=== PATIENT | female | born 1940 | race Caucasian/White ===

== ENCOUNTER 2017-11-21 10:43 | Inpatient (IN) ==
[2017-11-21 11:28] LABS: INR 1.2; Prothrombin Time 13.2 Seconds (9.4-12.1)
[2017-11-21 11:31] LABS: Activated Partial Thrombo Time 34.2 Seconds (26.0-36.0)
--- NOTE | 2017-11-21 11:38 | Emergency Department Note ---
Disposition Clinical Impression: Dyspnea Qualifiers: Dyspnea type: unspecified Qualified Code(s): R06.00 - Dyspnea, unspecified Disposition: Admitted As Inpatient Condition: Fair Referrals: Bronson Harris DO [Primary Care Provider] - Forms: ED Satisfaction Letter Time of Disposition: 15:31 SOB HPI - General Chief Complaint: ED Shortness of Breath/Dyspnea Stated Complaint: came from IR d/t SOB/ANGIE-possible need for IVF Time Seen by Provider: 11/21/17 11:35 Source: patient, family, other Mode of arrival: wheelchair Limitations: no limitations Nursing Notes Reviewed: Yes Vital Signs Reviewed: Yes - History of Present Illness 77-year-old who was recently diagnosed with what the family states is a possibility of 2 primary cancers 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 She was IR getting a port placed for a biopsy tomorrow of the kidney lesion. Patient has increasing shortness of breath that she has had for over a month. Progressively worse. Pt Subjective Complaint: shortness of breath, cough Onset (ago): week(s) (4) Context: recent illness Severity: moderate Consistency/Duration: intermittent Improves with: nothing Worsens with: exertion Known history of: other (Only diagnosed lesion on the liver and kidney) Associated symptoms: Reports: cough Treatment prior to arrival: none Cough Description: Involuntary Cough Frequency: Intermittent - Related Data Home Medications Medication Instructions Recorded Confirmed Aspirin [Lo-Dose Aspirin EC] 81 mg PO DAILY 09/23/17 10/21/17 Atenolol/Chlorthalidone [Tenoretic 1 each PO DAILY 09/23/17 10/21/17 50 Tablet] Calcium Carbonate [Calcium] 600 mg PO DAILY 09/23/17 10/21/17 Cholecalciferol (D-3) [Vitamin D] 1,000 unit PO DAILY 09/23/17 10/21/17 Multivitamin [Multivitamins] 1 each PO DAILY 09/23/17 10/21/17 Furosemide [Lasix] 20 mg PO 11/15/17 Oxycodone HCl [Oxycontin] 10 mg PO 11/15/17 Pantoprazole Sodium [Protonix] 40 mg PO 11/15/17 Previous Rx's Medication Instructions Recorded Clopidogrel [Plavix] 75 mg PO DAILY #30 tablet 09/24/17 Lidocaine/Prilocaine [Emla] 1 appl TP DAILY #30 gm 11/15/17 Promethazine [Phenergan] 25 mg PO Q6HR PRN #30 tablet 11/15/17 Allergies Allergy/AdvReac Type Severity Reaction Status Date / Time shellfish derived AdvReac Swelling Verified 11/21/17 10:46 of the Eye All systems ED: reviewed and negative except as stated. Constitutional: Denies: fever, chills, weakness, weight change Eyes: Denies: eye pain, eye discharge, vision change ENT ED: Denies: ear pain, throat pain, dental pain, hearing loss, epistaxis, congestion, dysphagia Cardiovascular: Denies: chest pain, palpitations, dyspnea on exertion, edema, syncope Respiratory: Reports: cough, dyspnea. Denies: wheezes, hemoptysis, stridor Gastrointestinal: Denies: abdominal pain, nausea, vomiting, diarrhea, constipation, hematemesis, melena, hematochezia Genitourinary: Denies: dysuria, frequency, hematuria, discharge Musculoskeletal: Denies: back pain, neck pain, arthralgia, myalgia Integumentary: Denies: rash, abrasion, lesions Neurological: Denies: headache, weakness, numbness, paresthesias, confusion, abnormal gait, vertigo Psychiatric: Denies: anxiety, depression, suicidal thoughts, homicidal thoughts , auditory hallucinations, visual hallucinations Endocrine: Denies: fatigue Hematological/Lymphatic: Denies: easy bleeding, easy bruising Allergic/Immunologic: Denies: facial swelling, urticaria Past Medical History - Past Medical History Medical history: Reports: cancer, diabetes, hyperlipidemia, hypertension, myocardial infarction Surgical history: Reports: cataract Psychiatric history: Reports: no psych history - Social History Smoking Status: Former smoker Smokeless Tobacco Status: No Alcohol use: Reports: none Drug use: Reports: none Physical Exam - General Limitations: no limitations General appearance: alert - Head Head exam: atraumatic, normocephalic, normal inspection - Eye Eye exam: Present: normal appearance, PERRL, EOMI - ENT ENT exam: normal exam, normal oropharynx, mucous membranes moist - Neck Neck exam: Present: normal inspection, full ROM, trachea midline - Chest Chest inspection: Present: normal inspection, symmetric chest wall rise - Respiratory Respiratory exam: Present: normal lung sounds bilaterally - Cardiovascular Cardiovascular exam: Present: regular rate, normal rhythm, normal heart sounds - Abdominal Exam Abdominal exam: Present: soft, Non-Tender. Absent: tenderness, distention, guarding, rebound, rigidity - Extremities Exam Extremities exam: Present: normal inspection, full ROM. Absent: tenderness, pedal edema - Expanded Lower Extremity Exam Neurovascular/Tendon exam: Absent: motor deficit, sensory deficit, tendon deficit Gait: observed and normal - Back Exam Back exam: Present: normal inspection, full ROM. Absent: tenderness - Neurological Exam Neurological exam: Present: alert, oriented X3 - Psychiatric Psychiatric exam: Present: normal affect, normal mood - Skin Skin exam: Present: warm, dry, intact, normal color Course - Reevaluation(s) Reevaluation #1: 77-year-old female whose been having increasing shortness of breath. Her troponin came back elevated at 0.30 she does have some mild renal insufficiency with a GFR 45. In light of her risk factors certainly a PE with strain is possible subarachnoid go ahead and do a CTA of her chest we did discuss that her creatinine is elevated and this contrast can cause damage to the kidneys but the benefits outweigh the risk. Time: 12:52 - Consultations Consultation #1: Discussed with , admit. Time: 15:30 Vital Signs O2 Sat by Pulse Oximetry 97 11/21/17 10:47 Temperature 98.1 F 11/21/17 10:48 Pulse Rate 77 11/21/17 14:34 Respiratory Rate 20 11/21/17 14:34 Blood Pressure 130/73 11/21/17 14:34 O2 Sat by Pulse Oximetry 94 11/21/17 14:34 Oxygen Delivery Oxygen Delivery Room Air Shortness of Breath/Dyspnea - Lab Data Lab results reviewed: Yes I reviewed the patient's lab results. Result diagrams: 11/21/17 11:46 11/21/17 11:07 Lab Results 11/21/17 11/21/17 11/21/17 Range/Units 11:07 11:07 11:07 WBC (4.3-11.1) K/mcL RBC (3.82-4.97) M/mcL Hgb (11.5-15.4) g/dL Hct (35.3-44.9) % MCV (83.0-100.0) fL MCH (28.0-33.3) pg MCHC (31.6-35.5) g/dL RDW (11.5-14.5) % Plt Count (140-400) K/mcL MPV (9.4-12.4) fL Immature Gran % (0-4) % Seg Neutrophils % % Lymphocytes % % Monocytes % % Eosinophils % % Basophils % % Neutrophils # (1.6-8.9) K/mcL Lymphocytes # (0.6-4.6) K/mcL Monocytes # (0.0-1.3) K/mcL Eosinophils # (0.0-0.6) K/mcL Basophils # (0.0-0.2) K/mcL PT 13.2 H (9.4-12.1) Seconds INR 1.2 APTT 34.2 (26.0-36.0) Seconds Sodium 143 (136-145) mEq/L Potassium 3.0 L (3.5-5.1) mEq/L Chloride 101 (98-107) mEq/L Carbon Dioxide 33 H (23-29) mEq/L BUN 20 (8-23) mg/dL Creatinine 1.18 (0.60-1.20) mg/dL Est GFR ( Amer) 54 L (> 60) Est GFR (Non-Af Amer) 45 L (> 60) BUN/Creatinine Ratio 17 (6-26) Glucose 121 H (70-105) mg/dL Calculated Osmolality 300 (280-300) Lactic Acid (0.5-2.2) mmol/L Calcium 9.4 (8.6-10.3) mg/dL Total Bilirubin 1.6 H (0.3-1.0) mg/dL AST 47 H (13-39) Units/L ALT 22 (7-52) Units/L Alkaline Phosphatase 65 (34-104) Units/L Troponin I 0.30 H* (< 0.04) ng/mL B-Natriuretic Peptide (Less than 100) pg/mL Serum Total Protein 6.4 (6.4-8.9) g/dL Albumin 3.3 L (3.5-5.7) g/dL Globulin 3.1 (2.4-3.5) g/dL Albumin/Globulin Ratio 1.1 (1.1-2.2) Specimen Rejected 11/21/17 11/21/17 11/21/17 Range/Units 11:07 11:27 11:29 WBC (4.3-11.1) K/mcL RBC (3.82-4.97) M/mcL Hgb (11.5-15.4) g/dL Hct (35.3-44.9) % MCV (83.0-100.0) fL MCH (28.0-33.3) pg MCHC (31.6-35.5) g/dL RDW (11.5-14.5) % Plt Count (140-400) K/mcL MPV (9.4-12.4) fL Immature Gran % (0-4) % Seg Neutrophils % % Lymphocytes % % Monocytes % % Eosinophils % % Basophils % % Neutrophils # (1.6-8.9) K/mcL Lymphocytes # (0.6-4.6) K/mcL Monocytes # (0.0-1.3) K/mcL Eosinophils # (0.0-0.6) K/mcL Basophils # (0.0-0.2) K/mcL PT (9.4-12.1) Seconds INR APTT (26.0-36.0) Seconds Sodium (136-145) mEq/L Potassium (3.5-5.1) mEq/L Chloride (98-107) mEq/L Carbon Dioxide (23-29) mEq/L BUN (8-23) mg/dL Creatinine (0.60-1.20) mg/dL Est GFR ( Amer) (> 60) Est GFR (Non-Af Amer) (> 60) BUN/Creatinine Ratio (6-26) Glucose (70-105) mg/dL Calculated Osmolality (280-300) Lactic Acid (0.5-2.2) mmol/L Calcium (8.6-10.3) mg/dL Total Bilirubin (0.3-1.0) mg/dL AST (13-39) Units/L ALT (7-52) Units/L Alkaline Phosphatase (34-104) Units/L Troponin I (< 0.04) ng/mL B-Natriuretic Peptide 429 H (Less than 100) pg/mL Serum Total Protein (6.4-8.9) g/dL Albumin (3.5-5.7) g/dL Globulin (2.4-3.5) g/dL Albumin/Globulin Ratio (1.1-2.2) Specimen Rejected Hemolyzed MCV Delta 11/21/17 11/21/17 Range/Units 11:46 12:03 WBC 6.2 (4.3-11.1) K/mcL RBC 3.73 L (3.82-4.97) M/mcL Hgb 11.6 (11.5-15.4) g/dL Hct 35.1 L (35.3-44.9) % MCV 94.1 D (83.0-100.0) fL MCH 31.1 (28.0-33.3) pg MCHC 33.0 (31.6-35.5) g/dL RDW 18.6 H (11.5-14.5) % Plt Count 161 (140-400) K/mcL MPV 11.9 (9.4-12.4) fL Immature Gran % 1.0 (0-4) % Seg Neutrophils % 66.0 % Lymphocytes % 15.7 % Monocytes % 16.8 % Eosinophils % 0.2 % Basophils % 0.3 % Neutrophils # 4.1 (1.6-8.9) K/mcL Lymphocytes # 1.0 (0.6-4.6) K/mcL Monocytes # 1.1 (0.0-1.3) K/mcL Eosinophils # 0.0 (0.0-0.6) K/mcL Basophils # 0.0 (0.0-0.2) K/mcL PT (9.4-12.1) Seconds INR APTT (26.0-36.0) Seconds Sodium (136-145) mEq/L Potassium (3.5-5.1) mEq/L Chloride (98-107) mEq/L Carbon Dioxide (23-29) mEq/L BUN (8-23) mg/dL Creatinine (0.60-1.20) mg/dL Est GFR ( Amer) (> 60) Est GFR (Non-Af Amer) (> 60) BUN/Creatinine Ratio (6-26) Glucose (70-105) mg/dL Calculated Osmolality (280-300) Lactic Acid 2.2 (0.5-2.2) mmol/L Calcium (8.6-10.3) mg/dL Total Bilirubin (0.3-1.0) mg/dL AST (13-39) Units/L ALT (7-52) Units/L Alkaline Phosphatase (34-104) Units/L Troponin I (< 0.04) ng/mL B-Natriuretic Peptide (Less than 100) pg/mL Serum Total Protein (6.4-8.9) g/dL Albumin (3.5-5.7) g/dL Globulin (2.4-3.5) g/dL Albumin/Globulin Ratio (1.1-2.2) Specimen Rejected - EKG Data EKG attestation: Yes I reviewed and interpreted this EKG. EKG shows normal: Reports: sinus rhythm Rate: Reports: normal Rhythm: Reports: NSR Interpretation: Reports: no acute changes
[2017-11-21 11:39] LABS: Albumin 3.3 g/dL (3.5-5.7); Albumin/Globulin Ratio 1.1 (1.1-2.2); Bilirubin,Total 1.6 mg/dL (0.3-1.0); Calcium 9.4 mg/dL (8.6-10.3); Globulin 3.1 g/dL (2.4-3.5); Total Protein 6.4 g/dL (6.4-8.9)
[2017-11-21 12:02] LABS: Basophils % 0.3 %; Eosinophils % 0.2 %; Hematocrit 35.1 % (35.3-44.9); Hemoglobin 11.6 g/dL (11.5-15.4); Lymphocytes % 15.7 %; Mean Corpuscular Hemoglobin 31.1 pg (28.0-33.3); Mean Corpuscular Volume 94.1 fL (83.0-100.0); Mean Platelet Volume 11.9 fL (9.4-12.4); Monocytes # 1.1 K/mcL (0.0-1.3); Monocytes % 16.8 %; Neutrophils # 4.1 K/mcL (1.6-8.9); Platelet Count 161 K/mcL (140-400); Red Blood Count 3.73 M/mcL (3.82-4.97); Red Cell Distribution Width 18.6 % (11.5-14.5)
[2017-11-21] MEDS ORDERED: 0.9 % Sodium Chloride 500 ML IVC ONE (13:39)
[2017-11-21] MEDS ORDERED: Furosemide 40 MG/4 ML VIAL IVP ONE (15:59)
[2017-11-21] MEDS ORDERED: Naloxone 0.4 MG/ML INJ IVP PRN (17:22)
[2017-11-21] MEDS ORDERED: Acetaminophen 325 MG TABLET PO PRN (17:22)
[2017-11-21] MEDS ORDERED: Potassium Chloride Elixir 20 MEQ/15 ML UDC PO ONE (17:25)
[2017-11-21] MEDS ORDERED: Nitroglycerin 0.4 MG TAB.SUBL SL PRN (17:25)
[2017-11-21] MEDS ORDERED: Dextrose Gel 15 GM/37.5 ML TUBE PO PRN ×2 (17:31)
[2017-11-21] MEDS ORDERED: *HR* Dextrose 50 % in Water (Syg) 50 ML SYRINGE IVP PRN (17:31)
[2017-11-21] MEDS ORDERED: D5% in Water 1,000 ML IVC PRN (17:31)
--- NOTE | 2017-11-21 17:36 | Internal Med History&Physical ---
Date of Encounter: 11/21/17 Time of Encounter: 17:33 Assessment and Plan (1) Elevated troponin Current visit: Yes Status: Acute Patient presents with worsening exertional dyspnea, pedal edema, generalized weakness, nausea and vomiting. Initial troponin noted to be 0.3. Previous troponin last month noted to be normal. EKG shows no acute ischemic changes. Aspirin and Plavix have been on hold for the last week for chemotherapy port placement and renal biopsy. Case discussed with cardiology - recommend to continue telemetry and trend troponins for now. Restart aspirin, hold off on anticoagulation. Received a dose of IV Lasix in the emergency room. We will continue oral Lasix at this time. CT angiogram of chest shows no evidence of acute infiltrates or pulmonary embolism. Echocardiogram from August 2017 shows preserved ejection fraction, moderate concentric LVH, mild left ventricular diastolic dysfunction. Plan of care explained to patient and her daughter at bedside. (2) Renal cell cancer Current visit: Yes Status: Suspected CT abdomen/pelvis from 11/01/2017 shows suspicious solid mass within the left kidney, would be primary renal cell cancer versus metastatic disease. Patient follows with oncology as outpatient, need to exclude metastatic disease from cholangiocarcinoma for appropriate treatment planning. Tentative plan for renal biopsy tomorrow if patient is clinically stable with negative troponins. Qualifiers: Laterality: left Qualified Code(s): C64.2 - Malignant neoplasm of left kidney, except renal pelvis (3) Essential hypertension Current visit: Yes Status: Chronic Blood pressure acceptable. Not noted to be on antihypertensives at home. Continue to monitor closely. (4) Diabetes mellitus Current visit: Yes Status: Chronic Not on medications at home. Continue Accu-Chek blood glucose monitoring with sliding scale insulin if needed. Diabetic diet. Qualifiers: Diabetes mellitus type: type 2 Diabetes mellitus complication status: with unspecified complications Diabetes mellitus senior living insulin use: without senior living use Qualified Code(s): E11.8 - Type 2 diabetes mellitus with unspecified complications (5) Coronary artery disease Current visit: Yes Status: Chronic Continue aspirin, hold Plavix for possible renal biopsy and chemotherapy port placement. Not noted to be on statin or beta reese at home. Follow-up cardiology consult. Qualifiers: Coronary Disease-Associated Artery/Lesion type: [place] artery [place] vs. transplanted heart: [place] heart Associated angina: without angina Qualified Code(s): I25.10 - Atherosclerotic heart disease of [place] coronary artery without angina pectoris (6) Chronic kidney disease Current visit: Yes Status: Suspected GFR is noted to be elevated since end of August, unclear if this is chronic kidney disease related to recent cardiac catheter and multiple CT scans. Continue to monitor serum creatinine, and avoid nephrotoxic agents. Qualifiers: Chronic kidney disease stage: stage 3 (moderate) Qualified Code(s): N18.3 - Chronic kidney disease, stage 3 (moderate) (7) Cholangiocarcinoma Current visit: Yes Status: Acute Follows with oncology as outpatient. Plan for renal biopsy to exclude metastatic cholangiocarcinoma, plan to start chemotherapy with gemcitabine and oxaliplatin from 11/28/2017. will consult inpatient oncology as needed. (8) Nausea and vomiting Current visit: Yes Status: Acute Unclear etiology. Could be related to underlying cancer versus coronary event. Continue supportive care with when necessary antiemetics and monitor clinically. Qualifiers: Vomiting type: bilious vomiting Qualified Code(s): R11.14 - Bilious vomiting (9) Hypokalemia Current visit: Yes Status: Acute due to diuretic-use, GI losses; replace with oral KCL, continue to monitor, check Mg; Internal Medicine - H&P: HPI Chief complaint: Shortness of breath Admitted From: Emergency Dept Plans for Post Hospital Care: Home History of present illness: Ms. Singletary is a 77 year old female with history of recently diagnosed cholangiocarcinoma and possible renal cell cancer, presents with complaints of shortness of breath. Patient presented to interventional radiology this morning to have chemotherapy port placed and also to have a kidney biopsy tomorrow. However, patient has been having persistent nausea, bilious nonbloody vomiting since yesterday associated with generalized weakness. She was too weak to walk in the radiology suite and she also became significantly short of breath and in respiratory distress. Patient is hard of hearing, history is also obtained from her daughter at bedside. Patient has been having 2-3 week history of exertional dyspnea and ankle and leg swelling and has been started on oral Lasix 2 weeks ago by her PCP. She also received coronary stent in August 2017 and has been placed on aspirin and Plavix since then, which were held since last week for kidney biopsy and port placement. She had recent hospitalization at [place] for acute anemia, underwent EGD and colonoscopy with no evidence of bleed. Past Med Surg Social Fam HX - Past Medical History Medical history: cancer, coronary artery disease, diabetes, hyperlipidemia, hypertension, myocardial infarction Psychiatric history: no psych history - Past Surgical History Surgical History: cataract, knee replacement (B/L TKR) - Social History Smoking Status: Former smoker Smokeless Tobacco Status: No Alcohol use: none Drug use: none Occupational status: retired Current living situation: Home, With Family Activity Level: Uses cane/walker Recent Out of Country Travel Within the Last 8 Weeks: No Exposure or Possible Exposure to Illness During Travel: No - Family History Brother Hx Family Endocrine Disorder: Yes (DM) Internal Medicine - H&P: Meds Aspirin [Lo-Dose Aspirin EC] 81 mg PO DAILY 09/23/17 [History] Cholecalciferol (D-3) [Vitamin D] 1,000 unit PO QPM 09/23/17 [History] Multivitamin [Multivitamins] 1 each PO QPM 09/23/17 [History] Clopidogrel [Plavix] 75 mg PO DAILY #30 tablet 09/24/17 [Rx] Furosemide [Lasix] 20 mg PO DAILY 11/15/17 [History] Pantoprazole Sodium [Protonix] 40 mg PO DAILY 11/15/17 [History] Promethazine [Phenergan] 25 mg PO Q6HR PRN #30 tablet 11/15/17 [Rx] Cyanocobalamin (Vitamin B-12) [Vitamin B-12] 100 mcg PO QPM 11/21/17 [History] Lidocaine/Prilocaine [Emla] 1 appl TP AD 11/21/17 [History] Nitroglycerin [Nitrostat] 0.4 mg SL Q5M PRN 11/21/17 [History] OxyCODONE Immed Rel [Roxicodone 10 MG] 10 mg PO TID PRN 11/21/17 [History] glipiZIDE [Glucotrol] 5 mg PO 0800 11/21/17 [History] 3 Allergy/AdvReac Type Severity Reaction Status Date / Time shellfish derived AdvReac Swelling Verified 11/21/17 10:46 of the Eye All Systems PM: A 10-system review of systems was performed and is negative for pertinent findings except as documented above in the HPI. - Constitutional Constitutional: malaise, weakness, no chills, no fever(s), no night sweats - EENT Eyes: no change in vision, no discharge, no pain, no photophobia Ears: no ear discharge, no ear pain, no tinnitus Nose, mouth and throat: no dysphagia, no nasal discharge, no neck pain, no sore throat - Cardiovascular Cardiovascular ROS IM: dyspnea, dyspnea on exertion, edema - Respiratory Respiratory: cough, dyspnea on exertion - Gastrointestinal Gastrointestinal: abdominal pain, nausea, vomiting - Genitourinary Genitourinary: no change in urinary stream, no dysuria, no flank pain, no hematuria - Musculoskeletal Musculoskeletal ROS IM: no numbness, no tingling - Integumentary Integumentary IM: no rash, no unusual bruising - Neurological Neurological ROS: no confusion, no convulsions, no focal weakness, no numbness, no tingling, no tremor(s) - Hematologic/Lymphatic Hematologic/Lymphatic: no easy bruising - Constitutional Vitals: Temp Pulse Resp BP Pulse Ox 98.1 F 75 24 107/86 96 11/21/17 10:48 11/21/17 16:30 11/21/17 17:25 11/21/17 17:25 11/21/17 16:30 General appearance: Present: A&O X 3 (hard of hearing), obese, answers questions appropriately - Respiratory Respiratory exam: Present: CTAB. Absent: accessory muscle use, rales, rhonchi, wheezes - Cardiovascular Cardiovascular exam: Present: RRR, +S1, +S2. Absent: diastolic murmur, gallop, rubs, systolic murmur - GI/Abdominal GI/Abdominal exam: Present: normal bowel sounds, soft (obese), no peritoneal signs. Absent: distended, tenderness - Extremities Exam Extremities exam: Present: full ROM, pedal edema (B/L 1+ ankle and lower leg edema), warm, radial pulses palpable and symmetrical. Absent: calf tenderness, cyanotic - Neurological Exam Neurological exam: Present: CN II-XII intact, oriented X3, no focal deficits. Absent: pronater drift, facial droop, speech deficit - Skin Skin exam: Present: dry, intact Internal Med - H&P Results - Labs CBC & Chem 7: 11/21/17 11:46 11/21/17 11:07 - EKG Data -: EKG Interpreted by Myself EKG shows normal: sinus rhythm Rate: normal
[2017-11-21] MEDS: Aspirin Enteric Coated 81 MG Tablet PO SCH (17:57)
[2017-11-21] MEDS ORDERED: VITAMIN B12 100 MCG PO SCH (18:00)
[2017-11-21] MEDS: Cholecalciferol (D-3) 1,000 UNIT TABLET PO SCH (18:07)
[2017-11-21] MEDS: Multivit/Ca/Min/Fe/FA 1 TAB TABLET PO SCH (18:08)
[2017-11-21] MEDS: Insulin LISPRO 300 UNITS/3 ML VIAL SQ SCH (22:47)
[2017-11-21] MEDS: *HR* Heparin 5,000 UNIT/ML VIAL SQ SCH (23:19)
[2017-11-22] MEDS: *HR* OxyCODONE Immed Rel 5 MG TABLET PO PRN ×2 (00:11→16:25)
[2017-11-22 07:26] LABS: Basophils % 0.6 %; Eosinophils % 0.6 %; Hematocrit 37.1 % (35.3-44.9); Hemoglobin 11.8 g/dL (11.5-15.4); Immature Granulocytes % 0.2 % (0-4); Lymphocytes # 1.4 K/mcL (0.6-4.6); Lymphocytes % 26.8 %; Mean Corpuscular HGB Conc 31.8 g/dL (31.6-35.5); Mean Corpuscular Volume 97.4 fL (83.0-100.0); Mean Platelet Volume 11.4 fL (9.4-12.4); Monocytes # 0.7 K/mcL (0.0-1.3); Monocytes % 14.7 %; Neutrophils # 2.9 K/mcL (1.6-8.9); Platelet Count 160 K/mcL (140-400); Red Blood Count 3.81 M/mcL (3.82-4.97); Red Cell Distribution Width 18.6 % (11.5-14.5); Segmented Neutrophils % 57.1 %
[2017-11-22 07:29] LABS: Magnesium 1.6 mg/dL (1.6-2.6); Potassium 3.3 mEq/L (3.5-5.1)
[2017-11-22] MEDS: Insulin LISPRO 300 UNITS/3 ML VIAL SQ SCH ×4 (07:40→22:11)
[2017-11-22] MEDS: Aspirin Enteric Coated 81 MG Tablet PO SCH (07:41)
[2017-11-22] MEDS: *HR* HYDROcodone/Acet 5/325 mg TABLET PO PRN ×2 (07:55→20:03)
[2017-11-22] MEDS: *HR* Heparin 5,000 UNIT/ML VIAL SQ SCH ×2 (07:55→16:26)
[2017-11-22] MEDS: Furosemide 20 MG TABLET PO SCH ×2 (07:55→16:25)
--- NOTE | 2017-11-22 08:10 | Cardiology Consult Note ---
Date of Encounter: 11/22/17 Time of Encounter: 08:06 Assessment and Plan (1) Elevated troponin Current Visit: Yes Status: Acute Likely atypical chest pain almost non cardiac worse with coughing. Euvolemic on exam yet SOB also likely non cardiac. Will obtain limited echo for EF to r/o RWMA. Unlikley to be stent thrombosis with non specific ekg, atypical chest pain and dontrending trops. ASA 81 mg daily if not contraindicated Plavix 75 mg daily when safe (hx of GI Bleed) Limited ECHO fo EF Discussion w patient/family: The assessment and plan as outlined above was discussed with the patient and/or family members who expressed understanding and agreement. All questions were answered. Thank you for involving us in the care of your patient. Please call with any questions. History of Present Illness Consult date: 11/22/17 Consult reason: Elevated troponins Chief complaint: Chest pain History of present illness: Ms. Singletary is a 77 year old female with hx of CAD (s/p Synergy stent in the proximal LAD), DM, HTN, RCC, Cholangiocarcinoma presents with weakness, nausea and chest pain. Her CP is atypical, worse with coughing and slightly positional. EKG is unremarkable as was CTA for PE or infiltrates. Currently she is still complaining of SOB, weakness laying flat in bed. No signs of hypervolemia on exam. Last EF 55% preserved on ECHO with moderate concentric hypertrophy. Initial trop .24 now at .20 indicating likely demand ischemia not stent thrombosis. Past Med Surg Social Fam HX - Past Medical History Medical history: cancer, coronary artery disease, diabetes, hyperlipidemia, hypertension, myocardial infarction Psychiatric history: no psych history - Past Surgical History Surgical History: cataract, knee replacement (B/L TKR) - Social History Smoking Status: Former smoker Smokeless Tobacco Status: No Alcohol use: none Drug use: none - Family History Mother Cause of : diptheria Father Hx Family Cancer: Yes (bone cancer) Brother Hx Family Endocrine Disorder: Yes (DM) Medications and Allergies Aspirin [Lo-Dose Aspirin EC] 81 mg PO DAILY 09/23/17 [History] Cholecalciferol (D-3) [Vitamin D] 1,000 unit PO QPM 09/23/17 [History] Multivitamin [Multivitamins] 1 each PO QPM 09/23/17 [History] Clopidogrel [Plavix] 75 mg PO DAILY #30 tablet 09/24/17 [Rx] Furosemide [Lasix] 20 mg PO DAILY 11/15/17 [History] Pantoprazole Sodium [Protonix] 40 mg PO DAILY 11/15/17 [History] Promethazine [Phenergan] 25 mg PO Q6HR PRN #30 tablet 11/15/17 [Rx] Cyanocobalamin (Vitamin B-12) [Vitamin B-12] 100 mcg PO QPM 11/21/17 [History] Lidocaine/Prilocaine [Emla] 1 appl TP AD 11/21/17 [History] Nitroglycerin [Nitrostat] 0.4 mg SL Q5M PRN 11/21/17 [History] OxyCODONE Immed Rel [Roxicodone 10 MG] 10 mg PO TID PRN 11/21/17 [History] glipiZIDE [Glucotrol] 5 mg PO 0800 11/21/17 [History] 3 Allergy/AdvReac Type Severity Reaction Status Date / Time shellfish derived AdvReac Swelling Verified 11/21/17 10:46 of the Eye All Systems Review: The remainder of the systems were reviewed and are negative Physical Examination Vital Signs, Last 4 Hours Temp Pulse Resp BP Pulse Ox 11/22/17 05:53 98.5 F 72 16 131/56 96 General: Conversant, No Apparent Distress HEENT: Atraumatic, Normocephaly, Mucus Membranes Moist Neck: No JVD, Normal carotid pulses Cardiac: Reg Rate and Rhythm, Normal S1 and S2, No Murmur Lungs: Normal Breath Sounds, No Wheeze, Rales, Rhonchi Neuro: Alert and responsive, No focal deficits noted Abdomen: Soft, Non-Tender Skin: No rashes noted on visualized skin Musculoskeletal: No Chest Wall Tenderness Extremities: No Clubbing, No Cyanosis, No Edema, Normal Pulses Results 11/22/17 06:45 11/22/17 06:45 Lab Results 11/22/17 11/22/17 11/22/17 06:45 06:45 06:45 WBC 5.0 Hgb 11.8 Hct 37.1 Plt Count 160 Sodium 140 Potassium 3.3 L Chloride 99 Carbon Dioxide 32 H BUN 19 Creatinine 1.15 Glucose 99 Calcium 9.0 Magnesium 1.6 Troponin I 0.20 H* Consult Discharge Plan - Plan Referrals: Bronson Harris, [Primary Care Provider] -
[2017-11-22] MEDS: Ipratropium/Albuterol Neb 3 ML IH SCH ×3 (09:50→22:19)
[2017-11-22] MEDS ORDERED: Heparin 1,000 UNITS/500 mL 500 ML ONE (10:27)
--- NOTE | 2017-11-22 11:45 | Event Note ---
Date of Encounter: 11/22/17 Time of Encounter: 11:45 - Cardiology Event Note Per discussion with Dr. Cantu, limited echo ordered.
[2017-11-22] MEDS: Benzonatate 100 MG CAPSULE PO PRN ×2 (12:00→17:34)
[2017-11-22] MEDS ORDERED: Potassium Chloride Elixir 20 MEQ/15 ML UDC PO ONE (13:45)
[2017-11-22] MEDS: Cholecalciferol (D-3) 1,000 UNIT TABLET PO SCH (16:25)
[2017-11-22] MEDS: Multivit/Ca/Min/Fe/FA 1 TAB TABLET PO SCH (16:25)
[2017-11-22] MEDS ORDERED: Ondansetron 4 MG/2 ML VIAL IVP PRN (17:04)
--- NOTE | 2017-11-22 17:07 | Internal Med Progress Note ---
Date of Encounter: 11/22/17 Time of Encounter: 11:00 - Assessment and plan (1) Elevated troponin Current Visit: Yes Status: Acute Assessment and plan: -Patient with elevated cardiac biomarkers -Radiology consult for ACS rule out and appreciate recommendations (2) Hypokalemia Current Visit: Yes Status: Acute Assessment and plan: -Potassium 3.3 today and was 3.0yesterday -Replacements order; we will continue to monitor (3) Nausea and vomiting Current Visit: Yes Status: Acute Assessment and plan: -Patient with history of nausea and vomiting -Will treat with IV Zofran as needed -Suspect secondary to newly diagnosed cholangiocarcinoma Qualifiers: Vomiting type: unspecified Vomiting Intractability: unspecified Qualified Code(s): R11.2 - Nausea with vomiting, unspecified (4) Cholangiocarcinoma Current Visit: Yes Status: Acute Assessment and plan: -Patient newly diagnosed several weeks ago at [facility] -Patient followed by Dr. Stevens as an outpatient and will be consulted (5) Renal cell cancer Current Visit: Yes Status: Suspected Assessment and plan: -Patient also was suspected renal cell carcinoma but workup in progress -Hematology oncology consulted as above Qualifiers: Laterality: left Qualified Code(s): C64.2 - Malignant neoplasm of left kidney, except renal pelvis (6) Coronary artery disease Current Visit: Yes Status: Chronic Assessment and plan: -Patient with history of CAD (s/p Synergy stent in the proximal LAD) -Elevated cardiac biomarkers as above; cardiology following Qualifiers: Coronary Disease-Associated Artery/Lesion type: [place] artery [place] vs. 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 insulin use: without senior care use Qualified Code(s): E11.8 - Type 2 diabetes mellitus with unspecified complications (8) DVT prophylaxis Current Visit: Yes Status: Acute Assessment and plan: heparin subcutaneous - Subjective Interval history: Patient with elevated cardiac biomarkers here for ACS rule out Patient also with history of recently diagnosed cholangiocarcinoma with possible renal cell carcinoma; hematology oncology following and consulted - Constitutional Vitals: Temp Pulse Resp BP Pulse Ox 100.4 F H 88 17 115/64 95 11/22/17 15:43 11/22/17 15:43 11/22/17 15:43 11/22/17 15:43 11/22/17 15:43 General appearance: Present: A&O X 3 (hard of hearing), no acute distress, obese , answers questions appropriately - Respiratory Respiratory exam: Present: CTAB. Absent: accessory muscle use, rales, rhonchi, wheezes - Cardiovascular Cardiovascular exam: Present: RRR, +S1, +S2. Absent: diastolic murmur, gallop, rubs, systolic murmur - Skin Skin exam: Present: pallor Internal Medicine: Result - Labs CBC & Chem 7: 11/22/17 06:45 11/22/17 06:45 Labs: Short CBC 11/22/17 Range/Units 06:45 WBC 5.0 (4.3-11.1) K/mcL Hgb 11.8 (11.5-15.4) g/dL Hct 37.1 (35.3-44.9) % Plt Count 160 (140-400) K/mcL Neutrophils # 2.9 (1.6-8.9) K/mcL BMP 11/22/17 06:45 Sodium 140 Potassium 3.3 L Chloride 99 Carbon Dioxide 32 H BUN 19 Creatinine 1.15 Glucose 99 Calcium 9.0 Cardiac Enzymes 11/22/17 11/22/17 Range/Units 06:45 13:08 Troponin I 0.20 H* 0.15 H* (< 0.04) ng/mL - ABG Interpretation ABG results: PT/INR, D-dimer PT 13.2 Seconds (9.4-12.1) H 11/21/17 11:07 Consult Discharge Plan - Plan Referrals: Bronson Harris DO [Primary Care Provider] -
[2017-11-22] MEDS ORDERED: Ondansetron 4 MG/2 ML VIAL ONE (17:08)
[2017-11-22 17:57] LABS: ABG Base Excess 6 mEq/L (-2 to 3); ABG HCO3 30 mEq/L (21-27); ABG Oxygen Saturation 95 % (95-98); ABG PCO2 40 mmHg (35-45); ABG PH 7.48 pH Units (7.32-7.45); ABG PO2 70 mmHg (85-104); ABG TCO2 31 mEq/L (20-26)
[2017-11-22] MEDS: Piperacillin/Tazobactam 3.375 GM in 0.9 % Sodium Chloride Mini Bag 100 ML IVPB SCH (18:33)
[2017-11-22 18:47] LABS: Adenovirus Not Detected (Not Detect); Coronavirus 229E Not Detected (Not Detect); Coronavirus HKU1 Not Detected (Not Detect); Coronavirus NL63 Not Detected (Not Detect); Coronavirus OC43 Not Detected (Not Detect); Human Metapneumovirus Not Detected (Not Detect)
[2017-11-22 18:48] LABS: Bordetella Pertussis Not Detected (Not Detect); Chlamydophila pneumoniae Not Detected (Not Detect); Human Rhinovirus/Enterovirus Not Detected (Not Detect); Influenza A Subtype 2009 H1 Not Detected (Not Detect); Influenza A Untypeable Not Detected (Not Detect); Influenza B Not Detected (Not Detect); Mycoplasma pneumoniae Not Detected (Not Detect); Parainfluenza Virus 1 Not Detected (Not Detect); Parainfluenza Virus 2 Not Detected (Not Detect); Parainfluenza Virus 3 Not Detected (Not Detect); Parainfluenza Virus 4 Not Detected (Not Detect); Respiratory Syncytial Virus Not Detected (Not Detect)
[2017-11-23] MEDS: *HR* Heparin 5,000 UNIT/ML VIAL SQ SCH ×4 (00:32→23:25)
[2017-11-23] MEDS: Piperacillin/Tazobactam 3.375 GM in 0.9 % Sodium Chloride Mini Bag 100 ML IVPB SCH (02:12)
[2017-11-23] MEDS: *HR* HYDROcodone/Acet 5/325 mg TABLET PO PRN ×2 (02:12→23:24)
[2017-11-23] MEDS: Ipratropium/Albuterol Neb 3 ML IH SCH ×4 (04:47→21:57)
[2017-11-23] MEDS: *HR* OxyCODONE Immed Rel 5 MG TABLET PO PRN ×2 (05:13→10:43)
[2017-11-23] MEDS: Aspirin Enteric Coated 81 MG Tablet PO SCH (07:13)
[2017-11-23] MEDS: Insulin LISPRO 300 UNITS/3 ML VIAL SQ SCH ×4 (07:23→20:33)
[2017-11-23] MEDS: Furosemide 20 MG TABLET PO SCH ×2 (07:24→16:30)
[2017-11-23] MEDS: Benzonatate 100 MG CAPSULE PO PRN ×2 (07:32→23:25)
[2017-11-23 08:35] LABS: Basophils % 0.2 %; Eosinophils % 0.2 %; Hematocrit 34.7 % (35.3-44.9); Hemoglobin 10.9 g/dL (11.5-15.4); Immature Granulocytes % 0.5 % (0-4); Lymphocytes # 1.4 K/mcL (0.6-4.6); Lymphocytes % 32.6 %; Mean Corpuscular HGB Conc 31.4 g/dL (31.6-35.5); Mean Corpuscular Hemoglobin 31.1 pg (28.0-33.3); Mean Corpuscular Volume 99.1 fL (83.0-100.0); Mean Platelet Volume 11.5 fL (9.4-12.4); Monocytes # 0.6 K/mcL (0.0-1.3); Monocytes % 14.4 %; Neutrophils # 2.2 K/mcL (1.6-8.9); Platelet Count 127 K/mcL (140-400); Red Cell Distribution Width 18.5 % (11.5-14.5); Segmented Neutrophils % 52.1 %
[2017-11-23 08:57] LABS: Calcium 8.5 mg/dL (8.6-10.3); Potassium 3.4 mEq/L (3.5-5.1)
--- NOTE | 2017-11-23 10:46 | Oncology Inp Consult Note ---
<Rena Angulo L - Last Filed: 11/24/17 08:49> Date of Encounter: 11/23/17 Time of Encounter: 10:46 Assessment and Plan (1) Cholangiocarcinoma Status: Acute Assessment and plan: History details as discussed in HPI. Planned to begin initial therapy soon with Dr. Stevens, however, this will need to be slightly delayed with recent diagnosis of influenza A. Patient is experiencing marked SOB necessitating oxygen therapy at times. Her symptoms leading to her presentation are now explained by her diagnosis of influenza. Will hold on IR mediport placement/kidney biopsy at this time but will reassess patient tomorrow with the hope that she is feeling well enough to potentially undergo mediport placement on Tuesday. Reviewed cardiology consult notes, signed off as chest pain unrelated to ACS. Understand need to start Plavix therapy due to recent PTCI, will determine concrete plan tomorrow pending patients symptomatic improvement. If she is unable to undergo mediport placement/biopsy during hospitalization this week, we will plan to restart her plavix. - Data of Consult Patient: known to practice within the last 3 years Consult date: 11/23/17 Requesting Physician: Tavares Thurman Primary Care Provider: Bronson Harris DO - Consult Narrative Reason for consult: cholangiocarcinoma, suspected renal cell carcinoma r/o metastatic process History of present illness: Ms. 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 At this time surgical intervention is not being pursued. She also has a left medial upper pole kidney lesion that is radiographically consistent with primary renal cell carcinoma, however metastatic process cannot fully be excluded at this time. She had a recent consultation with Dr. Stevens, treating oncologist, where treatment options were discussed. At this visit she was recommended to have PET /CT imaging along with recommendation for CT-guided biopsy of the kidney mass to exclude a metastatic process and Mediport placement to begin treatment. The idea of utilizing gemcitabine and oxaliplatin as initial treatment strategies were introduced by Dr. Stevens. She was planned for close follow-up to review pathology, further radiographic findings and to begin therapy on November 28. Patient presented to IR for mediport placement on 11/21/2017 and subsequently sent to ER without performing procedure due to patients presentation with SOB, weakness and Chest pain. CTA negative for PE. She was found to have an elevated troponin and admitted with cardiology consult to rule out ACS. Following her admission she tested positive for influenza A. Past Med Surg Social Fam HX - Past Medical History Medical history: cancer, coronary artery disease, diabetes, hyperlipidemia, hypertension, myocardial infarction Psychiatric history: no psych history - Past Surgical History Surgical History: cataract, knee replacement (B/L TKR) - Social History Smoking Status: Former smoker Smokeless Tobacco Status: No Alcohol use: none Drug use: none - Family History Mother Cause of : diptheria Father Hx Family Cancer: Yes (bone cancer) Brother Hx Family Endocrine Disorder: Yes (DM) Medications and Allergies Aspirin [Lo-Dose Aspirin EC] 81 mg PO DAILY 09/23/17 [History] Cholecalciferol (D-3) [Vitamin D] 1,000 unit PO QPM 09/23/17 [History] Multivitamin [Multivitamins] 1 each PO QPM 09/23/17 [History] Clopidogrel [Plavix] 75 mg PO DAILY #30 tablet 09/24/17 [Rx] Furosemide [Lasix] 20 mg PO DAILY 11/15/17 [History] Pantoprazole Sodium [Protonix] 40 mg PO DAILY 11/15/17 [History] Promethazine [Phenergan] 25 mg PO Q6HR PRN #30 tablet 11/15/17 [Rx] Cyanocobalamin (Vitamin B-12) [Vitamin B-12] 100 mcg PO QPM 11/21/17 [History] Lidocaine/Prilocaine [Emla] 1 appl TP AD 11/21/17 [History] Nitroglycerin [Nitrostat] 0.4 mg SL Q5M PRN 11/21/17 [History] OxyCODONE Immed Rel [Roxicodone 10 MG] 10 mg PO TID PRN 11/21/17 [History] glipiZIDE [Glucotrol] 5 mg PO 0800 11/21/17 [History] 3 Allergy/AdvReac Type Severity Reaction Status Date / Time shellfish derived AdvReac Swelling Verified 11/21/17 10:46 of the Eye Constitutional: Present: chills, fatigue, fever(s), weakness Eyes: Absent: change in vision Nose, mouth and throat: Absent: mouth lesions Cardiovascular: Present: chest pain. Absent: irregular heart rhythm, palpitations Respiratory: Present: cough, dyspnea, pain with cough Gastrointestinal: Absent: abdominal pain, diarrhea, nausea, vomiting Genitourinary: Absent: dysuria Musculoskeletal: Present: muscle weakness, myalgias Integumentary: Absent: wounds Neurological: Absent: focal weakness Hematologic/Lymphatic: Present: as per HPI Oncology - Exam - Constitutional Vitals: Temp Pulse Resp BP Pulse Ox 98.3 F 73 13 113/65 97 11/23/17 06:59 11/23/17 06:59 11/23/17 06:59 11/23/17 06:59 11/23/17 07:34 General appearance: cooperative, no acute distress, no febrile Exam: chronically ill appearing - Head Head exam: Present: atraumatic - ENT ENT exam: Present: mucous membranes moist - Respiratory Respiratory exam: Present: decreased breath sounds, CTAB Additional comments: no acute respiratory distress but patients appears to be SOB at rest - Cardiovascular Cardiovascular exam: Present: RRR, +S1, +S2 - GI/Abdominal GI/Abdominal exam: Present: normal bowel sounds, soft. Absent: tenderness - Extremities Exam Extremities exam: Present: pedal edema. Absent: calf tenderness - Neurological Exam Neurological exam: Present: alert, oriented X3, no focal deficits, strengths equal and symetr throughout - Psychiatric Psychiatric exam: Present: anxious - Skin Skin exam: Present: pallor, warm Oncology - Results Labs: Short CBC 11/23/17 Range/Units 08:04 WBC 4.2 L (4.3-11.1) K/mcL Hgb 10.9 L (11.5-15.4) g/dL Hct 34.7 L (35.3-44.9) % Plt Count 127 L (140-400) K/mcL Neutrophils # 2.2 (1.6-8.9) K/mcL BMP 11/23/17 08:04 Sodium 140 Potassium 3.4 L Chloride 98 Carbon Dioxide 33 H BUN 22 Creatinine 1.53 H Glucose 113 H Calcium 8.5 L Cardiac Enzymes 11/22/17 Range/Units 13:08 Troponin I 0.15 H* (< 0.04) ng/mL Consult Discharge Plan - Plan Referrals: Bronson Harris, DO [Primary Care Provider] - (Please call your PCP once you have been discharge and make a hospital follow up for 7-10 days. Thank you!) <Marck Stevens - Last Filed: 11/24/17 19:27> Date of Encounter: 11/24/17 - Data of Consult Requesting Physician: Tavares Thurman Primary Care Provider: Bronson Harris DO - Consult Narrative History of present illness: Ms. Singletary is a 77 year old female Oncology - Exam - Constitutional Vitals: Temp Pulse Resp BP Pulse Ox 99.4 F 89 16 113/68 93 11/23/17 20:05 11/23/17 20:05 11/23/17 20:05 11/23/17 20:05 11/23/17 20:05 Oncology - Results Labs: Short CBC 11/23/17 Range/Units 08:04 WBC 4.2 L (4.3-11.1) K/mcL Hgb 10.9 L (11.5-15.4) g/dL Hct 34.7 L (35.3-44.9) % Plt Count 127 L (140-400) K/mcL Neutrophils # 2.2 (1.6-8.9) K/mcL BMP 11/23/17 08:04 Sodium 140 Potassium 3.4 L Chloride 98 Carbon Dioxide 33 H BUN 22 Creatinine 1.53 H Glucose 113 H Calcium 8.5 L - Attending Attestation I have seen and examined this patient and agree with Ms. Angulo's assessment. Ms. Singletary is a very pleasant 77-year-old woman who recently established care with me. She has an unresectable cholangiocarcinoma with associated portal vein involvement. She appears of a secondary malignancy in her kidney. Originally attempted to arrange for her to undergo Mediport placement and simultaneous biopsy of her kidney. During this procedure, she was acutely short of breath and sent to the emergency department by interventional radiology. She has been subsequently diagnosed with influenza A and is very short of breath and on supplemental oxygen. As such, I recommended continued treatment with Tamiflu or influenza A. We will hold Mediport placement and kidney biopsy for the time being. It would be ideal to hold her Plavix so we can proceed with biopsy once she is stable. However, I do understand the need to restart this medication secondary to recent PTCI. We will deliberate this tomorrow. If we decide not to pursue intervention during his hospital stay, I will restart her Plavix.
[2017-11-23] MEDS: Oseltamivir Phosphate 30 MG CAPSULE PO SCH ×2 (10:54→20:36)
[2017-11-23] MEDS ORDERED: Aminoglycoside Consult 1 EACH MC ONE (11:55)
[2017-11-23] MEDS ORDERED: 0.9 % Sodium Chloride 1,000 ML IVC SCH (13:45)
--- NOTE | 2017-11-23 14:12 | Cardiology Progress Note ---
Date of Encounter: 11/23/17 Time of Encounter: 08:30 Assessment and Plan (1) Influenza A Current Visit: Yes Status: Acute Per cardiology: -Admitted with cough and shortness of breath. -INfluenza A positive. -Management per primary service. (2) Elevated troponin Current Visit: Yes Status: Acute Per cardiology: -Had chest pain while coughing, no exertional chest pain. -Troponins 0.24, 0.3, 0.27, 0.2, 0.15. Troponins flat and adynamic in the setting of influenza A. -TTE with LVEF 70%, mild concentric LVH. -Recent SUKHDEV 08/2017. -ON asa, statin. Was on beta reese in outpatient setting. -Not on plavix due to need for biopsy for possible mets cancer and history of GI bleed. -Recommend resuming plavix when able. Patient is at risk for stent thrombosis without dual antiplatelet therapy. -Cardiology will sign off and will follow in outpatient setting. Follow up set. Discussion w patient/family: The assessment and plan as outlined above was discussed with the patient and/or family members who expressed understanding and agreement. All questions were answered. Thank you for involving us in the care of your patient. Please call with any questions. Subjective Principal diagnosis: influenza A, elevated troponin Interval history: Patient reports chest pain with coughing. Reports shortness of breath. Denies exertional chest pain. Objective Vital Signs, Last 4 Hours Temp Pulse Resp BP Pulse Ox 11/23/17 11:57 99.2 F 77 18 131/66 97 11/23/17 11:22 22 95 General: Conversant, No Apparent Distress HEENT: Atraumatic, Normocephaly, Mucus Membranes Moist Neck: No JVD, Normal carotid pulses Cardiac: Reg Rate and Rhythm, Normal S1 and S2, No Murmur Lungs: Normal Breath Sounds, No Wheeze, Rales, Rhonchi Neuro: Alert and responsive, No focal deficits noted Abdomen: Soft, Non-Tender Skin: No rashes noted on visualized skin Musculoskeletal: No Chest Wall Tenderness Extremities: No Clubbing, No Cyanosis, No Edema, Normal Pulses Results 11/23/17 08:04 11/23/17 08:04 Lab Results Impressions Echocardiogram Limited Views 11/22/17 11:44 Impressions: LVEF 70%. Normal LV chamber size and function. Mild concentric left ventricular hypertrophy. Findings: Study Quality * Technically adequate exam. ECG Findings * Normal sinus rhythm. Left Ventricle * LVEF 70%. * Normal LV chamber size and function. * Mild concentric left ventricular hypertrophy. Right Ventricle * Normal right ventricular structure and function. Left Atrium * Moderately dilated left atrium. Right Atrium * Normal right atrial size. Pericardium * The pericardium appears normal. IVC * Normal IVC dimensions and inspiratory collapse. Active Medications Acetaminophen (Tylenol) 650 mg PO Q6HR PRN PRN Reason: Mild Pain/Fever Stop: 05/23/18 17:23 Last Admin: 11/22/17 17:34 Dose: 650 mg Hydrocodone Bitart/Acetaminophen (Ubly 5-325 Mg) 1 tab PO Q6H PRN PRN Reason: Moderate Pain Stop: 05/23/18 17:23 Last Admin: 11/23/17 02:12 Dose: 1 tab Albuterol/Ipratropium (Duoneb) 3 ml IH [id number] JOSHUA Stop: 05/24/18 10:01 Last Admin: 11/23/17 11:22 Dose: 3 ml Aspirin (Aspirin Ec) 81 mg PO DAILY JOSHUA Stop: 05/23/18 17:31 Last Admin: 11/23/17 07:13 Dose: Not Given Benzonatate (Tessalon) 100 mg PO TID PRN PRN Reason: Cough Stop: 05/24/18 11:46 Last Admin: 11/23/17 07:32 Dose: 100 mg Dextrose/Water (Dextrose 50% (Syg)) 25 ml IVP AD PRN PRN Reason: Hypoglycemia Stop: 05/23/18 17:32 Furosemide (Lasix) 20 mg PO BIDDIURETIC JOSHUA Stop: 05/24/18 08:01 Last Admin: 11/23/17 07:24 Dose: 20 mg Glucagon (Glucagen) 1 mg IM ONCE PRN PRN Reason: Hypoglycemia Stop: 05/23/18 17:32 Glucose (Gluctose) 15 gm PO ONCE PRN PRN Reason: Hypoglycemia Stop: 05/23/18 17:32 Glucose (Gluctose) 30 gm PO ONCE PRN PRN Reason: Hypoglycemia Stop: 05/23/18 17:32 Heparin Sodium (Porcine) (Heparin) 5,000 unit SQ Q8HR JOSHUA Stop: 05/24/18 00:01 Last Admin: 11/23/17 07:24 Dose: 5,000 unit Dextrose (Dextrose 5%) 1,000 mls @ 100 mls/hr IVC .Q10H PRN PRN Reason: HYPOGLYCEMIA Stop: 05/23/18 17:32 Sodium Chloride (0.9 % Sodium Chloride) 1,000 mls @ 50 mls/hr IVC .Q20H [facility] Stop: 11/24/17 09:44 Insulin Human Lispro (Humalog) 0 units SQ TIDAC JOSHUA PRN Reason: Protocol Stop: 05/24/18 07:31 Last Admin: 11/23/17 13:09 Dose: Not Given Insulin Human Lispro (Humalog) 0 units SQ HS [facility] PRN Reason: Protocol Stop: 05/23/18 21:01 Last Admin: 11/22/17 22:11 Dose: Not Given Multivitamins/Calcium (Thera M Plus) 1 tab PO QPM [facility] Stop: 05/23/18 18:01 Last Admin: 11/22/17 16:25 Dose: 1 tab Naloxone HCl (Narcan) 0.4 mg IVP Q2MIN PRN PRN Reason: SEE COMMENTS Stop: 05/23/18 17:23 Nitroglycerin (Nitroglycerin) 0.4 mg SL Q5M PRN PRN Reason: Chest Pain Stop: 05/23/18 17:26 Omeprazole (Prilosec) 40 mg PO DAILY [facility] PRN Reason: Protocol Stop: 05/24/18 09:01 Last Admin: 11/23/17 07:24 Dose: 40 mg Ondansetron HCl (Zofran) 4 mg IVP Q4HR PRN; Protocol PRN Reason: Nausea Stop: 05/24/18 20:01 Oseltamivir Phosphate (Tamiflu) 30 mg PO BID [facility] Stop: 11/27/17 21:01 Last Admin: 11/23/17 10:54 Dose: 30 mg Oxycodone HCl (Roxicodone) 10 mg PO Q6H PRN PRN Reason: Severe Pain Stop: 05/23/18 17:23 Last Admin: 11/23/17 10:43 Dose: 10 mg Promethazine HCl (Phenergan) 25 mg PO Q6H PRN PRN Reason: Nausea And Vomiting Stop: 05/23/18 17:56 Last Admin: 11/21/17 18:08 Dose: 25 mg Vitamin D (Vitamin D) 1,000 unit PO QPM [facility] Stop: 05/23/18 18:01 Last Admin: 11/22/17 16:25 Dose: 1,000 unit Laboratory Tests 11/21/17 11/21/17 11/21/17 00:00 11:07 17:58 Hgb Plt Count Creatinine Troponin I 0.24 H* 0.30 H* 0.27 H* Influenza A (H3) PCR 11/22/17 11/22/17 11/22/17 06:45 06:45 13:08 Hgb Plt Count Creatinine 1.15 Troponin I 0.20 H* 0.15 H* Influenza A (H3) PCR 11/22/17 11/23/17 11/23/17 17:35 08:04 08:04 Hgb 10.9 L Plt Count 127 L Creatinine 1.53 H Troponin I Influenza A (H3) PCR DETECTED A - Imaging and Cardiology Chest Xray: report reviewed Echo: report reviewed Cardiac cath: report reviewed - EKG Interpretation EKG results cardiology: other (Telemetry reviewed with average HR previous 12 hours noted to be 75, SR. PVCS and PACs noted and 5 beats atrial tachycardia noted.) Consult Discharge Plan - Plan Referrals: Bronson Harris DO [Primary Care Provider] -
[2017-11-23] MEDS: Cholecalciferol (D-3) 1,000 UNIT TABLET PO SCH (16:30)
[2017-11-23] MEDS: Multivit/Ca/Min/Fe/FA 1 TAB TABLET PO SCH (16:30)
--- NOTE | 2017-11-23 17:46 | Internal Med Progress Note ---
Date of Encounter: 11/23/17 Time of Encounter: 11:00 - Assessment and plan (1) Influenza A Current Visit: Yes Status: Acute Assessment and plan: -Patient still with some difficulty breathing secondary to influenza -Will continue Tamiflu and supplemental oxygen as needed (2) Elevated troponin Current Visit: Yes Status: Acute Assessment and plan: -Patient with elevated cardiac biomarkers suspect secondary to influenza above -Cardiology consult with with recommendations to continue aspirin and statin and to resume Plavix when able; currently not on Plavix due to biopsy for possible metastases cancer for history of GI bleed -She will be restarted as soon as possible on Plavix due to risk for stent thrombosis will follow-up dual antiplatelet therapy. (3) Hypokalemia Current Visit: Yes Status: Acute Assessment and plan: -Potassium 3.34 today and was 3.3 yesterday -Replacements order; we will continue to monitor (4) Nausea and vomiting Current Visit: Yes Status: Acute Assessment and plan: -Patient with history of nausea and vomiting -Will treat with IV Zofran as needed -Suspect secondary to newly diagnosed cholangiocarcinoma Qualifiers: Vomiting type: unspecified Vomiting Intractability: unspecified Qualified Code(s): R11.2 - Nausea with vomiting, unspecified (5) Cholangiocarcinoma Current Visit: Yes Status: Acute Assessment and plan: -Patient newly diagnosed several weeks ago at [facility] -Patient followed by Dr. Stevens as an outpatient and will be consulted (6) Renal cell cancer Current Visit: Yes Status: Suspected Assessment and plan: -Patient also was suspected renal cell carcinoma but workup in progress -Hematology oncology consulted as above Qualifiers: Laterality: left Qualified Code(s): C64.2 - Malignant neoplasm of left kidney, except renal pelvis (7) Coronary artery disease Current Visit: Yes Status: Chronic Assessment and plan: -Patient with history of CAD (s/p Synergy stent in the proximal LAD) -Elevated cardiac biomarkers as above; cardiology recommendations as above Qualifiers: Coronary Disease-Associated Artery/Lesion type: [place] artery [place] vs. 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 Qualified Code(s): E11.8 - Type 2 diabetes mellitus with unspecified complications (9) DVT prophylaxis Current Visit: Yes Status: Acute - Subjective Interval history: Patient with elevated cardiac biomarkers suspect secondary to demand ischemia due to influenza A Patient also with acute renal failure Patient also with history of recently diagnosed cholangiocarcinoma with possible renal cell carcinoma; hematology oncology following and consulted - Constitutional Vitals: Temp Pulse Resp BP Pulse Ox 98.5 F 83 18 102/51 98 11/23/17 14:57 11/23/17 14:57 11/23/17 16:18 11/23/17 14:57 11/23/17 16:18 General appearance: Present: A&O X 3 (hard of hearing), no acute distress, obese , answers questions appropriately - Respiratory Respiratory exam: Present: CTAB. Absent: accessory muscle use, rales, rhonchi, wheezes - Cardiovascular Cardiovascular exam: Present: RRR, +S1, +S2. Absent: diastolic murmur, gallop, rubs, systolic murmur Internal Medicine: Result - Labs CBC & Chem 7: 11/23/17 08:04 11/23/17 08:04 Labs: Short CBC 11/23/17 Range/Units 08:04 WBC 4.2 L (4.3-11.1) K/mcL Hgb 10.9 L (11.5-15.4) g/dL Hct 34.7 L (35.3-44.9) % Plt Count 127 L (140-400) K/mcL Neutrophils # 2.2 (1.6-8.9) K/mcL BMP 11/23/17 08:04 Sodium 140 Potassium 3.4 L Chloride 98 Carbon Dioxide 33 H BUN 22 Creatinine 1.53 H Glucose 113 H Calcium 8.5 L - ABG Interpretation ABG results: ABG ABG pH 7.48 pH Units (7.32-7.45) H 11/22/17 17:54 ABG pCO2 40 mmHg (35-45) 11/22/17 17:54 ABG pO2 70 mmHg (85-104) L 11/22/17 17:54 ABG O2 Saturation 95 % (95-98) 11/22/17 17:54 PT/INR, D-dimer PT 13.2 Seconds (9.4-12.1) H 11/21/17 11:07 - Impressions Impressions Echocardiogram Limited Views 11/22/17 11:44 Impressions: LVEF 70%. Normal LV chamber size and function. Mild concentric left ventricular hypertrophy. Findings: Study Quality * Technically adequate exam. ECG Findings * Normal sinus rhythm. Left Ventricle * LVEF 70%. * Normal LV chamber size and function. * Mild concentric left ventricular hypertrophy. Right Ventricle * Normal right ventricular structure and function. Left Atrium * Moderately dilated left atrium. Right Atrium * Normal right atrial size. Pericardium * The pericardium appears normal. IVC * Normal IVC dimensions and inspiratory collapse. Consult Discharge Plan - Plan Referrals: Bronson Harris DO [Primary Care Provider] -
[2017-11-24] MEDS: Ipratropium/Albuterol Neb 3 ML IH SCH ×4 (03:24→22:52)
[2017-11-24] MEDS: Insulin LISPRO 300 UNITS/3 ML VIAL SQ SCH ×4 (08:09→20:26)
[2017-11-24] MEDS: Aspirin Enteric Coated 81 MG Tablet PO SCH (08:58)
[2017-11-24] MEDS: Furosemide 20 MG TABLET PO SCH ×2 (08:58→16:33)
[2017-11-24] MEDS: Oseltamivir Phosphate 30 MG CAPSULE PO SCH ×2 (08:58→20:29)
[2017-11-24] MEDS: *HR* Heparin 5,000 UNIT/ML VIAL SQ SCH ×3 (08:58→23:34)
[2017-11-24 11:11] LABS: Calcium 8.3 mg/dL (8.6-10.3); Potassium 3.3 mEq/L (3.5-5.1)
[2017-11-24 11:48] LABS: Eosinophils % 0.6 %; Hematocrit 36.3 % (35.3-44.9); Hemoglobin 11.5 g/dL (11.5-15.4); Immature Granulocytes % 0.3 % (0-4); Lymphocytes # 1.3 K/mcL (0.6-4.6); Lymphocytes % 37.1 %; Mean Corpuscular HGB Conc 31.7 g/dL (31.6-35.5); Mean Corpuscular Hemoglobin 31.3 pg (28.0-33.3); Mean Corpuscular Volume 98.9 fL (83.0-100.0); Mean Platelet Volume 12.6 fL (9.4-12.4); Monocytes # 0.4 K/mcL (0.0-1.3); Monocytes % 10.4 %; Neutrophils # 1.8 K/mcL (1.6-8.9); Nucleated Red Blood Cells 0.9 /100 WBC (0); Platelet Count 140 K/mcL (140-400); Red Blood Count 3.67 M/mcL (3.82-4.97); Red Cell Distribution Width 18.3 % (11.5-14.5); Segmented Neutrophils % 51.6 %
--- NOTE | 2017-11-24 14:29 | Oncology Inp Progress Note ---
<Marck Stevens S - Last Filed: 11/24/17 19:41> Date of Encounter: 11/24/17 - Constitutional Vitals: Vital Signs Temp Pulse Resp BP Pulse Ox 11/24/17 19:27 97.7 F 76 17 114/67 98 11/24/17 16:09 98.2 F 74 16 104/64 97 11/24/17 11:06 97.2 F L 77 17 111/63 96 11/24/17 10:28 16 99 11/24/17 07:14 98.4 F 66 17 98/46 97 11/24/17 04:18 98.2 F 80 16 97/52 98 11/24/17 03:25 18 97 11/24/17 00:09 99.2 F 84 17 96/59 93 11/23/17 21:57 16 94 11/23/17 20:05 99.4 F 89 16 113/68 93 Intake and Output 11/24/17 11/24/17 11/25/17 08:59 16:59 00:59 Intake Total 240 / 240 120 / 120 Balance 240 / 240 120 / 120 Intake: Oral 240 / 240 120 / 120 Other: Meal Breakfast Dinner Percent of Meal Consumed 70% Weight 96.7 kg Blood Glucose* 118 199 Patient Weight 11/25/17 00:59 Weight 96.7 kg Oncology: Obj Data - Labs CBC & Chem 7: 11/24/17 10:29 11/24/17 10:29 Labs: Laboratory Results - last 24 hr 11/22/17 11/23/17 11/23/17 22:10 07:03 11:52 WBC RBC Hgb Hct MCV MCH MCHC RDW Plt Count MPV Immature Gran % Seg Neutrophils % Lymphocytes % Monocytes % Eosinophils % Basophils % Neutrophils # Lymphocytes # Monocytes # Eosinophils # Basophils # Nucleated RBCs/100 WBC Sodium Potassium Chloride Carbon Dioxide BUN Creatinine Est GFR ( Amer) Est GFR (Non-Af Amer) BUN/Creatinine Ratio Glucose POC Glucose 158 H 112 H 121 H Calculated Osmolality Calcium 11/23/17 11/23/17 11/24/17 16:25 20:03 10:29 WBC 3.5 L RBC 3.67 L Hgb 11.5 Hct 36.3 MCV 98.9 MCH 31.3 MCHC 31.7 RDW 18.3 H Plt Count 140 MPV 12.6 H Immature Gran % 0.3 Seg Neutrophils % 51.6 Lymphocytes % 37.1 Monocytes % 10.4 Eosinophils % 0.6 Basophils % 0.0 Neutrophils # 1.8 Lymphocytes # 1.3 Monocytes # 0.4 Eosinophils # 0.0 Basophils # 0.0 Nucleated RBCs/100 WBC 0.9 H Sodium Potassium Chloride Carbon Dioxide BUN Creatinine Est GFR ( Amer) Est GFR (Non-Af Amer) BUN/Creatinine Ratio Glucose POC Glucose 160 H 134 H Calculated Osmolality Calcium 11/24/17 10:29 WBC RBC Hgb Hct MCV MCH MCHC RDW Plt Count MPV Immature Gran % Seg Neutrophils % Lymphocytes % Monocytes % Eosinophils % Basophils % Neutrophils # Lymphocytes # Monocytes # Eosinophils # Basophils # Nucleated RBCs/100 WBC Sodium 135 L Potassium 3.3 L Chloride 97 L Carbon Dioxide 27 BUN 21 Creatinine 1.28 H Est GFR ( Amer) 49 L Est GFR (Non-Af Amer) 41 L BUN/Creatinine Ratio 16 Glucose 195 H POC Glucose Calculated Osmolality 288 Calcium 8.3 L - ABG Interpretation ABG results: ABG ABG pH 7.48 pH Units (7.32-7.45) H 11/22/17 17:54 ABG pCO2 40 mmHg (35-45) 11/22/17 17:54 ABG pO2 70 mmHg (85-104) L 11/22/17 17:54 ABG O2 Saturation 95 % (95-98) 11/22/17 17:54 PT/INR, D-dimer PT 13.2 Seconds (9.4-12.1) H 11/21/17 11:07 Consult Discharge Plan - Plan Referrals: Bronson Harris, [Primary Care Provider] - (Please call your PCP once you have been discharge and make a hospital follow up for 7-10 days. Thank you!) - Attending Attestation I examined this patient and my medical decision-making was reviewed with the Advanced Practice Nurse. I agree with the documented findings, disposition and treatment plan as described except to the extent set forth below. She is feeling much better today and is breathing comfortably. She is on 2 L of oxygen. As she is doing better, I have recommended we proceed with Mediport placement and possible kidney biopsy tomorrow. The daughter thinks this is reasonable as well. I have provided prescriptions to the daughter and son for prophylaxis of influenza with Tamiflu 75 mg 10 days. 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 Planned to begin initial therapy soon with Dr. Stevens, however, this will need to be slightly delayed with recent diagnosis of influenza A. Her symptoms leading to her presentation are now explained by her diagnosis of influenza. She is feeling much better today and breathing more comfortably. Pain currently controlled. Utilizing O2 therapy mainly for comfort, her saturations are adequate on room air. She is agreeable to port placement with also the potential of renal biopsy if she is tolerating procedure well. IR notified, order has previously been placed. She was ordered to be NPO after midnight. Oncology: Subj Interval history: Ms. Singletary appears more comfortable than the previous day. SOB has improved, afebrile, denies N/V/D. Daughter at bedside. Discussed potential for mediport placement/biopsy tomorrow, patient is feeling well enough to now undergo procedure. - Constitutional Vitals: Vital Signs Temp Pulse Resp BP Pulse Ox 11/24/17 11:06 97.2 F L 77 17 111/63 96 11/24/17 10:28 16 99 11/24/17 07:14 98.4 F 66 17 98/46 97 11/24/17 04:18 98.2 F 80 16 97/52 98 11/24/17 03:25 18 97 11/24/17 00:09 99.2 F 84 17 96/59 93 11/23/17 21:57 16 94 11/23/17 20:05 99.4 F 89 16 113/68 93 11/23/17 16:18 18 98 11/23/17 14:57 98.5 F 83 21 102/51 98 Intake and Output 11/23/17 11/24/17 11/24/17 23:59 07:59 15:59 Intake Total 480 / 480 240 / 240 Balance 480 / 480 240 / 240 Intake: Oral 480 / 480 240 / 240 Other: Meal Dinner Breakfast Percent of Meal Consumed 90% Weight 96.7 kg Blood Glucose* 134 118 205 Patient Weight 11/24/17 23:59 Weight 96.7 kg General appearance: cooperative, no acute distress, no febrile - Head Head exam: Present: atraumatic - Respiratory Respiratory exam: Present: CTAB, respiratory distress - Cardiovascular Cardiovascular exam: Present: RRR, +S1, +S2 - GI/Abdominal GI/Abdominal exam: Present: normal bowel sounds, soft. Absent: tenderness - Extremities Exam Extremities exam: Present: normal inspection. Absent: calf tenderness - Neurological Exam Neurological exam: Present: alert, oriented X3, no focal deficits, strengths equal and symetr throughout - Psychiatric Psychiatric exam: Present: normal affect, normal mood - Skin Skin exam: Present: normal color, warm Oncology: Obj Data - Labs CBC & Chem 7: 11/24/17 10:29 11/24/17 10:29 Labs: Laboratory Results - last 24 hr 11/22/17 11/23/17 11/23/17 22:10 07:03 11:52 WBC RBC Hgb Hct MCV MCH MCHC RDW Plt Count MPV Immature Gran % Seg Neutrophils % Lymphocytes % Monocytes % Eosinophils % Basophils % Neutrophils # Lymphocytes # Monocytes # Eosinophils # Basophils # Nucleated RBCs/100 WBC Sodium Potassium Chloride Carbon Dioxide BUN Creatinine Est GFR ( Amer) Est GFR (Non-Af Amer) BUN/Creatinine Ratio Glucose POC Glucose 158 H 112 H 121 H Calculated Osmolality Calcium 11/23/17 11/23/17 11/24/17 16:25 20:03 10:29 WBC 3.5 L RBC 3.67 L Hgb 11.5 Hct 36.3 MCV 98.9 MCH 31.3 MCHC 31.7 RDW 18.3 H Plt Count 140 MPV 12.6 H Immature Gran % 0.3 Seg Neutrophils % 51.6 Lymphocytes % 37.1 Monocytes % 10.4 Eosinophils % 0.6 Basophils % 0.0 Neutrophils # 1.8 Lymphocytes # 1.3 Monocytes # 0.4 Eosinophils # 0.0 Basophils # 0.0 Nucleated RBCs/100 WBC 0.9 H Sodium Potassium Chloride Carbon Dioxide BUN Creatinine Est GFR ( Amer) Est GFR (Non-Af Amer) BUN/Creatinine Ratio Glucose POC Glucose 160 H 134 H Calculated Osmolality Calcium 11/24/17 10:29 WBC RBC Hgb Hct MCV MCH MCHC RDW Plt Count MPV Immature Gran % Seg Neutrophils % Lymphocytes % Monocytes % Eosinophils % Basophils % Neutrophils # Lymphocytes # Monocytes # Eosinophils # Basophils # Nucleated RBCs/100 WBC Sodium 135 L Potassium 3.3 L Chloride 97 L Carbon Dioxide 27 BUN 21 Creatinine 1.28 H Est GFR ( Amer) 49 L Est GFR (Non-Af Amer) 41 L BUN/Creatinine Ratio 16 Glucose 195 H POC Glucose Calculated Osmolality 288 Calcium 8.3 L - ABG Interpretation ABG results: ABG ABG pH 7.48 pH Units (7.32-7.45) H 11/22/17 17:54 ABG pCO2 40 mmHg (35-45) 11/22/17 17:54 ABG pO2 70 mmHg (85-104) L 11/22/17 17:54 ABG O2 Saturation 95 % (95-98) 11/22/17 17:54 PT/INR, D-dimer PT 13.2 Seconds (9.4-12.1) H 11/21/17 11:07
[2017-11-24] MEDS: Benzonatate 100 MG CAPSULE PO PRN (14:45)
[2017-11-24] MEDS: Multivit/Ca/Min/Fe/FA 1 TAB TABLET PO SCH (16:33)
[2017-11-24] MEDS: Cholecalciferol (D-3) 1,000 UNIT TABLET PO SCH (16:33)
--- NOTE | 2017-11-24 18:30 | Internal Med Progress Note ---
Date of Encounter: 11/25/17 Time of Encounter: 11:00 - Assessment and plan (1) Influenza A Current Visit: Yes Status: Acute Assessment and plan: -Patient still with some difficulty breathing secondary to influenza and as a result requiring supplemental oxygenation -Will continue Tamiflu and supplemental oxygen as needed (2) Elevated troponin Current Visit: Yes Status: Acute Assessment and plan: -Patient with elevated cardiac biomarkers suspect secondary to influenza above -Cardiology consult with with recommendations to continue aspirin and statin and to resume Plavix when able; currently not on Plavix due to biopsy for possible metastases cancer for history of GI bleed -She will be restarted as soon as possible on Plavix due to risk for stent thrombosis will follow-up dual antiplatelet therapy. (3) Hypokalemia Current Visit: Yes Status: Acute Assessment and plan: -Will continue replacements as needed (4) Nausea and vomiting Current Visit: Yes Status: Acute Assessment and plan: -Patient with history of nausea and vomiting -Will treat with IV Zofran as needed -Suspect secondary to newly diagnosed cholangiocarcinoma Qualifiers: Vomiting type: unspecified Vomiting Intractability: unspecified Qualified Code(s): R11.2 - Nausea with vomiting, unspecified (5) Cholangiocarcinoma Current Visit: Yes Status: Acute Assessment and plan: -Patient newly diagnosed several weeks ago at [facility] -Patient followed by Dr. Stevens as an outpatient and will be consulted (6) Renal cell cancer Current Visit: Yes Status: Suspected Assessment and plan: -Patient also was suspected renal cell carcinoma but workup in progress -Hematology oncology consulted as above Qualifiers: Laterality: left Qualified Code(s): C64.2 - Malignant neoplasm of left kidney, except renal pelvis (7) Coronary artery disease Current Visit: Yes Status: Chronic Assessment and plan: -Patient with history of CAD (s/p Synergy stent in the proximal LAD) -Elevated cardiac biomarkers as above; cardiology recommendations as above Qualifiers: Coronary Disease-Associated Artery/Lesion type: [place] artery [place] vs. transplanted heart: [place] heart Associated angina: without angina Qualified Code(s): I25.10 - Atherosclerotic heart disease of [place] coronary artery without angina pectoris (8) Diabetes mellitus Current Visit: Yes Status: Chronic Assessment and plan: -Controlled; continue sliding scale insulin Qualifiers: Diabetes mellitus type: type 2 Diabetes mellitus complication status: with unspecified complications Diabetes mellitus termite control servicer insulin use: without group home use Qualified Code(s): E11.8 - Type 2 diabetes mellitus with unspecified complications (9) DVT prophylaxis Current Visit: Yes Status: Acute Assessment and plan: heparin subcutaneous - Subjective Interval history: Patient improving clinically with treatment of influenza A with Tamiflu; she is still requiring supplemental oxygenation for acute hypoxic respiratory failure however Patient also with history of recently diagnosed cholangiocarcinoma with possible renal cell carcinoma; hematology oncology following and consulted for placement of port and potential renal biopsy - Constitutional Vitals: Temp Pulse Resp BP Pulse Ox 98.2 F 74 16 104/64 97 11/24/17 16:09 11/24/17 16:09 11/24/17 16:09 11/24/17 16:09 11/24/17 16:09 General appearance: Present: A&O X 3 (hard of hearing), no acute distress, obese , answers questions appropriately - Respiratory Respiratory exam: Present: CTAB. Absent: accessory muscle use, rales, rhonchi, wheezes - Cardiovascular Cardiovascular exam: Present: RRR, +S1, +S2. Absent: diastolic murmur, gallop, rubs, systolic murmur - Skin Skin exam: Present: normal color Internal Medicine: Result - Labs CBC & Chem 7: 11/24/17 10:29 11/24/17 10:29 Labs: Short CBC 11/24/17 Range/Units 10:29 WBC 3.5 L (4.3-11.1) K/mcL Hgb 11.5 (11.5-15.4) g/dL Hct 36.3 (35.3-44.9) % Plt Count 140 (140-400) K/mcL Neutrophils # 1.8 (1.6-8.9) K/mcL BMP 11/24/17 10:29 Sodium 135 L Potassium 3.3 L Chloride 97 L Carbon Dioxide 27 BUN 21 Creatinine 1.28 H Glucose 195 H Calcium 8.3 L - ABG Interpretation ABG results: ABG ABG pH 7.48 pH Units (7.32-7.45) H 11/22/17 17:54 ABG pCO2 40 mmHg (35-45) 11/22/17 17:54 ABG pO2 70 mmHg (85-104) L 11/22/17 17:54 ABG O2 Saturation 95 % (95-98) 11/22/17 17:54 PT/INR, D-dimer PT 13.2 Seconds (9.4-12.1) H 11/21/17 11:07 Consult Discharge Plan - Plan Referrals: Bronson Harris, DO [Primary Care Provider] - (Please call your PCP once you have been discharge and make a hospital follow up for 7-10 days. Thank you!)
[2017-11-25] MEDS: Ipratropium/Albuterol Neb 3 ML IH SCH ×4 (04:00→21:21)
--- NOTE | 2017-11-25 07:31 | Electrocardiograph Report ---
[place] [address] Test Date: 2017-11-21 Pat Name: Rosanna Singletary Department: 103 Room: 2A13 Gender: F Pattern Stamper: DANIEL : 1940 Requested By: John Tomas Order Number: [id number] Reading MD: Joe Coon DO Measurements Intervals [place] Rate: 75 P: [place]: 0 QRS: -22 QRSD: 160 T: -5 QT: 435 QTc: 465 Interpretive Statements SINUS RHYTHM BORDERLINE LEFT AXIS DEVIATION INTRAVENTRICULAR CONDUCTION DELAY Electronically Signed On 11-25-2017 7:30:19 EST by Joe Coon DO
[2017-11-25] MEDS: Insulin LISPRO 300 UNITS/3 ML VIAL SQ SCH ×4 (08:20→21:01)
[2017-11-25] MEDS: Oseltamivir Phosphate 30 MG CAPSULE PO SCH ×2 (08:35→21:00)
[2017-11-25] MEDS: Furosemide 20 MG TABLET PO SCH ×2 (08:35→18:01)
[2017-11-25] MEDS: Aspirin Enteric Coated 81 MG Tablet PO SCH (08:35)
[2017-11-25] MEDS: *HR* Heparin 5,000 UNIT/ML VIAL SQ SCH ×3 (08:38→23:49)
[2017-11-25 09:24] LABS: Hematocrit 32.8 % (35.3-44.9); Mean Corpuscular Volume 96.2 fL (83.0-100.0); Red Blood Count 3.41 M/mcL (3.82-4.97); Red Cell Distribution Width 17.9 % (11.5-14.5)
[2017-11-25 09:26] LABS: Basophils % 0.2 %; Eosinophils # 0.1 K/mcL (0.0-0.6); Eosinophils % 2.2 %; Hemoglobin 10.6 g/dL (11.5-15.4); Immature Granulocytes % 0.2 % (0-4); Immature Platelets 6.9 % (1.1-6.1); Lymphocytes # 1.6 K/mcL (0.6-4.6); Lymphocytes % 38.9 %; Mean Corpuscular HGB Conc 32.3 g/dL (31.6-35.5); Mean Corpuscular Hemoglobin 31.1 pg (28.0-33.3); Mean Platelet Volume 11.8 fL (9.4-12.4); Monocytes # 0.3 K/mcL (0.0-1.3); Monocytes % 7.9 %; Neutrophils # 2.1 K/mcL (1.6-8.9); Platelet Count 92 K/mcL (140-400); Segmented Neutrophils % 50.6 %
[2017-11-25 09:41] LABS: BUN/Creatinine Ratio 15 (6-26); Blood Urea Nitrogen 16 mg/dL (8-23); Calcium 8.2 mg/dL (8.6-10.3); Carbon Dioxide 32 mEq/L (23-29); Chloride 100 mEq/L (98-107); Glucose 123 mg/dL (70-105); Osmolality,Calculated 291 (280-300); Sodium 139 mEq/L (136-145); eGFR For African Americans > 60 (> 60); eGFR For Non-African Americans 51 (> 60)
[2017-11-25] MEDS: Benzonatate 100 MG CAPSULE PO PRN ×2 (09:56→18:35)
[2017-11-25] MEDS ORDERED: Heparin 1,000 UNITS/500 mL 500 ML ONE (10:59)
[2017-11-25 11:01] LABS: Platelet Estimate Decreased (Normal)
[2017-11-25] MEDS ORDERED: CeFAZolin Premix DUPLEX 2,000 MG/50 ML BAG IVPB ONE (11:02)
[2017-11-25] MEDS ORDERED: *HR* Midazolam HCl 2 MG/2 ML VIAL IVP ONE ×2 (11:02→15:49)
[2017-11-25] MEDS ORDERED: *HR* FentaNYL (PF) 100 MCG/2 ML VIAL IVP ONE ×2 (11:02→15:49)
[2017-11-25] MEDS ORDERED: 0.9 % Sodium Chloride 500 ML ONE ×2 (11:04→15:50)
[2017-11-25] MEDS ORDERED: *HR* Midazolam HCl 2 MG/2 ML VIAL ONE (11:07)
[2017-11-25] MEDS ORDERED: *HR* FentaNYL (PF) 100 MCG/2 ML VIAL ONE (11:07)
--- NOTE | 2017-11-25 11:26 | IR Procedure Note ---
Date of procedure: 11/25/17 Consent Obtained: Verbal consent, Written consent Timeout: Correct patient and procedure verified, Correct site verified, Time out performed, Skin prep completed Local anesthetic: Lidocaine 1% Indications: Liver cancer Procedure Performed: Port placement Was there an inventory assistant present: No Site/Technique: Right IJ port placement Results/Findings: Right IJ port placed in VIR Estimated blood loss (cc): 4 Complications: None; Tolerated procedure well Post Procedure Treatment Plan: May use port now Specimen: None
--- NOTE | 2017-11-25 16:16 | IR Procedure Note ---
Date of procedure: 11/25/17 Consent Obtained: Verbal consent, Written consent Timeout: Correct patient and procedure verified, Correct site verified, Time out performed, Skin prep completed Local anesthetic: Lidocaine 1% Indications: Renal mass Procedure Performed: CT guided renal mass biopsy Was there an assistant store manager present: No Site/Technique: CT guided left renal mass biopsy Results/Findings: Percutaneous needle biopsy performed Estimated blood loss (cc): 5 Complications: None; Tolerated procedure well Post Procedure Treatment Plan: Continue inpatient care Specimen: 5 18 gauge biopies
--- NOTE | 2017-11-25 17:00 | Internal Med Progress Note ---
Date of Encounter: 11/25/17 Time of Encounter: 16:00 - Assessment and plan (1) Influenza A Current Visit: Yes Status: Acute Assessment and plan: -Patient no longer with shortness of breath but still requiring supplemental oxygenation -We will wean supplemental oxygen as tolerated -Will continue day 3 of 5 of Tamiflu (2) Elevated troponin Current Visit: Yes Status: Acute Assessment and plan: -Patient with elevated cardiac biomarkers suspect secondary to influenza above -Cardiology consult with with recommendations to continue aspirin and statin and to resume Plavix when able; currently not on Plavix due to biopsy for possible metastases cancer for history of GI bleed -She will be restarted as soon as possible on Plavix due to risk for stent thrombosis will follow-up dual antiplatelet therapy. (3) Hypokalemia Current Visit: Yes Status: Acute Assessment and plan: -Potassium 3.0 today -Will continue replacements as needed (4) Nausea and vomiting Current Visit: Yes Status: Acute Assessment and plan: -Resolved; IV Zofran as needed Qualifiers: Vomiting type: unspecified Vomiting Intractability: unspecified Qualified Code(s): R11.2 - Nausea with vomiting, unspecified (5) Cholangiocarcinoma Current Visit: Yes Status: Acute Assessment and plan: -Patient newly diagnosed several weeks ago at [facility] -Patient followed by Dr. Stevens as an outpatient and consulted -Port Placement today (6) Renal cell cancer Current Visit: Yes Status: Suspected Assessment and plan: -Patient also was suspected renal cell carcinoma but workup in progress -Hematology oncology consulted with recommendations for renal biopsy which was done today Qualifiers: Laterality: left Qualified Code(s): C64.2 - Malignant neoplasm of left kidney, except renal pelvis (7) Coronary artery disease Current Visit: Yes Status: Chronic Assessment and plan: -Patient with history of CAD (s/p Synergy stent in the proximal LAD) -Elevated cardiac biomarkers as above; cardiology recommendations as above Qualifiers: Coronary Disease-Associated Artery/Lesion type: [place] artery [place] vs. transplanted heart: [place] heart Associated angina: without angina Qualified Code(s): I25.10 - Atherosclerotic heart disease of [place] coronary artery without angina pectoris (8) Diabetes mellitus Current Visit: Yes Status: Chronic Assessment and plan: -Controlled; continue sliding scale insulin Qualifiers: Diabetes mellitus type: type 2 Diabetes mellitus complication status: with unspecified complications Diabetes mellitus terminologist insulin use: without nursing home use Qualified Code(s): E11.8 - Type 2 diabetes mellitus with unspecified complications (9) Malnutrition of moderate degree Current Visit: Yes Status: Acute (10) DVT prophylaxis Current Visit: Yes Status: Acute Assessment and plan: heparin subcutaneous - Subjective Interval history: Patient improving clinically with treatment of influenza A with Tamiflu; she is still requiring supplemental oxygenation for acute hypoxic respiratory failure however Patient also with history of recently diagnosed cholangiocarcinoma with possible renal cell carcinoma; hematology oncology following and consulted for placement of port and potential renal biopsy on 11/25/17 - Constitutional Vitals: Temp Pulse Resp BP Pulse Ox 97.8 F 63 20 132/68 99 11/25/17 12:02 11/25/17 16:08 11/25/17 16:08 11/25/17 16:08 11/25/17 16:08 General appearance: Present: no acute distress, obese, answers questions appropriately - Respiratory Respiratory exam: Present: CTAB. Absent: accessory muscle use, rales, rhonchi, wheezes - Cardiovascular Cardiovascular exam: Present: RRR, +S1, +S2. Absent: diastolic murmur, gallop, rubs, systolic murmur - Skin Skin exam: Present: pallor Internal Medicine: Result - Labs CBC & Chem 7: 11/25/17 09:02 11/25/17 09:02 Labs: Short CBC 11/25/17 Range/Units 09:02 WBC 4.1 L (4.3-11.1) K/mcL Hgb 10.6 L (11.5-15.4) g/dL Hct 32.8 L (35.3-44.9) % Plt Count 92 L (140-400) K/mcL Neutrophils # 2.1 (1.6-8.9) K/mcL BMP 11/25/17 09:02 Sodium 139 Potassium 3.0 L Chloride 100 Carbon Dioxide 32 H BUN 16 Creatinine 1.05 Glucose 123 H Calcium 8.2 L - ABG Interpretation ABG results: ABG ABG pH 7.48 pH Units (7.32-7.45) H 11/22/17 17:54 ABG pCO2 40 mmHg (35-45) 11/22/17 17:54 ABG pO2 70 mmHg (85-104) L 11/22/17 17:54 ABG O2 Saturation 95 % (95-98) 11/22/17 17:54 PT/INR, D-dimer PT 13.2 Seconds (9.4-12.1) H 11/21/17 11:07 - Impressions Impressions Guidance Needle Placement Ultrasound 11/25/17 00:00 IMPRESSION: Ultrasound and fluoroscopic guided port placement as above. No immediate complications. The port is ready for immediate use. D/ / 11/25/2017 13:40:48 Jonny Chew MD / [email or web address] Interpreting Provider: Jonny Chew MD Insertion Tunneled Catheter 11/25/17 00:00 IMPRESSION: Ultrasound and fluoroscopic guided port placement as above. No immediate complications. The port is ready for immediate use. D/ /25/2017 13:40:48 Jonny Chew MD / [email or web address] Interpreting Provider: Jonny Chew MD Renal Biopsy CT 11/25/17 00:00 IMPRESSION: CT-guided left renal mass core needle biopsy. No immediate complications. Pathology is pending. D/ / Jonny Chew MD / Jonny Chew MD Interpreting Provider: Jonny Chew MD Consult Discharge Plan - Plan Referrals: Bronson Harris, DO [Primary Care Provider] - (Please call your PCP once you have been discharge and make a hospital follow up for 7-10 days. Thank you!)
[2017-11-25] MEDS: Cholecalciferol (D-3) 1,000 UNIT TABLET PO SCH (18:00)
[2017-11-25] MEDS: Multivit/Ca/Min/Fe/FA 1 TAB TABLET PO SCH (18:01)
--- NOTE | 2017-11-25 19:20 | Oncology Inp Progress Note ---
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 Planned to begin initial therapy soon with Dr. Stevens, however, this will need to be slightly delayed with recent diagnosis of influenza A. Ms. Singletary underwent mediport placement and CT guided core needle biopsy of left renal mass today. She is feeling much better and hoping to be discharged soon. Once she is able to have adequate oral intake, ambulate and determine need for home O2, she is planned to discharge home which will likely be soon. Hospitalist team discussing plan to restart plavix w/ IR/Cardio. Will arrange for close follow up with Dr. Stevens next week. Oncology: Subj Interval history: Ms. Singletary is sitting up in her chair and eating dinner. Family at bedside. Pain under well control. Influenza symptoms continue to improve. - Constitutional Vitals: Vital Signs Temp Pulse Resp BP Pulse Ox 11/25/17 17:55 97.6 F 58 16 130/66 94 11/25/17 17:40 97.7 F 60 18 134/70 94 11/25/17 17:25 97.9 F 57 17 125/62 93 11/25/17 17:10 98.0 F 57 16 121/52 93 11/25/17 16:55 97.7 F 58 17 123/70 94 11/25/17 16:40 97.5 F L 59 16 130/56 94 11/25/17 16:25 97.7 F 62 17 135/63 95 11/25/17 16:08 63 20 132/68 99 11/25/17 16:01 65 18 99 11/25/17 12:02 97.8 F 66 16 130/70 98 11/25/17 11:18 65 16 135/60 95 11/25/17 11:14 63 16 134/65 97 11/25/17 07:09 98.0 F 69 16 121/65 98 11/25/17 04:00 16 98 11/25/17 03:54 97.9 F 59 18 117/54 97 11/24/17 23:49 97.9 F 74 18 96/47 93 11/24/17 22:52 16 97 11/24/17 19:27 97.7 F 76 17 114/67 98 Intake and Output 11/25/17 11/25/17 11/25/17 07:59 15:59 23:59 Intake Total 0 / 0 480 / 480 Output Total 400 / 400 Balance -400 / -400 480 / 480 Intake: Oral 0 / 0 480 / 480 Output: Urine 400 / 400 Other: Meal npo Dinner Percent of Meal Consumed 0% 100% # Voids 1 Weight 97.125 kg Blood Glucose* 108 152 113 Patient Weight 11/25/17 23:59 Weight 97.125 kg General appearance: cooperative, no acute distress, no febrile - Head Head exam: Present: atraumatic - Respiratory Respiratory exam: Present: CTAB - Cardiovascular Cardiovascular exam: Present: RRR, +S1, +S2 - GI/Abdominal GI/Abdominal exam: Present: normal bowel sounds, soft. Absent: tenderness - Extremities Exam Extremities exam: Present: pedal edema. Absent: calf tenderness - Neurological Exam Neurological exam: Present: alert, oriented X3, no focal deficits, strengths equal and symetr throughout - Psychiatric Psychiatric exam: Present: normal affect, normal mood - Skin Skin exam: Present: normal color, warm Oncology: Obj Data - Labs CBC & Chem 7: 11/26/17 09:30 11/26/17 09:30 - Impressions Impressions Guidance Needle Placement Ultrasound 11/25/17 00:00 IMPRESSION: Ultrasound and fluoroscopic guided port placement as above. No immediate complications. The port is ready for immediate use. D/ / 11/25/2017 13:40:48 Jonny Chew MD / [email or web address] Interpreting Provider: Jonny Chew MD Insertion Tunneled Catheter 11/25/17 00:00 IMPRESSION: Ultrasound and fluoroscopic guided port placement as above. No immediate complications. The port is ready for immediate use. D/ : / 11/25/2017 13:40:48 Jonny Chew MD / [email or web address] Interpreting Provider: Jonny Chew MD Renal Biopsy CT 11/25/17 00:00 IMPRESSION: CT-guided left renal mass core needle biopsy. No immediate complications. Pathology is pending. D/ / Jonny Chew MD / Jonny Chew MD Interpreting Provider: Jonny Chew MD - ABG Interpretation ABG results: ABG ABG pH 7.48 pH Units (7.32-7.45) H 11/22/17 17:54 ABG pCO2 40 mmHg (35-45) 11/22/17 17:54 ABG pO2 70 mmHg (85-104) L 11/22/17 17:54 ABG O2 Saturation 95 % (95-98) 11/22/17 17:54 PT/INR, D-dimer PT 13.2 Seconds (9.4-12.1) H 11/21/17 11:07 Consult Discharge Plan - Plan Referrals: Bronson Harris, DO [Primary Care Provider] - (Please call your PCP once you have been discharge and make a hospital follow up for 7-10 days. Thank you!)
[2017-11-25] MEDS: *HR* HYDROcodone/Acet 5/325 mg TABLET PO PRN (21:00)
[2017-11-25] MEDS: *HR* OxyCODONE Immed Rel 5 MG TABLET PO PRN (22:49)
[2017-11-25] MEDS: Piperacillin/Tazobactam 3.375 GM in 0.9 % Sodium Chloride Mini Bag 100 ML IVPB SCH (22:59)
[2017-11-26] MEDS: Ipratropium/Albuterol Neb 3 ML IH SCH ×3 (03:55→15:07)
[2017-11-26] MEDS: *HR* HYDROcodone/Acet 5/325 mg TABLET PO PRN ×3 (04:00→18:10)
[2017-11-26] MEDS: Insulin LISPRO 300 UNITS/3 ML VIAL SQ SCH ×3 (08:07→18:11)
[2017-11-26] MEDS: Furosemide 20 MG TABLET PO SCH ×2 (08:08→18:10)
[2017-11-26] MEDS: Aspirin Enteric Coated 81 MG Tablet PO SCH (08:08)
[2017-11-26] MEDS: Oseltamivir Phosphate 30 MG CAPSULE PO SCH ×2 (08:09→18:12)
[2017-11-26] MEDS: *HR* Heparin 5,000 UNIT/ML VIAL SQ SCH ×2 (08:10→18:10)
[2017-11-26] MEDS: *HR* OxyCODONE Immed Rel 5 MG TABLET PO PRN ×2 (08:17→14:20)
[2017-11-26 10:16] LABS: Calcium 8.6 mg/dL (8.6-10.3); Potassium 3.1 mEq/L (3.5-5.1)
[2017-11-26 10:48] LABS: Basophils % 0.2 %; Eosinophils # 0.2 K/mcL (0.0-0.6); Eosinophils % 3.4 %; Hematocrit 35.9 % (35.3-44.9); Hemoglobin 11.6 g/dL (11.5-15.4); Immature Granulocytes % 0.2 % (0-4); Lymphocytes # 1.7 K/mcL (0.6-4.6); Lymphocytes % 31.5 %; Mean Corpuscular HGB Conc 32.3 g/dL (31.6-35.5); Mean Corpuscular Hemoglobin 31.2 pg (28.0-33.3); Mean Corpuscular Volume 96.5 fL (83.0-100.0); Mean Platelet Volume 12.4 fL (9.4-12.4); Monocytes # 0.4 K/mcL (0.0-1.3); Monocytes % 6.6 %; Neutrophils # 3.1 K/mcL (1.6-8.9); Platelet Count 110 K/mcL (140-400); Red Blood Count 3.72 M/mcL (3.82-4.97); Red Cell Distribution Width 18.3 % (11.5-14.5); Segmented Neutrophils % 58.1 %
--- NOTE | 2017-11-26 14:38 | Discharge Summary ---
- NOTES TO OUTPATIENT PROVIDER Notes to Outpatient Provider: Patient to follow-up with [facility] machine operator oncologist for treatment of cholangiocarcinoma Orders not resulted at time of discharge: Pending orders 11/22/17 11:45 Sputum Culture [Culture,Sputum with Gram Stain] [RM] Stat 11/22/17 17:42 Culture,Blood [BC] Stat Culture,Blood,Additional [BC] Stat Date of Encounter: 11/26/17 Time of Encounter: 11:00 - Discharge Diagnosis (1) Influenza A Priority: Primary Status: Acute (2) Elevated troponin Priority: Secondary Status: Acute (3) Hypokalemia Priority: Secondary Status: Acute (4) Nausea and vomiting Priority: Secondary Status: Acute Qualifiers: Vomiting type: unspecified Vomiting Intractability: unspecified Qualified Code(s): R11.2 - Nausea with vomiting, unspecified (5) Cholangiocarcinoma Priority: Primary Status: Acute (6) Renal cell cancer Priority: Primary Status: Suspected Qualifiers: Laterality: left Qualified Code(s): C64.2 - Malignant neoplasm of left kidney, except renal pelvis (7) Coronary artery disease Priority: Secondary Status: Chronic Qualifiers: Coronary Disease-Associated Artery/Lesion type: [place] artery [place] vs. transplanted heart: [place] heart Associated angina: without angina Qualified Code(s): I25.10 - Atherosclerotic heart disease of [place] coronary artery without angina pectoris (8) Diabetes mellitus Priority: Secondary Status: Chronic Qualifiers: Diabetes mellitus type: type 2 Diabetes mellitus complication status: with unspecified complications Diabetes mellitus senior living insulin use: without senior living use Qualified Code(s): E11.8 - Type 2 diabetes mellitus with unspecified complications (9) Malnutrition of moderate degree Priority: Secondary Status: Acute Hospital course: Patient is a 77-year-old female with past medical history significant for cholangiocarcinoma and possible renal cell cancer, who presented to the ER on with shortness of breath. Patient was at interventional radiology the morning of admission to have chemotherapy port placed and also to have a kidney biopsy. However, patient had persistent nausea, bilious nonbloody vomiting associated with generalized weakness. She was too weak to walk in the radiology suite and she also became significantly short of breath and in respiratory distress so was sent to the ER for evaluation. In the ER, patient was found to have acute hypoxic respiratory failure requiring supplemental oxygenation and positive for influenza A. She was admitted to medical surgical floor for further management. During patients hospital stay she was weaned off 2 L of nasal cannula oxygenation after treatment with Tamiflu for influenza. Hematology oncology was also consulted and patient underwent MediPort placement in addition to CT-guided core needle biopsy of left renal mass. Patient will be discharged to complete a 1 day course of Tamiflu for influenza and to follow- up with hematology oncology for management of cholangiocarcinoma. - Time Spent with Patient Total time spent providing and/or coordinating discharge services: Less than 30 minutes - Discharge Medications Prescriptions: Oseltamivir Phosphate [Tamiflu] 30 mg PO BID 1 Days #2 capsule Home Medications: Aspirin [Lo-Dose Aspirin EC] 81 mg PO DAILY 09/23/17 [History] Cholecalciferol (D-3) [Vitamin D] 1,000 unit PO QPM 09/23/17 [History] Multivitamin [Multivitamins] 1 each PO QPM 09/23/17 [History] Clopidogrel [Plavix] 75 mg PO DAILY #30 tablet 09/24/17 [Rx] Furosemide [Lasix] 20 mg PO DAILY 11/15/17 [History] Pantoprazole Sodium [Protonix] 40 mg PO DAILY 11/15/17 [History] Promethazine [Phenergan] 25 mg PO Q6HR PRN #30 tablet 11/15/17 [Rx] Cyanocobalamin (Vitamin B-12) [Vitamin B-12] 100 mcg PO QPM 11/21/17 [History] Lidocaine/Prilocaine [Emla] 1 appl TP AD 11/21/17 [History] Nitroglycerin [Nitrostat] 0.4 mg SL Q5M PRN 11/21/17 [History] OxyCODONE Immed Rel [Roxicodone 10 MG] 10 mg PO TID PRN 11/21/17 [History] glipiZIDE [Glucotrol] 5 mg PO 0800 11/21/17 [History] Oseltamivir Phosphate [Tamiflu] 30 mg PO BID 1 Days #2 capsule 11/26/17 [Rx] Allergies/Adverse Reactions: 3 Allergy/AdvReac Type Severity Reaction Status Date / Time shellfish derived AdvReac Swelling Verified 11/21/17 10:46 of the Eye Date of admission: 11/21/17 23:01 Primary care physician: Bronson Harris DO Consults: 11/22/17 17:13 Consult to Oncology Hematology [CONS] Routine Consulting Provider: Marck Stevens Reason for Consult: Cholangiocarcinoma with possible renal cell carcinoma Call Completed: No 11/23/17 10:45 Consult to Interventional Radiology [CONS] Routine Consulting Provider: Radiology Interventional Cols Reason for Consult: Renal biopsy and port placement Time Notified: 10:45 Call Completed: Yes 11/25/17 16:37 PT [Consult to Physical Therapy] [CONS] Routine Comment: Evaluate, develop and implement POC Reason for Consult: post op eval - Constitutional Vitals: Temp Pulse Resp BP Pulse Ox 97.5 F L 82 18 118/73 94 11/26/17 12:01 11/26/17 12:01 11/26/17 12:01 11/26/17 12:01 11/26/17 12:01 General appearance: Present: no acute distress, obese, answers questions appropriately - Respiratory Respiratory exam: Present: CTAB. Absent: accessory muscle use, rales, rhonchi, wheezes - Cardiovascular Cardiovascular exam: Present: RRR, +S1, +S2. Absent: diastolic murmur, gallop, rubs, systolic murmur - Patient Status Disposition: Home, Self-Care Condition: Fair - Discharge Instructions Follow Up With: Bronson Harris DO [Primary Care Provider] - (Please call your PCP once you have been discharge and make a hospital follow up for 7-10 days. Thank you!)
[2017-11-26 16:03] VITALS: BP 131/75
[2017-11-26] MEDS: Cholecalciferol (D-3) 1,000 UNIT TABLET PO SCH (18:10)
[2017-11-26] MEDS: Multivit/Ca/Min/Fe/FA 1 TAB TABLET PO SCH (18:10)
[2017-11-26] MEDS: Benzonatate 100 MG CAPSULE PO PRN (18:10)
== END 2017-11-26 18:42 | disposition home or self-care (01) | DRG 686 ==
LOC: 2ANU 10:43 → EMEROO 10:43 → 2ANU 17:27 → SUATTDRO 23:01
PROVIDERS: ADMIT Internal Medicine; ATTEND Hospitalist

== ENCOUNTER 2018-03-06 07:04 | Inpatient (IN) ==
[2018-03-06] MEDS ORDERED: 0.9 % Sodium Chloride 1,000 ML IVC ONE (07:19)
[2018-03-06] MEDS ORDERED: Isovue-370 500 ML INFUS..BTL IV ONE (07:25)
--- NOTE | 2018-03-06 07:25 | Emergency Department Note ---
Disposition Clinical Impression: Right arm weakness Abdominal pain Qualifiers: Abdominal location: generalized Qualified Code(s): R10.84 - Generalized abdominal pain Disposition: Still a Patient Forms: ED Satisfaction Letter General Adult HPI - General Chief complaint: ED Neuro Symptoms/Deficit Time Seen by Provider: 03/06/18 07:19 Source: patient, EMS - History of Present Illness Pain Scale: 0 - Related Data Home Medications Medication Instructions Recorded Confirmed Aspirin [Lo-Dose Aspirin EC] 81 mg PO DAILY 09/23/17 02/21/18 Cholecalciferol (D-3) [Vitamin D] 1,000 unit PO QPM 09/23/17 02/21/18 Multivitamin [Multivitamins] 1 each PO QPM 09/23/17 02/21/18 Furosemide [Lasix] 20 mg PO DAILY 11/15/17 02/21/18 Pantoprazole Sodium [Protonix] 40 mg PO DAILY 11/15/17 02/21/18 Cyanocobalamin (Vitamin B-12) 100 mcg PO QPM 11/21/17 02/21/18 [Vitamin B-12] Lidocaine/Prilocaine [Emla] 1 appl TP AD 11/21/17 02/21/18 Nitroglycerin [Nitrostat] 0.4 mg SL Q5M PRN 11/21/17 02/21/18 glipiZIDE [Glucotrol] 5 mg PO 0800 11/21/17 02/21/18 Metoprolol [Lopressor] 12.5 mg PO BID 12/12/17 02/21/18 Potassium Chloride [Klor-Con 10] 10 meq PO DAILY 12/12/17 02/21/18 Acetaminophen [Tylenol] 1,000 mg PO Q6HR PRN 01/09/18 02/21/18 Guaifenesin [Mucinex] 600 mg PO Q12HR PRN 02/06/18 02/21/18 Previous Rx's Medication Instructions Recorded Clopidogrel [Plavix] 75 mg PO DAILY #30 tablet 09/24/17 Benzonatate [Tessalon] 200 mg PO BID PRN #30 capsule 11/30/17 Magic Mouthwash [Magic Mouthwash 10 ml PO QID PRN #240 ml 12/29/17 BLM] Promethazine [Phenergan] 25 mg PO Q6HR PRN #30 tablet 01/25/18 OxyCODONE Immed Rel [Roxicodone 10 10 mg PO BID PRN 30 Days #60 tablet 02/21/18 MG] levoFLOXacin [Levaquin] 500 mg PO DAILY 7 Days #7 tablet 02/23/18 Allergies Allergy/AdvReac Type Severity Reaction Status Date / Time shellfish derived AdvReac Swelling Verified 02/06/18 10:25 of the Eye Past Medical History - Past Medical History Medical history: Reports: cancer, coronary artery disease, diabetes, hyperlipidemia, hypertension, myocardial infarction Surgical history: Reports: cataract, knee replacement (B/L TKR) Psychiatric history: Reports: no psych history - Social History Smoking Status: Former smoker Smokeless Tobacco Status: No Alcohol use: Reports: none Drug use: Reports: none Physical Exam - General General appearance: alert, in no apparent distress Course Vital Signs Temperature 98.1 F 03/06/18 07:06 Pulse Rate 80 03/06/18 07:06 Respiratory Rate 30 03/06/18 07:06 Blood Pressure 140/118 03/06/18 07:06 O2 Sat by Pulse Oximetry 96 03/06/18 07:06 Temperature 98.1 F 03/06/18 07:06 Pulse Rate 80 03/06/18 07:06 Respiratory Rate 30 03/06/18 07:06 Blood Pressure 140/118 03/06/18 07:06 O2 Sat by Pulse Oximetry 96 03/06/18 07:06 Oxygen Delivery Oxygen Delivery Room Air Medical Decision Making - Lab Data Lab Results 03/06/18 Range/Units 07:08 POC Glucose 114 H (70-99) mg/dL Attestation Statement - Attestation Attestation: I examined this patient and my medical decision-making was reviewed with the Resident Physician. I agree with the documented findings, disposition and treatment plan as described except to the extent set forth below. 77 year old female presents to the ED with coplants of weakness in the right upper extremity. She states that she is unsure of what time she went to bed but she woke up at 0433, according to her daughter, and appeared warm but did not have any neuro defecits at that time, then she went back to sleep. Daughter states that at 0530 she wokeup to go to the bathroom because she has had diarrhea and noticed at that time she has had right arm weakness worse than the left. She is currently on plavix for cardiac stents. DAughter states that previously in the last week or so she has been feeling abdomnial discomfort and diarrhea. WE have called stroke alert due to the neuro defecits and willl consult with [facility] neurology and do a sepsis wokrup for infectious diarrhea with CT abp
[2018-03-06 07:31] LABS: Basophils % 0.1 %; Eosinophils # 0.1 K/mcL (0.0-0.6); Eosinophils % 0.5 %; Hematocrit 24.5 % (35.3-44.9); Hemoglobin 7.9 g/dL (11.5-15.4); Immature Granulocytes % 0.4 % (0-4); Lymphocytes # 1.1 K/mcL (0.6-4.6); Lymphocytes % 11.5 %; Mean Corpuscular HGB Conc 32.2 g/dL (31.6-35.5); Mean Corpuscular Hemoglobin 35.7 pg (28.0-33.3); Mean Corpuscular Volume 110.9 fL (83.0-100.0); Monocytes # 1.1 K/mcL (0.0-1.3); Monocytes % 11.4 %; Neutrophils # 7.3 K/mcL (1.6-8.9); Platelet Count 115 K/mcL (140-400); Red Blood Count 2.21 M/mcL (3.82-4.97); Red Cell Distribution Width 20.1 % (11.5-14.5); Segmented Neutrophils % 76.1 %
--- NOTE | 2018-03-06 07:38 | Emergency Department Note ---
Disposition Clinical Impression: Right arm weakness Abdominal pain Qualifiers: Abdominal location: generalized Qualified Code(s): R10.84 - Generalized abdominal pain GI bleed Qualifiers: GI bleed type/associated pathology: unspecified gastrointestinal hemorrhage type Qualified Code(s): K92.2 - Gastrointestinal hemorrhage, unspecified Anemia Qualifiers: Anemia type: unspecified type Qualified Code(s): D64.9 - Anemia, unspecified Disposition: Still a Patient Neuro HPI - General Chief Complaint: ED Neuro Symptoms/Deficit Time Seen by Provider: 03/06/18 07:19 Source: patient, EMS Nursing Notes Reviewed: Yes Vital Signs Reviewed: Yes - History of Present Illness HPI Narrative: 77-year-old female presents emergency department with concern for right arm weakness. Last known well was at 4:33 AM. Patient states that she has never felt this way before. Patient is on Plavix for stents. Has history of cancer. Patient also complaining about abdominal pain and diarrhea. - Related Data Home Medications: Home Medications Medication Instructions Recorded Confirmed Aspirin [Lo-Dose Aspirin EC] 81 mg PO DAILY 09/23/17 03/06/18 Cholecalciferol (D-3) [Vitamin D] 1,000 unit PO QPM 09/23/17 03/06/18 Multivitamin [Multivitamins] 1 each PO QPM 09/23/17 03/06/18 Furosemide [Lasix] 20 mg PO DAILY 11/15/17 03/06/18 Pantoprazole Sodium [Protonix] 40 mg PO DAILY 11/15/17 03/06/18 Cyanocobalamin (Vitamin B-12) 100 mcg PO QPM 11/21/17 03/06/18 [Vitamin B-12] Lidocaine/Prilocaine [Emla] 1 appl TP AD 11/21/17 03/06/18 Nitroglycerin [Nitrostat] 0.4 mg SL Q5M PRN 11/21/17 03/06/18 glipiZIDE [Glucotrol] 5 mg PO 0800 11/21/17 03/06/18 Metoprolol [Lopressor] 12.5 mg PO BID 12/12/17 03/06/18 Potassium Chloride [Klor-Con 10] 10 meq PO DAILY 12/12/17 03/06/18 Acetaminophen [Tylenol] 1,000 mg PO Q6HR PRN 01/09/18 03/06/18 Guaifenesin [Mucinex] 600 mg PO Q12HR PRN 02/06/18 03/06/18 Dicyclomine [Bentyl] 20 mg PO QID 03/06/18 03/06/18 Previous Rx's Medication Instructions Recorded Clopidogrel [Plavix] 75 mg PO DAILY #30 tablet 09/24/17 Magic Mouthwash [Magic Mouthwash 10 ml PO QID PRN #240 ml 12/29/17 BLM] Promethazine [Phenergan] 25 mg PO Q6HR PRN #30 tablet 01/25/18 OxyCODONE Immed Rel [Roxicodone 10 10 mg PO BID PRN 30 Days #60 tablet 02/21/18 MG] Allergies/Adverse Reactions: Allergies Allergy/AdvReac Type Severity Reaction Status Date / Time shellfish derived AdvReac Swelling Verified 02/06/18 10:25 of the Eye All systems ED: reviewed and negative except as stated. Review of Systems: As Per HPI Constitutional: Reports: fever (Subjective) Cardiovascular: Denies: chest pain Respiratory: Reports: dyspnea Gastrointestinal: Reports: abdominal pain, diarrhea. Denies: nausea, vomiting Genitourinary: Denies: urgency, dysuria, frequency Musculoskeletal: Denies: back pain Integumentary: Denies: rash Neurological: Reports: weakness (Right upper extremity). Denies: numbness, paresthesias Endocrine: Denies: fatigue Past Medical History - Past Medical History Medical history: Reports: cancer, coronary artery disease, diabetes, hyperlipidemia, hypertension, myocardial infarction Surgical history: Reports: cataract, knee replacement (B/L TKR) Psychiatric history: Reports: no psych history - Social History Smoking Status: Former smoker Smokeless Tobacco Status: No Alcohol use: Reports: none Drug use: Reports: none Physical Exam - General General appearance: alert, in no apparent distress - Head Head exam: atraumatic, normocephalic - Eye Eye exam: Present: EOMI. Absent: scleral icterus, conjunctival injection - ENT ENT exam: normal exam, normal oropharynx - Neck Neck exam: Present: trachea midline. Absent: tenderness, meningismus - Chest Chest inspection: Present: normal inspection, symmetric chest wall rise - Respiratory Respiratory exam: Present: normal lung sounds bilaterally. Absent: respiratory distress - Cardiovascular Cardiovascular exam: Present: regular rate, normal rhythm, normal heart sounds - Abdominal Exam Abdominal exam: Present: soft, tenderness. Absent: distention, guarding, rebound, rigidity Abdominal tenderness: Present: suprapubic, mild - Extremities Exam Extremities exam: Present: normal capillary refill. Absent: tenderness - Back Exam Back exam: Present: full ROM. Absent: CVA tenderness (R), CVA tenderness (L) - Neurological Exam Neurological exam: Present: alert, oriented X3, CN II-XII intact, other (GCS 15 , right upper extremity weakness 3 out of 5) - Psychiatric Psychiatric exam: Present: normal affect, normal mood - Skin Skin exam: Present: warm, dry, intact, normal color. Absent: rash Course Vital Signs Temperature 98.1 F 03/06/18 07:06 Pulse Rate 80 03/06/18 07:06 Respiratory Rate 30 03/06/18 07:06 Blood Pressure 140/118 03/06/18 07:06 O2 Sat by Pulse Oximetry 96 03/06/18 07:06 Temperature 97.8 F 03/06/18 10:45 Pulse Rate 85 03/06/18 10:33 Respiratory Rate 18 03/06/18 10:45 Blood Pressure 128/60 03/06/18 10:45 O2 Sat by Pulse Oximetry 94 03/06/18 10:45 Oxygen Delivery Oxygen Delivery Room Air Neuro Symptoms/Deficit - MDM Narrative Medical decision making narrative: 77-year-old female presents to the emergency department with last known well around 4:33 AM. Patient has an NIH of 2. Patient only has pronator drift of the right arm with effort against gravity, but right arm his the bed. Patient has no reported stroke before. Currently on Plavix. Does report history of cancer. Patient had CT of head obtained at 719. Radiology called back with results at 8 :27 AM. Patient's right arm weakness improved some, but not completely. Due to her improvement of symptoms, with high risk of bleeding, it was decided by family and team to not administer TPA. Patient has hemoglobin of 7.9. Previous is 8.2. We obtained fecal Hemoccult and this was positive. We will order one unit of blood at this time. CT scan of the abdomen and pelvis was obtained and revealed increasing ascites. Was also nonocclusive portal vein thrombosis seen as well. Bilateral pleural effusions. Patient was given 40 mg of Lasix here in the emergency department. Troponin was 0.04. However, there was no ischemic ST changes on electrocardiogram, patient is not reporting chest pain, and this was lower than previous troponins. A recent echocardiogram performed in October reveals left ventricular ejection fraction of 70%. I spoke with the nurse practitionerRena November with hematology and oncology. She agreed to follow patient on the floor. I spoke with Dr. Bonilla, the neurologist here at [facility]. Recommended to continue aspirin and Plavix at this time and he will also follow patient on the floor. Spoke to family regarding results of all the testing. They agree for admission here at [facility]. Patient hemodynamically stable not in acute distress at time of admission. Vital Signs Temperature 98.1 F 03/06/18 07:06 Pulse Rate 80 03/06/18 07:06 Respiratory Rate 30 03/06/18 07:06 Blood Pressure 140/118 03/06/18 07:06 O2 Sat by Pulse Oximetry 96 03/06/18 07:06 Temperature 99 F 03/06/18 08:34 Pulse Rate 80 03/06/18 08:57 Respiratory Rate 18 03/06/18 08:57 Blood Pressure 125/68 03/06/18 08:57 O2 Sat by Pulse Oximetry 93 03/06/18 08:57 Oxygen Delivery Oxygen Delivery Room Air Chest X-Ray 03/06/18 07:19 IMPRESSION: Low lung volumes with a right basilar opacity, which could represent atelectasis or pneumonia. D/ / Michael Raymundo MD / Michael Raymundo MD Interpreting Provider: Michael Raymundo MD Head CT 03/06/18 07:19 IMPRESSION: 1. No acute intracranial abnormality. These findings were discussed with Cruz De León at 820 7 a.m. 03/06/2018. D/ / Joel Buenrostro MD / Joel Buenrostro MD Interpreting Provider: Joel Buenrostro MD - Lab Data Result diagrams: 03/06/18 07:18 03/06/18 07:18 Lab Results 03/06/18 03/06/18 03/06/18 Range/Units 07:08 07:18 07:18 WBC 9.6 (4.3-11.1) K/mcL RBC 2.21 L (3.82-4.97) M/mcL Hgb 7.9 L (11.5-15.4) g/dL Hct 24.5 L (35.3-44.9) % MCV 110.9 H (83.0-100.0) fL MCH 35.7 H (28.0-33.3) pg MCHC 32.2 (31.6-35.5) g/dL RDW 20.1 H (11.5-14.5) % Plt Count 115 L (140-400) K/mcL MPV 12.0 (9.4-12.4) fL Immature Gran % 0.4 (0-4) % Seg Neutrophils % 76.1 % Lymphocytes % 11.5 % Monocytes % 11.4 % Eosinophils % 0.5 % Basophils % 0.1 % Neutrophils # 7.3 (1.6-8.9) K/mcL Lymphocytes # 1.1 (0.6-4.6) K/mcL Monocytes # 1.1 (0.0-1.3) K/mcL Eosinophils # 0.1 (0.0-0.6) K/mcL Basophils # 0.0 (0.0-0.2) K/mcL Platelet Estimate Slight Decrease L (Normal) Polychromasia 1+ A (Not Present) Anisocytosis 2+ A (Not Present) PT 12.4 H (9.4-12.1) Seconds INR 1.1 APTT 34.6 (26.0-36.0) Seconds Sodium (136-145) mEq/L Potassium (3.5-5.1) mEq/L Chloride (98-107) mEq/L Carbon Dioxide (23-29) mEq/L BUN (8-23) mg/dL Creatinine (0.60-1.20) mg/dL Est GFR ( Amer) (> 60) Est GFR (Non-Af Amer) (> 60) BUN/Creatinine Ratio (6-26) Glucose (70-105) mg/dL POC Glucose 114 H (70-99) mg/dL Calculated Osmolality (280-300) Lactic Acid (0.5-2.2) mmol/L Calcium (8.6-10.3) mg/dL Troponin I (< 0.04) ng/mL Urine Color (Yellow) Urine Clarity (Clear) Urine pH (5.0-8.0) pH Units Ur Specific Garrett (1.010-1.025) Urine Protein (Neg-Trace) mg/dL Urine Glucose (UA) (Normal) mg/dL Urine Ketones (Negative) mg/dL Urine Blood (Negative) Urine Nitrite (Negative) Urine Bilirubin (Negative) Urine Urobilinogen (Normal) mg/dL Ur Leukocyte Esterase (Negative) Ur Culture Indicated? (NO) Stool Occult Bld Scrn (Negative) Urine Opiates Screen (Ufiiox=952) ng/mL Ur Barbiturates Screen (Hbeudi=348) ng/mL Ur Phencyclidine Scrn (Cutoff=25) ng/mL Ur Amphetamines Screen (Qkouoo=3264) ng/mL U Benzodiazepines Scrn (Mqmaog=348) ng/mL Urine Cocaine Screen (Cutoff= 300) ng/mL U Marijuana (THC) Screen (Cutoff = 50) ng/mL Blood Type Antibody Screen Crossmatch 03/06/18 03/06/18 03/06/18 Range/Units 07:18 07:18 07:18 WBC (4.3-11.1) K/mcL RBC (3.82-4.97) M/mcL Hgb (11.5-15.4) g/dL Hct (35.3-44.9) % MCV (83.0-100.0) fL MCH (28.0-33.3) pg MCHC (31.6-35.5) g/dL RDW (11.5-14.5) % Plt Count (140-400) K/mcL MPV (9.4-12.4) fL Immature Gran % (0-4) % Seg Neutrophils % % Lymphocytes % % Monocytes % % Eosinophils % % Basophils % % Neutrophils # (1.6-8.9) K/mcL Lymphocytes # (0.6-4.6) K/mcL Monocytes # (0.0-1.3) K/mcL Eosinophils # (0.0-0.6) K/mcL Basophils # (0.0-0.2) K/mcL Platelet Estimate (Normal) Polychromasia (Not Present) Anisocytosis (Not Present) PT (9.4-12.1) Seconds INR APTT (26.0-36.0) Seconds Sodium 138 (136-145) mEq/L Potassium 3.6 (3.5-5.1) mEq/L Chloride 103 (98-107) mEq/L Carbon Dioxide 25 (23-29) mEq/L BUN 17 (8-23) mg/dL Creatinine 1.11 (0.60-1.20) mg/dL Est GFR ( Amer) 58 L (> 60) Est GFR (Non-Af Amer) 48 L (> 60) BUN/Creatinine Ratio 15 (6-26) Glucose 106 H (70-105) mg/dL POC Glucose (70-99) mg/dL Calculated Osmolality 288 (280-300) Lactic Acid 1.7 (0.5-2.2) mmol/L Calcium 8.4 L (8.6-10.3) mg/dL Troponin I 0.04 H* (< 0.04) ng/mL Urine Color (Yellow) Urine Clarity (Clear) Urine pH (5.0-8.0) pH Units Ur Specific Garrett (1.010-1.025) Urine Protein (Neg-Trace) mg/dL Urine Glucose (UA) (Normal) mg/dL Urine Ketones (Negative) mg/dL Urine Blood (Negative) Urine Nitrite (Negative) Urine Bilirubin (Negative) Urine Urobilinogen (Normal) mg/dL Ur Leukocyte Esterase (Negative) Ur Culture Indicated? (NO) Stool Occult Bld Scrn (Negative) Urine Opiates Screen (Soqdnp=187) ng/mL Ur Barbiturates Screen (Thkmqx=200) ng/mL Ur Phencyclidine Scrn (Cutoff=25) ng/mL Ur Amphetamines Screen (Swklhp=6989) ng/mL U Benzodiazepines Scrn (Fcfzdq=170) ng/mL Urine Cocaine Screen (Cutoff= 300) ng/mL U Marijuana (THC) Screen (Cutoff = 50) ng/mL Blood Type O POSITIVE Antibody Screen NEGATIVE Crossmatch See Detail 03/06/18 03/06/18 03/06/18 Range/Units 08:10 08:10 09:33 WBC (4.3-11.1) K/mcL RBC (3.82-4.97) M/mcL Hgb (11.5-15.4) g/dL Hct (35.3-44.9) % MCV (83.0-100.0) fL MCH (28.0-33.3) pg MCHC (31.6-35.5) g/dL RDW (11.5-14.5) % Plt Count (140-400) K/mcL MPV (9.4-12.4) fL Immature Gran % (0-4) % Seg Neutrophils % % Lymphocytes % % Monocytes % % Eosinophils % % Basophils % % Neutrophils # (1.6-8.9) K/mcL Lymphocytes # (0.6-4.6) K/mcL Monocytes # (0.0-1.3) K/mcL Eosinophils # (0.0-0.6) K/mcL Basophils # (0.0-0.2) K/mcL Platelet Estimate (Normal) Polychromasia (Not Present) Anisocytosis (Not Present) PT (9.4-12.1) Seconds INR APTT (26.0-36.0) Seconds Sodium (136-145) mEq/L Potassium (3.5-5.1) mEq/L Chloride (98-107) mEq/L Carbon Dioxide (23-29) mEq/L BUN (8-23) mg/dL Creatinine (0.60-1.20) mg/dL Est GFR ( Amer) (> 60) Est GFR (Non-Af Amer) (> 60) BUN/Creatinine Ratio (6-26) Glucose (70-105) mg/dL POC Glucose (70-99) mg/dL Calculated Osmolality (280-300) Lactic Acid (0.5-2.2) mmol/L Calcium (8.6-10.3) mg/dL Troponin I (< 0.04) ng/mL Urine Color Yellow (Yellow) Urine Clarity Clear (Clear) Urine pH 5.0 (5.0-8.0) pH Units Ur Specific Garrett 1.015 (1.010-1.025) Urine Protein Trace (Neg-Trace) mg/dL Urine Glucose (UA) Normal (Normal) mg/dL Urine Ketones 15 H (Negative) mg/dL Urine Blood Negative (Negative) Urine Nitrite Negative (Negative) Urine Bilirubin Small H (Negative) Urine Urobilinogen Normal (Normal) mg/dL Ur Leukocyte Esterase Negative (Negative) Ur Culture Indicated? NO (NO) Stool Occult Bld Scrn Positive A (Negative) Urine Opiates Screen Positive H (Xqfzil=648) ng/mL Ur Barbiturates Screen Negative (Vbgglp=181) ng/mL Ur Phencyclidine Scrn Negative (Cutoff=25) ng/mL Ur Amphetamines Screen Negative (Eqofck=3684) ng/mL U Benzodiazepines Scrn Negative (Xhqpkc=655) ng/mL Urine Cocaine Screen Negative (Cutoff= 300) ng/mL U Marijuana (THC) Screen Negative (Cutoff = 50) ng/mL Blood Type Antibody Screen Crossmatch - EKG Data EKG attestation: Yes I reviewed and interpreted this EKG. EKG results narrative: 7:21 Ventricular rate 87 bpm, MD interval 166 ms, QRS duration 92 ms, QT 404 ms, QTC 448 ms. Sinus rhythm with a ventricular rate of 87 bpm. There is no evidence of any ischemic ST changes on this electrocardiogram. This study was compared to one performed on 11/21/2017. NIH Stroke Scale - Level of Consciousness LOC: Alert - LOC Questions LOC Questions: Answers both correctly - LOC Commands LOC Commands: Performs both correctly - Best Gaze Best Gaze: Normal - Visual Visual: No visual loss - Facial Palsy Facial Palsy: Normal - Motor Arms Motor Arm-Left: No drift for 10 seconds Motor Arm-Right: Some effort against gravity, limb drifts to bed - Motor Legs Motor Leg-Left: No drift for 5 seconds Motor Leg-Right: No drift for 5 seconds - Limb Ataxia Limb Ataxia: Normal, No Ataxia - Sensory Sensory: Normal - Best Language Best Language: No aphasia - Dysarthria Dysarthria: Normal - Extinction and Inattention Extinction and Inattention: Normal - NIHSS Total Score NIHSS Total Score: 2 TPA Checklist - LKW: 3-4.5 hrs Add. Warnings/Precautions Patient/family understanding: The patient/family members have been counseled and understood the risk, benefit , and alternatives of treatment.
[2018-03-06 07:41] LABS: INR 1.1; Prothrombin Time 12.4 Seconds (9.4-12.1)
[2018-03-06 07:44] LABS: Activated Partial Thrombo Time 34.6 Seconds (26.0-36.0)
[2018-03-06 07:50] LABS: Platelet Estimate Slight Decrease (Normal)
[2018-03-06 07:51] LABS: Anisocytosis 2+ (Not Present)
[2018-03-06] MEDS ORDERED: Ondansetron 4 MG/2 ML VIAL IVP ONE (07:52)
[2018-03-06 07:54] LABS: Polychromasia 1+ (Not Present)
[2018-03-06 08:04] LABS: Troponin I 0.04 ng/mL (< 0.04)
[2018-03-06 08:14] LABS: Calcium 8.4 mg/dL (8.6-10.3); Potassium 3.6 mEq/L (3.5-5.1)
[2018-03-06 08:22] LABS: Bilirubin,Urine Small (Negative); Blood,Urine Negative (Negative); Clarity,Urine Clear (Clear); Color,Urine Yellow (Yellow); Glucose,Urine (UA) Normal (Normal); Ketones,Urine 15 mg/dL (Negative); Leukocyte Esterase,Urine Negative (Negative); Nitrite,Urine Negative (Negative); Protein,Urine Trace mg/dL (Neg-Trace); Specific Gravity,Urine 1.015 (1.010-1.025); Urobilinogen,Urine Normal (Normal)
[2018-03-06 08:31] LABS: Amphetamine Screen,Urine Negative ng/mL (Cutoff=1000); Barbiturate Screen,Urine Negative ng/mL (Cutoff=200); Benzodiazepines Screen,Urine Negative ng/mL (Cutoff=200); Cannabinoid Screen,Urine Negative ng/mL (Cutoff = 50); Cocaine Screen,Urine Negative ng/mL (Cutoff= 300); Opiate Screen,Urine Positive ng/mL (Cutoff=300); Phencyclidine Screen,Urine Negative ng/mL (Cutoff=25)
[2018-03-06] MEDS ORDERED: Furosemide 40 MG/4 ML VIAL IVP ONE (09:58)
[2018-03-06] MEDS ORDERED: *HR* OxyCODONE/APAP 5/325 TABLET PO ONE (10:17)
--- NOTE | 2018-03-06 13:17 | Internal Med History&Physical ---
Date of Encounter: 03/06/18 Time of Encounter: 12:15 Internal Medicine - H&P: HPI Admitted From: Emergency Dept Plans for Post Hospital Care: Home History of present illness: Ms. Singletary is a 77 year old female renal cancer, cholangiocarcinoma, CAD, DM-II, HTN, Hx of GI bleed, and CKD. Daughter and 2 sons at bedside. Pt states when she woke up this morning she noticed she had RUE weakness. She states she had to use her left hand to lift her R arm. Daughter states pt later informed her that her RLE was also weak and she could barely lift it. Pt states symptoms have completely resolved now. Denies trouble speaking, swallowing, or any visual changes. Denies productive cough, WBC 9.6, and afebrile. Denies any urinary symptoms such as burning, frequency or urgency. CODE STATUS: FULL. Non-contrast CTH IMPRESSION: 1. No acute intracranial abnormality. These findings were discussed with Cruz De León at 820 7 a.m. 03/06/2018. Chest x ray IMPRESSION: Low lung volumes with a right basilar opacity, which could represent atelectasis or pneumonia. CT abdomen and pelvis with contrast IMPRESSION: 1. Suspected non-occlusive portal vein thrombosis. 2. Moderate amount of ascites, increased from prior exam. 3. Grossly stable size of an infiltrative hepatic mass, consistent with history of cholangiocarcinoma. Associated mild intrahepatic biliary dilation predominantly in the left hepatic lobe also appears stable. 4. Trace bilateral pleural effusions. 5. Gallstones. 6. Stable left renal mass, which measures 3.5 x 3.3 cm. Past Med Surg Social Fam HX - Past Medical History Medical history: cancer, coronary artery disease, diabetes, hyperlipidemia, hypertension, myocardial infarction Additional medical history: renal and liver cancer Psychiatric history: no psych history - Past Surgical History Surgical History: cataract, knee replacement (B/L TKR) Additional surgical history: CARPEL TUNNEL TRIGGER FINGER RELEASE. 1 cardiac stent. bilateral knees. biopsy of kidneys, liver, lymph nodes - Social History Smoking Status: Former smoker Smokeless Tobacco Status: No Alcohol use: none Drug use: none - Family History Father Hx Family Cancer: Yes (bone cancer) Brother Hx Family Endocrine Disorder: Yes (DM) Internal Medicine - H&P: Meds Aspirin [Lo-Dose Aspirin EC] 81 mg PO DAILY 09/23/17 [History] Cholecalciferol (D-3) [Vitamin D] 1,000 unit PO QPM 09/23/17 [History] Multivitamin [Multivitamins] 1 each PO QPM 09/23/17 [History] Clopidogrel [Plavix] 75 mg PO DAILY #30 tablet 09/24/17 [Rx] Furosemide [Lasix] 20 mg PO DAILY 11/15/17 [History] Pantoprazole Sodium [Protonix] 40 mg PO DAILY 11/15/17 [History] Cyanocobalamin (Vitamin B-12) [Vitamin B-12] 100 mcg PO QPM 11/21/17 [History] Lidocaine/Prilocaine [Emla] 1 appl TP AD 11/21/17 [History] Nitroglycerin [Nitrostat] 0.4 mg SL Q5M PRN 11/21/17 [History] glipiZIDE [Glucotrol] 5 mg PO 0800 11/21/17 [History] Metoprolol [Lopressor] 12.5 mg PO BID 12/12/17 [History] Potassium Chloride [Klor-Con 10] 10 meq PO DAILY 12/12/17 [History] Magic Mouthwash [Magic Mouthwash BLM] 10 ml PO QID PRN #240 ml 12/29/17 [Rx] Acetaminophen [Tylenol] 1,000 mg PO Q6HR PRN 01/09/18 [History] Promethazine [Phenergan] 25 mg PO Q6HR PRN #30 tablet 01/25/18 [Rx] Guaifenesin [Mucinex] 600 mg PO Q12HR PRN 02/06/18 [History] OxyCODONE Immed Rel [Roxicodone 10 MG] 10 mg PO BID PRN 30 Days #60 tablet 02/21 [Rx] Dicyclomine [Bentyl] 20 mg PO QID 03/06/18 [History] 3 Allergy/AdvReac Type Severity Reaction Status Date / Time shellfish derived AdvReac Swelling Verified 02/06/18 10:25 of the Eye All Systems PM: A 10-system review of systems was performed and is negative for pertinent findings except as documented above in the HPI. - Constitutional Vitals: Temp Pulse Resp BP Pulse Ox 97.4 F L 86 18 124/66 99 03/06/18 11:40 03/06/18 11:40 03/06/18 11:40 03/06/18 11:40 03/06/18 11:35 General appearance: Present: A&O X 3, morbidly obese, no acute distress - Head Head exam: Present: atraumatic, normocephalic - Eye Eye exam: Present: PERRL, conjuntiva pink, sclera anicteric Pupils: Present: PERRL - Neck Neck exam general surgery: Present: supple, trachea midline. Absent: lymphadenopathy - Respiratory Respiratory exam: Absent: accessory muscle use, CTAB, rales, rhonchi, wheezes Additional comments: crackles B/L bases R > L. - Cardiovascular Cardiovascular exam: Present: RRR, +S1, +S2. Absent: diastolic murmur, gallop, rubs, systolic murmur - GI/Abdominal GI/Abdominal exam: Present: normal bowel sounds, soft, no peritoneal signs. Absent: distended, tenderness Additional comments: Abdomen mildly distended, no pain with palpation - Extremities Exam Extremities exam: Present: warm, radial pulses palpable and symmetrical. Absent : calf tenderness, cyanotic, pedal edema - Neurological Exam Neurological exam: Present: CN II-XII intact, oriented X3, no focal deficits. Absent: pronater drift, facial droop, speech deficit - Skin Skin exam: Present: dry, intact Internal Med - H&P Results - Labs CBC & Chem 7: 03/06/18 07:18 03/06/18 07:18 - Assessment and plan (1) Right arm weakness Current Visit: Yes Status: Acute Assessment and plan: ? TIA. Pt's states symptoms resolved. Will check CVA work up. MRI/MRA/carotid doppler/ehco. Will continue ASA and clarify with patient why she is not on statin. If no allergies. Will start on statin till images result. Will check lipid panel in am. (2) Ascites Current Visit: Yes Status: Acute Assessment and plan: Moderate amount of ascites seen on CT abdomen. Pt noted to have diffuse anasarca on CT as well. Pt given Lasix in ED. Daughter reported LE edema but that seems to have resolved. Pt denies prior hx of paracentesis. Will check echo if one not done recently. Will give one more dose IV and resume home dose Lasix 20 mg PO QD. Qualifiers: Qualified Code(s): R18.8 - Other ascites (3) Cholangiocarcinoma Current Visit: No Status: Acute Assessment and plan: Follows up out pt with Dr. Stevens for chemo. (4) Renal cell cancer Current Visit: No Status: Suspected Assessment and plan: Family aware and states Dr. Stevens following. Qualifiers: Laterality: left Qualified Code(s): C64.2 - Malignant neoplasm of left kidney, except renal pelvis (5) Essential hypertension Current Visit: No Status: Chronic Assessment and plan: Lopressor (6) Diabetes mellitus Current Visit: No Status: Chronic Assessment and plan: Glipizide will add SSI and check glucose. Qualifiers: Diabetes mellitus type: type 2 Diabetes mellitus fire support specialist insulin use: without fire support specialist use Diabetes mellitus complication status: with unspecified complications Qualified Code(s): E11.8 - Type 2 diabetes mellitus with unspecified complications (7) Coronary artery disease Current Visit: No Status: Chronic Assessment and plan: ASA, plavix, and statin Qualifiers: Coronary Disease-Associated Artery/Lesion type: [place] artery [place] vs. transplanted heart: [place] heart Associated angina: without angina Qualified Code(s): I25.10 - Atherosclerotic heart disease of [place] coronary artery without angina pectoris (8) Portal vein thrombosis Current Visit: Yes Status: Acute Assessment and plan: Consulting Dr. Stevens. Will start on heparin gtt. (9) Chronic kidney disease Current Visit: No Status: Suspected Assessment and plan: Will monitor renal function Qualifiers: Chronic kidney disease stage: stage 3 (moderate) Qualified Code(s): N18.3 - Chronic kidney disease, stage 3 (moderate) - Time Spent With Patient Total time spent is greater than 50% in coordination of care (as documented) at patient's floor/unit and/or counseling patient: 25 - 35 minutes
[2018-03-06] MEDS ORDERED: Naloxone 0.4 MG/ML INJ IVP PRN (13:30)
[2018-03-06] MEDS ORDERED: Acetaminophen 325 MG TABLET PO PRN (13:30)
[2018-03-06] MEDS ORDERED: *HR* Heparin 5,000 UNIT/ML VIAL IVP PRN ×2 (13:35)
[2018-03-06] MEDS ORDERED: *HR* Heparin 5,000 UNIT/ML VIAL IVP ONE (13:35)
[2018-03-06] MEDS ORDERED: Nitroglycerin 0.4 MG TAB.SUBL SL PRN (13:37)
[2018-03-06] MEDS ORDERED: *HR* OxyCODONE Immed Rel 5 MG TABLET PO PRN (13:37)
[2018-03-06] MEDS ORDERED: Magic Mouthwash 10 ML UD Cup PO PRN (13:37)
[2018-03-06] MEDS ORDERED: Heparin 25,000 UNIT/500 ML D5W 25,000 UNIT/500 ML BAG IVC SCH (13:45)
--- NOTE | 2018-03-06 14:12 | Neurology - Consult Note ---
Date of Encounter: 03/06/18 Time of Encounter: 14:00 Assessment and Plan (1) Right arm weakness Current Visit: Yes Status: Acute Patient presented with R arm weakness upon waking, with some milder RLE weakness , but had last known normal of an hour earlier. Patient symptoms already improving by time she arrived at the ED and patient reports continued improvement. Patient spontaneously moving R arm when examined. Patient with weakness in R hand skid strapper and slowness in ROBIN of R hand. Patient describes associated heaviness, but not true numbness/tingling. Differential includes CVA vs. TIA, less likely Cervical lesion or peripheral neuropathy. Recommendations: Complete Stroke Work up. MRI PT/OT consult ECHO +/- MRA, Carotid U/S Patient had CTA head and neck in September and Carotid U/S and full ECHO in August. History of Present Illness Chief complaint: R sided weakness HPI: Ms. Singletary is a 77 year old Left Handed female c PMHx of renal cancer, cholangiocarcinoma, CAD, DM-II, HTN, Hx of GI bleed, and CKD who reports to the [facility] c/o improving R sided weakness that began at 5:30am last known normal 4:30 am. Patient woke up at 4:30 to use bathroom, without issue, witnessed by daughter. Patient then woke up at 5:30 am with weakness of her R arm. Per daughter patient had to lift R arm with her L arm. Patient also reports some less noticeable RLE weakness. Per daughter patient had more difficulty ambulating with walker than usual. Patient was examined in the ED and found to have an NIH stroke scale of 2 based on Pronator drift of the R Arm. Telestroke consult with [facility] was conducted and patient and family decided against TPA due to hx of GI bleeds, improvement in symptoms, and low stroke scale. Per patient and family symptoms are much improved. Patient using R arm spontaneously in the room. Patient had cardiac stent in August of 2017 and has been on aspirin and plavix since then as a result. Patient was on a statin till recently when she was diagnosed with Cholangiocarcinoma. Patient denies prior hx of A fib. She reports having recent CTA of head and neck as well as echo and carotid u/s in the fall. CTA from September 2017 showed:" No acute intracranial abnormality. Bilateral intracranial internal carotid artery atherosclerosis, including moderate narrowing of the right internal carotid artery. No evidence of cerebral aneurysm." Carotid duplex of 09/02/17 showed 40-59% stenosis of R mid ICA and 40-59% stenosis of Mid and distal Left ICA. Echo of 11/22/17 showed: LVEF 70%. Normal LV chamber size and function. Mild concentric left ventricular hypertrophy. but did not evaluate for PFO However Echo of 09/21/18 did evaluate for PFO and was negative. Patient reports chronic neck pain with out radicular symptoms but occasional radiation to the head. Patient denies speech changes/ slurred speech and family agrees, facial droop( and family agrees), visual changes, chest pain, SOB. Patient also reported some abd pain upon admission and was foudn to have a lower than normal hgb (though she runs anemic) and was hemmoccult positive. Past Med Surg Social Fam HX - Past Medical History Medical history: cancer, coronary artery disease, diabetes, hyperlipidemia, hypertension, myocardial infarction Additional medical history: renal and liver cancer Psychiatric history: no psych history - Past Surgical History Surgical History: cataract, knee replacement (B/L TKR) Additional surgical history: CARPEL TUNNEL TRIGGER FINGER RELEASE. 1 cardiac stent. bilateral knees. biopsy of kidneys, liver, lymph nodes - Social History Smoking Status: Former smoker Smokeless Tobacco Status: No Alcohol use: none Drug use: none - Family History Father Hx Family Cancer: Yes (bone cancer) Brother Hx Family Endocrine Disorder: Yes (DM) Medications and Allergies Aspirin [Lo-Dose Aspirin EC] 81 mg PO DAILY 09/23/17 [History] Cholecalciferol (D-3) [Vitamin D] 1,000 unit PO QPM 09/23/17 [History] Multivitamin [Multivitamins] 1 each PO QPM 09/23/17 [History] Clopidogrel [Plavix] 75 mg PO DAILY #30 tablet 09/24/17 [Rx] Furosemide [Lasix] 20 mg PO DAILY 11/15/17 [History] Pantoprazole Sodium [Protonix] 40 mg PO DAILY 11/15/17 [History] Cyanocobalamin (Vitamin B-12) [Vitamin B-12] 100 mcg PO QPM 11/21/17 [History] Lidocaine/Prilocaine [Emla] 1 appl TP AD 11/21/17 [History] Nitroglycerin [Nitrostat] 0.4 mg SL Q5M PRN 11/21/17 [History] glipiZIDE [Glucotrol] 5 mg PO 0800 11/21/17 [History] Metoprolol [Lopressor] 12.5 mg PO BID 12/12/17 [History] Potassium Chloride [Klor-Con 10] 10 meq PO DAILY 12/12/17 [History] Magic Mouthwash [Magic Mouthwash BLM] 10 ml PO QID PRN #240 ml 12/29/17 [Rx] Acetaminophen [Tylenol] 1,000 mg PO Q6HR PRN 01/09/18 [History] Promethazine [Phenergan] 25 mg PO Q6HR PRN #30 tablet 01/25/18 [Rx] Guaifenesin [Mucinex] 600 mg PO Q12HR PRN 02/06/18 [History] OxyCODONE Immed Rel [Roxicodone 10 MG] 10 mg PO BID PRN 30 Days #60 tablet 02/21 [Rx] Dicyclomine [Bentyl] 20 mg PO QID 03/06/18 [History] 3 Allergy/AdvReac Type Severity Reaction Status Date / Time shellfish derived AdvReac Swelling Verified 02/06/18 10:25 of the Eye All Systems: The remainder of the systems were reviewed and are negative - Constitutional Constitutional ROS IM: as per HPI - Nose, Mouth, Throat Nose, mouth and throat: as per HPI - Cardiovascular Cardiovascular ROS IM: as per HPI - Respiratory Respiratory IM: as per HPI - Gastrointestinal Gastrointestinal: as per HPI - Musculoskeletal Musculoskeletal ROS IM: as per HPI - Integumentary Integumentary IM: as per HPI - Neurological Neurological ROS: as per HPI Physical Examination - Vital Signs Vital Signs: Initial Vital Signs Temp Pulse Resp BP Pulse Ox 98.1 F 80 30 140/118 96 03/06/18 07:06 03/06/18 07:06 03/06/18 07:06 03/06/18 07:06 03/06/18 07:06 - Constitutional General appearance: comfortable - Neurologic Detailed motor examination: other (Slow rapid alternating movements on R compared to left. able to do heel to clancy b/l and finger to nose bilaterally, negative babinski and hoffan bilateral. ) Motor examination - right side: 4/5: skid strapper, 5/5: deltoids, biceps, triceps, wrist flexion, wrist extension, hip flexors, tibialis Anterior, plantarflexion Motor examination - left side: 5/5: deltoids, biceps, triceps, wrist flexion, wrist extension, hip flexors, skid strapper, tibialis Anterior, plantarflexion Detailed sensory examination: intact, light touch Reflexes: Biceps: 2+, Brachioradialis: 2+ Mental Status Examination: awake, alert, oriented to person, oriented to place, oriented to time, follows commands appropriately, answers questions appropriately Cranial nerve examination: PERRL, EOMI, visual andersen intact, sensory to face intact, mastication intact, no facial asymmetry is present, no dysarthria, hearing is intact symmetrically, soft palate elevates bilaterally upon phonation , flexes SCM and trapezius muscles symmetrically with full power, tongue protrudes midline, no atrophy or facial fasiculations present Results - Laboratory Findings CBC and BMP: 03/06/18 14:47 03/06/18 07:18 Abnormal lab findings: Abnormal lab results RBC 2.21 M/mcL (3.82-4.97) L 03/06/18 07:18 Hgb 7.9 g/dL (11.5-15.4) L 03/06/18 07:18 Hct 24.5 % (35.3-44.9) L 03/06/18 07:18 MCV 110.9 fL (83.0-100.0) H 03/06/18 07:18 MCH 35.7 pg (28.0-33.3) H 03/06/18 07:18 RDW 20.1 % (11.5-14.5) H 03/06/18 07:18 Plt Count 115 K/mcL (140-400) L 03/06/18 07:18 Platelet Estimate Slight Decrease (Normal) L 03/06/18 07:18 Polychromasia 1+ (Not Present) A 03/06/18 07:18 Anisocytosis 2+ (Not Present) A 03/06/18 07:18 PT 12.4 Seconds (9.4-12.1) H 03/06/18 07:18 Est GFR ( Amer) 58 (> 60) L 03/06/18 07:18 Est GFR (Non-Af Amer) 48 (> 60) L 03/06/18 07:18 Glucose 106 mg/dL (70-105) H 03/06/18 07:18 POC Glucose 114 mg/dL (70-99) H 03/06/18 07:08 Calcium 8.4 mg/dL (8.6-10.3) L 03/06/18 07:18 Troponin I 0.04 ng/mL (< 0.04) H* 03/06/18 07:18 Urine Ketones 15 mg/dL (Negative) H 03/06/18 08:10 Urine Bilirubin Small (Negative) H 03/06/18 08:10 Stool Occult Bld Scrn Positive (Negative) A 03/06/18 09:33 Urine Opiates Screen Positive ng/mL (Ibynxs=613) H 03/06/18 08:10 Consult Discharge Plan - Plan Referrals: Bronson Harris DO [Primary Care Provider] -
[2018-03-06] MEDS ORDERED: Furosemide 20 MG/2 ML VIAL IVP ONE (14:13)
[2018-03-06] MEDS ORDERED: *HR* Dextrose 50 % in Water (Syg) 50 ML SYRINGE IVP PRN (14:15)
[2018-03-06] MEDS ORDERED: Dextrose Gel 15 GM/37.5 ML TUBE PO PRN ×2 (14:15)
[2018-03-06] MEDS ORDERED: D5% in Water 1,000 ML IVC PRN (14:15)
--- NOTE | 2018-03-06 14:53 | Event Note ---
Date of Encounter: 03/06/18 Time of Encounter: 14:50 Pt reports that the last time she was on Heparin prophylaxis she developed a GI bleed. Hgb 7.9, plt 115. Will hold off on Heparin gtt for now. Awaiting Dr. Stevens to see. Pt reporting RUE heaviness will notify neurologist.
[2018-03-06] MEDS: Ondansetron 4 MG/2 ML VIAL IVP PRN (15:16)
[2018-03-06 15:40] LABS: Hematocrit 24.9 % (35.3-44.9); Hemoglobin 8.2 g/dL (11.5-15.4); Mean Corpuscular HGB Conc 32.9 g/dL (31.6-35.5); Mean Corpuscular Hemoglobin 35.5 pg (28.0-33.3); Mean Corpuscular Volume 107.8 fL (83.0-100.0); Mean Platelet Volume 12.1 fL (9.4-12.4); Platelet Count 107 K/mcL (140-400); Red Blood Count 2.31 M/mcL (3.82-4.97); Red Cell Distribution Width 21.2 % (11.5-14.5)
[2018-03-06 16:02] LABS: INR 1.1; Prothrombin Time 12.2 Seconds (9.4-12.1)
[2018-03-06 16:03] LABS: Activated Partial Thrombo Time 33.4 Seconds (26.0-36.0)
[2018-03-06] MEDS ORDERED: *HR* Morphine 2 MG/ML SYRINGE IVP PRN (17:04)
[2018-03-06] MEDS: Multivit/Ca/Min/Fe/FA 1 TAB TABLET PO SCH (17:13)
[2018-03-06] MEDS: Cyanocobalamin (B-12) 1,000 MCG TABLET PO SCH (17:13)
[2018-03-06] MEDS: Cholecalciferol (D-3) 1,000 UNIT TABLET PO SCH (17:14)
[2018-03-06] MEDS: Insulin LISPRO 300 UNITS/3 ML VIAL SQ SCH (17:17)
--- NOTE | 2018-03-06 18:20 | Oncology Inp Consult Note ---
<Rena Angulo L - Last Filed: 03/06/18 18:17> Date of Encounter: 03/06/18 Time of Encounter: 17:30 Assessment and Plan (1) Right arm weakness Status: Acute Assessment and plan: Symptoms improving with current plateau Reviewed Neurology consult note. Planned for complete stroke workup Complete Stroke Work up with MRI, PT/OT consult, ECHO, +/- MRA, Carotid U/S She is already on ASA/Plavix (2) Abdominal pain Status: Acute Assessment and plan: Secondary to ascites versus known non occlusive portal vein thrombosis She is planned for paracentesis tomorrow, if abdominal pain does not improve with paracentesis, will need further discussion on risks versus of anticoagulation with patient/family. She has history of severe GI bleed in October Stool occult positive in ER Cytopenias secondary to chemotherapy Qualifiers: Abdominal location: generalized Qualified Code(s): R10.84 - Generalized abdominal pain (3) Cholangiocarcinoma Status: Acute Assessment and plan: Treatment summary per HPI She received cycle #4 day 1 of single agent gemcitabine on 02/21. Dependent upon MRI results, may need further discussion on goals of care, TBD pending results and her recovery - Data of Consult Patient: known to practice within the last 3 years Consult date: 03/06/18 Requesting Physician: Luana Castellanos MD Primary Care Provider: Bronson Harris DO - Consult Narrative Reason for consult: Locally advanced cholangiocarcinoma,renal cell carcinoma History of present illness: Ms. 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 Garcia. She was placed on [place]/Ox 12/12/17. Restaging scans dated 02/08 reveals a positive response to therapy. However, there is note of increasing ascites consistent with oxide [place]-induced liver injury in the setting of underlying liver disease. an alternative, conversation with Dr. Stevens, treating oncologist and decided to start treatment with single agent gemcitabine every other week. She received cycle #4 day 1 of single agent gemcitabine on 02/21. She presented to [facility] ED with RUE weakness today. Past Med Surg Social Fam HX - Past Medical History Medical history: cancer, coronary artery disease, diabetes, hyperlipidemia, hypertension, myocardial infarction Additional medical history: renal and liver cancer Psychiatric history: no psych history - Past Surgical History Surgical History: cataract, knee replacement (B/L TKR) Additional surgical history: CARPEL TUNNEL TRIGGER FINGER RELEASE. 1 cardiac stent. bilateral knees. biopsy of kidneys, liver, lymph nodes - Social History Smoking Status: Former smoker Smokeless Tobacco Status: No Alcohol use: none Drug use: none - Family History Father Hx Family Cancer: Yes (bone cancer) Brother Hx Family Endocrine Disorder: Yes (DM) Medications and Allergies Aspirin [Lo-Dose Aspirin EC] 81 mg PO DAILY 09/23/17 [History] Cholecalciferol (D-3) [Vitamin D] 1,000 unit PO QPM 09/23/17 [History] Multivitamin [Multivitamins] 1 each PO QPM 09/23/17 [History] Clopidogrel [Plavix] 75 mg PO DAILY #30 tablet 09/24/17 [Rx] Furosemide [Lasix] 20 mg PO DAILY 11/15/17 [History] Pantoprazole Sodium [Protonix] 40 mg PO DAILY 11/15/17 [History] Cyanocobalamin (Vitamin B-12) [Vitamin B-12] 100 mcg PO QPM 11/21/17 [History] Lidocaine/Prilocaine [Emla] 1 appl TP AD 11/21/17 [History] Nitroglycerin [Nitrostat] 0.4 mg SL Q5M PRN 11/21/17 [History] glipiZIDE [Glucotrol] 5 mg PO 0800 11/21/17 [History] Metoprolol [Lopressor] 12.5 mg PO BID 12/12/17 [History] Potassium Chloride [Klor-Con 10] 10 meq PO DAILY 12/12/17 [History] Magic Mouthwash [Magic Mouthwash BLM] 10 ml PO QID PRN #240 ml 12/29/17 [Rx] Acetaminophen [Tylenol] 1,000 mg PO Q6HR PRN 01/09/18 [History] Promethazine [Phenergan] 25 mg PO Q6HR PRN #30 tablet 01/25/18 [Rx] Guaifenesin [Mucinex] 600 mg PO Q12HR PRN 02/06/18 [History] OxyCODONE Immed Rel [Roxicodone 10 MG] 10 mg PO BID PRN 30 Days #60 tablet 02/21 [Rx] Dicyclomine [Bentyl] 20 mg PO QID 03/06/18 [History] 3 Allergy/AdvReac Type Severity Reaction Status Date / Time shellfish derived AdvReac Swelling Verified 02/06/18 10:25 of the Eye Constitutional: Present: anorexia, fatigue, weakness. Absent: chills, fever(s) Eyes: Absent: change in vision Nose, mouth and throat: Absent: dysphagia Cardiovascular: Absent: chest pain, palpitations Respiratory: Absent: cough, dyspnea Gastrointestinal: Present: abdominal pain, nausea. Absent: hematemesis, hematochezia, melena, vomiting Genitourinary: Absent: dysuria Musculoskeletal: Present: muscle weakness Integumentary: Absent: wounds Neurological: Present: as per HPI, focal weakness, headache(s). Absent: numbness, tingling Additional comments: Denies speech changes Hematologic/Lymphatic: Present: as per HPI Oncology - Exam - Constitutional Vitals: Temp Pulse Resp BP Pulse Ox 97.7 F 79 16 126/70 97 03/06/18 14:52 03/06/18 17:29 03/06/18 14:52 03/06/18 17:29 03/06/18 17:29 General appearance: cooperative, no acute distress, no febrile - Head Head exam: Present: atraumatic - ENT ENT exam: Present: mucous membranes moist - Respiratory Respiratory exam: Present: CTAB. Absent: respiratory distress - Cardiovascular Cardiovascular exam: Present: RRR, +S1, +S2 - GI/Abdominal GI/Abdominal exam: Present: normal bowel sounds, soft, tenderness. Absent: guarding, rebound - Extremities Exam Extremities exam: Absent: calf tenderness - Neurological Exam Neurological exam: Present: alert, oriented X3. Absent: facial droop, speech deficit Additional comments: slight right sided weakness muscle weakness, 4/5 - Psychiatric Psychiatric exam: Present: flat affect - Skin Skin exam: Present: dry, intact, normal color, warm Oncology - Results Labs: 3 03/06/18 03/06/18 03/06/18 15:13 14:47 14:47 WBC 8.3 RBC 2.31 L Hgb 8.2 L Hct 24.9 L MCV 107.8 H MCH 35.5 H MCHC 32.9 RDW 21.2 H Plt Count 107 L MPV 12.1 PT 12.2 H INR 1.1 APTT 33.4 Troponin I 0.59 H* Consult Discharge Plan - Plan Referrals: Bronson Harris DO [Primary Care Provider] - <Harry Schulz - Last Filed: 03/07/18 09:08> Date of Encounter: 03/06/18 - Data of Consult Requesting Physician: Luana Castellanos MD Primary Care Provider: Bronson Harris DO - Consult Narrative History of present illness: Ms. Singletary is a 77 year old female Oncology - Exam - Constitutional Vitals: Temp Pulse Resp BP Pulse Ox 98.2 F 68 17 112/54 98 03/07/18 07:52 03/07/18 07:52 03/07/18 07:52 03/07/18 07:52 03/07/18 07:52 Oncology - Results Labs: 3 03/07/18 03/07/18 03/07/18 04:31 04:31 04:31 WBC 8.0 RBC 2.20 L Hgb 7.9 L Hct 23.9 L MCV 108.6 H MCH 35.9 H MCHC 33.1 RDW 21.2 H Plt Count 109 L MPV 11.8 Immature Gran % 0.6 Seg Neutrophils % 71.5 Lymphocytes % 12.6 Monocytes % 14.5 Eosinophils % 0.7 Basophils % 0.1 Neutrophils # 5.7 Lymphocytes # 1.0 Monocytes # 1.2 Eosinophils # 0.1 Basophils # 0.0 PT INR APTT Sodium 139 Potassium 3.4 L Chloride 104 Carbon Dioxide 25 BUN 16 Creatinine 1.05 Est GFR ( Amer) > 60 Est GFR (Non-Af Amer) 51 L BUN/Creatinine Ratio 15 Glucose 80 POC Glucose Calculated Osmolality 288 Calcium 7.8 L Phosphorus 4.2 Total Bilirubin 0.9 AST 66 H ALT 22 Alkaline Phosphatase 96 Troponin I 0.50 H* Serum Total Protein 5.1 L Albumin 2.6 L Globulin 2.5 Albumin/Globulin Ratio 1.0 L Triglycerides 118 Cholesterol 102 LDL Cholesterol, Calc 56 VLDL Cholesterol, Calc 24 HDL Cholesterol 22 L Cholesterol/HDL Ratio 4.6 Stl C. diff Tox B Gene 3 03/07/18 03/06/18 03/06/18 04:31 20:53 20:37 WBC RBC Hgb Hct MCV MCH MCHC RDW Plt Count MPV Immature Gran % Seg Neutrophils % Lymphocytes % Monocytes % Eosinophils % Basophils % Neutrophils # Lymphocytes # Monocytes # Eosinophils # Basophils # PT 13.6 H INR 1.3 APTT Sodium Potassium Chloride Carbon Dioxide BUN Creatinine Est GFR ( Amer) Est GFR (Non-Af Amer) BUN/Creatinine Ratio Glucose POC Glucose 99 Calculated Osmolality Calcium Phosphorus Total Bilirubin AST ALT Alkaline Phosphatase Troponin I 0.64 H* Serum Total Protein Albumin Globulin Albumin/Globulin Ratio Triglycerides Cholesterol LDL Cholesterol, Calc VLDL Cholesterol, Calc HDL Cholesterol Cholesterol/HDL Ratio Stl C. diff Tox B Gene 3 03/06/18 03/06/18 03/06/18 17:17 15:45 15:13 WBC RBC Hgb Hct MCV MCH MCHC RDW Plt Count MPV Immature Gran % Seg Neutrophils % Lymphocytes % Monocytes % Eosinophils % Basophils % Neutrophils # Lymphocytes # Monocytes # Eosinophils # Basophils # PT INR APTT Sodium Potassium Chloride Carbon Dioxide BUN Creatinine Est GFR ( Amer) Est GFR (Non-Af Amer) BUN/Creatinine Ratio Glucose POC Glucose 108 H Calculated Osmolality Calcium Phosphorus Total Bilirubin AST ALT Alkaline Phosphatase Troponin I 0.59 H* Serum Total Protein Albumin Globulin Albumin/Globulin Ratio Triglycerides Cholesterol LDL Cholesterol, Calc VLDL Cholesterol, Calc HDL Cholesterol Cholesterol/HDL Ratio Stl C. diff Tox B Gene Positive 3 03/06/18 03/06/18 14:47 14:47 WBC 8.3 RBC 2.31 L Hgb 8.2 L Hct 24.9 L MCV 107.8 H MCH 35.5 H MCHC 32.9 RDW 21.2 H Plt Count 107 L MPV 12.1 Immature Gran % Seg Neutrophils % Lymphocytes % Monocytes % Eosinophils % Basophils % Neutrophils # Lymphocytes # Monocytes # Eosinophils # Basophils # PT 12.2 H INR 1.1 APTT 33.4 Sodium Potassium Chloride Carbon Dioxide BUN Creatinine Est GFR ( Amer) Est GFR (Non-Af Amer) BUN/Creatinine Ratio Glucose POC Glucose Calculated Osmolality Calcium Phosphorus Total Bilirubin AST ALT Alkaline Phosphatase Troponin I Serum Total Protein Albumin Globulin Albumin/Globulin Ratio Triglycerides Cholesterol LDL Cholesterol, Calc VLDL Cholesterol, Calc HDL Cholesterol Cholesterol/HDL Ratio Stl C. diff Tox B Gene - Attending Attestation Seen and examined patient and agree with assessment and plan. Patients abdominal pain seems chronic. She had significant GI bleed back in October while on lovenox. Therefore, I am hesitant to initiate anticoagulation at this time for non-occlusive portal vein thrombus. the stroke like symptoms persist with weakness in the RUE still but they are improved. Her ascites is increased. Overall, I suspect that she has disease progression causing a hypercoagulable state predisposing her to the portal vein thrombus and these stroke symptoms. Our plan is to do paracentesis to see if that improves the abdominal pain and see if her stroke symptoms improve on their own to see if we can defer anticoagulation. Of note, she is already on plavix and aspirin.
--- NOTE | 2018-03-06 19:47 | Event Note ---
Date of Encounter: 03/06/18 Time of Encounter: 19:45 C.diff positive. Starting on Vancomycin 125mg PO QID Updated daughter with results. Son at bedside too. Daughter states pt has already been evaluated by Oncology service and neurology service. Daughter reports pt having SAMSON. Will add Fiorecet if Tylenol not helping.
--- NOTE | 2018-03-06 20:57 | Electrocardiograph Report ---
Mobile [facility] Test Date: 2018-03-06 Pat Name: Rosanna Singletary Department: 103 Room: 3B46 Gender: F Tailman: : 1940 Requested By: Mellisa Latif Order Number: [id number] Reading MD: Shimon Riojas Measurements Intervals [place] Rate: 87 P: 13 TX: 166 QRS: -18 QRSD: 93 T: 2 QT: 404 QTc: 448 Interpretive Statements SINUS RHYTHM WITH OCCASIONAL SUPRAVENTRICULAR PREMATURE COMPLEXES Electronically Signed On 03-06-2018 20:55:58 EDT by Shimon Riojas
[2018-03-06] MEDS: Vancomycin Oral Soln 125 MG/2.5 ML UDC PO SCH (20:58)
[2018-03-06] MEDS ORDERED: *HR* OxyCODONE Immed Rel 5 MG TABLET PO SCH (21:00)
[2018-03-06] MEDS: MORPHINE SUL Oral CONC 10 MG/0.5 ML ORAL.SYG PO PRN (21:47)
[2018-03-07 05:39] LABS: Basophils % 0.1 %; Eosinophils # 0.1 K/mcL (0.0-0.6); Eosinophils % 0.7 %; Hematocrit 23.9 % (35.3-44.9); Hemoglobin 7.9 g/dL (11.5-15.4); Immature Granulocytes % 0.6 % (0-4); Lymphocytes % 12.6 %; Mean Corpuscular HGB Conc 33.1 g/dL (31.6-35.5); Mean Corpuscular Hemoglobin 35.9 pg (28.0-33.3); Mean Corpuscular Volume 108.6 fL (83.0-100.0); Mean Platelet Volume 11.8 fL (9.4-12.4); Monocytes # 1.2 K/mcL (0.0-1.3); Monocytes % 14.5 %; Neutrophils # 5.7 K/mcL (1.6-8.9); Platelet Count 109 K/mcL (140-400); Red Cell Distribution Width 21.2 % (11.5-14.5); Segmented Neutrophils % 71.5 %
[2018-03-07 05:49] LABS: INR 1.3; Prothrombin Time 13.6 Seconds (9.4-12.1)
[2018-03-07 06:02] LABS: Alanine Aminotransferase 22 Units/L (7-52); Albumin 2.6 g/dL (3.5-5.7); Alkaline Phosphatase 96 Units/L (34-104); Aspartate Amino Transferase 66 Units/L (13-39); BUN/Creatinine Ratio 15 (6-26); Bilirubin,Total 0.9 mg/dL (0.3-1.0); Blood Urea Nitrogen 16 mg/dL (8-23); Calcium 7.8 mg/dL (8.6-10.3); Carbon Dioxide 25 mEq/L (23-29); Chloride 104 mEq/L (98-107); Chol/HDL Ratio 4.6 (0-4.9); Cholesterol 102 mg/dL (< 200); Globulin 2.5 g/dL (2.4-3.5); Glucose 80 mg/dL (70-105); HDL Cholesterol 22 mg/dL (40-59); LDL Cholesterol,Calculated 56 mg/dL (0-99); Osmolality,Calculated 288 (280-300); Phosphorous 4.2 mg/dL (2.7-4.5); Potassium 3.4 mEq/L (3.5-5.1); Sodium 139 mEq/L (136-145); Total Protein 5.1 g/dL (6.4-8.9); Triglycerides 118 mg/dL (< 150); eGFR For African Americans > 60 (> 60); eGFR For Non-African Americans 51 (> 60)
[2018-03-07 08:25] LABS: mecA Methicillin-Resist Gene Not Detected (Not Detect)
[2018-03-07 08:26] LABS: Acinetobacter baumannii by PCR Not Detected (Not Detect); Candida albicans by PCR Not Detected (Not Detect); Candida glabrata by PCR Not Detected (Not Detect); Candida krusei by PCR Not Detected (Not Detect); Candida parapsilosis by PCR Not Detected (Not Detect); Candida tropicalis by PCR Not Detected (Not Detect); Enterococcus by PCR Not Detected (Not Detect); Escherichia coli by PCR Not Detected (Not Detect); Klebsiella oxytoca by PCR Not Detected (Not Detect); Klebsiella pneumoniae by PCR Not Detected (Not Detect); Pseudomonas aeruginosa by PCR Not Detected (Not Detect); Serratia marcescens by PCR Not Detected (Not Detect); Staphylococcus aureus by PCR Not Detected (Not Detect); Streptococcus agalactiae(B)PCR Not Detected (Not Detect); Streptococcus by PCR Not Detected (Not Detect); Streptococcus pneumoniae PCR Not Detected (Not Detect); Streptococcus pyogenes (A) PCR Not Detected (Not Detect)
[2018-03-07] MEDS: Insulin LISPRO 300 UNITS/3 ML VIAL SQ SCH ×3 (09:09→16:25)
[2018-03-07] MEDS: Furosemide 20 MG TABLET PO SCH (09:09)
[2018-03-07] MEDS: levoFLOXacin 500 MG TABLET PO SCH (09:09)
[2018-03-07] MEDS: Aspirin Enteric Coated 81 MG Tablet PO SCH (09:09)
[2018-03-07] MEDS: *HR* GlipiZIDE 5 MG TABLET PO SCH (09:09)
[2018-03-07] MEDS: Ondansetron 4 MG/2 ML VIAL IVP PRN ×2 (09:44→18:23)
--- NOTE | 2018-03-07 10:56 | Procedure Note ---
Date of procedure: 03/07/18 Pre-op diagnosis: ascities Post-op diagnosis: same Procedure: Paracentesis Date: 03/07/2018 Time: 45 Indication: Large volume Ascities Resident: Rufino Galarza DO Attending: Whitney Birmingham MD A time-out was completed verifying correct patient, procedure, site, positioning , and special equipment if applicable. The patients Right side was prepped and draped in a sterile manner after the appropriate infiltration level was confirmed by ultrasound. 1% lidocaine was used anesthetize the surrounding skin. A finder needle was then used to locate fluid and clear yellow fluid was obtained. A 10-blade scalpel used to make the incision. The paracentesis catheter was then threaded without difficulty. The patient had 5 liters of clear yellow fluid removed. Whitney Birmingham MD was present for the entire procedure. The fluid will be sent for several studies. Estimated Blood Loss: O ml The patient tolerated the procedure well and there were no complications. Anesthesia: local Was there an technical support assistant present: No Estimated blood loss (cc): 0 Specimen: ascities
[2018-03-07] MEDS: Vancomycin Oral Soln 125 MG/2.5 ML UDC PO SCH ×4 (11:53→21:18)
[2018-03-07] MEDS: *HR* OxyCODONE Immed Rel 5 MG TABLET PO PRN ×2 (15:42→21:17)
[2018-03-07 16:32] LABS: RBC,Peritoneal Fluid < 0.002 M/mcL
[2018-03-07 16:36] LABS: Appearance of Peritoneal Fl CLEAR (Clear)
--- NOTE | 2018-03-07 16:41 | Neurology Progress Note ---
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 This could be caused by thromboembolic phenomenon or severe stenosis causing hypoperfusion in the MCA territory. echocardiography showed normal LVEF, no regional wall motion abnormalities, no significant valvular disease. Carotid artery duplex is still pending. Will recommend CT angio of neck and brain with and without contrast. Continue aspirin and plavix, no changes. Please continue medical and supportive care. May benefit from PT. Qualifiers: CVA mechanism: unspecified Qualified Code(s): I63.9 - Cerebral infarction, unspecified Subjective Principal diagnosis: CVA Interval history: Patient is seen and examined. She is doing better today. feels better and right arm weakness improved. She does have slight dysarthria. MRI of brain completed and showed multiple microinfarct within the left MCA territory. Carotid artery duplex result is pending. she is on both aspirin 81mg daily and plavix 75mg daily Objective - Constitutional Vitals: Temp Pulse Resp BP Pulse Ox 97.9 F 71 18 111/57 94 03/07/18 16:12 03/07/18 16:12 03/07/18 16:12 03/07/18 16:12 03/07/18 16:12 - Neurological Exam Motor Examination: Present: other (very mild pronator drip noted to the right side) Motor examination - right side: 5/5: deltoids, biceps, triceps, wrist flexion, wrist extension, spinning frame fixer, hip flexors, tibialis Anterior, quadriceps, toe extension (EHL), plantarflexion Motor examination - left side: 5/5: deltoids, biceps, triceps, wrist flexion, wrist extension, hip flexors, spinning frame fixer, tibialis Anterior, plantarflexion Sensation intact: Present: intact, light touch Mental Status Examination: Present: awake, alert, oriented to person, oriented to place, oriented to time, follows commands appropriately, answers questions appropriately, no agnosia, no aphasia (mild dysphasia noted), no aproxia, opens eyes to voice, makes eye contact, follows simple commands Cranial nerve examination: Present: PERRL, EOMI, visual andersen intact, corneal reflexes brisk symmetrically, sensory to face intact, mastication intact, no facial asymmetry is present, no dysarthria, hearing is intact symmetrically, soft palate elevates bilaterally upon phonation, gag reflex intact, flexes SCM and trapezius muscles symmetrically with full power, tongue protrudes midline, no atrophy or facial fasiculations present Results - Laboratory Findings CBC and BMP: 03/07/18 04:31 03/07/18 04:31 Abnormal lab findings: Abnormal lab results RBC 2.20 M/mcL (3.82-4.97) L 03/07/18 04:31 Hgb 7.9 g/dL (11.5-15.4) L 03/07/18 04:31 Hct 23.9 % (35.3-44.9) L 03/07/18 04:31 MCV 108.6 fL (83.0-100.0) H 03/07/18 04:31 MCH 35.9 pg (28.0-33.3) H 03/07/18 04:31 RDW 21.2 % (11.5-14.5) H 03/07/18 04:31 Plt Count 109 K/mcL (140-400) L 03/07/18 04:31 Platelet Estimate Slight Decrease (Normal) L 03/06/18 07:18 Polychromasia 1+ (Not Present) A 03/06/18 07:18 Anisocytosis 2+ (Not Present) A 03/06/18 07:18 PT 13.6 Seconds (9.4-12.1) H 03/07/18 04:31 Potassium 3.4 mEq/L (3.5-5.1) L 03/07/18 04:31 Est GFR (Non-Af Amer) 51 (> 60) L 03/07/18 04:31 Calcium 7.8 mg/dL (8.6-10.3) L 03/07/18 04:31 AST 66 Units/L (13-39) H 03/07/18 04:31 Troponin I 0.41 ng/mL (< 0.04) H* 03/07/18 11:49 Serum Total Protein 5.1 g/dL (6.4-8.9) L 03/07/18 04:31 Albumin 2.6 g/dL (3.5-5.7) L 03/07/18 04:31 Albumin/Globulin Ratio 1.0 (1.1-2.2) L 03/07/18 04:31 HDL Cholesterol 22 mg/dL (40-59) L 03/07/18 04:31 Urine Ketones 15 mg/dL (Negative) H 03/06/18 08:10 Urine Bilirubin Small (Negative) H 03/06/18 08:10 Stool Occult Bld Scrn Positive (Negative) A 03/06/18 09:33 Urine Opiates Screen Positive ng/mL (Lsotae=773) H 03/06/18 08:10 Staphylococcus sp PCR DETECTED (Not Detect) A 03/06/18 07:41 Consult Discharge Plan - Plan Referrals: Bronson Harris DO [Primary Care Provider] -
[2018-03-07] MEDS ORDERED: Isovue-370 500 ML INFUS..BTL IV ONE (16:48)
--- NOTE | 2018-03-07 16:55 | Internal Med Progress Note ---
Date of Encounter: 03/07/18 Time of Encounter: 16:53 - Assessment and plan (1) CVA (cerebral vascular accident) Current Visit: Yes Status: Acute Assessment and plan: Daughter states pt reports her tongue is numb, her right arm sometimes feeling havy. Explained to family that symptoms are related to CVA and that pt will be getting PT/OT and eval by speech. MRI reveals acute microinfarcts within the high left frontoparietal lobe, per neurology note this could be secondary to thromboembolic phenomenon or severe stenosis causing hypoperfusion in the MCA territory- Recommend CT angio of neck and brain with and without contrast Continuing ASA/Plavix. Would not recommend any escalation of anticoagulation given history of recent severe GIB of unknown etiology. Avoiding statin due to hx of cholangiocarcinoma. Dr. Bonilla on board and checking CT angio of neck and brain with and without contrast. Qualifiers: CVA mechanism: unspecified Qualified Code(s): I63.9 - Cerebral infarction, unspecified (2) Ascites Current Visit: Yes Status: Acute Assessment and plan: oncology on board. Improved s/p paracentesis with removal of 5L. Awaiting results fluid cytology, gram stain, culture, cell count w/ diff-pending Qualifiers: Qualified Code(s): R18.8 - Other ascites (3) Cholangiocarcinoma Current Visit: No Status: Acute Assessment and plan: Per oncology service "Dr. Schulz discussed current clinical situation in regards to CVA and current C Diff infection which is now limiting performance status. Patient will need time to allow acute issues to resolve with the hope that her performance status may also improve to allow for her to continue chemotherapy treatment. Expressed concern over patients performance status and her ability to undergo further treatment. Recommend outpatient follow up in about 1 weeks time following discharge to allow Dr. Stevens, patients treating oncologist, to assess her functional status and progress with therapy. Shall she make strides, further chemotherapy may be pursued which is the patient/families ultimate goal. Should she decline during this time, further discussion may be needed on goals of care at this point." (4) Renal cell cancer Current Visit: No Status: Suspected Qualifiers: Laterality: left Qualified Code(s): C64.2 - Malignant neoplasm of left kidney, except renal pelvis (5) Essential hypertension Current Visit: No Status: Chronic Assessment and plan: Lopressor. (6) Diabetes mellitus Current Visit: No Status: Chronic Assessment and plan: Glipizide will add SSI and check glucose. Qualifiers: Diabetes mellitus type: type 2 Diabetes mellitus retirement insulin use: without retirement use Diabetes mellitus complication status: with unspecified complications Qualified Code(s): E11.8 - Type 2 diabetes mellitus with unspecified complications (7) Coronary artery disease Current Visit: No Status: Chronic Assessment and plan: ASA and Plavix Qualifiers: Coronary Disease-Associated Artery/Lesion type: [place] artery [place] vs. transplanted heart: pechanga heart Associated angina: without angina Qualified Code(s): I25.10 - Atherosclerotic heart disease of [place] coronary artery without angina pectoris (8) Portal vein thrombosis Current Visit: Yes Status: Acute Assessment and plan: Oncology aware. Refer to original consult (9) Chronic kidney disease Current Visit: No Status: Suspected Assessment and plan: Will monitor renal function Qualifiers: Chronic kidney disease stage: stage 3 (moderate) Qualified Code(s): N18.3 - Chronic kidney disease, stage 3 (moderate) - Time Spent With Patient Total time spent is greater than 50% in coordination of care (as documented) at patient's floor/unit and/or counseling patient: 25 - 35 minutes - Subjective Interval history: Pt denies fever or chills. She is still having some diarrhea. States abdominal pain improved compared to yesterday. - Constitutional Vitals: Temp Pulse Resp BP Pulse Ox 97.9 F 71 18 111/57 94 03/07/18 16:12 03/07/18 16:12 03/07/18 16:12 03/07/18 16:12 03/07/18 16:12 General appearance: Present: A&O X 3, morbidly obese, no acute distress - Head Head exam: Present: atraumatic, normocephalic - Eye Eye exam: Present: PERRL, conjuntiva pink, sclera anicteric Pupils: Present: PERRL - Neck Neck exam general surgery: Present: supple, trachea midline. Absent: lymphadenopathy - Respiratory Respiratory exam: Present: CTAB. Absent: accessory muscle use, rales, rhonchi, wheezes - Cardiovascular Cardiovascular exam: Present: RRR, +S1, +S2. Absent: diastolic murmur, gallop, rubs, systolic murmur - GI/Abdominal GI/Abdominal exam: Present: normal bowel sounds, soft, no peritoneal signs. Absent: distended, tenderness - Extremities Exam Extremities exam: Present: warm, radial pulses palpable and symmetrical. Absent : calf tenderness, cyanotic, pedal edema - Neurological Exam Neurological exam: Present: CN II-XII intact, oriented X3, no focal deficits. Absent: pronater drift, facial droop, speech deficit - Skin Skin exam: Present: dry, intact Internal Medicine: Result - Labs CBC & Chem 7: 03/07/18 04:31 03/07/18 04:31 Labs: Short CBC 03/07/18 Range/Units 04:31 WBC 8.0 (4.3-11.1) K/mcL Hgb 7.9 L (11.5-15.4) g/dL Hct 23.9 L (35.3-44.9) % Plt Count 109 L (140-400) K/mcL Neutrophils # 5.7 (1.6-8.9) K/mcL BMP 03/07/18 04:31 Sodium 139 Potassium 3.4 L Chloride 104 Carbon Dioxide 25 BUN 16 Creatinine 1.05 Glucose 80 Calcium 7.8 L Cardiac Enzymes 03/06/18 03/07/18 03/07/18 Range/Units 20:53 04:31 11:49 Troponin I 0.64 H* 0.50 H* 0.41 H* (< 0.04) ng/mL Liver Function 03/07/18 Range/Units 04:31 Total Bilirubin 0.9 (0.3-1.0) mg/dL AST 66 H (13-39) Units/L ALT 22 (7-52) Units/L Alkaline Phosphatase 96 (34-104) Units/L Albumin 2.6 L (3.5-5.7) g/dL - ABG Interpretation ABG results: PT/INR, D-dimer PT 13.6 Seconds (9.4-12.1) H 03/07/18 04:31 - Impressions Impressions Brain MRI 03/06/18 13:46 IMPRESSION: Limited study. Acute microinfarcts within the high left frontoparietal lobe. No flow limiting stenosis or large vessel occlusion detected within the head. The findings were sent to the Radiology Results Communication Center at 8:29 pm on 03/06/2018to be communicated to a licensed caregiver. D/ / Hemant Matos MD / Hemant Matos MD Interpreting Provider: Hemant Matos MD Paracentesis Ultrasound 03/07/18 00:00 IMPRESSION: Successful ultrasound guided paracentesis. D/ / Whitney Birmingham MD / Whitney Birmingham MD Interpreting Provider: Whitney Birmingham MD Echocardiogram 03/07/18 20:45 Impressions: LVEF 60-65%. Normal LV chamber size and function. Mild concentric left ventricular hypertrophy. Mild left ventricular diastolic dysfunction. Normal right ventricular structure and function. Severely dilated left atrium. No significant valvular dysfunction. No evidence of a PFO with agitated saline contrast. No evidence of pulmonary hypertension. Left Ventricular Wall Motion: Rest Echo Findings All wall segments showed normal motion. Findings: Study Quality * Technically adequate exam. ECG Findings * Normal sinus rhythm. Left Ventricle * LVEF 60-65%. * Normal LV chamber size and function. * Mild concentric left ventricular hypertrophy. * Mild left ventricular diastolic dysfunction. Right Ventricle * Normal right ventricular structure and function. Left Atrium * Severely dilated left atrium. Right Atrium * Normal right atrial size. Interatrial Septum * No evidence of a PFO with agitated saline contrast. Aortic Valve * Trileaflet aortic valve. * Mildly sclerotic aortic valve leaflets. * No aortic regurgitation. * No aortic stenosis. Mitral Valve * Mild mitral annular calcification * No mitral stenosis. * No mitral regurgitation. Tricuspid Valve * Normal tricuspid valve structure and function. * Trace tricuspid regurgitation. * No evidence of pulmonary hypertension. Pulmonic Valve * Normal pulmonic valve structure and function. * Trace pulmonic regurgitation. Aorta * Normally sized aortic root. Pericardium * The pericardium appears normal. IVC * The IVC is not well evaluated. Pulmonary Artery * Pulmonary artery not well visualized. Consult Discharge Plan - Plan Referrals: Bronson Harris DO [Primary Care Provider] -
--- NOTE | 2018-03-07 16:56 | Oncology Inp Progress Note ---
Date of Encounter: 03/07/18 Time of Encounter: 14:30 (1) Right arm weakness Current Visit: Yes Status: Acute Assessment and plan: Symptoms improving with current plateau, mild dysarthria MRI reveals acute microinfarcts within the high left frontoparietal lobe, per neurology note this could be secondary to thromboembolic phenomenon or severe stenosis causing hypoperfusion in the MCA territory- Recommend CT angio of neck and brain with and without contrast Agree with continuing ASA/Plavix. Would not recommend any escalation of anticoagulation given history of recent severe GIB of unknown etiology (2) Abdominal pain Current Visit: Yes Status: Acute Assessment and plan: Improved s/p paracentesis with removal of 5L Ordered fluid cytology, gram stain, culture, cell count w/ diff-pending Tested positive for C Diff-she has had about 2 episodes of mucous like diarrhea today. Primary team has started therapy with oral vancomycin Qualifiers: Abdominal location: generalized Qualified Code(s): R10.84 - Generalized abdominal pain (3) Cholangiocarcinoma Current Visit: No Status: Acute Assessment and plan: She received cycle #4 day 1 of single agent gemcitabine on 02/21. Dr. Schulz discussed current clinical situation in regards to CVA and current C Diff infection which is now limiting performance status. Patient will need time to allow acute issues to resolve with the hope that her performance status may also improve to allow for her to continue chemotherapy treatment. Expressed concern over patients performance status and her ability to undergo further treatment. Recommend outpatient follow up in about 1 weeks time following discharge to allow Dr. Stevens, patients treating oncologist, to assess her functional status and progress with therapy. Shall she make strides, further chemotherapy may be pursued which is the patient/families ultimate goal. Should she decline during this time, further discussion may be needed on goals of care at this point. At this time, oncology will otherwise sign off, please feel free to contact with any other questions/concerns. Will arrange for follow up with Dr. Stevens at discharge. Please refer to Dr. Stevens's attestation below for additional details. Oncology: Subj Interval history: Rosanna Singletary is feeling somewhat better today. She denies pain. Reports mild nausea earlier today. Her abdominal pain has improved s/p paracentesis with removal of 5L fluid. She has had diarrhea which the daughter describes as mucous like on 2 occasions today and 3x yesterday. She is now C Diff +, primary team has started treatment - Constitutional Vitals: Vital Signs Temp Pulse Resp BP Pulse Ox 03/07/18 16:12 97.9 F 71 18 111/57 94 03/07/18 11:25 97.9 F 66 17 97/49 97 03/07/18 09:30 98 03/07/18 07:52 98.2 F 68 17 112/54 98 03/07/18 03:23 98.2 F 68 12 108/61 97 03/06/18 22:59 99.4 F 64 13 104/57 96 03/06/18 19:07 99.0 F 84 16 149/72 98 03/06/18 17:29 79 126/70 97 Intake and Output 03/07/18 03/07/18 03/07/18 07:59 15:59 23:59 Output Total 200 / 200 Balance -200 / -200 Output: Urine 200 / 200 Other: Stool Size Small Stool Consistency loose Blood Glucose* 98 76 General appearance: cooperative, no acute distress, obese, no febrile Exam: fatigued, chronically ill appearing - Head Head exam: Present: atraumatic - ENT ENT exam: Present: mucous membranes moist - Respiratory Respiratory exam: Present: CTAB. Absent: respiratory distress - Cardiovascular Cardiovascular exam: Present: RRR, +S1, +S2 - GI/Abdominal GI/Abdominal exam: Present: normal bowel sounds, soft. Absent: guarding, rebound, tenderness - Extremities Exam Additional comments: mild RUE weakness, strength 4/5 - Neurological Exam Neurological exam: Present: alert, oriented X3. Absent: facial droop Additional comments: mild dysarthria, strength as noted above - Psychiatric Psychiatric exam: Present: normal affect, normal mood - Skin Skin exam: Present: dry, intact, normal color, warm Oncology: Obj Data - Labs CBC & Chem 7: 03/07/18 04:31 03/07/18 04:31 - Impressions Impressions Brain MRI 03/06/18 13:46 IMPRESSION: Limited study. Acute microinfarcts within the high left frontoparietal lobe. No flow limiting stenosis or large vessel occlusion detected within the head. The findings were sent to the Radiology Results Communication Center at 8:29 pm on 03/06/2018to be communicated to a licensed caregiver. D/ / Hemant Matos MD / Hemant Matos MD Interpreting Provider: Hemant Matos MD Paracentesis Ultrasound 03/07/18 00:00 IMPRESSION: Successful ultrasound guided paracentesis. D/ / Whitney Birmingham MD / Whitney Birmingham MD Interpreting Provider: Whitney Birmingham MD Echocardiogram 03/07/18 20:45 Impressions: LVEF 60-65%. Normal LV chamber size and function. Mild concentric left ventricular hypertrophy. Mild left ventricular diastolic dysfunction. Normal right ventricular structure and function. Severely dilated left atrium. No significant valvular dysfunction. No evidence of a PFO with agitated saline contrast. No evidence of pulmonary hypertension. Left Ventricular Wall Motion: Rest Echo Findings All wall segments showed normal motion. Findings: Study Quality * Technically adequate exam. ECG Findings * Normal sinus rhythm. Left Ventricle * LVEF 60-65%. * Normal LV chamber size and function. * Mild concentric left ventricular hypertrophy. * Mild left ventricular diastolic dysfunction. Right Ventricle * Normal right ventricular structure and function. Left Atrium * Severely dilated left atrium. Right Atrium * Normal right atrial size. Interatrial Septum * No evidence of a PFO with agitated saline contrast. Aortic Valve * Trileaflet aortic valve. * Mildly sclerotic aortic valve leaflets. * No aortic regurgitation. * No aortic stenosis. Mitral Valve * Mild mitral annular calcification * No mitral stenosis. * No mitral regurgitation. Tricuspid Valve * Normal tricuspid valve structure and function. * Trace tricuspid regurgitation. * No evidence of pulmonary hypertension. Pulmonic Valve * Normal pulmonic valve structure and function. * Trace pulmonic regurgitation. Aorta * Normally sized aortic root. Pericardium * The pericardium appears normal. IVC * The IVC is not well evaluated. Pulmonary Artery * Pulmonary artery not well visualized. - ABG Interpretation ABG results: PT/INR, D-dimer PT 13.6 Seconds (9.4-12.1) H 03/07/18 04:31 Consult Discharge Plan - Plan Referrals: Bronson Harris, [Primary Care Provider] -
[2018-03-07] MEDS: Cholecalciferol (D-3) 1,000 UNIT TABLET PO SCH (18:09)
[2018-03-07] MEDS: Cyanocobalamin (B-12) 1,000 MCG TABLET PO SCH (18:09)
[2018-03-07] MEDS: Multivit/Ca/Min/Fe/FA 1 TAB TABLET PO SCH (18:09)
--- NOTE | 2018-03-07 18:26 | Electrocardiograph Report ---
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
[2018-03-08 01:00] LABS: Basophils % 0.1 %; Eosinophils # 0.1 K/mcL (0.0-0.6); Eosinophils % 0.9 %; Hematocrit 24.1 % (35.3-44.9); Immature Granulocytes % 0.5 % (0-4); Lymphocytes % 11.8 %; Mean Corpuscular HGB Conc 33.2 g/dL (31.6-35.5); Mean Corpuscular Hemoglobin 36.2 pg (28.0-33.3); Mean Platelet Volume 11.7 fL (9.4-12.4); Monocytes # 1.2 K/mcL (0.0-1.3); Monocytes % 13.7 %; Neutrophils # 6.2 K/mcL (1.6-8.9); Platelet Count 141 K/mcL (140-400); Red Blood Count 2.21 M/mcL (3.82-4.97); Red Cell Distribution Width 20.8 % (11.5-14.5)
[2018-03-08 01:22] LABS: Albumin 2.5 g/dL (3.5-5.7); BUN/Creatinine Ratio 17 (6-26); Blood Urea Nitrogen 18 mg/dL (8-23); Calcium 7.8 mg/dL (8.6-10.3); Carbon Dioxide 25 mEq/L (23-29); Chloride 105 mEq/L (98-107); Glucose 179 mg/dL (70-105); Osmolality,Calculated 292 (280-300); Phosphorous 3.1 mg/dL (2.7-4.5); Potassium 3.6 mEq/L (3.5-5.1); Sodium 138 mEq/L (136-145); eGFR For African Americans > 60 (> 60); eGFR For Non-African Americans 51 (> 60)
[2018-03-08 01:23] LABS: Alanine Aminotransferase 16 Units/L (7-52); Albumin 2.5 g/dL (3.5-5.7); Alkaline Phosphatase 90 Units/L (34-104); Aspartate Amino Transferase 41 Units/L (13-39); BUN/Creatinine Ratio 18 (6-26); Bilirubin,Total 0.6 mg/dL (0.3-1.0); Blood Urea Nitrogen 18 mg/dL (8-23); Calcium 7.8 mg/dL (8.6-10.3); Carbon Dioxide 24 mEq/L (23-29); Chloride 104 mEq/L (98-107); Globulin 2.5 g/dL (2.4-3.5); Glucose 181 mg/dL (70-105); Osmolality,Calculated 290 (280-300); Potassium 3.6 mEq/L (3.5-5.1); Sodium 137 mEq/L (136-145); eGFR For African Americans > 60 (> 60); eGFR For Non-African Americans 53 (> 60)
[2018-03-08] MEDS: MORPHINE SUL Oral CONC 10 MG/0.5 ML ORAL.SYG PO PRN (04:16)
[2018-03-08] MEDS: Insulin LISPRO 300 UNITS/3 ML VIAL SQ SCH ×3 (07:42→16:29)
[2018-03-08] MEDS: Furosemide 20 MG TABLET PO SCH (08:19)
[2018-03-08] MEDS: levoFLOXacin 500 MG TABLET PO SCH (08:19)
[2018-03-08] MEDS: Ondansetron 4 MG/2 ML VIAL IVP PRN (08:19)
[2018-03-08] MEDS: *HR* GlipiZIDE 5 MG TABLET PO SCH (08:19)
[2018-03-08] MEDS: Vancomycin Oral Soln 125 MG/2.5 ML UDC PO SCH ×4 (08:20→21:04)
[2018-03-08] MEDS: Aspirin Enteric Coated 81 MG Tablet PO SCH (08:20)
--- NOTE | 2018-03-08 15:47 | Neurology Progress Note ---
Date of Encounter: 03/08/18 Time of Encounter: 15:45 Assessment and Plan (1) CVA (cerebral vascular accident) Current Visit: Yes Status: Acute Patient with multiple medical conditions and colangiocarcinoma who developed acute right sided weakness and slurred speech, MRI of brain confirmed presence of acute cerebral infarct within the territory of left MCA territory. This could be caused by thromboembolic or embolic event but no source of emboli identified with routine TTE, CTA of neck was negative for major critical stenosis. Will keep her on a combination of Aspirin and plavix. PT. Stroke work up is completed and no further intervention or testing will be recommended. Please continue medical and supportive care. Please call if any questions Qualifiers: CVA mechanism: unspecified Qualified Code(s): I63.9 - Cerebral infarction, unspecified Subjective Principal diagnosis: CVA Interval history: Patient is seen and examined. She is doing better today. feels better and right arm weakness improved. She does have slight dysarthria. MRI of brain completed and showed multiple microinfarct within the left MCA territory. echocardiography showed normal LVEF 60%, no significant regional wall motion abnormality, no PFO but severely dilated left atrium. CTA of neck showed no ICA stenosis bilaterally. she is on both aspirin 81mg daily and plavix 75mg daily Objective - Constitutional Vitals: Temp Pulse Resp BP Pulse Ox 98.2 F 68 18 111/66 98 03/08/18 12:09 03/08/18 12:09 03/08/18 12:09 03/08/18 12:09 03/08/18 12:09 - Neurological Exam Motor Examination: Present: other (very mild pronator drip noted to the right side) Motor examination - right side: 5/5: deltoids, biceps, triceps, wrist flexion, wrist extension, cloth weaver, hip flexors, tibialis Anterior, quadriceps, toe extension (EHL), plantarflexion Motor examination - left side: 5/5: deltoids, biceps, triceps, wrist flexion, wrist extension, hip flexors, cloth weaver, quadriceps, tibialis Anterior, plantarflexion Sensation intact: Present: intact, light touch Mental Status Examination: Present: awake, alert, oriented to person, oriented to place, oriented to time, follows commands appropriately, answers questions appropriately, no agnosia, no aphasia (mild dysphasia noted), no aproxia, opens eyes to voice, makes eye contact, follows simple commands Cranial nerve examination: Present: PERRL, EOMI, visual andersen intact, corneal reflexes brisk symmetrically, sensory to face intact, mastication intact, no facial asymmetry is present, no dysarthria, hearing is intact symmetrically, soft palate elevates bilaterally upon phonation, gag reflex intact, flexes SCM and trapezius muscles symmetrically with full power, tongue protrudes midline, no atrophy or facial fasiculations present - VTE Documentation of Mechanical Device: Graduated compression elastic hosiery Results - Laboratory Findings CBC and BMP: 03/08/18 00:49 03/08/18 00:49 Abnormal lab findings: Abnormal lab results RBC 2.21 M/mcL (3.82-4.97) L 03/08/18 00:49 Hgb 8.0 g/dL (11.5-15.4) L 03/08/18 00:49 Hct 24.1 % (35.3-44.9) L 03/08/18 00:49 MCV 109.0 fL (83.0-100.0) H 03/08/18 00:49 MCH 36.2 pg (28.0-33.3) H 03/08/18 00:49 RDW 20.8 % (11.5-14.5) H 03/08/18 00:49 Platelet Estimate Slight Decrease (Normal) L 03/06/18 07:18 Polychromasia 1+ (Not Present) A 03/06/18 07:18 Anisocytosis 2+ (Not Present) A 03/06/18 07:18 PT 13.6 Seconds (9.4-12.1) H 18 04:31 Est GFR (Non-Af Amer) 53 (> 60) L 03/08/18 00:49 Glucose 181 mg/dL (70-105) H 03/08/18 00:49 POC Glucose 155 mg/dL (70-99) H 18 20:10 Calcium 7.8 mg/dL (8.6-10.3) L 03/08/18 00:49 AST 41 Units/L (13-39) H 03/08/18 00:49 Troponin I 0.29 ng/mL (< 0.04) H* 03/08/18 00:49 Serum Total Protein 5.0 g/dL (6.4-8.9) L 03/08/18 00:49 Albumin 2.5 g/dL (3.5-5.7) L 03/08/18 00:49 Albumin/Globulin Ratio 1.0 (1.1-2.2) L 03/08/18 00:49 HDL Cholesterol 22 mg/dL (40-59) L 03/07/18 04:31 Urine Ketones 15 mg/dL (Negative) H 03/06/18 08:10 Urine Bilirubin Small (Negative) H 03/06/18 08:10 Stool Occult Bld Scrn Positive (Negative) A 03/06/18 09:33 Urine Opiates Screen Positive ng/mL (Uompzp=100) H 03/06/18 08:10 Staphylococcus sp PCR DETECTED (Not Detect) A 03/06/18 07:41 - Diagnostic Findings Additional findings: CTA OF THE NECK 03/08/2018 12:18 pm TECHNIQUE: CTA of the neck was performed with the administration of intravenous contrast. Multiplanar reformatted images are provided for review. MIP images are provided for review. Stenosis of the internal carotid arteries measured using NASCET criteria. Dose modulation, iterative reconstruction, and/or weight based adjustment of the mA/kV was utilized to reduce the radiation dose to as low as reasonably achievable. COMPARISON: None. HISTORY: ORDERING SYSTEM PROVIDED HISTORY: CVACVA 75 ml of ISOVUE 370 FINDINGS: AORTIC ARCH/ARCH VESSELS: There is a normal branch pattern of the aortic arch. No significant stenosis is seen of the innominate artery or subclavian arteries. CAROTID ARTERIES: The common carotid arteries are normal in appearance without evidence of a flow limiting stenosis. The internal carotid arteries are normal in appearance without evidence of a flow limiting stenosis by NASCET criteria. No dissection or arterial injury is seen. VERTEBRAL ARTERIES: The vertebral arteries both arise from the subclavian arteries and are normal in caliber without evidence of flow limiting stenosis or dissection. SOFT TISSUES: The lung apices are clear. No cervical or superior mediastinal lymphadenopathy. The visualized portion of the larynx and pharynx appear unremarkable. The parotid, submandibular and thyroid glands demonstrate no acute abnormality. BONES: The visualized osseous structures appear unremarkable. CT/CT angio neck IMPRESSION: Unremarkable CTA of the neck. D/ / Xander Rendon MD / Xander Rendon MD Interpreting Provider: Xander Rendon MD /EV echocardiogram Impressions: LVEF 60-65%. Normal LV chamber size and function. Mild concentric left ventricular hypertrophy. Mild left ventricular diastolic dysfunction. Normal right ventricular structure and function. Severely dilated left atrium. No significant valvular dysfunction. No evidence of a PFO with agitated saline contrast. No evidence of pulmonary hypertension. Consult Discharge Plan - Plan Referrals: Bronson Harris, DO [Primary Care Provider] -
--- NOTE | 2018-03-08 16:26 | Discharge Summary ---
Orders not resulted at time of discharge: Pending orders 03/06/18 13:46 MR angio neck wo/w con [MR] Routine 03/07/18 10:05 Culture,Body Fluid [RM] Routine 03/07/18 11:05 Cytology [PTH] Routine 03/07/18 11:15 Gram Stain [RM] Routine 03/09/18 04:00 CBC [Complete Blood Count] [HEME] AM 0400 CMP [Comprehensive Metabolic Panel] AM 0400 Renal Function Panel AM 0400 03/10/18 04:00 CMP [Comprehensive Metabolic Panel] AM 0400 Renal Function Panel AM 0400 Date of Encounter: 03/08/18 Hospital course: Ms. Singletary is a 77 year old female - Time Spent with Patient Total time spent providing and/or coordinating discharge services: - Discharge Medications Home Medications: Aspirin [Lo-Dose Aspirin EC] 81 mg PO DAILY 09/23/17 [History] Cholecalciferol (D-3) [Vitamin D] 1,000 unit PO QPM 09/23/17 [History] Multivitamin [Multivitamins] 1 each PO QPM 09/23/17 [History] Clopidogrel [Plavix] 75 mg PO DAILY #30 tablet 09/24/17 [Rx] Furosemide [Lasix] 20 mg PO DAILY 11/15/17 [History] Pantoprazole Sodium [Protonix] 40 mg PO DAILY 11/15/17 [History] Cyanocobalamin (Vitamin B-12) [Vitamin B-12] 100 mcg PO QPM 11/21/17 [History] Lidocaine/Prilocaine [Emla] 1 appl TP AD 11/21/17 [History] Nitroglycerin [Nitrostat] 0.4 mg SL Q5M PRN 11/21/17 [History] glipiZIDE [Glucotrol] 5 mg PO 0800 11/21/17 [History] Metoprolol [Lopressor] 12.5 mg PO BID 12/12/17 [History] Potassium Chloride [Klor-Con 10] 10 meq PO DAILY 12/12/17 [History] Magic Mouthwash [Magic Mouthwash BLM] 10 ml PO QID PRN #240 ml 12/29/17 [Rx] Acetaminophen [Tylenol] 1,000 mg PO Q6HR PRN 01/09/18 [History] Promethazine [Phenergan] 25 mg PO Q6HR PRN #30 tablet 01/25/18 [Rx] Guaifenesin [Mucinex] 600 mg PO Q12HR PRN 02/06/18 [History] OxyCODONE Immed Rel [Roxicodone 10 MG] 10 mg PO BID PRN 30 Days #60 tablet 02/21 [Rx] Dicyclomine [Bentyl] 20 mg PO QID 03/06/18 [History] Allergies/Adverse Reactions: 3 Allergy/AdvReac Type Severity Reaction Status Date / Time shellfish derived AdvReac Swelling Verified 02/06/18 10:25 of the Eye Date of admission: 03/06/18 13:31 Primary care physician: Bronson Harris DO Consults: 03/06/18 13:46 Consult to Physical Therapy [CONS] Routine Comment: Evaluate, develop and implement POC Reason for Consult: Deconditioning Does patient have active BEDREST order?: No Is patient medically & hemodynamically stable?: No Patient assessed for mobility or mobilized this visit?: No Consult to Commercial Hvac Service Technician [CONS] Routine Reason for SW Consult: Help with discharge planning 03/06/18 17:07 Consult to Interventional Radiology [CONS] Routine Consulting Provider: Radiology Interventional Cols Reason for Consult: moderate ascites possible paracentesis Call Completed: No - Constitutional Vitals: Temp Pulse Resp BP Pulse Ox 98.2 F 68 18 111/66 98 03/08/18 12:09 03/08/18 12:09 03/08/18 12:09 03/08/18 12:09 03/08/18 12:09 General appearance: Present: A&O X 3, morbidly obese, no acute distress - Discharge Instructions Follow Up With: Bronson Harris DO [Primary Care Provider] - - VTE Documentation of Mechanical Device: Graduated compression elastic hosiery
--- NOTE | 2018-03-08 16:28 | Internal Med Progress Note ---
Date of Encounter: 03/08/18 Time of Encounter: 16:26 - Assessment and plan (1) CVA (cerebral vascular accident) Current Visit: Yes Status: Acute Assessment and plan: symptomatic with numb tongue and weak right arm. MRI showed acute microinfarcts within the high left frontoparietal lobe, per neurology note this could be secondary to thromboembolic phenomenon or severe stenosis causing hypoperfusion in the MCA territory. TTE with EF 60%, severely dilated left atrium, no evidence of PFO or cardiac source of emboli. CTA of neck was negative for major critical stenosis. Cont ASA, plavix (no thigh coagulation due to previous GI bleed). Neurology followed Qualifiers: CVA mechanism: unspecified Qualified Code(s): I63.9 - Cerebral infarction, unspecified (2) Elevated troponin Current Visit: No Status: Acute Assessment and plan: Initial troponin 0.04 and peaked at 0.6; now trending down. Unclear why troponins were drawn as patient denied chest pain. Has some shortness of breath. History of CAD as noted below. Cardiology consulted. NPO at midnight. EKG pending (3) Ascites Current Visit: Yes Status: Acute Assessment and plan: oncology on board. Improved s/p paracentesis with removal of 5L. Awaiting results fluid cytology, gram stain, culture, cell count w/ diff-pending Qualifiers: Qualified Code(s): R18.8 - Other ascites (4) Cholangiocarcinoma Current Visit: No Status: Acute Assessment and plan: Per oncology service; treatment on hold at this time. (5) Chronic kidney disease Current Visit: No Status: Suspected Assessment and plan: per hx. Renal function at baseline Qualifiers: Chronic kidney disease stage: stage 3 (moderate) Qualified Code(s): N18.3 - Chronic kidney disease, stage 3 (moderate) (6) Coronary artery disease Current Visit: No Status: Chronic Assessment and plan: per hx. 07/2017 [facility] with successful PTCA/Drug-Eluting Stent placement in the proximal LAD. With elevated troponin as noted above. Cont home ASA, plavix, BB Qualifiers: Coronary Disease-Associated Artery/Lesion type: [place] artery [place] vs. 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 BP controlled. Cont home BP medication. Monitor BP and titrate PRN (9) Portal vein thrombosis Current Visit: Yes Status: Acute Assessment and plan: Oncology aware. Refer to original consult (10) Renal cell cancer Current Visit: No Status: Suspected Assessment and plan: per hx. Oncology following Qualifiers: Laterality: left Qualified Code(s): C64.2 - Malignant neoplasm of left kidney, except renal pelvis (11) C. difficile diarrhea Current Visit: Yes Status: Acute Assessment and plan: vanco (12) DVT prophylaxis Current Visit: No Status: Acute Assessment and plan: SCD - Time Spent With Patient Total time spent is greater than 50% in coordination of care (as documented) at patient's floor/unit and/or counseling patient: - Subjective Interval history: Seen and examined at bedside, still has some right arm weakness but improved. She prefers to go home versus rehab. Agreeable to stay overnight for Cardiology consult - Constitutional Vitals: Temp Pulse Resp BP Pulse Ox 98.2 F 68 18 111/66 98 03/08/18 12:09 03/08/18 12:09 03/08/18 12:09 03/08/18 12:09 03/08/18 12:09 General appearance: Present: A&O X 3, morbidly obese, no acute distress - Head Head exam: Present: atraumatic, normocephalic - Eye Eye exam: Present: PERRL, conjuntiva pink, sclera anicteric Pupils: Present: PERRL - Neck Neck exam general surgery: Present: supple, trachea midline. Absent: lymphadenopathy - Respiratory Respiratory exam: Present: CTAB. Absent: accessory muscle use, rales, rhonchi, wheezes - Cardiovascular Cardiovascular exam: Present: RRR, +S1, +S2. Absent: diastolic murmur, gallop, rubs, systolic murmur - GI/Abdominal GI/Abdominal exam: Present: normal bowel sounds, soft, no peritoneal signs. Absent: distended, tenderness - Extremities Exam Extremities exam: Present: warm, radial pulses palpable and symmetrical. Absent : calf tenderness, cyanotic, pedal edema - Neurological Exam Neurological exam: Present: CN II-XII intact, oriented X3, no focal deficits. Absent: pronater drift, facial droop, speech deficit - Skin Skin exam: Present: dry, intact Internal Medicine: Result - Labs CBC & Chem 7: 03/08/18 00:49 03/08/18 00:49 Labs: Short CBC 03/08/18 Range/Units 00:49 WBC 8.5 (4.3-11.1) K/mcL Hgb 8.0 L (11.5-15.4) g/dL Hct 24.1 L (35.3-44.9) % Plt Count 141 (140-400) K/mcL Neutrophils # 6.2 (1.6-8.9) K/mcL BMP 03/08/18 03/08/18 00:49 00:49 Sodium 138 137 Potassium 3.6 3.6 Chloride 105 104 Carbon Dioxide 25 24 BUN 18 18 Creatinine 1.05 1.02 Glucose 179 H 181 H Calcium 7.8 L 7.8 L Cardiac Enzymes 03/07/18 03/08/18 Range/Units 18:47 00:49 Troponin I 0.36 H* 0.29 H* (< 0.04) ng/mL Liver Function 03/08/18 03/08/18 Range/Units 00:49 00:49 Total Bilirubin 0.6 (0.3-1.0) mg/dL AST 41 H (13-39) Units/L ALT 16 (7-52) Units/L Alkaline Phosphatase 90 (34-104) Units/L Albumin 2.5 L 2.5 L (3.5-5.7) g/dL - ABG Interpretation ABG results: PT/INR, D-dimer PT 13.6 Seconds (9.4-12.1) H 03/07/18 04:31 - Impressions Impressions Angiography CT 03/08/18 00:00 IMPRESSION: 1. No acute intracranial abnormality. Known small, left frontal and parietal lobe infarcts are better assessed on prior MRI brain performed 03/06/2018. 2. No intracranial flow-limiting stenosis. D/ / 03/08/2018 14:07:34 Stefanie Mandel MD / [email or web address] Interpreting Provider: Stefanie Mandel MD Neck CTA 03/08/18 00:00 IMPRESSION: Unremarkable CTA of the neck. D/ / Xander Rendon MD / Xander Rendon MD Interpreting Provider: Xander Rendon MD - VTE Documentation of Mechanical Device: Graduated compression elastic hosiery Consult Discharge Plan - Plan Referrals: Bronson Harris, DO [Primary Care Provider] -
[2018-03-08] MEDS: Cholecalciferol (D-3) 1,000 UNIT TABLET PO SCH (16:30)
[2018-03-08] MEDS: Multivit/Ca/Min/Fe/FA 1 TAB TABLET PO SCH (16:30)
[2018-03-08] MEDS: Cyanocobalamin (B-12) 1,000 MCG TABLET PO SCH (16:30)
[2018-03-08] MEDS: *HR* OxyCODONE Immed Rel 5 MG TABLET PO PRN (23:46)
[2018-03-09 07:00] LABS: Basophils % 0.1 %; Eosinophils % 1.2 %; Hematocrit 27.1 % (35.3-44.9); Hemoglobin 8.8 g/dL (11.5-15.4); Immature Granulocytes % 0.4 % (0-4); Lymphocytes % 16.2 %; Mean Corpuscular HGB Conc 32.5 g/dL (31.6-35.5); Mean Corpuscular Hemoglobin 34.9 pg (28.0-33.3); Mean Corpuscular Volume 107.5 fL (83.0-100.0); Mean Platelet Volume 11.4 fL (9.4-12.4); Monocytes % 13.1 %; Platelet Count 198 K/mcL (140-400); Red Blood Count 2.52 M/mcL (3.82-4.97); Red Cell Distribution Width 20.3 % (11.5-14.5)
[2018-03-09 07:01] LABS: Eosinophils # 0.1 K/mcL (0.0-0.6); Lymphocytes # 1.5 K/mcL (0.6-4.6); Monocytes # 1.2 K/mcL (0.0-1.3); Neutrophils # 6.2 K/mcL (1.6-8.9)
[2018-03-09 07:17] LABS: Albumin 2.7 g/dL (3.5-5.7); BUN/Creatinine Ratio 15 (6-26); Blood Urea Nitrogen 15 mg/dL (8-23); Calcium 8.2 mg/dL (8.6-10.3); Carbon Dioxide 28 mEq/L (23-29); Chloride 102 mEq/L (98-107); Glucose 110 mg/dL (70-105); Osmolality,Calculated 285 (280-300); Phosphorous 3.1 mg/dL (2.7-4.5); Potassium 3.7 mEq/L (3.5-5.1); Sodium 137 mEq/L (136-145); eGFR For African Americans > 60 (> 60); eGFR For Non-African Americans 54 (> 60)
[2018-03-09 07:19] LABS: Alanine Aminotransferase 12 Units/L (7-52); Albumin 2.7 g/dL (3.5-5.7); Alkaline Phosphatase 82 Units/L (34-104); Aspartate Amino Transferase 32 Units/L (13-39); BUN/Creatinine Ratio 15 (6-26); Bilirubin,Total 0.6 mg/dL (0.3-1.0); Blood Urea Nitrogen 15 mg/dL (8-23); Calcium 8.3 mg/dL (8.6-10.3); Carbon Dioxide 28 mEq/L (23-29); Chloride 102 mEq/L (98-107); Globulin 2.8 g/dL (2.4-3.5); Glucose 110 mg/dL (70-105); Osmolality,Calculated 285 (280-300); Potassium 3.7 mEq/L (3.5-5.1); Sodium 137 mEq/L (136-145); Total Protein 5.5 g/dL (6.4-8.9); eGFR For African Americans > 60 (> 60); eGFR For Non-African Americans 53 (> 60)
[2018-03-09] MEDS: Insulin LISPRO 300 UNITS/3 ML VIAL SQ SCH ×2 (07:28→12:01)
[2018-03-09] MEDS: levoFLOXacin 500 MG TABLET PO SCH (07:33)
[2018-03-09] MEDS: *HR* GlipiZIDE 5 MG TABLET PO SCH (07:33)
[2018-03-09] MEDS: Furosemide 20 MG TABLET PO SCH (07:33)
[2018-03-09] MEDS: Vancomycin Oral Soln 125 MG/2.5 ML UDC PO SCH ×2 (07:33→12:04)
[2018-03-09] MEDS: Aspirin Enteric Coated 81 MG Tablet PO SCH (07:33)
[2018-03-09] MEDS ORDERED: Lactobacillus 1 EACH CAP.SPRINK PO SCH (09:00)
--- NOTE | 2018-03-09 09:36 | Cardiology Consult Note ---
<Jonny Becker - Last Filed: 03/09/18 11:38> Date of Encounter: 03/09/18 Time of Encounter: 09:33 Assessment and Plan (1) Elevated troponin Current Visit: Yes Status: Acute - Elevated troponin drawn with peak of 0.64 and has downtrended to 0.29 - Patient complains of no chest pain, SOB outside of baseline - recent cardiac ischemic workup in August 2017 with 1 SUKHDEV placed to prox LAD - Patient reports compliance on DAPT. - Likely a result of increased demand in the setting of c.diff, CVA and CKD III Plan - Continue current meds of BB, ASA, plavix - Consider adding statin therapy - Recommend outpatient stress test to further evaluate. - Follow up with PCP for further evaluation and cardiology as needed per PCP discretion. Cardiology will sign off at this time. Please reconsult as needed. Thank you for allowing us to participate in this consult. (2) Coronary artery disease Current Visit: Yes Status: Chronic - As above. stable. no complaints of chest pain Qualifiers: Coronary Disease-Associated Artery/Lesion type: [place] artery [place] vs. transplanted heart: [place] heart Associated angina: without angina Qualified Code(s): I25.10 - Atherosclerotic heart disease of [place] coronary artery without angina pectoris (3) Essential hypertension Current Visit: Yes Status: Chronic well controlled. Continue current meds (4) CVA (cerebral vascular accident) Current Visit: Yes Status: Acute - Per primary and neuro teams Qualifiers: CVA mechanism: unspecified Qualified Code(s): I63.9 - Cerebral infarction, unspecified (5) C. difficile diarrhea Current Visit: Yes Status: Acute - Per primary team Discussion w patient/family: The assessment and plan as outlined above was discussed with the patient and/or family members who expressed understanding and agreement. All questions were answered. Thank you for involving us in the care of your patient. Please call with any questions. History of Present Illness Consult date: 03/09/18 Requesting physician: Zahraa Mcclure Consult reason: elevated trops Chief complaint: RUE weakness History of present illness: Ms. Singletary is a 77 year old female with past medical history of CAD with recent left heart catheterization August 2017, diabetes, hypertension, CK D stage III , GI bleed, renal carcinoma and cholangiocarcinoma. She presents to emergency room with complaint of right upper extremity weakness which is since resolved. CT head was negative however MRI does show acute infarcts. During course of hospital stay she was also diagnosed with C. difficile colitis and has been being managed for acute CVA. During interview today, patient states that she is not having any chest pain, shortness of breath outside at baseline, palpitations, fevers, chills. She does admit to some abdominal pain. Admits to seldom chest pain that is non exertional in nature. Previous cardiac workup shows left heart catheterization in August 2017 with PTCA and drug-eluting stent placement proximal LAD. Echocardiogram obtained on 03/07/18 shows ejection fraction of 60-65% with mild diastolic dysfunction and severely dilated left atrium. Past Med Surg Social Fam HX - Past Medical History Medical history: cancer, coronary artery disease, diabetes, hyperlipidemia, hypertension, myocardial infarction Additional medical history: renal and liver cancer Psychiatric history: no psych history - Past Surgical History Surgical History: cataract, knee replacement (B/L TKR) Additional surgical history: CARPEL TUNNEL TRIGGER FINGER RELEASE. 1 cardiac stent. bilateral knees. biopsy of kidneys, liver, lymph nodes - Social History Smoking Status: Former smoker Smokeless Tobacco Status: No Alcohol use: none Drug use: none - Family History Father Hx Family Cancer: Yes (bone cancer) Brother Hx Family Endocrine Disorder: Yes (DM) Medications and Allergies Aspirin [Lo-Dose Aspirin EC] 81 mg PO DAILY 09/23/17 [History] Cholecalciferol (D-3) [Vitamin D] 1,000 unit PO QPM 09/23/17 [History] Multivitamin [Multivitamins] 1 each PO QPM 09/23/17 [History] Clopidogrel [Plavix] 75 mg PO DAILY #30 tablet 09/24/17 [Rx] Furosemide [Lasix] 20 mg PO DAILY 11/15/17 [History] Pantoprazole Sodium [Protonix] 40 mg PO DAILY 11/15/17 [History] Cyanocobalamin (Vitamin B-12) [Vitamin B-12] 100 mcg PO QPM 11/21/17 [History] Lidocaine/Prilocaine [Emla] 1 appl TP AD 11/21/17 [History] Nitroglycerin [Nitrostat] 0.4 mg SL Q5M PRN 11/21/17 [History] glipiZIDE [Glucotrol] 5 mg PO 0800 11/21/17 [History] Metoprolol [Lopressor] 12.5 mg PO BID 12/12/17 [History] Potassium Chloride [Klor-Con 10] 10 meq PO DAILY 12/12/17 [History] Magic Mouthwash [Magic Mouthwash BLM] 10 ml PO QID PRN #240 ml 12/29/17 [Rx] Acetaminophen [Tylenol] 1,000 mg PO Q6HR PRN 01/09/18 [History] Promethazine [Phenergan] 25 mg PO Q6HR PRN #30 tablet 01/25/18 [Rx] Guaifenesin [Mucinex] 600 mg PO Q12HR PRN 02/06/18 [History] OxyCODONE Immed Rel [Roxicodone 10 MG] 10 mg PO BID PRN 30 Days #60 tablet 02/21 [Rx] Dicyclomine [Bentyl] 20 mg PO QID 03/06/18 [History] Vancomycin Oral Soln [Firvanq] 125 mg PO QID #28 udc 03/09/18 [Rx] 3 Allergy/AdvReac Type Severity Reaction Status Date / Time shellfish derived AdvReac Swelling Verified 02/06/18 10:25 of the Eye All Systems Review: The remainder of the systems were reviewed and are negative - Constitutional Constitutional: weakness, no chills, no fatigue - Cardiovascular Cardiovascular: no chest pain at rest, no chest pain with exertion, no dyspnea at rest, no dyspnea on exertion, no lightheadedness, no palpitations, no syncope - Respiratory Respiratory: no cough, no dyspnea, no hemoptysis - Gastrointestinal Gastrointestinal: abdominal pain, diarrhea - Integumentary Integumentary: no rash - Neurological Neurological: focal weakness, no numbness Physical Examination Vital Signs, Last 4 Hours Temp Pulse Resp BP Pulse Ox 03/09/18 07:33 98 F 102 16 119/69 92 General: Conversant, No Apparent Distress HEENT: Atraumatic, Normocephaly, Mucus Membranes Moist Neck: No JVD, Normal carotid pulses Cardiac: Reg Rate and Rhythm, Normal S1 and S2, No Murmur Lungs: Normal Breath Sounds, No Wheeze, Rales, Rhonchi Neuro: Alert and responsive, No focal deficits noted Abdomen: Soft, Other (Mild tenderness to palpation) Skin: No rashes noted on visualized skin Musculoskeletal: No Chest Wall Tenderness Extremities: No Clubbing, No Cyanosis, No Edema, Normal Pulses Results 03/09/18 06:27 03/09/18 06:27 Lab Results 03/09/18 03/09/18 03/09/18 06:27 06:27 06:27 WBC 9.0 Hgb 8.8 L Hct 27.1 L Plt Count 198 Sodium 137 137 Potassium 3.7 3.7 Chloride 102 102 Carbon Dioxide 28 28 BUN 15 15 Creatinine 1.00 1.02 Glucose 110 H 110 H Calcium 8.2 L 8.3 L Total Bilirubin 0.6 AST 32 ALT 12 Alkaline Phosphatase 82 Consult Discharge Plan - Plan Instructions: Vancomycin (By mouth), Ischemic Stroke (DC), Infectious Colitis ( GEN) Referrals: Bronson Harris DO [Primary Care Provider] - (Please call for follow-up appt within 1-2 weeks) Kerri Bonilla MD [Partnered Physician] - (Please call for follow-up appointment within 1-2 weeks) Tito Cantu [Partnered Physician] - (Please call for follow-up appointment once you have completed 30 day Holter monitor) Prescriptions: Vancomycin Oral Soln [Firvanq] 125 mg PO QID #28 udc <Tito Cantu - Last Filed: 03/09/18 15:35> Date of Encounter: 03/09/18 - Attending Attestation I examined this patient and my medical decision-making was reviewed with the Resident Physician. I agree with the documented findings, disposition and treatment plan as described except to the extent set forth below. Ms. Singletary is a 77 year old female with past medical history of CAD with recentstent to the LAD August 2017, diabetes, hypertension, CK D stage III, GI bleed, renal carcinoma and cholangiocarcinoma. Recent acute CVA likely embolic as per neurology. Dialted LA on echo but no evidence of Afib, currently on ASA and plavix for PCI. No Afib on telemetry, also denies CP, HARVEY, orthopnea or PND. D/W Neurology and seems risks outweigh the benefit of starting AC with triple therapy. Event will be obtained and if found to have Afib will stop ASA or plavix and start coumadin. No chest pain or EKG changes concerning for cardiac interventions. RUE weakness has resolved Assessment and Plan Discussion w patient/family: The assessment and plan as outlined above was discussed with the patient and/or family members who expressed understanding and agreement. All questions were answered. Thank you for involving us in the care of your patient. Please call with any questions. History of Present Illness History of present illness: Ms. Singletary is a 77 year old female All Systems Review: The remainder of the systems were reviewed and are negative Results 03/09/18 06:27 03/09/18 06:27 Lab Results 03/09/18 03/09/18 03/09/18 06:27 06:27 06:27 WBC 9.0 Hgb 8.8 L Hct 27.1 L Plt Count 198 Sodium 137 137 Potassium 3.7 3.7 Chloride 102 102 Carbon Dioxide 28 28 BUN 15 15 Creatinine 1.00 1.02 Glucose 110 H 110 H Calcium 8.2 L 8.3 L Total Bilirubin 0.6 AST 32 ALT 12 Alkaline Phosphatase 82
[2018-03-09] MEDS: *HR* OxyCODONE Immed Rel 5 MG TABLET PO PRN (11:01)
[2018-03-09 11:13] VITALS: BP 122/75
--- NOTE | 2018-03-09 13:39 | Discharge Summary ---
- NOTES TO OUTPATIENT PROVIDER Notes to Outpatient Provider: Recommend routine hospital follow-up within 1-2 weeks Orders not resulted at time of discharge: Pending orders 03/07/18 10:05 Culture,Body Fluid [RM] Routine 03/07/18 11:05 Cytology [PTH] Routine 03/09/18 13:17 ECG event monitor 4 weeks [ECG] Routine 03/10/18 04:00 CMP [Comprehensive Metabolic Panel] AM 0400 Renal Function Panel AM 0400 Date of Encounter: 03/09/18 Time of Encounter: 13:35 - Discharge Diagnosis (1) CVA (cerebral vascular accident) Priority: Primary Status: Acute Assessment and Plan: symptomatic with numb tongue and weak right arm. MRI showed acute microinfarcts within the high left frontoparietal lobe, per neurology note this could be secondary to thromboembolic phenomenon or severe stenosis causing hypoperfusion in the MCA territory. TTE with EF 60%, severely dilated left atrium, no evidence of PFO or cardiac source of emboli. CTA of neck was negative for major critical stenosis. Cont ASA, plavix (no anticoagulation due to previous GI bleed). 30 day event monitor prior to discharge. Neurology followed. Evaluated by PT/OT who recommended acute inpatient rehabilitation however patient and family decided on discharge to home with [facility]. Qualifiers: CVA mechanism: unspecified Qualified Code(s): I63.9 - Cerebral infarction, unspecified (2) Coronary artery disease Priority: Primary Status: Chronic Assessment and Plan: per hx. 07/2017 [facility] with successful PTCA/Drug-Eluting Stent placement in the proximal LAD. With elevated troponin as noted above; evaluated by Cardiology who suspected elevated troponin likely demand ischemia in the setting of C. difficile, CVA and CKD. Cont home ASA, plavix, BB. Recommend outpatient stress test per cardiology recommendations. Qualifiers: Coronary Disease-Associated Artery/Lesion type: [place] artery [place] vs. transplanted heart: [place] heart Associated angina: without angina Qualified Code(s): I25.10 - Atherosclerotic heart disease of [place] coronary artery without angina pectoris (3) Elevated troponin Priority: Primary Status: Acute Assessment and Plan: Initial troponin 0.04 and peaked at 0.6; now trending down. Unclear why troponins were drawn as patient denied chest pain, nonetheless, plan as noted above. (4) C. difficile diarrhea Priority: Primary Status: Acute Assessment and Plan: first episode. Cont oral vanco. To complete 10 day course. (5) Essential hypertension Priority: Primary Status: Chronic Assessment and Plan: per hx. BP controlled. Cont home BP medication. (6) Abnormal CXR (chest x-ray) Priority: Primary Status: Acute Assessment and Plan: CXR Low lung volumes with a right basilar opacity, which could represent atelectasis or pneumonia. Clinically does not appear to be pneumonia. Afebrile , no elevated white count, no shortness of breath or cough. Received 3 doses Levaquin. Hold on further ATB at discharge especially with concurrent C. difficile. Encouraged aggressive IS. (7) Cholangiocarcinoma Priority: Primary Status: Acute Assessment and Plan: Per oncology service; treatment on hold at this time. (8) Chronic kidney disease Priority: Primary Status: Suspected Assessment and Plan: per hx. Renal function at baseline Qualifiers: Chronic kidney disease stage: stage 3 (moderate) Qualified Code(s): N18.3 - Chronic kidney disease, stage 3 (moderate) (9) Renal cell cancer Priority: Secondary Status: Suspected Assessment and Plan: per hx. Follow-up with oncology as previously planned Qualifiers: Laterality: left Qualified Code(s): C64.2 - Malignant neoplasm of left kidney, except renal pelvis (10) Ascites Priority: Primary Status: Acute Assessment and Plan: Improved s/p paracentesis with removal of 5L. fluid analysis unremarkable Qualifiers: Ascites type: malignant Qualified Code(s): R18.0 - Malignant ascites Hospital course: Please see assessment and plan for hospital course Discharge discussed with: patient (Seen and examined at bedside. Sitting up in chair at bedside. Says she feels better would like to go home today. I would like cardiology who is recommending 30 day Holter monitor prior to discharge. Of note 1/2 blood culture positive for staph epi; suspect contaminant as patient is a symptomatic) - Time Spent with Patient Total time spent providing and/or coordinating discharge services: - Discharge Medications Prescriptions: Vancomycin Oral Soln [Firvanq] 125 mg PO QID #28 [facility] [place] Home Medications: Aspirin [Lo-Dose Aspirin EC] 81 mg PO DAILY 09/23/17 [History] Cholecalciferol (D-3) [Vitamin D] 1,000 unit PO QPM 09/23/17 [History] Multivitamin [Multivitamins] 1 each PO QPM 09/23/17 [History] Clopidogrel [Plavix] 75 mg PO DAILY #30 tablet 09/24/17 [Rx] Furosemide [Lasix] 20 mg PO DAILY 11/15/17 [History] Pantoprazole Sodium [Protonix] 40 mg PO DAILY 11/15/17 [History] Cyanocobalamin (Vitamin B-12) [Vitamin B-12] 100 mcg PO QPM 11/21/17 [History] Lidocaine/Prilocaine [Emla] 1 appl TP AD 11/21/17 [History] Nitroglycerin [Nitrostat] 0.4 mg SL Q5M PRN 11/21/17 [History] glipiZIDE [Glucotrol] 5 mg PO 0800 11/21/17 [History] Metoprolol [Lopressor] 12.5 mg PO BID 12/12/17 [History] Potassium Chloride [Klor-Con 10] 10 meq PO DAILY 12/12/17 [History] Magic Mouthwash [Magic Mouthwash BLM] 10 ml PO QID PRN #240 ml 12/29/17 [Rx] Acetaminophen [Tylenol] 1,000 mg PO Q6HR PRN 01/09/18 [History] Promethazine [Phenergan] 25 mg PO Q6HR PRN #30 tablet 01/25/18 [Rx] Guaifenesin [Mucinex] 600 mg PO Q12HR PRN 02/06/18 [History] OxyCODONE Immed Rel [Roxicodone 10 MG] 10 mg PO BID PRN 30 Days #60 tablet 02/21 [Rx] Dicyclomine [Bentyl] 20 mg PO QID 03/06/18 [History] Vancomycin Oral Soln [Firvanq] 125 mg PO QID #28 udc 03/09/18 [Rx] Allergies/Adverse Reactions: 3 Allergy/AdvReac Type Severity Reaction Status Date / Time shellfish derived AdvReac Swelling Verified 02/06/18 10:25 of the Eye Date of admission: 03/06/18 13:31 Primary care physician: Bronson Harris DO Consults: 03/06/18 13:46 Consult to Physical Therapy [CONS] Routine Comment: Evaluate, develop and implement POC Reason for Consult: Deconditioning Does patient have active BEDREST order?: No Is patient medically & hemodynamically stable?: No Patient assessed for mobility or mobilized this visit?: No Consult to Supervisor [employer] [CONS] Routine Reason for SW Consult: Help with discharge planning 03/06/18 17:07 Consult to Interventional Radiology [CONS] Routine Consulting Provider: Radiology Jyothi Coljojo Reason for Consult: moderate ascites possible paracentesis Call Completed: No 03/08/18 16:41 Consult to Cardiology [CONS] Routine Comment: Consulting Provider: Cardiology [place] Reason for Consult: elevated troponin Call Completed: Yes Discharging clinician: Zahraa Mcclure Anticipated date of discharge: 03/09/18 - Constitutional Vitals: Temp Pulse Resp BP Pulse Ox 98 F 91 16 122/75 93 03/09/18 11:12 03/09/18 11:12 03/09/18 11:12 03/09/18 11:12 03/09/18 11:12 General appearance: Present: A&O X 3, morbidly obese, no acute distress - Head Head exam: Present: atraumatic, normocephalic - Eye Eye exam: Present: PERRL, conjuntiva pink, sclera anicteric Pupils: Present: PERRL - Neck Neck exam general surgery: Present: supple, trachea midline. Absent: lymphadenopathy - Respiratory Respiratory exam: Present: CTAB. Absent: accessory muscle use, rales, rhonchi, wheezes - Cardiovascular Cardiovascular exam: Present: RRR, +S1, +S2. Absent: diastolic murmur, gallop, rubs, systolic murmur - GI/Abdominal GI/Abdominal exam: Present: normal bowel sounds, soft, no peritoneal signs. Absent: distended, tenderness - Extremities Exam Extremities exam: Present: warm, radial pulses palpable and symmetrical. Absent : calf tenderness, cyanotic, pedal edema - Neurological Exam Neurological exam: Present: CN II-XII intact, oriented X3, no focal deficits. Absent: pronater drift, facial droop, speech deficit - Skin Skin exam: Present: dry, intact - Patient Status Disposition: Home Health Service Condition: Good Functional capacity at discharge: uses cane/walker Overall status at discharge: patient is progressing back to baseline - Discharge Instructions Instructions: Vancomycin (By mouth), Ischemic Stroke (DC), Infectious Colitis ( GEN) Follow Up With: Bronson Harris DO [Primary Care Provider] - (Please call for follow-up appt within 1-2 weeks) Tito Cantu [Partnered Physician] - (Please call for follow-up appointment once you have completed 30 day Holter monitor) Kerri Bonilla MD [Partnered Physician] - (Please call for follow-up appointment within 1-2 weeks) - Diet and Activity Activity: as per physical therapy, increase activity as tolerated Diet: diabetic diet, low fat, low cholesterol - VTE Documentation of Mechanical Device: Intermittent pneumatic compression device
--- NOTE | 2018-03-09 14:29 | Physician Discharge Referral ---
Home Health/Hosp Referral Info Transfer to: Home Health Attending Provider: Zahraa Mcclure CNP Provider in Charge Post Discharge: PCP - Diagnosis (1) CVA (cerebral vascular accident) Status: Acute (2) Coronary artery disease Status: Chronic (3) Elevated troponin Status: Acute (4) C. difficile diarrhea Status: Acute (5) Essential hypertension Status: Chronic (6) Abnormal CXR (chest x-ray) Status: Acute (7) Cholangiocarcinoma Status: Acute (8) Chronic kidney disease Status: Suspected (9) Renal cell cancer Status: Suspected (10) Ascites Status: Acute - Respiratory Orders None Smoking Cessation: Smoking cessation has been advised. For more information, call the [place] Tobacco Quit Line at 0-179-IODS-NOW. - Diet/Nutrition Diet/Nutrition Orders: Cardiac, No Concentrated Sweets - Activity Activity Orders: Ambulate, Walker - Services Needed Following services are medically necessary services: Nursing, Home Health Aide, Physical Therapy, Occupational Therapy - Transfer Medications Prescriptions: Vancomycin Oral Soln [Firvanq] 125 mg PO QID #28 [facility] [place] Medications: Aspirin [Lo-Dose Aspirin EC] 81 mg PO DAILY 09/23/17 [History] Cholecalciferol (D-3) [Vitamin D] 1,000 unit PO QPM 09/23/17 [History] Multivitamin [Multivitamins] 1 each PO QPM 09/23/17 [History] Clopidogrel [Plavix] 75 mg PO DAILY #30 tablet 09/24/17 [Rx] Furosemide [Lasix] 20 mg PO DAILY 11/15/17 [History] Pantoprazole Sodium [Protonix] 40 mg PO DAILY 11/15/17 [History] Cyanocobalamin (Vitamin B-12) [Vitamin B-12] 100 mcg PO QPM 11/21/17 [History] Lidocaine/Prilocaine [Emla] 1 appl TP AD 11/21/17 [History] Nitroglycerin [Nitrostat] 0.4 mg SL Q5M PRN 11/21/17 [History] glipiZIDE [Glucotrol] 5 mg PO 0800 11/21/17 [History] Metoprolol [Lopressor] 12.5 mg PO BID 12/12/17 [History] Potassium Chloride [Klor-Con 10] 10 meq PO DAILY 12/12/17 [History] Magic Mouthwash [Magic Mouthwash BLM] 10 ml PO QID PRN #240 ml 12/29/17 [Rx] Acetaminophen [Tylenol] 1,000 mg PO Q6HR PRN 01/09/18 [History] Promethazine [Phenergan] 25 mg PO Q6HR PRN #30 tablet 01/25/18 [Rx] Guaifenesin [Mucinex] 600 mg PO Q12HR PRN 02/06/18 [History] OxyCODONE Immed Rel [Roxicodone 10 MG] 10 mg PO BID PRN 30 Days #60 tablet 02/21 [Rx] Dicyclomine [Bentyl] 20 mg PO QID 03/06/18 [History] Vancomycin Oral Soln [Firvanq] 125 mg PO QID #28 udc 03/09/18 [Rx] Allergies/Adverse Reactions: 3 Allergy/AdvReac Type Severity Reaction Status Date / Time shellfish derived AdvReac Swelling Verified 02/06/18 10:25 of the Eye Certification: Further, I certify that my clinical findings support that this patient is homebound (i.e. absences from home require considerable and taxing effort and are for medical reasons or holiness services or infrequently or short duration when for other reasons) because: Homebound Reason: Patient requires assistance of a person or device to safely leave home Attestation: My signature below is to certify that this patient is under my care and that I, or nurse practitioner, or a physician's dairy and food laboratory assistant working with me, has a face-to -face encounter with this patient.
== END 2018-03-09 16:36 | disposition home health service (06) | DRG 64 ==
LOC: 3BNU 07:04 → EMEROO 07:04 → 3BNU 12:30
PROVIDERS: ADMIT Internal Medicine Cardiovascular Disease; ATTEND Internal Medicine Cardiovascular Disease

== ENCOUNTER 2018-04-17 05:52 | Inpatient (IN) ==
[2018-04-17] MEDS ORDERED: 0.9 % Sodium Chloride 1,000 ML ONE (06:30)
[2018-04-17 06:37] LABS: Basophils % 0.1 %
[2018-04-17 06:39] LABS: Hemoglobin 9.8 g/dL (11.5-15.4); Immature Granulocytes % 2.4 % (0-4); Lymphocytes # 0.7 K/mcL (0.6-4.6); Lymphocytes % 2.4 %; Mean Corpuscular HGB Conc 33.8 g/dL (31.6-35.5); Mean Corpuscular Hemoglobin 36.3 pg (28.0-33.3); Mean Corpuscular Volume 107.4 fL (83.0-100.0); Monocytes # 1.1 K/mcL (0.0-1.3); Neutrophils # 25.6 K/mcL (1.6-8.9); Platelet Count 154 K/mcL (140-400); Red Cell Distribution Width 14.7 % (11.5-14.5); Segmented Neutrophils % 91.1 %
[2018-04-17] MEDS: 0.9 % Sodium Chloride 1,000 ML IVC SCH ×4 (06:39→13:03)
--- NOTE | 2018-04-17 06:46 | Emergency Department Note ---
Disposition Clinical Impression: C. difficile diarrhea, TERRENCE (acute kidney injury) Nausea and vomiting Qualifiers: Vomiting type: unspecified Vomiting Intractability: non-intractable Qualified Code(s): R11.2 - Nausea with vomiting, unspecified Abdominal pain Qualifiers: Abdominal location: generalized Qualified Code(s): R10.84 - Generalized abdominal pain Sepsis Qualifiers: Sepsis type: sepsis due to unspecified organism Qualified Code(s): A41.9 - Sepsis, unspecified organism Disposition: Admitted As Inpatient Condition: Serious Referrals: Bronson Harris DO [Primary Care Provider] - Forms: ED Satisfaction Letter Nausea/Vomiting/Diarrhea HPI - General Chief complaint: ED Nausea/Vomiting/Diarrhea Stated complaint: N/V/ANGIE Time Seen by Provider: 04/17/18 06:18 Source: patient, family, EMS Mode of arrival: EMS Limitations: no limitations Nursing Notes Reviewed: Yes Vital Signs Reviewed: Yes - History of Present Illness HPI Narrative: Patient with history of cholangiocarcinoma, recent paracentesis, recent C. difficile colitis, recent CVA on aspirin and Plavix only arrives via squad with her daughter for evaluation of nausea, vomiting, abdominal pain, diarrhea, intermittent fever. The fever and nausea began on Tuesday. She has had decreased oral intake since then. She had one episode of "Uncontrollable diarrhea" this morning, several episodes of watery diarrhea since Tuesday, and one episode of vomiting this morning. Daughter states that patient was standing at the sink this AM and was unable to move. She told her daughter that she could not sit down or walk. Family assisted patient to a chair and she sat briefly, then got back up and stood by the sink again. She is not confused but has had a change in behavior per her daughter. It is listed in the nursing notes that the patient had ANGIE. Patient denies dyspnea of any kind at this time or recently. She does however state that her chest hurts sometimes. No chest pain today. Pt Subjective Complaint: nausea, vomiting, diarrhea, abdominal pain Onset (ago): hour(s) Description of emesis: food contents, watery Number of episodes of emesis: 1 Description of Diarrhea: water Number of episodes: 1 Associated Abdominal Pain: Yes If pain, Location of pain: diffuse Radiation: diffuse Severity: mild, moderate Severity scale (1-10): 4 Quality: cramping Consistency: constant Improves with: nothing Worsens with: nonthing Context: recent antibiotic use (Early March completed course of Vanc for C.diff) , recent surgery/procedure (paracentesis) Associated symptoms: Reports: fever/chills (intermittent fever - up to 100.9 since Tuesday.), loss of appetite, malaise, nausea/vomiting, shortness of breath ("A little"), weakness (Generalized). Denies: chest pain (not now, but intermittently for months), cough, diaphoresis, headaches, dysuria, syncope - Related Data Home Medications Medication Instructions Recorded Confirmed Aspirin [Lo-Dose Aspirin EC] 81 mg PO DAILY 09/23/17 04/17/18 Cholecalciferol (D-3) [Vitamin D] 1,000 unit PO QPM 09/23/17 04/17/18 Multivitamin [Multivitamins] 1 each PO QPM 09/23/17 04/17/18 Furosemide [Lasix] 20 mg PO DAILY 11/15/17 04/17/18 Pantoprazole Sodium [Protonix] 40 mg PO DAILY 11/15/17 04/17/18 Cyanocobalamin (Vitamin B-12) 100 mcg PO QPM 11/21/17 04/17/18 [Vitamin B-12] Lidocaine/Prilocaine [Emla] 1 appl TP AD 11/21/17 04/17/18 Nitroglycerin [Nitrostat] 0.4 mg SL Q5M PRN 11/21/17 04/17/18 glipiZIDE [Glucotrol] 5 mg PO 0800 11/21/17 04/17/18 Metoprolol [Lopressor] 12.5 mg PO BID 12/12/17 04/17/18 Potassium Chloride [Klor-Con 10] 10 meq PO DAILY 12/12/17 04/17/18 Acetaminophen [Tylenol] 1,000 mg PO Q6HR PRN 01/09/18 04/17/18 Guaifenesin [Mucinex] 600 mg PO Q12HR PRN 02/06/18 04/17/18 Dicyclomine [Bentyl] 20 mg PO BID 03/06/18 04/17/18 OxyCODONE Immed Rel [Roxicodone 10 10 mg PO TID PRN 04/17/18 04/17/18 MG] Previous Rx's Medication Instructions Recorded Clopidogrel [Plavix] 75 mg PO DAILY #30 tablet 09/24/17 Magic Mouthwash [Magic Mouthwash 10 ml PO QID PRN #240 ml 12/29/17 BLM] Lactobac Cmb #3/Fos/Pantethine 1 each PO BID #60 capsule 03/09/18 [Probiotic & Acidophilus Cap] Lactobacillus Rhamnosus R0011 1 each PO BID #60 capsule 04/04/18 [Probiotic Digestive Care] Ondansetron HCl [Zofran] 4 mg PO Q6H PRN #30 tab 04/04/18 Allergies Allergy/AdvReac Type Severity Reaction Status Date / Time shellfish derived AdvReac Swelling Verified 04/04/18 09:53 of the Eye All systems ED: reviewed and negative except as stated. Review of Systems: As Per HPI Constitutional: Reports: fever, weakness, weight change (208 early March, 215 now ). Denies: chills Eyes: Denies: vision change Cardiovascular: Reports: as per HPI. Denies: chest pain, palpitations, dyspnea on exertion, orthopnea, edema, syncope Respiratory: Denies: cough, dyspnea, wheezes, hemoptysis, stridor, sputum production Gastrointestinal: Reports: as per HPI, abdominal pain, nausea, vomiting, diarrhea. Denies: constipation Genitourinary: Denies: urgency, dysuria, frequency, hematuria Musculoskeletal: Denies: back pain, neck pain, joint swelling, arthralgia, myalgia Integumentary: Denies: rash, lesions, pruritus Neurological: Denies: headache, weakness, numbness, paresthesias, confusion, vertigo Endocrine: Reports: fatigue Hematological/Lymphatic: Reports: easy bruising. Denies: easy bleeding, lymphadenopathy Past Medical History - Past Medical History Attestation: Yes The following information was validated with the patient. Source: patient, old records reviewed, obtained from family, nursing notes reviewed Medical history: Reports: cancer, coronary artery disease, diabetes, hyperlipidemia, hypertension, myocardial infarction Surgical history: Reports: cataract, knee replacement (B/L TKR) Psychiatric history: Reports: no psych history - Social History Smoking Status: Former smoker Smokeless Tobacco Status: No Alcohol use: Reports: none Drug use: Reports: none Physical Exam - General Limitations: no limitations General appearance: alert, in no apparent distress - Head Head exam: atraumatic, normocephalic, normal inspection - Eye Eye exam: Present: normal appearance, PERRL. Absent: scleral icterus, conjunctival injection, periorbital swelling - ENT ENT exam: mucous membranes dry - Neck Neck exam: Present: normal inspection, full ROM, trachea midline. Absent: tenderness, meningismus, lymphadenopathy - Chest Chest inspection: Present: normal inspection - Respiratory Respiratory exam: Present: normal lung sounds bilaterally. Absent: respiratory distress, wheezes - Cardiovascular Cardiovascular exam: Present: tachycardia, irregular rhythm. Absent: systolic murmur, diastolic murmur - Abdominal Exam Abdominal exam: Present: soft, tenderness, distention, diminished bowel sounds. Absent: guarding, rebound, rigidity, organomegaly, Nuñez's sign, tenderness at McBurney's Point, mass, pulsatile mass - Extremities Exam Extremities exam: Present: normal capillary refill, pedal edema (2+ non-pitting , bilateral feet - symmetric). Absent: tenderness, calf tenderness - Expanded Lower Extremity Exam Gait: not tested/not observed - Neurological Exam Neurological exam: Present: alert, oriented X3 - Psychiatric Psychiatric exam: Present: normal affect, normal mood - Skin Skin exam: Present: warm, dry, intact, normal color Course Course Narrative: Patient presents from home for evaluation of nausea, vomiting, diarrhea and abdominal pain for several days. She has had low-grade fevers off and on since . Her vital signs upon arrival indicate SIRS. Labs, chest x-ray, CT of the abdomen and pelvis and fluids have been ordered. Patient responded well to fluids. Labs indicate sepsis. Concern is for a return of C. difficile colitis. Patient also has a moderate amount of ascites. Case discussed with Dr. Benavides. He has had [id number] time with the patient, has reviewed the lab and CT findings and agrees with the assessment and plan. Case was then discussed with the hospitalist. He requests that we start the patient on PO vancomycin as she did respond to this previously. He also requested that I cancel the orders for the paracentesis. Repeat lactate pending. - Reevaluation(s) Reevaluation #1: BP up to 114/56 after 500ml. HR 104. Pain meds ordered. Time: 07:17 Reevaluation #2: Pain is much better after meds. Vitals stable. CT shows colitis, ascites, stable renal lesion, nodule in messentery, could be met. Hospitalist has been paged. Time: 08:48 Vital Signs Temperature 98.3 F 04/17/18 06:03 Pulse Rate 112 04/17/18 06:03 Respiratory Rate 28 04/17/18 06:03 Blood Pressure 99/60 04/17/18 06:03 O2 Sat by Pulse Oximetry 96 04/17/18 06:03 Temperature 98.3 F 04/17/18 06:03 Pulse Rate 89 04/17/18 07:41 Respiratory Rate 26 04/17/18 07:41 Blood Pressure 118/57 04/17/18 07:41 O2 Sat by Pulse Oximetry 96 04/17/18 07:41 Oxygen Delivery Oxygen Delivery Room Air Nausea/Vomiting/Diarrhea - Medical Records Medical records reviewed: Yes I reviewed the patient's medical records. - Lab Data Lab results reviewed: Yes I reviewed the patient's lab results. Lab results narrative: Laboratory Last Values WBC 28.1 K/mcL (4.3-11.1) H 04/17/18 06:19 RBC 2.70 M/mcL (3.82-4.97) L 04/17/18 06:19 Hgb 9.8 g/dL (11.5-15.4) L 04/17/18 06:19 Hct 29.0 % (35.3-44.9) L 04/17/18 06:19 MCV 107.4 fL (83.0-100.0) H 04/17/18 06:19 MCH 36.3 pg (28.0-33.3) H 04/17/18 06:19 MCHC 33.8 g/dL (31.6-35.5) 04/17/18 06:19 RDW 14.7 % (11.5-14.5) H 04/17/18 06:19 Plt Count 154 K/mcL (140-400) 04/17/18 06:19 MPV 11.0 fL (9.4-12.4) 04/17/18 06:19 Immature Gran % 2.4 % (0-4) 04/17/18 06:19 Seg Neutrophils % 91.1 % 04/17/18 06:19 Lymphocytes % 2.4 % 04/17/18 06:19 Monocytes % 4.0 % 04/17/18 06:19 Eosinophils % 0.0 % 04/17/18 06:19 Basophils % 0.1 % 04/17/18 06:19 Neutrophils # 25.6 K/mcL (1.6-8.9) H 04/17/18 06:19 Lymphocytes # 0.7 K/mcL (0.6-4.6) 04/17/18 06:19 Monocytes # 1.1 K/mcL (0.0-1.3) 04/17/18 06:19 Eosinophils # 0.0 K/mcL (0.0-0.6) 04/17/18 06:19 Basophils # 0.0 K/mcL (0.0-0.2) 04/17/18 06:19 PT 15.6 Seconds (9.4-12.1) H 04/17/18 06:19 INR 1.4 04/17/18 06:19 APTT 35.7 Seconds (26.0-36.0) 04/17/18 06:19 Sodium 131 mEq/L (136-145) L 04/17/18 06:19 Potassium 3.5 mEq/L (3.5-5.1) 04/17/18 06:19 Chloride 97 mEq/L (98-107) L 04/17/18 06:19 Carbon Dioxide 21 mEq/L (23-29) L 04/17/18 06:19 BUN 28 mg/dL (8-23) H 04/17/18 06:19 Creatinine 1.96 mg/dL (0.60-1.20) H 04/17/18 06:19 Est GFR ( Amer) 30 (> 60) L 04/17/18 06:19 Est GFR (Non-Af Amer) 25 (> 60) L 04/17/18 06:19 BUN/Creatinine Ratio 14 (6-26) 04/17/18 06:19 Glucose 150 mg/dL (70-105) H 04/17/18 06:19 Calculated Osmolality 280 (280-300) 04/17/18 06:19 Lactic Acid 2.4 mmol/L (0.5-2.2) H 04/17/18 06:20 Calcium 8.8 mg/dL (8.6-10.3) 04/17/18 06:19 Phosphorus 3.5 mg/dL (2.7-4.5) 04/17/18 06:19 Magnesium 1.8 mg/dL (1.6-2.6) 04/17/18 06:19 Total Bilirubin 0.9 mg/dL (0.3-1.0) 04/17/18 06:19 Direct Bilirubin 0.2 mg/dL (0.0-0.2) 04/17/18 06:19 Indirect Bilirubin 0.7 mg/dL (0.0-1.2) 04/17/18 06:19 AST 38 Units/L (13-39) 04/17/18 06:19 ALT 7 Units/L (7-52) 04/17/18 06:19 Alkaline Phosphatase 82 Units/L (34-104) 04/17/18 06:19 Troponin I 0.05 ng/mL (< 0.04) H* 04/17/18 06:19 B-Natriuretic Peptide 386 pg/mL (Less than 100) H 04/17/18 06:20 Serum Total Protein 6.2 g/dL (6.4-8.9) L 04/17/18 06:19 Albumin 3.0 g/dL (3.5-5.7) L 04/17/18 06:19 Globulin 3.2 g/dL (2.4-3.5) 04/17/18 06:19 Albumin/Globulin Ratio 0.9 (1.1-2.2) L 04/17/18 06:19 Lipase 3 Units/L (11-82) L 04/17/18 06:19 Urine Color Dark Yellow (Yellow) 04/17/18 06:41 Urine Clarity Cloudy (Clear) A 04/17/18 06:41 Urine pH 5.0 pH Units (5.0-8.0) 04/17/18 06:41 Ur Specific [place] > 1.030 (1.010-1.025) H 04/17/18 06:41 Urine Protein Negative mg/dL (Neg-Trace) 04/17/18 06:41 Urine Glucose (UA) Normal mg/dL (Normal) 04/17/18 06:41 Urine Ketones Trace mg/dL (Negative) H 04/17/18 06:41 Urine Blood Negative (Negative) 04/17/18 06:41 Urine Nitrite Negative (Negative) 04/17/18 06:41 Urine Bilirubin Small (Negative) H 04/17/18 06:41 Urine Urobilinogen Normal mg/dL (Normal) 04/17/18 06:41 Ur Leukocyte Esterase Trace (Negative) H 04/17/18 06:41 Urine Microscopic RBC 0-3 per hpf (0-3) 04/17/18 06:41 Urine Microscopic WBC 5-15 per hpf (0-3) H 04/17/18 06:41 Ur Squamous Epith Cells Many per lpf (None-Few) H 04/17/18 06:41 Ur Transition Epith Cell Few per hpf (None-Few) 04/17/18 06:41 Amorphous Sediment Few (Few) 04/17/18 06:41 Urine Bacteria None Seen per hpf (None-Few) 04/17/18 06:41 Hyaline Casts Moderate per lpf (None-Few) H 04/17/18 06:41 Ur Culture Indicated? NO. (NO) A 04/17/18 06:41 Result diagrams: 04/17/18 06:19 04/17/18 06:19 Lab Results 04/17/18 04/17/18 04/17/18 Range/Units 06:19 06:19 06:19 WBC 28.1 H (4.3-11.1) K/mcL RBC 2.70 L (3.82-4.97) M/mcL Hgb 9.8 L (11.5-15.4) g/dL Hct 29.0 L (35.3-44.9) % MCV 107.4 H (83.0-100.0) fL MCH 36.3 H (28.0-33.3) pg MCHC 33.8 (31.6-35.5) g/dL RDW 14.7 H (11.5-14.5) % Plt Count 154 (140-400) K/mcL MPV 11.0 (9.4-12.4) fL Immature Gran % 2.4 (0-4) % Seg Neutrophils % 91.1 % Lymphocytes % 2.4 % Monocytes % 4.0 % Eosinophils % 0.0 % Basophils % 0.1 % Neutrophils # 25.6 H (1.6-8.9) K/mcL Lymphocytes # 0.7 (0.6-4.6) K/mcL Monocytes # 1.1 (0.0-1.3) K/mcL Eosinophils # 0.0 (0.0-0.6) K/mcL Basophils # 0.0 (0.0-0.2) K/mcL PT 15.6 H (9.4-12.1) Seconds INR 1.4 APTT 35.7 (26.0-36.0) Seconds Sodium 131 L (136-145) mEq/L Potassium 3.5 (3.5-5.1) mEq/L Chloride 97 L (98-107) mEq/L Carbon Dioxide 21 L (23-29) mEq/L BUN 28 H (8-23) mg/dL Creatinine 1.96 H (0.60-1.20) mg/dL Est GFR ( Amer) 30 L (> 60) Est GFR (Non-Af Amer) 25 L (> 60) BUN/Creatinine Ratio 14 (6-26) Glucose 150 H (70-105) mg/dL Calculated Osmolality 280 (280-300) Lactic Acid (0.5-2.2) mmol/L Calcium 8.8 (8.6-10.3) mg/dL Phosphorus 3.5 (2.7-4.5) mg/dL Magnesium 1.8 (1.6-2.6) mg/dL Total Bilirubin 0.9 (0.3-1.0) mg/dL Direct Bilirubin 0.2 (0.0-0.2) mg/dL Indirect Bilirubin 0.7 (0.0-1.2) mg/dL AST 38 (13-39) Units/L ALT 7 (7-52) Units/L Alkaline Phosphatase 82 (34-104) Units/L Troponin I 0.05 H* (< 0.04) ng/mL B-Natriuretic Peptide (Less than 100) pg/mL Serum Total Protein 6.2 L (6.4-8.9) g/dL Albumin 3.0 L (3.5-5.7) g/dL Globulin 3.2 (2.4-3.5) g/dL Albumin/Globulin Ratio 0.9 L (1.1-2.2) Lipase 3 L (11-82) Units/L Urine Color (Yellow) Urine Clarity (Clear) Urine pH (5.0-8.0) pH Units Ur Specific [place] (1.010-1.025) Urine Protein (Neg-Trace) mg/dL Urine Glucose (UA) (Normal) mg/dL Urine Ketones (Negative) mg/dL Urine Blood (Negative) Urine Nitrite (Negative) Urine Bilirubin (Negative) Urine Urobilinogen (Normal) mg/dL Ur Leukocyte Esterase (Negative) Urine Microscopic RBC (0-3) per hpf Urine Microscopic WBC (0-3) per hpf Ur Squamous Epith Cells (None-Few) per lpf Ur Transition Epith Cell (None-Few) per hpf Amorphous Sediment (Few) Urine Bacteria (None-Few) per hpf Hyaline Casts (None-Few) per lpf Ur Culture Indicated? (NO) 04/17/18 04/17/18 04/17/18 Range/Units 06:20 06:20 06:41 WBC (4.3-11.1) K/mcL RBC (3.82-4.97) M/mcL Hgb (11.5-15.4) g/dL Hct (35.3-44.9) % MCV (83.0-100.0) fL MCH (28.0-33.3) pg MCHC (31.6-35.5) g/dL RDW (11.5-14.5) % Plt Count (140-400) K/mcL MPV (9.4-12.4) fL Immature Gran % (0-4) % Seg Neutrophils % % Lymphocytes % % Monocytes % % Eosinophils % % Basophils % % Neutrophils # (1.6-8.9) K/mcL Lymphocytes # (0.6-4.6) K/mcL Monocytes # (0.0-1.3) K/mcL Eosinophils # (0.0-0.6) K/mcL Basophils # (0.0-0.2) K/mcL PT (9.4-12.1) Seconds INR APTT (26.0-36.0) Seconds Sodium (136-145) mEq/L Potassium (3.5-5.1) mEq/L Chloride (98-107) mEq/L Carbon Dioxide (23-29) mEq/L BUN (8-23) mg/dL Creatinine (0.60-1.20) mg/dL Est GFR ( Amer) (> 60) Est GFR (Non-Af Amer) (> 60) BUN/Creatinine Ratio (6-26) Glucose (70-105) mg/dL Calculated Osmolality (280-300) Lactic Acid 2.4 H (0.5-2.2) mmol/L Calcium (8.6-10.3) mg/dL Phosphorus (2.7-4.5) mg/dL Magnesium (1.6-2.6) mg/dL Total Bilirubin (0.3-1.0) mg/dL Direct Bilirubin (0.0-0.2) mg/dL Indirect Bilirubin (0.0-1.2) mg/dL AST (13-39) Units/L ALT (7-52) Units/L Alkaline Phosphatase (34-104) Units/L Troponin I (< 0.04) ng/mL B-Natriuretic Peptide 386 H (Less than 100) pg/mL Serum Total Protein (6.4-8.9) g/dL Albumin (3.5-5.7) g/dL Globulin (2.4-3.5) g/dL Albumin/Globulin Ratio (1.1-2.2) Lipase (11-82) Units/L Urine Color Dark Yellow (Yellow) Urine Clarity Cloudy A (Clear) Urine pH 5.0 (5.0-8.0) pH Units Ur Specific [place] > 1.030 H (1.010-1.025) Urine Protein Negative (Neg-Trace) mg/dL Urine Glucose (UA) Normal (Normal) mg/dL Urine Ketones Trace H (Negative) mg/dL Urine Blood Negative (Negative) Urine Nitrite Negative (Negative) Urine Bilirubin Small H (Negative) Urine Urobilinogen Normal (Normal) mg/dL Ur Leukocyte Esterase Trace H (Negative) Urine Microscopic RBC 0-3 (0-3) per hpf Urine Microscopic WBC 5-15 H (0-3) per hpf Ur Squamous Epith Cells Many H (None-Few) per lpf Ur Transition Epith Cell Few (None-Few) per hpf Amorphous Sediment Few (Few) Urine Bacteria None Seen (None-Few) per hpf Hyaline Casts Moderate H (None-Few) per lpf Ur Culture Indicated? NO. A (NO) - Radiology Data Radiology results reviewed: Yes I reviewed the patient's radiology results. - EKG Data EKG attestation: Yes I reviewed and interpreted this EKG. EKG shows normal: sinus rhythm Rate: tachycardia Rhythm: PAC's When compared to previous EKG there are: no significant changes Interpretation: unchanged when compared to prior tracing (date), nonspecific ST- T wave changes
[2018-04-17 06:54] LABS: INR 1.4; Prothrombin Time 15.6 Seconds (9.4-12.1)
[2018-04-17 06:54] LABS: Bilirubin,Urine Small (Negative); Blood,Urine Negative (Negative); Clarity,Urine Cloudy (Clear); Color,Urine Dark Yellow (Yellow); Glucose,Urine (UA) Normal (Normal); Ketones,Urine Trace mg/dL (Negative); Leukocyte Esterase,Urine Trace (Negative); Nitrite,Urine Negative (Negative); Protein,Urine Negative (Neg-Trace); Specific Gravity,Urine > 1.030 (1.010-1.025); Urobilinogen,Urine Normal (Normal)
[2018-04-17 06:56] LABS: Bacteria,Urine None Seen per hpf (None-Few); Hyaline Casts,Urine Moderate per lpf (None-Few); Squamous Epithelial Cell,Urine Many per lpf (None-Few)
[2018-04-17 06:56] LABS: Activated Partial Thrombo Time 35.7 Seconds (26.0-36.0)
[2018-04-17 07:07] LABS: Albumin/Globulin Ratio 0.9 (1.1-2.2); Bilirubin,Direct 0.2 mg/dL (0.0-0.2); Bilirubin,Indirect 0.7 mg/dL (0.0-1.2); Bilirubin,Total 0.9 mg/dL (0.3-1.0); Calcium 8.8 mg/dL (8.6-10.3); Globulin 3.2 g/dL (2.4-3.5); Magnesium 1.8 mg/dL (1.6-2.6); Phosphorous 3.5 mg/dL (2.7-4.5); Potassium 3.5 mEq/L (3.5-5.1); Total Protein 6.2 g/dL (6.4-8.9)
[2018-04-17 07:09] LABS: Amorphous Sediment,Urine Few (Few); RBC,Urine 0-3 per hpf (0-3)
[2018-04-17 07:10] LABS: Transitional Epi Cells,Urine Few per hpf (None-Few)
--- NOTE | 2018-04-17 07:14 | Emergency Department Note ---
Disposition Clinical Impression: Nausea and vomiting, Abdominal pain, C. difficile diarrhea, TERRENCE (acute kidney injury), Sepsis Disposition: Admitted As Inpatient Condition: Serious General Adult HPI - General Chief complaint: ED Nausea/Vomiting/Diarrhea Stated complaint: N/V/ANGIE Time Seen by Provider: 04/17/18 06:18 Source: patient, family, EMS Mode of arrival: EMS Limitations: no limitations - History of Present Illness Pain Scale: 4 - Related Data Home Medications Medication Instructions Recorded Confirmed Aspirin [Lo-Dose Aspirin EC] 81 mg PO DAILY 09/23/17 04/17/18 Cholecalciferol (D-3) [Vitamin D] 1,000 unit PO QPM 09/23/17 04/17/18 Multivitamin [Multivitamins] 1 each PO QPM 09/23/17 04/17/18 Furosemide [Lasix] 20 mg PO DAILY 11/15/17 04/17/18 Pantoprazole Sodium [Protonix] 40 mg PO DAILY 11/15/17 04/17/18 Cyanocobalamin (Vitamin B-12) 100 mcg PO QPM 11/21/17 04/17/18 [Vitamin B-12] Lidocaine/Prilocaine [Emla] 1 appl TP AD 11/21/17 04/17/18 Nitroglycerin [Nitrostat] 0.4 mg SL Q5M PRN 11/21/17 04/17/18 glipiZIDE [Glucotrol] 5 mg PO 0800 11/21/17 04/17/18 Metoprolol [Lopressor] 12.5 mg PO BID 12/12/17 04/17/18 Potassium Chloride [Klor-Con 10] 10 meq PO DAILY 12/12/17 04/17/18 Acetaminophen [Tylenol] 1,000 mg PO Q6HR PRN 01/09/18 04/17/18 Guaifenesin [Mucinex] 600 mg PO Q12HR PRN 02/06/18 04/17/18 Dicyclomine [Bentyl] 20 mg PO BID 03/06/18 04/17/18 OxyCODONE Immed Rel [Roxicodone 10 10 mg PO TID PRN 04/17/18 04/17/18 MG] Previous Rx's Medication Instructions Recorded Clopidogrel [Plavix] 75 mg PO DAILY #30 tablet 09/24/17 Magic Mouthwash [Magic Mouthwash 10 ml PO QID PRN #240 ml 12/29/17 BLM] Lactobac Cmb #3/Fos/Pantethine 1 each PO BID #60 capsule 03/09/18 [Probiotic & Acidophilus Cap] Lactobacillus Rhamnosus R0011 1 each PO BID #60 capsule 04/04/18 [Probiotic Digestive Care] Ondansetron HCl [Zofran] 4 mg PO Q6H PRN #30 tab 04/04/18 Allergies Allergy/AdvReac Type Severity Reaction Status Date / Time shellfish derived AdvReac Swelling Verified 04/04/18 09:53 of the Eye Past Medical History - Past Medical History Medical history: Reports: cancer, coronary artery disease, diabetes, hyperlipidemia, hypertension, myocardial infarction Surgical history: Reports: cataract, knee replacement (B/L TKR) Psychiatric history: Reports: no psych history - Social History Smoking Status: Former smoker Smokeless Tobacco Status: No Alcohol use: Reports: none Drug use: Reports: none Physical Exam - General Limitations: no limitations General appearance: alert, in no apparent distress Course Vital Signs Temperature 98.3 F 04/17/18 06:03 Pulse Rate 112 04/17/18 06:03 Respiratory Rate 28 04/17/18 06:03 Blood Pressure 99/60 04/17/18 06:03 O2 Sat by Pulse Oximetry 96 04/17/18 06:03 Temperature 98.5 F 04/17/18 16:52 Pulse Rate 82 04/17/18 16:52 Respiratory Rate 16 04/17/18 16:52 Blood Pressure 100/44 04/17/18 16:52 O2 Sat by Pulse Oximetry 96 04/17/18 16:52 Oxygen Delivery Oxygen Delivery Room Air Medical Decision Making - Lab Data Result diagrams: 04/17/18 06:19 04/17/18 06:19 Lab Results 04/17/18 04/17/18 04/17/18 Range/Units 06:19 06:19 06:19 WBC 28.1 H (4.3-11.1) K/mcL RBC 2.70 L (3.82-4.97) M/mcL Hgb 9.8 L (11.5-15.4) g/dL Hct 29.0 L (35.3-44.9) % MCV 107.4 H (83.0-100.0) fL MCH 36.3 H (28.0-33.3) pg MCHC 33.8 (31.6-35.5) g/dL RDW 14.7 H (11.5-14.5) % Plt Count 154 (140-400) K/mcL MPV 11.0 (9.4-12.4) fL Immature Gran % 2.4 (0-4) % Seg Neutrophils % 91.1 % Lymphocytes % 2.4 % Monocytes % 4.0 % Eosinophils % 0.0 % Basophils % 0.1 % Neutrophils # 25.6 H (1.6-8.9) K/mcL Lymphocytes # 0.7 (0.6-4.6) K/mcL Monocytes # 1.1 (0.0-1.3) K/mcL Eosinophils # 0.0 (0.0-0.6) K/mcL Basophils # 0.0 (0.0-0.2) K/mcL PT 15.6 H (9.4-12.1) Seconds INR 1.4 APTT 35.7 (26.0-36.0) Seconds Sodium 131 L (136-145) mEq/L Potassium 3.5 (3.5-5.1) mEq/L Chloride 97 L (98-107) mEq/L Carbon Dioxide 21 L (23-29) mEq/L BUN 28 H (8-23) mg/dL Creatinine 1.96 H (0.60-1.20) mg/dL Est GFR ( Amer) 30 L (> 60) Est GFR (Non-Af Amer) 25 L (> 60) BUN/Creatinine Ratio 14 (6-26) Glucose 150 H (70-105) mg/dL Calculated Osmolality 280 (280-300) Lactic Acid (0.5-2.2) mmol/L Calcium 8.8 (8.6-10.3) mg/dL Phosphorus 3.5 (2.7-4.5) mg/dL Magnesium 1.8 (1.6-2.6) mg/dL Total Bilirubin 0.9 (0.3-1.0) mg/dL Direct Bilirubin 0.2 (0.0-0.2) mg/dL Indirect Bilirubin 0.7 (0.0-1.2) mg/dL AST 38 (13-39) Units/L ALT 7 (7-52) Units/L Alkaline Phosphatase 82 (34-104) Units/L Troponin I 0.05 H* (< 0.04) ng/mL B-Natriuretic Peptide (Less than 100) pg/mL Serum Total Protein 6.2 L (6.4-8.9) g/dL Albumin 3.0 L (3.5-5.7) g/dL Globulin 3.2 (2.4-3.5) g/dL Albumin/Globulin Ratio 0.9 L (1.1-2.2) Lipase 3 L (11-82) Units/L Urine Color (Yellow) Urine Clarity (Clear) Urine pH (5.0-8.0) pH Units Ur Specific [place] (1.010-1.025) Urine Protein (Neg-Trace) mg/dL Urine Glucose (UA) (Normal) mg/dL Urine Ketones (Negative) mg/dL Urine Blood (Negative) Urine Nitrite (Negative) Urine Bilirubin (Negative) Urine Urobilinogen (Normal) mg/dL Ur Leukocyte Esterase (Negative) Urine Microscopic RBC (0-3) per hpf Urine Microscopic WBC (0-3) per hpf Ur Squamous Epith Cells (None-Few) per lpf Ur Transition Epith Cell (None-Few) per hpf Amorphous Sediment (Few) Urine Bacteria (None-Few) per hpf Hyaline Casts (None-Few) per lpf Ur Culture Indicated? (NO) 04/17/18 04/17/18 04/17/18 Range/Units 06:20 06:20 06:41 WBC (4.3-11.1) K/mcL RBC (3.82-4.97) M/mcL Hgb (11.5-15.4) g/dL Hct (35.3-44.9) % MCV (83.0-100.0) fL MCH (28.0-33.3) pg MCHC (31.6-35.5) g/dL RDW (11.5-14.5) % Plt Count (140-400) K/mcL MPV (9.4-12.4) fL Immature Gran % (0-4) % Seg Neutrophils % % Lymphocytes % % Monocytes % % Eosinophils % % Basophils % % Neutrophils # (1.6-8.9) K/mcL Lymphocytes # (0.6-4.6) K/mcL Monocytes # (0.0-1.3) K/mcL Eosinophils # (0.0-0.6) K/mcL Basophils # (0.0-0.2) K/mcL PT (9.4-12.1) Seconds INR APTT (26.0-36.0) Seconds Sodium (136-145) mEq/L Potassium (3.5-5.1) mEq/L Chloride (98-107) mEq/L Carbon Dioxide (23-29) mEq/L BUN (8-23) mg/dL Creatinine (0.60-1.20) mg/dL Est GFR ( Amer) (> 60) Est GFR (Non-Af Amer) (> 60) BUN/Creatinine Ratio (6-26) Glucose (70-105) mg/dL Calculated Osmolality (280-300) Lactic Acid 2.4 H (0.5-2.2) mmol/L Calcium (8.6-10.3) mg/dL Phosphorus (2.7-4.5) mg/dL Magnesium (1.6-2.6) mg/dL Total Bilirubin (0.3-1.0) mg/dL Direct Bilirubin (0.0-0.2) mg/dL Indirect Bilirubin (0.0-1.2) mg/dL AST (13-39) Units/L ALT (7-52) Units/L Alkaline Phosphatase (34-104) Units/L Troponin I (< 0.04) ng/mL B-Natriuretic Peptide 386 H (Less than 100) pg/mL Serum Total Protein (6.4-8.9) g/dL Albumin (3.5-5.7) g/dL Globulin (2.4-3.5) g/dL Albumin/Globulin Ratio (1.1-2.2) Lipase (11-82) Units/L Urine Color Dark Yellow (Yellow) Urine Clarity Cloudy A (Clear) Urine pH 5.0 (5.0-8.0) pH Units Ur Specific [place] > 1.030 H (1.010-1.025) Urine Protein Negative (Neg-Trace) mg/dL Urine Glucose (UA) Normal (Normal) mg/dL Urine Ketones Trace H (Negative) mg/dL Urine Blood Negative (Negative) Urine Nitrite Negative (Negative) Urine Bilirubin Small H (Negative) Urine Urobilinogen Normal (Normal) mg/dL Ur Leukocyte Esterase Trace H (Negative) Urine Microscopic RBC 0-3 (0-3) per hpf Urine Microscopic WBC 5-15 H (0-3) per hpf Ur Squamous Epith Cells Many H (None-Few) per lpf Ur Transition Epith Cell Few (None-Few) per hpf Amorphous Sediment Few (Few) Urine Bacteria None Seen (None-Few) per hpf Hyaline Casts Moderate H (None-Few) per lpf Ur Culture Indicated? NO. A (NO) Attestation Statement - Attestation Attestation: For this encounter, I have reviewed the BONE GRINDER or PA documentation, treatment plan, and medical decision making; and I have had face to face time with this patient. [id number] time provided Labs reviewed by me indicating acute kidney injury and leukocytosis with neutrophilia. Patient with a recent history of Clostridium difficile.
[2018-04-17 07:15] LABS: Troponin I 0.05 ng/mL (< 0.04)
[2018-04-17] MEDS ORDERED: Ondansetron 4 MG/2 ML VIAL IVP ONE (07:18)
[2018-04-17] MEDS ORDERED: *HR* FentaNYL (PF) 100 MCG/2 ML VIAL IVP ONE (07:18)
[2018-04-17] MEDS ORDERED: Vancomycin Oral Soln 125 MG/2.5 ML UDC PO ONE (09:08)
[2018-04-17] MEDS ORDERED: *HR* HYDROcodone/Acet 5/325 mg TABLET PO PRN (09:59)
[2018-04-17] MEDS ORDERED: Naloxone 0.4 MG/ML INJ IVP PRN (09:59)
[2018-04-17] MEDS ORDERED: Furosemide 20 MG TABLET PO SCH (10:15)
--- NOTE | 2018-04-17 10:25 | Internal Med History&Physical ---
Date of Encounter: 04/17/18 Time of Encounter: 10:15 Internal Medicine - H&P: HPI Chief complaint: Abdominal pain and diarrhea Admitted From: Home Plans for Post Hospital Care: Transfer Nursing Home Facility History of present illness: Ms. Singletary is a 77 year old female with a past medical history of recent CVA in February 2018 not anticoagulated because of history of GI bleed, history of coronary artery disease with PTCA/drug-eluting stent placement in proximal LAD in 2016, history of cholangiocarcinoma being followed by cancer center as an outpatient and to the family's knowledge there is no metastatic history, recent history of C. difficile colitis for which she finished a ten-day course in early March of oral vancomycin. Who presents today with diarrhea which started in the last 2-3 days and got to the point where she is having about 10 bowel movements a day. Patient stated that she is been not having any fevers but multiple bouts of diarrhea along with tenesmus have been ongoing and gradually getting worse over the last 2-3 days. She denies any vomiting. She has been feeling more and more weak and has been having some diffuse abdominal pain. She denies having any constipation. She states that in the last month she was treated with vancomycin for C. difficile diarrhea which was pretty similar to what she currently had and she was improving on the order treatment. However since the treatment stopped her symptoms came back as worse and that is what prompted her to come to the ER. She had a history of cholangiocarcinoma and has been on chemotherapy which was on hold in February when she had a stroke. She is supposed to be resuming chemotherapy in April. In the ER on arrival her blood pressure was found to be on the lower side in the 9os, she received 2 L of boluses and a lactic acid was elevated at 2.4. Her blood pressure did improve to 119 however dropped down to 90s again. A repeat lactate is pending as of right now. The patient also received a fentanyl does which could be contemplated to her lower blood pressure for now. Currently she claims of the abdominal pain to be 3 out of 10 in severity and diffusely located all over her abdomen does not radiate and does not seem to do improve or worsen with positioning. Chest x-ray shows no new acute cardiopulmonary process. An abdominal and pelvis CT without contrast done in the ER shows increased mesenteric stranding along the transverse colon suspicious for colitis, anasarca and ascites with a slightly increased, intrahepatic biliary dilatation and hepatic segment for mass which is consistent with prior history of adenocarcinoma, a mesenteric nodule in the lower abdomen superficially could represent an inflammatory changes due to colitis but metastatic deposit is not entirely excluded. Sepsis most likely as a result of C. 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 1 cardiac stent. bilateral knees. biopsy of kidneys, liver, lymph nodes - Social History Smoking Status: Former smoker Smokeless Tobacco Status: No Alcohol use: none Drug use: none - Family History Father Hx Family Cancer: Yes (bone cancer) Brother Hx Family Endocrine Disorder: Yes (DM) Internal Medicine - H&P: Meds Aspirin [Lo-Dose Aspirin EC] 81 mg PO DAILY 09/23/17 [History] Cholecalciferol (D-3) [Vitamin D] 1,000 unit PO QPM 09/23/17 [History] Multivitamin [Multivitamins] 1 each PO QPM 09/23/17 [History] Clopidogrel [Plavix] 75 mg PO DAILY #30 tablet 09/24/17 [Rx] Furosemide [Lasix] 20 mg PO DAILY 11/15/17 [History] Pantoprazole Sodium [Protonix] 40 mg PO DAILY 11/15/17 [History] Cyanocobalamin (Vitamin B-12) [Vitamin B-12] 100 mcg PO QPM 11/21/17 [History] Lidocaine/Prilocaine [Emla] 1 appl TP AD 11/21/17 [History] Nitroglycerin [Nitrostat] 0.4 mg SL Q5M PRN 11/21/17 [History] glipiZIDE [Glucotrol] 5 mg PO 0800 11/21/17 [History] Metoprolol [Lopressor] 12.5 mg PO BID 12/12/17 [History] Potassium Chloride [Klor-Con 10] 10 meq PO DAILY 12/12/17 [History] Magic Mouthwash [Magic Mouthwash BLM] 10 ml PO QID PRN #240 ml 12/29/17 [Rx] Acetaminophen [Tylenol] 1,000 mg PO Q6HR PRN 01/09/18 [History] Guaifenesin [Mucinex] 600 mg PO Q12HR PRN 02/06/18 [History] Dicyclomine [Bentyl] 20 mg PO BID 03/06/18 [History] Lactobac Cmb #3/Fos/Pantethine [Probiotic & Acidophilus Cap] 1 each PO BID #60 capsule 03/09/18 [Rx] Lactobacillus Rhamnosus R0011 [Probiotic Digestive Care] 1 each PO BID #60 capsule 04/04/18 [Rx] Ondansetron HCl [Zofran] 4 mg PO Q6H PRN #30 tab 04/04/18 [Rx] OxyCODONE Immed Rel [Roxicodone 10 MG] 10 mg PO TID PRN 04/17/18 [History] 3 Allergy/AdvReac Type Severity Reaction Status Date / Time shellfish derived AdvReac Swelling Verified 04/04/18 09:53 of the Eye All Systems PM: A 10-system review of systems was performed and is negative for pertinent findings except as documented above in the HPI. - Constitutional Vitals: Temp Pulse Resp BP Pulse Ox 98.3 F 91 28 94/50 94 04/17/18 06:03 04/17/18 09:12 04/17/18 09:12 04/17/18 09:12 04/17/18 09:12 Exam: GENERAL: Alert, moderate distress, cooperative EYES: PERRLA, EOMI EARS: External ears normal, canals clear OROPHARYNX: Lips, mucosa, and tongue appeared dry. NECK: No jugulovenous distention, No carotid bruits, Carotid pulse normal contour, Supple LUNGS: Lungs clear to auscultation, Good diaphragmatic excursion CARDIAC: Tachycardia ; no rubs, murmurs, or gallops ABDOMEN: Abdomen soft, distended with fluid thrill present. No focal tenderness but patient does wince when various areas are palpated at least deeply EXTREMITIES: no deformities, 1+ diffuse edema, clubbing or skin discoloration. Good capillary refill., No ulcers NEURO: Gait not tested. Patient has weakness in the right upper extremity at least on the limited examination. 4/5. Left upper extremity is 5/5. Bilateral lower extremities-she is able to move them and sensations are equal. PULSES: 2+ radial, 2+ carotid Rest of the exam is non contributory Internal Med - H&P Results - Labs CBC & Chem 7: 04/17/18 06:19 04/17/18 06:19 - Assessment and plan (1) Sepsis Current Visit: Yes Status: Suspected Assessment and plan: Patient is consistent with sepsis- she has elevated white count, tachycardia, hypotension on arrival to the ER, elevated lactic acid, was given IV fluid resuscitation and repeat lactic acid is pending. Suspected source of it sepsis at this point is restaurant to stable predominantly C. difficile given the fact that she has been having significant diarrhea. I will start her on oral vancomycin and continue fluid resuscitation. She will be placed on telemetry monitoring and we will be closely monitoring her hemodynamically. My threshold of obtaining her care to stepdown is low. I will also start her on IV Flagyl and consult infectious disease for tailoring her antibiotic course. She appears to be comfortable right now but her prognosis is guarded. Blood cultures have been sent from the ER. She also has been ordered to undergo a diagnostic and therapeutic abdominal Paracentesis and we will be following the results of that study carefully. She is at high risk for going into sepsis based on her malignancy history, immune compromise nature, recent history of C. difficile. Qualifiers: Sepsis type: sepsis due to unspecified organism Qualified Code(s): A41.9 - Sepsis, unspecified organism (2) C. difficile diarrhea Current Visit: Yes Status: Acute Assessment and plan: See plan above. Continue oral vancomycin for now. Consult infectious disease for further management (3) Ascites Current Visit: No Status: Acute Assessment and plan: Has a history of chronic cholangiocarcinoma and ascites has happened in the past. Given the fact that she has a new nodule on abdominal CT my suspicion for peritoneal metastases and malignant ascites is high at this point I will be ordering a therapeutic and diagnostic tap. Qualifiers: Ascites type: malignant Qualified Code(s): R18.0 - Malignant ascites (4) Cholangiocarcinoma Current Visit: No Status: Acute Assessment and plan: Patient sees oncology at [facility] as an outpatient. She was on chemotherapy but it was held given her last CVA in February. Plan is to resume it sometime in April. We will consider Consulting them while patient is in here (5) Coronary artery disease Current Visit: No Status: Chronic Assessment and plan: Continue aspirin, Plavix, beta blockers. Patient has a history of stent placement in July 2017 and would benefit from one year of double antiplatelet therapy. Qualifiers: Coronary Disease-Associated Artery/Lesion type: [place] artery [place] vs. transplanted heart: [place] heart Associated angina: without angina Qualified Code(s): I25.10 - Atherosclerotic heart disease of [place] coronary artery without angina pectoris (6) Diabetes mellitus Current Visit: No Status: Chronic Assessment and plan: Patient will be placed on insulin sliding scale. Hold oral hypoglycemics while inpatient Qualifiers: Diabetes mellitus type: type 2 Diabetes mellitus penitentiary insulin use: without keno terminal operator use Diabetes mellitus complication status: with unspecified complications Qualified Code(s): E11.8 - Type 2 diabetes mellitus with unspecified complications (7) History of stroke Current Visit: Yes Status: Acute Assessment and plan: Recent history of stroke in February. Patient was started on aspirin and Plavix and no anticoagulation. She appears to be stable from this angle and I will continue aspirin and Plavix as long as there is no contraindication at this point. Her neurological exam appears stable (8) DVT prophylaxis Current Visit: Yes Status: Acute Assessment and plan: Subcutaneous heparin every 8 hours History of malignancy - Time Spent With Patient Total time spent is greater than 50% in coordination of care (as documented) at patient's floor/unit and/or counseling patient: Greater than 35 minutes
[2018-04-17] MEDS ORDERED: *HR* Dextrose 50 % in Water (Syg) 50 ML SYRINGE IVP PRN (10:29)
[2018-04-17] MEDS ORDERED: Dextrose Gel 15 GM/37.5 ML TUBE PO PRN ×2 (10:29)
[2018-04-17] MEDS ORDERED: D5% in Water 1,000 ML IVC PRN (10:29)
--- NOTE | 2018-04-17 11:04 | Procedure Note ---
Date of procedure: 04/17/18 Pre-op diagnosis: ascites Post-op diagnosis: same Procedure: Procedure: Abdominal Paracentesis Date: 04/17/18 Time: 0900 Indication: Ascites Resident: Dr. Bear Attending: Dr. Daily A timeout was completed verifying correct patient, procedure site, positioning, and special equipment if applicable. The patient's right lower quadrant was prepped and draped in a sterile manner after appropriate infiltration level was confirmed by ultrasound. 1% lidocaine was used to anesthetize the surrounding skin. A finder needle was used to locate fluid and clear yellow fluid was obtained. A 10 blade scalpel was used to make the incision. The paracentesis catheter was then threaded without difficulty. The patient had 9.5L of clear yellow fluid removed. Attending physician Dr. Daily supervised the procedure. Estimated blood loss: 2ml The patient tolerated the procedure well and there were no complications. Anesthesia: local Surgeon: Bryce Bear Was there an statistical assistant present: Yes Exchange Engineer: Jaime Moreno Estimated blood loss (cc): 2 Specimen: ascitic fluid Pathology: other (ascitic fluid sent for analysis.) Condition: stable Disposition: floor (ED Hold)
[2018-04-17 12:22] LABS: Estimated Average Glucose 88 mg/dl; Hemoglobin A1C 4.7 %
[2018-04-17 12:26] LABS: Albumin 2.4 g/dL (3.5-5.7)
[2018-04-17 12:30] LABS: Troponin I 0.06 ng/mL (< 0.04)
[2018-04-17] MEDS: Acetaminophen 325 MG TABLET PO PRN (13:00)
[2018-04-17] MEDS: Vancomycin Oral Soln 125 MG/2.5 ML UDC PO SCH ×3 (13:02→22:01)
[2018-04-17] MEDS: Insulin LISPRO 300 UNITS/3 ML VIAL SQ SCH ×2 (13:10→17:16)
--- NOTE | 2018-04-17 13:38 | Infectious Disease Consult ---
Date of Encounter: 04/17/18 Time of Encounter: 13:00 Assessment and Plan (1) Severe sepsis Status: Acute Assessment and plan: - Patient met SIRS criteria on admission; tachycardia, hypotension, elevated white count, elevated lactic acid - Likely source is C. difficile colitis - Patient has had significant diarrhea, recent history of C. difficile - CT scan of abdomen demonstrates findings suggestive of colitis - Patient has been started on oral vancomycin solution (2) C. difficile diarrhea Status: Acute Assessment and plan: - Presented with multiple episodes of diarrhea since Tuesday - Patient has a recent history of infection with C. difficile in early March - Continue oral vancomycin - Recheck C. difficile colitis PCR - Duration of treatment likely 14 days (3) SBP (spontaneous bacterial peritonitis) Status: Acute Assessment and plan: - Status post paracentesis with 9.6 L of fluid removed - Gram stain, cultures, chemistries including albumin, glucose, protein, amylase , LDH - Patient has severe rebound and peritoneal signs. I am concerned for SBP. We will start empiric cefotaxime. - Patient's creatinine clearance around 25-30; No need to dose adjust the cefotaxime if creatinine clearance is over 20. - Duration of treatment depends on the culture results and if this is an SBP - We will also order blood cultures 2. - Monitoring Labs and for drug toxicity. 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 - Possible malignant ascites - Interventional radiology was consulted; therapeutic/diagnostic paracentesis was performed Qualifiers: Ascites type: malignant Qualified Code(s): R18.0 - Malignant ascites (5) Cholangiocarcinoma Status: Acute Assessment and plan: - Patient sees oncology at [place] as an outpatient - Was on chemotherapy; was held given her last CVA in February - Plan is to resume it sometime in April (6) Coronary artery disease Status: Chronic Assessment and plan: - Management per primary team Qualifiers: Coronary Disease-Associated Artery/Lesion type: [place] artery [place] vs. transplanted heart: [place] heart Associated angina: without angina Qualified Code(s): I25.10 - Atherosclerotic heart disease of [place] coronary artery without angina pectoris (7) Diabetes mellitus Status: Chronic Assessment and plan: - Insulin sliding scale - Management per primary team Qualifiers: Diabetes mellitus type: type 2 Diabetes mellitus termination clerk insulin use: without termination clerk use Diabetes mellitus complication status: with unspecified complications Qualified Code(s): E11.8 - Type 2 diabetes mellitus with unspecified complications (8) TERRENCE (acute kidney injury) Status: Acute Assessment and plan: - Likely due to severe sepsis and third spacing Infectious Disease HPI - Data of Consult Requesting Physician: Randy Page MD Primary Care Provider: Bronson Harris DO - Consult Narrative Reason for consult: Possible C. difficile colitis History of present illness: Patient is a 77-year-old female who presented to [facility] on 04/17 with nausea, vomiting, and diarrhea. We are consulted for possible recurrent C. Diff infection. Patient is a known past medical history of glandular carcinoma, recurrent C. difficile colitis, history of CAD with PTCA/drug-eluting stent placement in proximal LAD in 2016, recent CVA on aspirin and Plavix who presented with nausea , vomiting, abdominal pain, diarrhea, and intermittent fever. Patient reported that her fever and nausea began on Tuesday. Patient had decreased by mouth intake since this started. One episode of uncontrollable diarrhea on the morning of presentation, several episodes of watery diarrhea since Tuesday. One episode of vomiting on the morning of presentation. Patient stopped daughter reported that she was unable to move when she was standing at the sink. Patient could not sit down or walk. Of note, patient has a recent history of C. difficile colitis for which she finished a 10 day course of oral vancomycin in early March. After she stopped her treatment, patients symptoms worsened. She is scheduled to resume chemotherapy in April. On arrival, patients vital signs were as follows: Temperature is 98.3, pulse was 112, respiratory rate was 28, blood pressure was 99/60, and O2 saturation was 96. Labs were significant for an elevated white count at 28.1 with left shift, elevated troponin 0.06, elevated BNP at 386, low albumin at 2.4, lactic acid 2.5. Urinalysis demonstrated possible UTI. Chest x-ray showed no acute process. Abdomen and pelvis CT demonstrated the following: Increasing mesenteric stranding along the transverse colon with some colonic wall thickening suspicious for colitis, anasarca, left renal mass, cholelithiasis, mesenteric nodule and lower abdomen superficially; could represent focal inflammatory change related to colitis, metastatic deposit not entirely excluded. Blood cultures 2 were ordered. Interventional radiology was consulted to perform a paracentesis. Patient last had a paracentesis several months ago and was noted to have ascites. Paracentesis was performed without cup dictation. Studies were ordered for peritoneal fluid including Gram stain, LDH, culture, total protein, amylase, and albumin. Oral vancomycin solution was started, 125 mg. Contact precautions were started. Patient was seen and examined at bedside; patient does not appear well. She states that she is experiencing a great deal of abdominal pain after her paracentesis. Patient reports that her pain is located in the lower epigastric region. She currently denies having any fever, chills, nausea, or vomiting. Her main complaint is abdominal pain. She denies having any headache, dizziness , or lightheadedness. Patient is alert and oriented 3. She is accompanied by family at bedside. Patient denies having any history of recent travel. Denies the use of tobacco or alcohol. CC: Randy Page MD Past Med Surg Social Fam HX - Past Medical History Medical history: cancer, coronary artery disease, diabetes, hyperlipidemia, hypertension, myocardial infarction Additional medical history: renal and liver cancer. bile duct cancer Psychiatric history: no psych history - Past Surgical History Surgical History: cataract, knee replacement (B/L TKR) Additional surgical history: CARPEL TUNNEL TRIGGER FINGER RELEASE. 1 cardiac stent. bilateral knees. biopsy of kidneys, liver, lymph nodes - Social History Smoking Status: Former smoker Smokeless Tobacco Status: No Alcohol use: none Drug use: none - Family History Father Hx Family Cancer: Yes (bone cancer) Brother Hx Family Endocrine Disorder: Yes (DM) Infectious Disease-CN:Meds Aspirin [Lo-Dose Aspirin EC] 81 mg PO DAILY 09/23/17 [History] Cholecalciferol (D-3) [Vitamin D] 1,000 unit PO QPM 09/23/17 [History] Multivitamin [Multivitamins] 1 each PO QPM 09/23/17 [History] Clopidogrel [Plavix] 75 mg PO DAILY #30 tablet 09/24/17 [Rx] Furosemide [Lasix] 20 mg PO DAILY 11/15/17 [History] Pantoprazole Sodium [Protonix] 40 mg PO DAILY 11/15/17 [History] Cyanocobalamin (Vitamin B-12) [Vitamin B-12] 100 mcg PO QPM 11/21/17 [History] Lidocaine/Prilocaine [Emla] 1 appl TP AD 11/21/17 [History] Nitroglycerin [Nitrostat] 0.4 mg SL Q5M PRN 11/21/17 [History] glipiZIDE [Glucotrol] 5 mg PO 0800 11/21/17 [History] Metoprolol [Lopressor] 12.5 mg PO BID 12/12/17 [History] Potassium Chloride [Klor-Con 10] 10 meq PO DAILY 12/12/17 [History] Magic Mouthwash [Magic Mouthwash BLM] 10 ml PO QID PRN #240 ml 12/29/17 [Rx] Acetaminophen [Tylenol] 1,000 mg PO Q6HR PRN 01/09/18 [History] Guaifenesin [Mucinex] 600 mg PO Q12HR PRN 02/06/18 [History] Dicyclomine [Bentyl] 20 mg PO BID 03/06/18 [History] Lactobac Cmb #3/Fos/Pantethine [Probiotic & Acidophilus Cap] 1 each PO BID #60 capsule 03/09/18 [Rx] Lactobacillus Rhamnosus R0011 [Probiotic Digestive Care] 1 each PO BID #60 capsule 04/04/18 [Rx] Ondansetron HCl [Zofran] 4 mg PO Q6H PRN #30 tab 04/04/18 [Rx] OxyCODONE Immed Rel [Roxicodone 10 MG] 10 mg PO TID PRN 04/17/18 [History] 3 Allergy/AdvReac Type Severity Reaction Status Date / Time shellfish derived AdvReac Swelling Verified 04/04/18 09:53 of the Eye - Cardiovascular Cardiovascular: Absent: chest pain - Respiratory Respiratory: Absent: cough, dyspnea, wheezing - Gastrointestinal Gastrointestinal: Present: diarrhea, loose stools, nausea, vomiting Exam - Constitutional Vitals: Temp Pulse Resp BP Pulse Ox 98.1 F 83 18 94/60 97 04/17/18 12:15 04/17/18 12:15 04/17/18 12:15 04/17/18 12:15 04/17/18 12:15 - Head Head exam: Present: atraumatic, normal inspection - Respiratory Respiratory exam: Present: CTAB. Absent: decreased breath sounds, rhonchi, wheezes - Cardiovascular Cardiovascular exam: Present: RRR, +S1, +S2. Absent: bradycardia, tachycardia - GI/Abdominal GI/Abdominal exam: Present: guarding, rebound, soft, tenderness - Psychiatric Psychiatric exam: Present: normal affect, normal mood - Skin Skin exam: Present: dry, intact Infectious Disease CN: Results - Labs CBC & Chem 7: 04/17/18 06:19 04/17/18 06:19 Consult Discharge Plan - Plan Referrals: Bronson Harris DO [Primary Care Provider] -
--- NOTE | 2018-04-17 13:49 | Infectious Disease Consult ---
Date of Encounter: 04/17/18 Time of Encounter: 13:12 Assessment and Plan (1) Severe sepsis Status: Acute Assessment and plan: Secondary to colitis and concern for spontaneous bacterial peritonitis (2) Diarrhea Status: Acute Assessment and plan: Likely secondary to recurrence of C. difficile but not 100% sure. Per definition it is severe C. difficile CT abdomen and pelvis noted Recheck C. difficile colitis PCR Agree with starting empiric vancomycin; will DC Flagyl By our records this would be first recurrence. I will need to confirm that. Duration of treatment likely 14 days Qualifiers: Diarrhea type: unspecified type Qualified Code(s): R19.7 - Diarrhea, unspecified (3) Colitis Status: Acute Assessment and plan: Likely secondary to C. difficile. Other infectious etiologies need to be ruled out. (4) SBP (spontaneous bacterial peritonitis) Status: Acute Assessment and plan: Status post paracentesis with 9.6 L of fluid removed I called microbiology make sure the received the fluid and we ordered Gram stain, cultures, chemistries including albumin, glucose, protein, amylase, LDH. Patient has severe rebound and peritoneal signs. I am concerned for SBP. We will start empiric cefotaxime. Patient's creatinine clearance around 25-30. No need to dose adjust the cefotaxime if creatinine clearance is over 20. Duration of treatment depends on the culture results and if this is an SBP We will also order blood cultures 2. Monitoring Labs and for drug toxicity. might benefit from albumin if true SBP (5) TERRENCE (acute kidney injury) Status: Acute Assessment and plan: likely due to severe sepsis and third spacing hepatorenal syndrome? consult nephrology? 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 Singletary is a 77 year old female with extensive past medical history mentioned below who presented today for abdominal pain and diarrhea, we are consulted for recommendations. 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 difficile colitis on 03/06/18 and was treated with oral vancomycin through 03/16/18. Apparently symptoms improved but then patient started having diarrhea 2 days prior with some abdominal pain especially on the left upper quadrant and low-grade fevers unremarkable. Patient came to the emergency department for evaluation. Since admission, patient has been afebrile. She has been tachycardic. Presenting WBC was 28,000 with acute kidney injury with creatinine of 1.96 compared to 1.0 2 weeks ago. Patient has also been hypotensive. Imaging including CT of the abdomen pelvis shows ". Increasing mesenteric stranding along the transverse colon with some colonic wall thickening suspicious for colitis. Anasarca and ascites persist, slightly increased since the prior study. Left renal mass is grossly stable on this unenhanced study. Similar central intrahepatic biliary dilatation and hepatic segment 4-B mass, evaluation of which is limited by lack of IV contrast. Cholelithiasis. A mesenteric nodule in the lower abdomen superficially could represent focal inflammatory change related to colitis but metastatic deposit is not entirely excluded." Patient was taken down to IR where she had 9.6 L of fluid removed. Review of system and physical exam today. Family tells me she has been having really bad diarrhea for 2-3 days since Tuesday. Patient is also having abdominal pain. Patient has been having low-grade fevers at home. Patient denies any headache. No sinus pressure. No toothache. No chest pain or shortness of breath or cough or sputum production. Patient denies any urinary symptoms. Patient denies any rashes or new joint pain. On physical exam patient appears ill. Appears toxic. Abdominal exam reveals no tenderness on light palpation but marked rebound and positive peritoneal sign. CC: Randy Page MD Past Med Surg Social Fam HX - Past Medical History Medical history: cancer, coronary artery disease, diabetes, hyperlipidemia, hypertension, myocardial infarction Additional medical history: renal and liver cancer. bile duct cancer Psychiatric history: no psych history - Past Surgical History Surgical History: cataract, knee replacement (B/L TKR) Additional surgical history: CARPEL TUNNEL TRIGGER FINGER RELEASE. 1 cardiac stent. bilateral knees. biopsy of kidneys, liver, lymph nodes - Social History Smoking Status: Former smoker Smokeless Tobacco Status: No Alcohol use: none Drug use: none - Family History Father Hx Family Cancer: Yes (bone cancer) Brother Hx Family Endocrine Disorder: Yes (DM) Infectious Disease-CN:Meds Aspirin [Lo-Dose Aspirin EC] 81 mg PO DAILY 09/23/17 [History] Cholecalciferol (D-3) [Vitamin D] 1,000 unit PO QPM 09/23/17 [History] Multivitamin [Multivitamins] 1 each PO QPM 09/23/17 [History] Clopidogrel [Plavix] 75 mg PO DAILY #30 tablet 09/24/17 [Rx] Furosemide [Lasix] 20 mg PO DAILY 11/15/17 [History] Pantoprazole Sodium [Protonix] 40 mg PO DAILY 11/15/17 [History] Cyanocobalamin (Vitamin B-12) [Vitamin B-12] 100 mcg PO QPM 11/21/17 [History] Lidocaine/Prilocaine [Emla] 1 appl TP AD 11/21/17 [History] Nitroglycerin [Nitrostat] 0.4 mg SL Q5M PRN 11/21/17 [History] glipiZIDE [Glucotrol] 5 mg PO 0800 11/21/17 [History] Metoprolol [Lopressor] 12.5 mg PO BID 12/12/17 [History] Potassium Chloride [Klor-Con 10] 10 meq PO DAILY 12/12/17 [History] Magic Mouthwash [Magic Mouthwash BLM] 10 ml PO QID PRN #240 ml 12/29/17 [Rx] Acetaminophen [Tylenol] 1,000 mg PO Q6HR PRN 01/09/18 [History] Guaifenesin [Mucinex] 600 mg PO Q12HR PRN 02/06/18 [History] Dicyclomine [Bentyl] 20 mg PO BID 03/06/18 [History] Lactobac Cmb #3/Fos/Pantethine [Probiotic & Acidophilus Cap] 1 each PO BID #60 capsule 03/09/18 [Rx] Lactobacillus Rhamnosus R0011 [Probiotic Digestive Care] 1 each PO BID #60 capsule 04/04/18 [Rx] Ondansetron HCl [Zofran] 4 mg PO Q6H PRN #30 tab 04/04/18 [Rx] OxyCODONE Immed Rel [Roxicodone 10 MG] 10 mg PO TID PRN 04/17/18 [History] 3 Allergy/AdvReac Type Severity Reaction Status Date / Time shellfish derived AdvReac Swelling Verified 04/04/18 09:53 of the Eye Review of systems: 10 point ROS done, negative other for what's mentioned in the HPI Exam - Constitutional Vitals: Temp Pulse Resp BP Pulse Ox 98.1 F 83 18 94/60 97 04/17/18 12:15 04/17/18 12:15 04/17/18 12:15 04/17/18 12:15 04/17/18 12:15 General appearance: febrile, disheveled, mild distress - Head Head exam: Present: atraumatic, normocephalic - Eye Eye exam: Present: EOMI, PERRL, sclera anicteric - ENT ENT exam: Present: mucous membranes dry Additional comments: no oral thrush - Neck Neck exam: Present: full ROM. Absent: meningismus - Respiratory Respiratory exam: Present: CTAB. Absent: wheezes - Cardiovascular Cardiovascular exam: Present: RRR, +S1, +S2 - GI/Abdominal GI/Abdominal exam: Present: guarding, normal bowel sounds, rebound, soft, tenderness Additional comments: positive peritoneal sign - Extremities Exam Extremities exam: Present: full ROM, normal inspection. Absent: joint swelling , pedal edema - Neurological Exam Neurological exam: Present: alert, oriented X3 - Psychiatric Psychiatric exam: Present: agitated, anxious - Skin Skin exam: Present: normal color, pallor Infectious Disease CN: Results - Labs CBC & Chem 7: 04/17/18 06:19 04/17/18 06:19 Consult Discharge Plan - Plan Referrals: Bronson Harris DO [Primary Care Provider] -
[2018-04-17 14:16] LABS: RBC,Peritoneal Fluid < 0.002 M/mcL
[2018-04-17 14:21] LABS: Amylase,Peritoneal Fluid < 10 Units/L (No Ref Range); Glucose,Peritoneal Fluid 134 mg/dL (No Ref Range); LDH,Peritoneal Fluid 169 Units/L (No Ref Range); Total Protein,Peritoneal Fluid < 3.0 g/dL (No Ref Range)
[2018-04-17 14:47] LABS: Appearance of Peritoneal Fl CLEAR (Clear)
[2018-04-17] MEDS: MetroNIDAZOLE 500 MG/100 ML 500 MG/100 ML BAG IVPB SCH (15:53)
[2018-04-17] MEDS: *HR* Heparin 5,000 UNIT/ML VIAL SQ SCH (15:59)
[2018-04-17] MEDS ORDERED: Albumin 25% 25gram/100mL 25 GM/100 ML IV.SOLN IVPB ONE ×2 (16:07→18:00)
[2018-04-17] MEDS: Cholecalciferol (D-3) 1,000 UNIT TABLET PO SCH (17:33)
[2018-04-18] MEDS: *HR* OxyCODONE Immed Rel 5 MG TABLET PO PRN ×4 (00:11→20:32)
[2018-04-18] MEDS: *HR* Heparin 5,000 UNIT/ML VIAL SQ SCH ×4 (00:15→23:43)
[2018-04-18] MEDS: MetroNIDAZOLE 500 MG/100 ML 500 MG/100 ML BAG IVPB SCH ×2 (00:20→08:53)
[2018-04-18] MEDS: 0.9 % Sodium Chloride 1,000 ML IVC SCH (00:21)
[2018-04-18] MEDS: Insulin LISPRO 300 UNITS/3 ML VIAL SQ SCH ×5 (01:21→23:43)
[2018-04-18 06:58] LABS: Basophils % 0.1 %; Eosinophils % 0.1 %; Hematocrit 23.9 % (35.3-44.9); Immature Granulocytes % 2.4 % (0-4); Lymphocytes # 0.8 K/mcL (0.6-4.6); Lymphocytes % 3.9 %; Mean Corpuscular HGB Conc 33.5 g/dL (31.6-35.5); Mean Corpuscular Hemoglobin 36.2 pg (28.0-33.3); Mean Corpuscular Volume 108.1 fL (83.0-100.0); Mean Platelet Volume 11.3 fL (9.4-12.4); Monocytes # 1.2 K/mcL (0.0-1.3); Monocytes % 5.9 %; Neutrophils # 17.1 K/mcL (1.6-8.9); Platelet Count 105 K/mcL (140-400); Red Blood Count 2.21 M/mcL (3.82-4.97); Red Cell Distribution Width 14.7 % (11.5-14.5); Segmented Neutrophils % 87.6 %
[2018-04-18] MEDS: Aspirin Enteric Coated 81 MG Tablet PO SCH (08:54)
[2018-04-18 09:05] LABS: Albumin 2.5 g/dL (3.5-5.7); Albumin/Globulin Ratio 1.1 (1.1-2.2); Bilirubin,Total 0.6 mg/dL (0.3-1.0); Calcium 7.8 mg/dL (8.6-10.3); Globulin 2.2 g/dL (2.4-3.5); Potassium 3.5 mEq/L (3.5-5.1); Total Protein 4.7 g/dL (6.4-8.9)
[2018-04-18] MEDS: Vancomycin Oral Soln 125 MG/2.5 ML UDC PO SCH ×4 (10:08→21:45)
--- NOTE | 2018-04-18 13:11 | Infectious Disease Progress No ---
Date of Encounter: 04/18/18 Time of Encounter: 11:00 - Assessment and Plan (1) Severe sepsis Current Visit: Yes Status: Acute - Patient met SIRS criteria on admission; tachycardia, hypotension, elevated white count, elevated lactic acid - Likely source is C. difficile colitis - Patient has had significant diarrhea, recent history of C. difficile - CT scan of abdomen demonstrates findings suggestive of colitis - Patient has been started on oral vancomycin solution - Plan is to continue PO vanc for 14 days. Will D/C flagyl (2) C. difficile diarrhea Current Visit: Yes Status: Acute - Presented with multiple episodes of diarrhea since Tuesday - Patient has a recent history of infection with C. difficile in early March - Continue oral vancomycin - Recheck C. difficile colitis PCR - Plan is to continue PO vanc for 14 days. 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 - Possible malignant ascites - Interventional radiology was consulted; therapeutic/diagnostic paracentesis was performed - SBP not suspected at this time Qualifiers: Ascites type: malignant Qualified Code(s): R18.0 - Malignant ascites (4) Cholangiocarcinoma Current Visit: Yes Status: Acute - Patient sees oncology at [place] as an outpatient - Was on chemotherapy; was held given her last CVA in February - Plan is to resume it sometime in April (5) Coronary artery disease Current Visit: Yes Status: Chronic - Management per primary team Qualifiers: Coronary Disease-Associated Artery/Lesion type: [place] artery [place] vs. transplanted heart: [place] heart Associated angina: without angina Qualified Code(s): I25.10 - Atherosclerotic heart disease of [place] coronary artery without angina pectoris (6) Diabetes mellitus Current Visit: Yes Status: Chronic - Management per primary team Qualifiers: Diabetes mellitus type: type 2 Diabetes mellitus alf insulin use: without intermodal customer service use Diabetes mellitus complication status: with unspecified complications Qualified Code(s): E11.8 - Type 2 diabetes mellitus with unspecified complications (7) TERRENCE (acute kidney injury) Current Visit: Yes Status: Acute - Likely due to severe sepsis and third spacing - Subjective Interval history: Patient seen and examined at bedside this morning; she reports that she is in a great deal of abdominal pain. She reports that approximately 6 AM, she experienced excruciating abdominal pain located in the lower epigastric region. Pain is reproducible by palpation. Primarily located in the central and left portion of her upper abdomen. Denies having any episodes of nausea, vomiting, or diarrhea. No further complaints. Infect Dis PN-Objective Data - Labs CBC & Chem 7: 04/19/18 05:00 04/19/18 05:00 Labs: Laboratory Results - last 24 hr 04/17/18 04/17/18 04/17/18 10:30 10:30 12:20 WBC RBC Hgb Hct MCV MCH MCHC RDW Plt Count MPV Immature Gran % Seg Neutrophils % Lymphocytes % Monocytes % Eosinophils % Basophils % Neutrophils # Lymphocytes # Monocytes # Eosinophils # Basophils # Sodium Potassium Chloride Carbon Dioxide BUN Creatinine Est GFR ( Amer) Est GFR (Non-Af Amer) BUN/Creatinine Ratio Glucose POC Glucose 125 H Calculated Osmolality Calcium Total Bilirubin AST ALT Alkaline Phosphatase Troponin I Serum Total Protein Albumin Globulin Albumin/Globulin Ratio Peritoneal Appearance CLEAR Peritoneal Volume 60.0 Peritoneal RBC < 0.002 Periton Tot Nuc Cells 182 Periton Neutrophils 68.0 Periton Lymphocytes % 4.0 Periton Monocytes % 13.0 Periton Other Cells % 15.0 Peritoneal Tot Protein < 3.0 Peritoneal Albumin < 1.5 Peritoneal LDH 169 Peritoneal Glucose 134 Peritoneal Amylase < 10 Stl C. diff Tox B Gene 04/17/18 04/17/18 04/17/18 16:42 17:41 21:15 WBC RBC Hgb Hct MCV MCH MCHC RDW Plt Count MPV Immature Gran % Seg Neutrophils % Lymphocytes % Monocytes % Eosinophils % Basophils % Neutrophils # Lymphocytes # Monocytes # Eosinophils # Basophils # Sodium Potassium Chloride Carbon Dioxide BUN Creatinine Est GFR ( Amer) Est GFR (Non-Af Amer) BUN/Creatinine Ratio Glucose POC Glucose 114 H Calculated Osmolality Calcium Total Bilirubin AST ALT Alkaline Phosphatase Troponin I < 0.03 Serum Total Protein Albumin Globulin Albumin/Globulin Ratio Peritoneal Appearance Peritoneal Volume Peritoneal RBC Periton Tot Nuc Cells Periton Neutrophils Periton Lymphocytes % Periton Monocytes % Periton Other Cells % Peritoneal Tot Protein Peritoneal Albumin Peritoneal LDH Peritoneal Glucose Peritoneal Amylase Stl C. diff Tox B Gene Positive A 04/18/18 04/18/18 06:05 06:05 WBC 19.5 H RBC 2.21 L Hgb 8.0 L D Hct 23.9 L MCV 108.1 H MCH 36.2 H MCHC 33.5 RDW 14.7 H Plt Count 105 L MPV 11.3 Immature Gran % 2.4 Seg Neutrophils % 87.6 Lymphocytes % 3.9 Monocytes % 5.9 Eosinophils % 0.1 Basophils % 0.1 Neutrophils # 17.1 H Lymphocytes # 0.8 Monocytes # 1.2 Eosinophils # 0.0 Basophils # 0.0 Sodium 134 L Potassium 3.5 Chloride 105 Carbon Dioxide 21 L BUN 27 H Creatinine 1.49 H Est GFR ( Amer) 41 L Est GFR (Non-Af Amer) 34 L BUN/Creatinine Ratio 18 Glucose 128 H POC Glucose Calculated Osmolality 285 Calcium 7.8 L Total Bilirubin 0.6 AST 28 ALT 6 L Alkaline Phosphatase 54 Troponin I Serum Total Protein 4.7 L Albumin 2.5 L Globulin 2.2 L Albumin/Globulin Ratio 1.1 Peritoneal Appearance Peritoneal Volume Peritoneal RBC Periton Tot Nuc Cells Periton Neutrophils Periton Lymphocytes % Periton Monocytes % Periton Other Cells % Peritoneal Tot Protein Peritoneal Albumin Peritoneal LDH Peritoneal Glucose Peritoneal Amylase Stl C. diff Tox B Gene Cultures: Cultures 04/17/18 10:30 Body Fluid Culture - Preliminary Peritoneal Fluid Serology 04/17/18 04/17/18 04/17/18 Range/Units 21:15 10:30 10:30 Peritoneal Appearance CLEAR (Clear) Peritoneal Volume 60.0 mL Peritoneal RBC < 0.002 (0.000 - 0.002) M/mcL Periton Tot Nuc Cells 182 (0-300) TNC/mcL Periton Neutrophils 68.0 % Periton Lymphocytes % 4.0 % Periton Monocytes % 13.0 % Periton Other Cells % 15.0 % Peritoneal Tot Protein < 3.0 (No Ref Range) g/dL Peritoneal Albumin < 1.5 (No Ref Range) g/dL Peritoneal LDH 169 (No Ref Range) Units/L Peritoneal Glucose 134 (No Ref Range) mg/dL Peritoneal Amylase < 10 (No Ref Range) Units/L Stl C. diff Tox B Gene Positive A (Negative) Exam - Constitutional Vitals: Temp Pulse Resp BP Pulse Ox 98.3 F 93 16 110/57 97 04/18/18 11:54 04/18/18 11:54 04/18/18 11:54 04/18/18 11:54 04/18/18 11:54 - Additional findings Additional findings: - Head Head exam: Present: atraumatic, normal inspection - Respiratory Respiratory exam: Present: CTAB. Absent: decreased breath sounds, rhonchi, wheezes - Cardiovascular Cardiovascular exam: Present: RRR, +S1, +S2. Absent: bradycardia, tachycardia - GI/Abdominal GI/Abdominal exam: Present: guarding, rebound, soft, tenderness - Psychiatric Psychiatric exam: Present: normal affect, normal mood - Skin Skin exam: Present: dry, intact Consult Discharge Plan - Plan Referrals: Bronson Harris DO [Primary Care Provider] - - Attending Attestation I examined this patient and my medical decision-making was reviewed with the Resident Physician. I agree with the documented findings, disposition and treatment plan as described except to the extent set forth below.
--- NOTE | 2018-04-18 14:41 | Internal Med Progress Note ---
Date of Encounter: 04/18/18 Time of Encounter: 14:38 - Assessment and plan (1) C. difficile diarrhea Current Visit: Yes Status: Acute Assessment and plan: On oral vancomycin. Infectious disease following. Patient reports that she was on vancomycin for more than a month during her prior episode of C. difficile. She was symptom-free for about 2 weeks before her current symptoms started. Continue management with oral vancomycin. Continue to monitor vital signs. WBC count is improving. (2) TERRENCE (acute kidney injury) Current Visit: Yes Status: Acute Assessment and plan: Renal function is improving. We will continue gentle IV hydration. (3) Cholangiocarcinoma Current Visit: Yes Status: Acute Assessment and plan: Follow-up with oncology after discharge. (4) Diabetes mellitus Current Visit: Yes Status: Chronic Assessment and plan: Blood sugars are fairly controlled. Continue ADA diet and monitor blood sugars closely. Qualifiers: Diabetes mellitus type: type 2 Diabetes mellitus rat exterminator insulin use: without usp use Diabetes mellitus complication status: with unspecified complications Qualified Code(s): E11.8 - Type 2 diabetes mellitus with unspecified complications (5) Coronary artery disease Current Visit: Yes Status: Chronic Assessment and plan: Continue aspirin, Plavix and beta reese Qualifiers: Coronary Disease-Associated Artery/Lesion type: [place] artery [place] vs. transplanted heart: [place] heart Associated angina: without angina Qualified Code(s): I25.10 - Atherosclerotic heart disease of [place] coronary artery without angina pectoris (6) Ascites Current Visit: Yes Status: Chronic Assessment and plan: Status post-paracentesis. Peritoneal fluid does not show any signs of SBP. Cefotaxime has been stopped. Qualifiers: Ascites type: malignant Qualified Code(s): R18.0 - Malignant ascites (7) Sepsis Current Visit: Yes Status: Suspected Assessment and plan: Due to C. difficile colitis. Management as above Qualifiers: Sepsis type: sepsis due to unspecified organism Qualified Code(s): A41.9 - Sepsis, unspecified organism (8) History of stroke Current Visit: Yes Status: Chronic Assessment and plan: On aspirin, Plavix. (9) DVT prophylaxis Current Visit: Yes Status: Acute Assessment and plan: On subcutaneous heparin (10) Anemia Current Visit: Yes Status: Chronic Assessment and plan: Chronic anemia. 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 Hemoglobin 8 today. Baseline is between 8 and 10. We will continue to monitor closely. Qualifiers: Anemia type: other cause Other causes of anemia: chronic disease, neoplastic Qualified Code(s): D63.0 - Anemia in neoplastic disease - Time Spent With Patient Total time spent is greater than 50% in coordination of care (as documented) at patient's floor/unit and/or counseling patient: - Subjective Interval history: Patient is lying in bed and eating food. Reports severe abdominal pain earlier that improved after she had a bowel movement. She reports that stools are more formed now. Denies any dizziness or lightheadedness. No nausea or vomiting. No fever reported. - Constitutional Vitals: Temp Pulse Resp BP Pulse Ox 98.3 F 93 16 110/57 97 04/18/18 11:54 04/18/18 11:54 04/18/18 11:54 04/18/18 11:54 04/18/18 11:54 General appearance: Present: cooperative, A&O X 3, answers questions appropriately - Respiratory Respiratory exam: Present: CTAB. Absent: accessory muscle use, rales, rhonchi, wheezes - GI/Abdominal GI/Abdominal exam: Present: distended, soft, tenderness - Extremities Exam Extremities exam: Present: warm, radial pulses palpable and symmetrical. Absent : calf tenderness, cyanotic, pedal edema - Neurological Exam Neurological exam: Present: alert, oriented X3, no focal deficits. Absent: facial droop, speech deficit Internal Medicine: Result - Labs CBC & Chem 7: 04/18/18 06:05 04/18/18 06:05 Labs: Short CBC 04/18/18 Range/Units 06:05 WBC 19.5 H (4.3-11.1) K/mcL Hgb 8.0 L D (11.5-15.4) g/dL Hct 23.9 L (35.3-44.9) % Plt Count 105 L (140-400) K/mcL Neutrophils # 17.1 H (1.6-8.9) K/mcL BMP 04/18/18 06:05 Sodium 134 L Potassium 3.5 Chloride 105 Carbon Dioxide 21 L BUN 27 H Creatinine 1.49 H Glucose 128 H Calcium 7.8 L Cardiac Enzymes 04/17/18 Range/Units 17:41 Troponin I < 0.03 (< 0.04) ng/mL Liver Function 04/18/18 Range/Units 06:05 Total Bilirubin 0.6 (0.3-1.0) mg/dL AST 28 (13-39) Units/L ALT 6 L (7-52) Units/L Alkaline Phosphatase 54 (34-104) Units/L Albumin 2.5 L (3.5-5.7) g/dL - ABG Interpretation ABG results: PT/INR, D-dimer PT 15.6 Seconds (9.4-12.1) H 04/17/18 06:19 Consult Discharge Plan - Plan Referrals: Bronson Harris DO [Primary Care Provider] -
[2018-04-18] MEDS: Ondansetron ODT 4 MG TAB.RAPDIS PO PRN (14:49)
[2018-04-18] MEDS: Ringers Solution, Lactated 1,000 ML IVC SCH (18:05)
[2018-04-18] MEDS: Acetaminophen 325 MG TABLET PO PRN (18:32)
[2018-04-18] MEDS: Cholecalciferol (D-3) 1,000 UNIT TABLET PO SCH (20:33)
[2018-04-19] MEDS: *HR* OxyCODONE Immed Rel 5 MG TABLET PO PRN ×3 (05:05→18:47)
[2018-04-19] MEDS: Insulin LISPRO 300 UNITS/3 ML VIAL SQ SCH ×4 (05:16→23:53)
[2018-04-19 05:31] LABS: Red Cell Distribution Width 14.6 % (11.5-14.5)
[2018-04-19 05:32] LABS: Basophils # 0.1 K/mcL (0.0-0.2); Basophils % 0.2 %; Eosinophils # 0.1 K/mcL (0.0-0.6); Eosinophils % 0.5 %; Hematocrit 27.5 % (35.3-44.9); Hemoglobin 9.2 g/dL (11.5-15.4); Lymphocytes # 0.9 K/mcL (0.6-4.6); Lymphocytes % 3.6 %; Mean Corpuscular HGB Conc 33.5 g/dL (31.6-35.5); Mean Corpuscular Hemoglobin 35.9 pg (28.0-33.3); Mean Corpuscular Volume 107.4 fL (83.0-100.0); Mean Platelet Volume 11.2 fL (9.4-12.4); Monocytes # 1.4 K/mcL (0.0-1.3); Monocytes % 5.8 %; Neutrophils # 21.4 K/mcL (1.6-8.9); Platelet Count 133 K/mcL (140-400); Red Blood Count 2.56 M/mcL (3.82-4.97); Segmented Neutrophils % 87.9 %
[2018-04-19 05:40] LABS: Calcium 8.2 mg/dL (8.6-10.3); Potassium 3.3 mEq/L (3.5-5.1)
[2018-04-19 05:52] LABS: Large Platelets Present (Not Present); Platelet Estimate Normal (Normal); Toxic Granulation Present (Not Present)
[2018-04-19 05:53] LABS: Macrocytosis Present (Not Present)
[2018-04-19] MEDS: Ringers Solution, Lactated 1,000 ML IVC SCH ×2 (08:02→21:25)
[2018-04-19] MEDS: Aspirin Enteric Coated 81 MG Tablet PO SCH (08:03)
[2018-04-19] MEDS: *HR* Heparin 5,000 UNIT/ML VIAL SQ SCH ×2 (08:03→17:05)
[2018-04-19] MEDS: Vancomycin Oral Soln 125 MG/2.5 ML UDC PO SCH ×4 (10:17→21:20)
--- NOTE | 2018-04-19 10:34 | Infectious Disease Progress No ---
Date of Encounter: 04/19/18 Time of Encounter: 10:30 - Assessment and Plan (1) Severe sepsis Current Visit: Yes Status: Acute - Patient met SIRS criteria on admission; tachycardia, hypotension, elevated white count, elevated lactic acid - Likely source is C. difficile colitis - Patient has had significant diarrhea, recent history of C. difficile - CT scan of abdomen demonstrates findings suggestive of colitis - Patient has been started on oral vancomycin solution - Plan is to continue PO vanc for 14 days (2) C. difficile diarrhea Current Visit: Yes Status: Acute - Presented with multiple episodes of diarrhea since Tuesday - Patient has a recent history of infection with C. difficile in early March - Continue oral vancomycin - Plan is to continue PO vanc for 14 days (3) Ascites Current Visit: Yes Status: Chronic - Likely secondary to cholangiocarcinoma - Possible malignant ascites - Interventional radiology was consulted; therapeutic/diagnostic paracentesis was performed - SBP not suspected at this time Qualifiers: Ascites type: malignant Qualified Code(s): R18.0 - Malignant ascites (4) Cholangiocarcinoma Current Visit: Yes Status: Acute - Patient sees oncology at [place] as an outpatient - Was on chemotherapy; was held given her last CVA in February - Plan is to resume it sometime in April (5) Coronary artery disease Current Visit: Yes Status: Chronic - Management per primary team Qualifiers: Coronary Disease-Associated Artery/Lesion type: [place] artery [place] vs. transplanted heart: [place] heart Associated angina: without angina Qualified Code(s): I25.10 - Atherosclerotic heart disease of [place] coronary artery without angina pectoris (6) Diabetes mellitus Current Visit: Yes Status: Chronic - Management per primary team Qualifiers: Diabetes mellitus type: type 2 Diabetes mellitus senior care insulin use: without senior care use Diabetes mellitus complication status: with unspecified complications Qualified Code(s): E11.8 - Type 2 diabetes mellitus with unspecified complications (7) TERRENCE (acute kidney injury) Current Visit: Yes Status: Acute - Likely due to severe sepsis and third spacing - Subjective Interval history: Patient seen and exmained at bedside; she reports that her abdominal pain has greatly improved since yesterday. She notes that she is starting to feel better. She denies fever, chills, nausea, vomiting, or chest pain. Her abdominal pain is located in the lower epigastric area. No longer has rebound tenderness. No complaints at this time. Infect Dis PN-Objective Data - Labs CBC & Chem 7: 04/20/18 04:10 04/20/18 04:10 Labs: Laboratory Results - last 24 hr 04/17/18 04/17/18 04/18/18 20:55 23:41 06:06 WBC RBC Hgb Hct MCV MCH MCHC RDW Plt Count MPV Immature Gran % Seg Neutrophils % Lymphocytes % Monocytes % Eosinophils % Basophils % Neutrophils # Lymphocytes # Monocytes # Eosinophils # Basophils # Toxic Granulation Platelet Estimate Large Platelets Macrocytosis Sodium Potassium Chloride Carbon Dioxide BUN Creatinine Est GFR ( Amer) Est GFR (Non-Af Amer) BUN/Creatinine Ratio Glucose POC Glucose 81 84 134 H Calculated Osmolality Calcium 04/18/18 04/18/18 04/19/18 11:59 17:09 05:00 WBC 24.3 H RBC 2.56 L Hgb 9.2 L Hct 27.5 L MCV 107.4 H MCH 35.9 H MCHC 33.5 RDW 14.6 H Plt Count 133 L MPV 11.2 Immature Gran % 2.0 Seg Neutrophils % 87.9 Lymphocytes % 3.6 Monocytes % 5.8 Eosinophils % 0.5 Basophils % 0.2 Neutrophils # 21.4 H Lymphocytes # 0.9 Monocytes # 1.4 H Eosinophils # 0.1 Basophils # 0.1 Toxic Granulation Present A Platelet Estimate Normal Large Platelets Present A Macrocytosis Present A Sodium Potassium Chloride Carbon Dioxide BUN Creatinine Est GFR ( Amer) Est GFR (Non-Af Amer) BUN/Creatinine Ratio Glucose POC Glucose 141 H 169 H Calculated Osmolality Calcium 04/19/18 05:00 WBC RBC Hgb Hct MCV MCH MCHC RDW Plt Count MPV Immature Gran % Seg Neutrophils % Lymphocytes % Monocytes % Eosinophils % Basophils % Neutrophils # Lymphocytes # Monocytes # Eosinophils # Basophils # Toxic Granulation Platelet Estimate Large Platelets Macrocytosis Sodium 133 L Potassium 3.3 L Chloride 103 Carbon Dioxide 20 L BUN 28 H Creatinine 1.32 H Est GFR ( Amer) 48 L Est GFR (Non-Af Amer) 39 L BUN/Creatinine Ratio 21 Glucose 141 H POC Glucose Calculated Osmolality 284 Calcium 8.2 L Cultures: Cultures 04/17/18 10:30 Body Fluid Culture - Preliminary Peritoneal Fluid Serology 04/17/18 04/17/18 04/17/18 Range/Units 21:15 10:30 10:30 Peritoneal Appearance CLEAR (Clear) Peritoneal Volume 60.0 mL Peritoneal RBC < 0.002 (0.000 - 0.002) M/mcL Periton Tot Nuc Cells 182 (0-300) TNC/mcL Periton Neutrophils 68.0 % Periton Lymphocytes % 4.0 % Periton Monocytes % 13.0 % Periton Other Cells % 15.0 % Peritoneal Tot Protein < 3.0 (No Ref Range) g/dL Peritoneal Albumin < 1.5 (No Ref Range) g/dL Peritoneal LDH 169 (No Ref Range) Units/L Peritoneal Glucose 134 (No Ref Range) mg/dL Peritoneal Amylase < 10 (No Ref Range) Units/L Stl C. diff Tox B Gene Positive A (Negative) Exam - Constitutional Vitals: Temp Pulse Resp BP Pulse Ox 98.2 F 83 20 126/71 96 04/19/18 09:02 04/19/18 09:02 04/19/18 09:02 04/19/18 09:02 04/19/18 09:02 Consult Discharge Plan - Plan Referrals: Bronson Harris DO [Primary Care Provider] - - Attending Attestation I examined this patient and my medical decision-making was reviewed with the Resident Physician. I agree with the documented findings, disposition and treatment plan as described except to the extent set forth below.
--- NOTE | 2018-04-19 14:38 | Internal Med Progress Note ---
Date of Encounter: 04/19/18 Time of Encounter: 14:38 - Assessment and plan (1) C. difficile diarrhea Current Visit: Yes Status: Acute Assessment and plan: C. difficile colitis. Leukocytosis has worsened today. WBC count at 24.3. We will increase oral vancomycin dose to 250 mg 4 times a day. Infectious disease following. Patient continues to have diarrhea. No hematochezia reported. High risk for complications. (2) TERRENCE (acute kidney injury) Current Visit: Yes Status: Acute Assessment and plan: improving. Creatinine 1.32 today. Patient is hypokalemic. We will replete. (3) Cholangiocarcinoma Current Visit: Yes Status: Acute (4) Diabetes mellitus Current Visit: Yes Status: Chronic Assessment and plan: Fairly controlled. Continue current insulin regimen. Qualifiers: Diabetes mellitus type: type 2 Diabetes mellitus intermediate manager insulin use: without correction use Diabetes mellitus complication status: with unspecified complications Qualified Code(s): E11.8 - Type 2 diabetes mellitus with unspecified complications (5) Coronary artery disease Current Visit: Yes Status: Chronic Assessment and plan: Continue aspirin, Plavix and beta reese Qualifiers: Coronary Disease-Associated Artery/Lesion type: [place] artery [place] vs. transplanted heart: [place] heart Associated angina: without angina Qualified Code(s): I25.10 - Atherosclerotic heart disease of [place] coronary artery without angina pectoris (6) Ascites Current Visit: Yes Status: Chronic Assessment and plan: No signs of peritonitis per fluid analysis. Cultures are also negative. Qualifiers: Ascites type: malignant Qualified Code(s): R18.0 - Malignant ascites (7) Sepsis Current Visit: Yes Status: Suspected Assessment and plan: Due to C. difficile colitis. WBC count remains elevated. No new episodes of fever. Changes as per above Qualifiers: Sepsis type: sepsis due to unspecified organism Qualified Code(s): A41.9 - Sepsis, unspecified organism (8) History of stroke Current Visit: Yes Status: Chronic (9) DVT prophylaxis Current Visit: Yes Status: Acute Assessment and plan: On subcutaneous heparin (10) Anemia Current Visit: Yes Status: Chronic Assessment and plan: Hemoglobin 9.2. Stable. Qualifiers: Anemia type: other cause Other causes of anemia: chronic disease, neoplastic Qualified Code(s): D63.0 - Anemia in neoplastic disease - Time Spent With Patient Total time spent is greater than 50% in coordination of care (as documented) at patient's floor/unit and/or counseling patient: - Subjective Interval history: Patient continues to have diarrhea. Intermittent cramping abdominal pain that relieves after she has a bowel movement. No fever or chills reported overnight. Continues to have poor appetite and nausea. - Constitutional Vitals: Temp Pulse Resp BP Pulse Ox 97.8 F 73 21 109/50 97 04/19/18 12:13 04/19/18 12:13 04/19/18 12:13 04/19/18 12:13 04/19/18 12:13 General appearance: Present: cooperative, A&O X 3, answers questions appropriately - Neck Neck exam general surgery: Present: supple, trachea midline. Absent: lymphadenopathy - Respiratory Respiratory exam: Present: CTAB. Absent: accessory muscle use, rales, rhonchi, wheezes - Cardiovascular Cardiovascular exam: Present: RRR, +S1, +S2. Absent: diastolic murmur, gallop, rubs, systolic murmur - GI/Abdominal GI/Abdominal exam: Present: distended, normal bowel sounds, soft, tenderness ( Left lower quadrant), no peritoneal signs - Extremities Exam Extremities exam: Present: warm, radial pulses palpable and symmetrical. Absent : calf tenderness, cyanotic, pedal edema Internal Medicine: Result - Labs CBC & Chem 7: 04/19/18 05:00 04/19/18 05:00 Labs: Short CBC 04/19/18 Range/Units 05:00 WBC 24.3 H (4.3-11.1) K/mcL Hgb 9.2 L (11.5-15.4) g/dL Hct 27.5 L (35.3-44.9) % Plt Count 133 L (140-400) K/mcL Neutrophils # 21.4 H (1.6-8.9) K/mcL BMP 04/19/18 05:00 Sodium 133 L Potassium 3.3 L Chloride 103 Carbon Dioxide 20 L BUN 28 H Creatinine 1.32 H Glucose 141 H Calcium 8.2 L - ABG Interpretation ABG results: PT/INR, D-dimer PT 15.6 Seconds (9.4-12.1) H 04/17/18 06:19 Consult Discharge Plan - Plan Referrals: Bronson Harris DO [Primary Care Provider] -
[2018-04-19] MEDS: Cholecalciferol (D-3) 1,000 UNIT TABLET PO SCH (17:05)
--- NOTE | 2018-04-19 18:30 | Electrocardiograph Report ---
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
[2018-04-20] MEDS: *HR* OxyCODONE Immed Rel 5 MG TABLET PO PRN ×2 (01:18→13:55)
[2018-04-20] MEDS: *HR* Heparin 5,000 UNIT/ML VIAL SQ SCH ×3 (01:18→16:17)
[2018-04-20 05:48] LABS: Hematocrit 28.2 % (35.3-44.9); Hemoglobin 9.5 g/dL (11.5-15.4); Mean Corpuscular HGB Conc 33.7 g/dL (31.6-35.5); Mean Corpuscular Hemoglobin 36.5 pg (28.0-33.3); Mean Corpuscular Volume 108.5 fL (83.0-100.0); Mean Platelet Volume 11.5 fL (9.4-12.4); Platelet Count 175 K/mcL (140-400); Red Cell Distribution Width 14.6 % (11.5-14.5)
[2018-04-20] MEDS: Insulin LISPRO 300 UNITS/3 ML VIAL SQ SCH ×4 (05:53→20:28)
[2018-04-20 06:05] LABS: Calcium 8.4 mg/dL (8.6-10.3)
[2018-04-20 06:17] LABS: Lymphocytes # 0.6 K/mcL (0.6-4.6); Monocytes # 2.5 K/mcL (0.0-1.3); Neutrophils # 28.6 K/mcL (1.6-8.9); Platelet Estimate Normal (Normal); Smudge Cells Present (Not Present)
[2018-04-20] MEDS: Aspirin Enteric Coated 81 MG Tablet PO SCH (09:30)
[2018-04-20] MEDS: Ringers Solution, Lactated 1,000 ML IVC SCH (09:31)
[2018-04-20] MEDS: Vancomycin Oral Soln 125 MG/2.5 ML UDC PO SCH ×4 (11:01→20:36)
[2018-04-20] MEDS ORDERED: hydrOXYzine pamoate 25 MG CAPSULE PO PRN (12:18)
--- NOTE | 2018-04-20 12:41 | Infectious Disease Progress No ---
Date of Encounter: 04/20/18 Time of Encounter: 09:30 - Assessment and Plan (1) Severe sepsis Current Visit: Yes Status: Acute - Patient met SIRS criteria on admission; tachycardia, hypotension, elevated white count, elevated lactic acid - Likely source is C. difficile colitis - Patient has had significant diarrhea, recent history of C. difficile - CT scan of abdomen demonstrates findings suggestive of colitis - Patient has been started on oral vancomycin solution - White count increased today; dose increased to 250 mg - Plan is to continue PO vanc for 14 days (2) C. difficile diarrhea Current Visit: Yes Status: Acute - Presented with multiple episodes of diarrhea since Tuesday - Patient has a recent history of infection with C. difficile in early March - Continue oral vancomycin - Plan is to continue PO vanc for 14 days (3) Leukocytosis Current Visit: Yes Status: Acute Patient had a large increase in white count to 31.8 - Likely secondary to C. 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 transplanted heart: [place] heart Associated angina: without angina Qualified Code(s): I25.10 - Atherosclerotic heart disease of [place] coronary artery without angina pectoris (7) Diabetes mellitus Current Visit: Yes Status: Chronic - Management per primary team Qualifiers: Diabetes mellitus type: type 2 Diabetes mellitus [employer] customer [employer] insulin use: without intermodal customer service use Diabetes mellitus complication status: with unspecified complications Qualified Code(s): E11.8 - Type 2 diabetes mellitus with unspecified complications (8) TERRENCE (acute kidney injury) Current Visit: Yes Status: Acute - Likely due to severe sepsis and third spacing - Subjective Interval history: Patient seen and exmained at bedside; she reports that her abdominal pain has worsened, and that it is now more diffuse and cramplike in character. She reports that she still has diarrhea; has had 5 bowel movements this morning. She denies fever, chills, nausea, vomiting, or chest pain. No longer has rebound tenderness. No complaints at this time. Infect Dis PN-Objective Data - Labs CBC & Chem 7: 04/20/18 04:10 04/20/18 04:10 Labs: Laboratory Results - last 24 hr 04/18/18 04/19/18 04/19/18 23:35 04:54 11:45 WBC RBC Hgb Hct MCV MCH MCHC RDW Plt Count MPV Seg Neutrophils % Lymphocytes % Monocytes % Neutrophils # Lymphocytes # Monocytes # Smudge Cells Platelet Estimate Sodium Potassium Chloride Carbon Dioxide BUN Creatinine Est GFR ( Amer) Est GFR (Non-Af Amer) BUN/Creatinine Ratio Glucose POC Glucose 146 H 136 H 155 H Calculated Osmolality Calcium 04/19/18 04/20/18 04/20/18 16:43 04:10 04:10 WBC 31.8 H* RBC 2.60 L Hgb 9.5 L Hct 28.2 L MCV 108.5 H MCH 36.5 H MCHC 33.7 RDW 14.6 H Plt Count 175 MPV 11.5 Seg Neutrophils % 90.0 Lymphocytes % 2.0 Monocytes % 8.0 Neutrophils # 28.6 H Lymphocytes # 0.6 Monocytes # 2.5 H Smudge Cells Present A Platelet Estimate Normal Sodium 132 L Potassium 4.0 Chloride 102 Carbon Dioxide 18 L BUN 33 H Creatinine 1.48 H Est GFR ( Amer) 42 L Est GFR (Non-Af Amer) 34 L BUN/Creatinine Ratio 22 Glucose 172 H POC Glucose 134 H Calculated Osmolality 285 Calcium 8.4 L 04/20/18 11:37 WBC RBC Hgb Hct MCV MCH MCHC RDW Plt Count MPV Seg Neutrophils % Lymphocytes % Monocytes % Neutrophils # Lymphocytes # Monocytes # Smudge Cells Platelet Estimate Sodium Potassium Chloride Carbon Dioxide BUN Creatinine Est GFR ( Amer) Est GFR (Non-Af Amer) BUN/Creatinine Ratio Glucose POC Glucose 182 H Calculated Osmolality Calcium Cultures: Cultures 04/17/18 10:30 Body Fluid Culture - Preliminary Peritoneal Fluid Serology 04/17/18 04/17/18 04/17/18 Range/Units 21:15 10:30 10:30 Peritoneal Appearance CLEAR (Clear) Peritoneal Volume 60.0 mL Peritoneal RBC < 0.002 (0.000 - 0.002) M/mcL Periton Tot Nuc Cells 182 (0-300) TNC/mcL Periton Neutrophils 68.0 % Periton Lymphocytes % 4.0 % Periton Monocytes % 13.0 % Periton Other Cells % 15.0 % Peritoneal Tot Protein < 3.0 (No Ref Range) g/dL Peritoneal Albumin < 1.5 (No Ref Range) g/dL Peritoneal LDH 169 (No Ref Range) Units/L Peritoneal Glucose 134 (No Ref Range) mg/dL Peritoneal Amylase < 10 (No Ref Range) Units/L Stl C. diff Tox B Gene Positive A (Negative) Exam - Constitutional Vitals: Temp Pulse Resp BP Pulse Ox 97.6 F 96 19 122/67 94 04/20/18 12:25 04/20/18 12:25 04/20/18 12:25 04/20/18 12:25 04/20/18 12:25 - Additional findings Additional findings: - Head Head exam: Present: atraumatic, normal inspection - Respiratory Respiratory exam: Present: CTAB. Absent: decreased breath sounds, rhonchi, wheezes - Cardiovascular Cardiovascular exam: Present: RRR, +S1, +S2. Absent: bradycardia, tachycardia - GI/Abdominal GI/Abdominal exam: Present: guarding, soft, tenderness - Psychiatric Psychiatric exam: Present: normal affect, normal mood - Skin Skin exam: Present: dry, intact Consult Discharge Plan - Plan Referrals: Bronson Harris DO [Primary Care Provider] - - Attending Attestation I examined this patient and my medical decision-making was reviewed with the Resident Physician. I agree with the documented findings, disposition and treatment plan as described except to the extent set forth below. Patient clinically does not appear worse than before. I think she looks clinically better. Denies any pain review of systems unremarkable. Not sure why she continues to have worsening leukocytosis. Abdomen is more distended than yesterday. I had long discussion with the family and the patient does present with a complicated challenging medical picture. I will get a CT chest abdomen and pelvis. I will get blood cultures 2 I will get a peripheral smear I will start empiric antibiotics for at least the next 24 hours to imaging is back and to find out if there is an underlying infection. Consults hematology oncology. RN spoke with the hematology/oncology nurse practitioner.
[2018-04-20] MEDS: Cefepime HCl 1,000 MG in 0.9 % Sodium Chloride Mini Bag 100 ML IVPB SCH (12:59)
--- NOTE | 2018-04-20 14:29 | Oncology Inp Consult Note ---
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 - She was placed on George/Ox 12/12/17. Restaging scans dated 02/08/2018 reveals a positive response to therapy. This was discontinued after there was an increase of ascities fluid concerning secondary to oxide [place] induced liver injury. She was then started on single agent Gemcitabine. Review of scans may demonstrate expansion of metastatic disease with omental and mesenteric fat stranding with omental lymph nodes. Plan: Patient care is palliative in nature, she is currently not on chemotherapy. Her pleural fluid does not show concern for SBP, peritoneal fluid pathology pending. - Patient currently undergoing treatment for C. Diff, yet C. diff test collected soon after recent diagnosis and treatment for C. Diff. Given patient symptoms it is appropriate to treat as C. diff. She is currently not receiving chemotherapy and in her current state of health this would not be thacker to start at this time. Goal: treat underlining acute medical illness. (2) Colitis Status: Acute Assessment and plan: as discussed above. (3) Leukocytosis Status: Acute Assessment and plan: Patient presented with WBC counts 28.1. Leukocytosis in the setting of sepsis as the patient had C. difficile colitis, tachycardia, elevated WBC. Patient was started on by mouth vancomycin and Flagyl . originally there was improvement in WBC count and and now has bounced back up to 31.8. The patient is now on oral vancomycin and IV vancomycin. Peritoneal fluid was collected and does not and does not correlate with SBP. Final pathology evaluation is still pending. I believe this is more infectious, and unlikely related to her cholangiocarcinoma. Infectious disease involved, blood cultures collected today. (4) Ascites Status: Chronic Assessment and plan: Peritoneal fluid does not correlate with SBP. Fluid pathology still pending. Qualifiers: Ascites type: malignant Qualified Code(s): R18.0 - Malignant ascites - Data of Consult Consult date: 04/20/18 Requesting Physician: Mahamed Fernández MD Primary Care Provider: Bronson D Stiltner, DO - Consult Narrative Reason for consult: Cholangiocarcinoma and leukocytosis History of present illness: Ms. 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 Also history of left medial upper pole clear cell renal carcinoma. She has significant past medical history of recent CVA in February 2018, diabetes mellitus, coronary artery disease with recent PCI and SUKHDEV to the LAD 08/[address] Maravilla. She presented to the emergency department on with 2-3 days of diarrhea after completing a extended course of oral vancomycin for Clostridium difficile colitis. 10 bowel movements per day. She did not have any other concerning symptoms including fevers, chills, diaphoresis and was not on any immunsupression, chemo or radiation therapy. In the emergency department she was found to have a low normal systolic BP, Labs: WBC 28.1, macrocytic anemia, 91% segmented neutraphils. Renal function demonstrated acute on chronic kidney injury. Lactic acid 2.4 and a C.diff test was positive. Chest x-ray shows no new acute cardiopulmonary process. An abdominal and pelvis CT without contrast done in the ER shows increased mesenteric stranding along the transverse colon suspicious for colitis, anasarca and ascites with a slightly increased, intrahepatic biliary dilatation and hepatic segment for mass which is consistent with prior history of adenocarcinoma, a mesenteric nodule in the lower abdomen superficially could represent an inflammatory changes due to colitis but metastatic deposit is not entirely excluded. Ms. Singletary states that she is feeling slightly improved today , tolerating oral liquids but has no appetite. She denies any fevers, chills, diaphoresis since admission. She continues to have loose bowel movements and tender abdomen. She states that she had slight improvement in her bowel movements after completing her extended course of oral vancomycin but then started to have increased stool just prior to presenting to the emergency department. She states that after she was in the middle of her course of Gemcitabine, and portal vein thrombosis and this was discontinued. She plans on following up with Dr. Stevens at the end of this month to discuss new therapy options. Past Med Surg Social Fam HX - Past Medical History Medical history: cancer, coronary artery disease, diabetes, hyperlipidemia, hypertension, myocardial infarction Additional medical history: renal and liver cancer. bile duct cancer Psychiatric history: no psych history - Past Surgical History Surgical History: cataract, knee replacement (B/L TKR) Additional surgical history: CARPEL TUNNEL TRIGGER FINGER RELEASE. 1 cardiac stent. bilateral knees. biopsy of kidneys, liver, lymph nodes - Social History Smoking Status: Former smoker Smokeless Tobacco Status: No Alcohol use: none Drug use: none - Family History Father Hx Family Cancer: Yes (bone cancer) Brother Hx Family Endocrine Disorder: Yes (DM) Medications and Allergies Aspirin [Lo-Dose Aspirin EC] 81 mg PO DAILY 09/23/17 [History] Cholecalciferol (D-3) [Vitamin D] 1,000 unit PO QPM 09/23/17 [History] Multivitamin [Multivitamins] 1 each PO QPM 09/23/17 [History] Clopidogrel [Plavix] 75 mg PO DAILY #30 tablet 09/24/17 [Rx] Furosemide [Lasix] 20 mg PO DAILY 11/15/17 [History] Pantoprazole Sodium [Protonix] 40 mg PO DAILY 11/15/17 [History] Cyanocobalamin (Vitamin B-12) [Vitamin B-12] 100 mcg PO QPM 11/21/17 [History] Lidocaine/Prilocaine [Emla] 1 appl TP AD 11/21/17 [History] Nitroglycerin [Nitrostat] 0.4 mg SL Q5M PRN 11/21/17 [History] glipiZIDE [Glucotrol] 5 mg PO 0800 11/21/17 [History] Metoprolol [Lopressor] 12.5 mg PO BID 12/12/17 [History] Potassium Chloride [Klor-Con 10] 10 meq PO DAILY 12/12/17 [History] Magic Mouthwash [Magic Mouthwash BLM] 10 ml PO QID PRN #240 ml 12/29/17 [Rx] Acetaminophen [Tylenol] 1,000 mg PO Q6HR PRN 01/09/18 [History] Guaifenesin [Mucinex] 600 mg PO Q12HR PRN 02/06/18 [History] Dicyclomine [Bentyl] 20 mg PO BID 03/06/18 [History] Lactobac Cmb #3/Fos/Pantethine [Probiotic & Acidophilus Cap] 1 each PO BID #60 capsule 03/09/18 [Rx] Lactobacillus Rhamnosus R0011 [Probiotic Digestive Care] 1 each PO BID #60 capsule 04/04/18 [Rx] Ondansetron HCl [Zofran] 4 mg PO Q6H PRN #30 tab 04/04/18 [Rx] OxyCODONE Immed Rel [Roxicodone 10 MG] 10 mg PO TID PRN 04/17/18 [History] 3 Allergy/AdvReac Type Severity Reaction Status Date / Time shellfish derived AdvReac Swelling Verified 04/04/18 09:53 of the Eye Constitutional: Present: anorexia, fatigue, lethargy. Absent: chills, daytime sleepiness, excessive sweating, fever(s), frequent falls, headache(s), increased appetite, night sweats Eyes: Absent: diplopia Nose, mouth and throat: Absent: dizziness, epistaxis, neck pain, sore throat Cardiovascular: Present: edema. Absent: chest pain, chest pain at rest, chest pain with activity, diaphoresis, rapid heart rate, slow heart rate Respiratory: Absent: cough, dyspnea, hemoptysis Gastrointestinal: Present: abdominal pain, bloating, cramping, loose stools. Absent: constipation, melena, nausea, vomiting Musculoskeletal: Absent: numbness Integumentary: Present: swelling. Absent: jaundice Neurological: Absent: dizziness, weakness Oncology - Exam - Constitutional Vitals: Temp Pulse Resp BP Pulse Ox 97.6 F 96 19 122/67 94 04/20/18 12:25 04/20/18 12:25 04/20/18 12:25 04/20/18 12:25 04/20/18 12:25 Exam: General: Patient alert, awake, interactive, in no acute distress HEENT: Normocephalic, atraumatic, pupils equal reactive to light, neck supple trachea midline no palpable lymphadenopathy, no thyromegaly. Chest: Symmetric bilateral correlating with respiratory effort, effort nonlabored. Cardiac: Regular rate and rhythm, positive S1 and S2. no bruits appreciated bilateral carotids, Radial pulses 2+ bilateral, posterior tibial and dorsal pedal pulses 2+ bilateral. Respiratory: Clear to auscultation all lung [place] Abdomen: Distended abdomen, Tenderness to light palpation, +BS Extremities: Symmetric bilateral, bilateral lower extremities, + edema, patient moving all 4 extremities spontaneously. Neurologic: No focal deficits appreciated on examination. Face symmetric, muscle strength symmetric bilateral upper and lower extremities. Oncology - Results Labs: 3 04/20/18 04/20/18 04/20/18 11:37 04:10 04:10 WBC 31.8 H* RBC 2.60 L Hgb 9.5 L Hct 28.2 L MCV 108.5 H MCH 36.5 H MCHC 33.7 RDW 14.6 H Plt Count 175 MPV 11.5 Immature Gran % Seg Neutrophils % 90.0 Lymphocytes % 2.0 Monocytes % 8.0 Eosinophils % Basophils % Neutrophils # 28.6 H Lymphocytes # 0.6 Monocytes # 2.5 H Eosinophils # Basophils # Smudge Cells Present A Toxic Granulation Platelet Estimate Normal Large Platelets Macrocytosis Sodium 132 L Potassium 4.0 Chloride 102 Carbon Dioxide 18 L BUN 33 H Creatinine 1.48 H Est GFR ( Amer) 42 L Est GFR (Non-Af Amer) 34 L BUN/Creatinine Ratio 22 Glucose 172 H POC Glucose 182 H Est Mean Plasma Glucose Hemoglobin A1c Calculated Osmolality 285 Lactic Acid Calcium 8.4 L Total Bilirubin AST ALT Alkaline Phosphatase Troponin I Serum Total Protein Albumin Globulin Albumin/Globulin Ratio Peritoneal Appearance Peritoneal Volume Peritoneal RBC Periton Tot Nuc Cells Periton Neutrophils Periton Lymphocytes % Periton Monocytes % Periton Other Cells % Peritoneal Tot Protein Peritoneal Albumin Peritoneal LDH Peritoneal Glucose Peritoneal Amylase Stl C. diff Tox B Gene 3 04/19/18 04/19/18 04/19/18 16:43 11:45 05:00 WBC RBC Hgb Hct MCV MCH MCHC RDW Plt Count MPV Immature Gran % Seg Neutrophils % Lymphocytes % Monocytes % Eosinophils % Basophils % Neutrophils # Lymphocytes # Monocytes # Eosinophils # Basophils # Smudge Cells Toxic Granulation Platelet Estimate Large Platelets Macrocytosis Sodium 133 L Potassium 3.3 L Chloride 103 Carbon Dioxide 20 L BUN 28 H Creatinine 1.32 H Est GFR ( Amer) 48 L Est GFR (Non-Af Amer) 39 L BUN/Creatinine Ratio 21 Glucose 141 H POC Glucose 134 H 155 H Est Mean Plasma Glucose Hemoglobin A1c Calculated Osmolality 284 Lactic Acid Calcium 8.2 L Total Bilirubin AST ALT Alkaline Phosphatase Troponin I Serum Total Protein Albumin Globulin Albumin/Globulin Ratio Peritoneal Appearance Peritoneal Volume Peritoneal RBC Periton Tot Nuc Cells Periton Neutrophils Periton Lymphocytes % Periton Monocytes % Periton Other Cells % Peritoneal Tot Protein Peritoneal Albumin Peritoneal LDH Peritoneal Glucose Peritoneal Amylase Stl C. diff Tox B Gene 3 04/19/18 04/19/18 04/18/18 05:00 04:54 23:35 WBC 24.3 H RBC 2.56 L Hgb 9.2 L Hct 27.5 L MCV 107.4 H MCH 35.9 H MCHC 33.5 RDW 14.6 H Plt Count 133 L MPV 11.2 Immature Gran % 2.0 Seg Neutrophils % 87.9 Lymphocytes % 3.6 Monocytes % 5.8 Eosinophils % 0.5 Basophils % 0.2 Neutrophils # 21.4 H Lymphocytes # 0.9 Monocytes # 1.4 H Eosinophils # 0.1 Basophils # 0.1 Smudge Cells Toxic Granulation Present A Platelet Estimate Normal Large Platelets Present A Macrocytosis Present A Sodium Potassium Chloride Carbon Dioxide BUN Creatinine Est GFR ( Amer) Est GFR (Non-Af Amer) BUN/Creatinine Ratio Glucose POC Glucose 136 H 146 H Est Mean Plasma Glucose Hemoglobin A1c Calculated Osmolality Lactic Acid Calcium Total Bilirubin AST ALT Alkaline Phosphatase Troponin I Serum Total Protein Albumin Globulin Albumin/Globulin Ratio Peritoneal Appearance Peritoneal Volume Peritoneal RBC Periton Tot Nuc Cells Periton Neutrophils Periton Lymphocytes % Periton Monocytes % Periton Other Cells % Peritoneal Tot Protein Peritoneal Albumin Peritoneal LDH Peritoneal Glucose Peritoneal Amylase Stl C. diff Tox B Gene 3 04/18/18 04/18/18 04/18/18 17:09 11:59 06:06 WBC RBC Hgb Hct MCV MCH MCHC RDW Plt Count MPV Immature Gran % Seg Neutrophils % Lymphocytes % Monocytes % Eosinophils % Basophils % Neutrophils # Lymphocytes # Monocytes # Eosinophils # Basophils # Smudge Cells Toxic Granulation Platelet Estimate Large Platelets Macrocytosis Sodium Potassium Chloride Carbon Dioxide BUN Creatinine Est GFR ( Amer) Est GFR (Non-Af Amer) BUN/Creatinine Ratio Glucose POC Glucose 169 H 141 H 134 H Est Mean Plasma Glucose Hemoglobin A1c Calculated Osmolality Lactic Acid Calcium Total Bilirubin AST ALT Alkaline Phosphatase Troponin I Serum Total Protein Albumin Globulin Albumin/Globulin Ratio Peritoneal Appearance Peritoneal Volume Peritoneal RBC Periton Tot Nuc Cells Periton Neutrophils Periton Lymphocytes % Periton Monocytes % Periton Other Cells % Peritoneal Tot Protein Peritoneal Albumin Peritoneal LDH Peritoneal Glucose Peritoneal Amylase Stl C. diff Tox B Gene 3 04/18/18 04/18/18 04/17/18 06:05 06:05 23:41 WBC 19.5 H RBC 2.21 L Hgb 8.0 L D Hct 23.9 L MCV 108.1 H MCH 36.2 H MCHC 33.5 RDW 14.7 H Plt Count 105 L MPV 11.3 Immature Gran % 2.4 Seg Neutrophils % 87.6 Lymphocytes % 3.9 Monocytes % 5.9 Eosinophils % 0.1 Basophils % 0.1 Neutrophils # 17.1 H Lymphocytes # 0.8 Monocytes # 1.2 Eosinophils # 0.0 Basophils # 0.0 Smudge Cells Toxic Granulation Platelet Estimate Large Platelets Macrocytosis Sodium 134 L Potassium 3.5 Chloride 105 Carbon Dioxide 21 L BUN 27 H Creatinine 1.49 H Est GFR ( Amer) 41 L Est GFR (Non-Af Amer) 34 L BUN/Creatinine Ratio 18 Glucose 128 H POC Glucose 84 Est Mean Plasma Glucose Hemoglobin A1c Calculated Osmolality 285 Lactic Acid Calcium 7.8 L Total Bilirubin 0.6 AST 28 ALT 6 L Alkaline Phosphatase 54 Troponin I Serum Total Protein 4.7 L Albumin 2.5 L Globulin 2.2 L Albumin/Globulin Ratio 1.1 Peritoneal Appearance Peritoneal Volume Peritoneal RBC Periton Tot Nuc Cells Periton Neutrophils Periton Lymphocytes % Periton Monocytes % Periton Other Cells % Peritoneal Tot Protein Peritoneal Albumin Peritoneal LDH Peritoneal Glucose Peritoneal Amylase Stl C. diff Tox B Gene 3 04/17/18 04/17/18 04/17/18 21:15 20:55 17:41 WBC RBC Hgb Hct MCV MCH MCHC RDW Plt Count MPV Immature Gran % Seg Neutrophils % Lymphocytes % Monocytes % Eosinophils % Basophils % Neutrophils # Lymphocytes # Monocytes # Eosinophils # Basophils # Smudge Cells Toxic Granulation Platelet Estimate Large Platelets Macrocytosis Sodium Potassium Chloride Carbon Dioxide BUN Creatinine Est GFR ( Amer) Est GFR (Non-Af Amer) BUN/Creatinine Ratio Glucose POC Glucose 81 Est Mean Plasma Glucose Hemoglobin A1c Calculated Osmolality Lactic Acid Calcium Total Bilirubin AST ALT Alkaline Phosphatase Troponin I < 0.03 Serum Total Protein Albumin Globulin Albumin/Globulin Ratio Peritoneal Appearance Peritoneal Volume Peritoneal RBC Periton Tot Nuc Cells Periton Neutrophils Periton Lymphocytes % Periton Monocytes % Periton Other Cells % Peritoneal Tot Protein Peritoneal Albumin Peritoneal LDH Peritoneal Glucose Peritoneal Amylase Stl C. diff Tox B Gene Positive A 3 04/17/18 04/17/18 04/17/18 16:42 12:20 11:38 WBC RBC Hgb Hct MCV MCH MCHC RDW Plt Count MPV Immature Gran % Seg Neutrophils % Lymphocytes % Monocytes % Eosinophils % Basophils % Neutrophils # Lymphocytes # Monocytes # Eosinophils # Basophils # Smudge Cells Toxic Granulation Platelet Estimate Large Platelets Macrocytosis Sodium Potassium Chloride Carbon Dioxide BUN Creatinine Est GFR ( Amer) Est GFR (Non-Af Amer) BUN/Creatinine Ratio Glucose POC Glucose 114 H 125 H Est Mean Plasma Glucose 88 Hemoglobin A1c 4.7 Calculated Osmolality Lactic Acid Calcium Total Bilirubin AST ALT Alkaline Phosphatase Troponin I Serum Total Protein Albumin Globulin Albumin/Globulin Ratio Peritoneal Appearance Peritoneal Volume Peritoneal RBC Periton Tot Nuc Cells Periton Neutrophils Periton Lymphocytes % Periton Monocytes % Periton Other Cells % Peritoneal Tot Protein Peritoneal Albumin Peritoneal LDH Peritoneal Glucose Peritoneal Amylase Stl C. diff Tox B Gene 3 04/17/18 04/17/18 04/17/18 11:38 11:38 10:30 WBC RBC Hgb Hct MCV MCH MCHC RDW Plt Count MPV Immature Gran % Seg Neutrophils % Lymphocytes % Monocytes % Eosinophils % Basophils % Neutrophils # Lymphocytes # Monocytes # Eosinophils # Basophils # Smudge Cells Toxic Granulation Platelet Estimate Large Platelets Macrocytosis Sodium Potassium Chloride Carbon Dioxide BUN Creatinine Est GFR ( Amer) Est GFR (Non-Af Amer) BUN/Creatinine Ratio Glucose POC Glucose Est Mean Plasma Glucose Hemoglobin A1c Calculated Osmolality Lactic Acid 1.5 Calcium Total Bilirubin AST ALT Alkaline Phosphatase Troponin I 0.06 H* Serum Total Protein Albumin 2.4 L Globulin Albumin/Globulin Ratio Peritoneal Appearance Peritoneal Volume Peritoneal RBC Periton Tot Nuc Cells Periton Neutrophils Periton Lymphocytes % Periton Monocytes % Periton Other Cells % Peritoneal Tot Protein < 3.0 Peritoneal Albumin < 1.5 Peritoneal LDH 169 Peritoneal Glucose 134 Peritoneal Amylase < 10 Stl C. diff Tox B Gene 3 04/17/18 10:30 WBC RBC Hgb Hct MCV MCH MCHC RDW Plt Count MPV Immature Gran % Seg Neutrophils % Lymphocytes % Monocytes % Eosinophils % Basophils % Neutrophils # Lymphocytes # Monocytes # Eosinophils # Basophils # Smudge Cells Toxic Granulation Platelet Estimate Large Platelets Macrocytosis Sodium Potassium Chloride Carbon Dioxide BUN Creatinine Est GFR ( Amer) Est GFR (Non-Af Amer) BUN/Creatinine Ratio Glucose POC Glucose Est Mean Plasma Glucose Hemoglobin A1c Calculated Osmolality Lactic Acid Calcium Total Bilirubin AST ALT Alkaline Phosphatase Troponin I Serum Total Protein Albumin Globulin Albumin/Globulin Ratio Peritoneal Appearance CLEAR Peritoneal Volume 60.0 Peritoneal RBC < 0.002 Periton Tot Nuc Cells 182 Periton Neutrophils 68.0 Periton Lymphocytes % 4.0 Periton Monocytes % 13.0 Periton Other Cells % 15.0 Peritoneal Tot Protein Peritoneal Albumin Peritoneal LDH Peritoneal Glucose Peritoneal Amylase Stl C. diff Tox B Gene Consult Discharge Plan - Plan Referrals: Bronson Harris, DO [Primary Care Provider] - <Marck Stevens - Last Filed: 04/20/18 21:55> Date of Encounter: 04/20/18 - Data of Consult Requesting Physician: Mahamed Fernández MD Primary Care Provider: Bronson Harris DO - Consult Narrative History of present illness: Ms. Singletary is a 77 year old female Oncology - Exam - Constitutional Vitals: Temp Pulse Resp BP Pulse Ox 97.6 F 95 20 114/60 98 04/20/18 19:22 04/20/18 19:22 04/20/18 19:22 04/20/18 19:22 04/20/18 19:22 Oncology - Results Labs: 3 04/20/18 04/20/18 04/20/18 20:26 16:45 11:37 WBC RBC Hgb Hct MCV MCH MCHC RDW Plt Count MPV Immature Gran % Seg Neutrophils % Lymphocytes % Monocytes % Eosinophils % Basophils % Neutrophils # Lymphocytes # Monocytes # Eosinophils # Basophils # Smudge Cells Toxic Granulation Platelet Estimate Large Platelets Macrocytosis Sodium Potassium Chloride Carbon Dioxide BUN Creatinine Est GFR ( Amer) Est GFR (Non-Af Amer) BUN/Creatinine Ratio Glucose POC Glucose 175 H 185 H 182 H Est Mean Plasma Glucose Hemoglobin A1c Calculated Osmolality Lactic Acid Calcium Total Bilirubin AST ALT Alkaline Phosphatase Troponin I Serum Total Protein Albumin Globulin Albumin/Globulin Ratio Peritoneal Appearance Peritoneal Volume Peritoneal RBC Periton Tot Nuc Cells Periton Neutrophils Periton Lymphocytes % Periton Monocytes % Periton Other Cells % Peritoneal Tot Protein Peritoneal Albumin Peritoneal LDH Peritoneal Glucose Peritoneal Amylase Stl C. diff Tox B Gene 3 04/20/18 04/20/18 04/19/18 04:10 04:10 16:43 WBC 31.8 H* RBC 2.60 L Hgb 9.5 L Hct 28.2 L MCV 108.5 H MCH 36.5 H MCHC 33.7 RDW 14.6 H Plt Count 175 MPV 11.5 Immature Gran % Seg Neutrophils % 90.0 Lymphocytes % 2.0 Monocytes % 8.0 Eosinophils % Basophils % Neutrophils # 28.6 H Lymphocytes # 0.6 Monocytes # 2.5 H Eosinophils # Basophils # Smudge Cells Present A Toxic Granulation Platelet Estimate Normal Large Platelets Macrocytosis Sodium 132 L Potassium 4.0 Chloride 102 Carbon Dioxide 18 L BUN 33 H Creatinine 1.48 H Est GFR ( Amer) 42 L Est GFR (Non-Af Amer) 34 L BUN/Creatinine Ratio 22 Glucose 172 H POC Glucose 134 H Est Mean Plasma Glucose Hemoglobin A1c Calculated Osmolality 285 Lactic Acid Calcium 8.4 L Total Bilirubin AST ALT Alkaline Phosphatase Troponin I Serum Total Protein Albumin Globulin Albumin/Globulin Ratio Peritoneal Appearance Peritoneal Volume Peritoneal RBC Periton Tot Nuc Cells Periton Neutrophils Periton Lymphocytes % Periton Monocytes % Periton Other Cells % Peritoneal Tot Protein Peritoneal Albumin Peritoneal LDH Peritoneal Glucose Peritoneal Amylase Stl C. diff Tox B Gene 3 04/19/18 04/19/18 04/19/18 11:45 05:00 05:00 WBC 24.3 H RBC 2.56 L Hgb 9.2 L Hct 27.5 L MCV 107.4 H MCH 35.9 H MCHC 33.5 RDW 14.6 H Plt Count 133 L MPV 11.2 Immature Gran % 2.0 Seg Neutrophils % 87.9 Lymphocytes % 3.6 Monocytes % 5.8 Eosinophils % 0.5 Basophils % 0.2 Neutrophils # 21.4 H Lymphocytes # 0.9 Monocytes # 1.4 H Eosinophils # 0.1 Basophils # 0.1 Smudge Cells Toxic Granulation Present A Platelet Estimate Normal Large Platelets Present A Macrocytosis Present A Sodium 133 L Potassium 3.3 L Chloride 103 Carbon Dioxide 20 L BUN 28 H Creatinine 1.32 H Est GFR ( Amer) 48 L Est GFR (Non-Af Amer) 39 L BUN/Creatinine Ratio 21 Glucose 141 H POC Glucose 155 H Est Mean Plasma Glucose Hemoglobin A1c Calculated Osmolality 284 Lactic Acid Calcium 8.2 L Total Bilirubin AST ALT Alkaline Phosphatase Troponin I Serum Total Protein Albumin Globulin Albumin/Globulin Ratio Peritoneal Appearance Peritoneal Volume Peritoneal RBC Periton Tot Nuc Cells Periton Neutrophils Periton Lymphocytes % Periton Monocytes % Periton Other Cells % Peritoneal Tot Protein Peritoneal Albumin Peritoneal LDH Peritoneal Glucose Peritoneal Amylase Stl C. diff Tox B Gene 3 04/19/18 04/18/18 04/18/18 04:54 23:35 17:09 WBC RBC Hgb Hct MCV MCH MCHC RDW Plt Count MPV Immature Gran % Seg Neutrophils % Lymphocytes % Monocytes % Eosinophils % Basophils % Neutrophils # Lymphocytes # Monocytes # Eosinophils # Basophils # Smudge Cells Toxic Granulation Platelet Estimate Large Platelets Macrocytosis Sodium Potassium Chloride Carbon Dioxide BUN Creatinine Est GFR ( Amer) Est GFR (Non-Af Amer) BUN/Creatinine Ratio Glucose POC Glucose 136 H 146 H 169 H Est Mean Plasma Glucose Hemoglobin A1c Calculated Osmolality Lactic Acid Calcium Total Bilirubin AST ALT Alkaline Phosphatase Troponin I Serum Total Protein Albumin Globulin Albumin/Globulin Ratio Peritoneal Appearance Peritoneal Volume Peritoneal RBC Periton Tot Nuc Cells Periton Neutrophils Periton Lymphocytes % Periton Monocytes % Periton Other Cells % Peritoneal Tot Protein Peritoneal Albumin Peritoneal LDH Peritoneal Glucose Peritoneal Amylase Stl C. diff Tox B Gene 3 04/18/18 04/18/18 04/18/18 11:59 06:06 06:05 WBC RBC Hgb Hct MCV MCH MCHC RDW Plt Count MPV Immature Gran % Seg Neutrophils % Lymphocytes % Monocytes % Eosinophils % Basophils % Neutrophils # Lymphocytes # Monocytes # Eosinophils # Basophils # Smudge Cells Toxic Granulation Platelet Estimate Large Platelets Macrocytosis Sodium 134 L Potassium 3.5 Chloride 105 Carbon Dioxide 21 L BUN 27 H Creatinine 1.49 H Est GFR ( Amer) 41 L Est GFR (Non-Af Amer) 34 L BUN/Creatinine Ratio 18 Glucose 128 H POC Glucose 141 H 134 H Est Mean Plasma Glucose Hemoglobin A1c Calculated Osmolality 285 Lactic Acid Calcium 7.8 L Total Bilirubin 0.6 AST 28 ALT 6 L Alkaline Phosphatase 54 Troponin I Serum Total Protein 4.7 L Albumin 2.5 L Globulin 2.2 L Albumin/Globulin Ratio 1.1 Peritoneal Appearance Peritoneal Volume Peritoneal RBC Periton Tot Nuc Cells Periton Neutrophils Periton Lymphocytes % Periton Monocytes % Periton Other Cells % Peritoneal Tot Protein Peritoneal Albumin Peritoneal LDH Peritoneal Glucose Peritoneal Amylase Stl C. diff Tox B Gene 3 04/18/18 04/17/18 04/17/18 06:05 23:41 21:15 WBC 19.5 H RBC 2.21 L Hgb 8.0 L D Hct 23.9 L MCV 108.1 H MCH 36.2 H MCHC 33.5 RDW 14.7 H Plt Count 105 L MPV 11.3 Immature Gran % 2.4 Seg Neutrophils % 87.6 Lymphocytes % 3.9 Monocytes % 5.9 Eosinophils % 0.1 Basophils % 0.1 Neutrophils # 17.1 H Lymphocytes # 0.8 Monocytes # 1.2 Eosinophils # 0.0 Basophils # 0.0 Smudge Cells Toxic Granulation Platelet Estimate Large Platelets Macrocytosis Sodium Potassium Chloride Carbon Dioxide BUN Creatinine Est GFR ( Amer) Est GFR (Non-Af Amer) BUN/Creatinine Ratio Glucose POC Glucose 84 Est Mean Plasma Glucose Hemoglobin A1c Calculated Osmolality Lactic Acid Calcium Total Bilirubin AST ALT Alkaline Phosphatase Troponin I Serum Total Protein Albumin Globulin Albumin/Globulin Ratio Peritoneal Appearance Peritoneal Volume Peritoneal RBC Periton Tot Nuc Cells Periton Neutrophils Periton Lymphocytes % Periton Monocytes % Periton Other Cells % Peritoneal Tot Protein Peritoneal Albumin Peritoneal LDH Peritoneal Glucose Peritoneal Amylase Stl C. diff Tox B Gene Positive A 3 04/17/18 04/17/18 04/17/18 20:55 17:41 16:42 WBC RBC Hgb Hct MCV MCH MCHC RDW Plt Count MPV Immature Gran % Seg Neutrophils % Lymphocytes % Monocytes % Eosinophils % Basophils % Neutrophils # Lymphocytes # Monocytes # Eosinophils # Basophils # Smudge Cells Toxic Granulation Platelet Estimate Large Platelets Macrocytosis Sodium Potassium Chloride Carbon Dioxide BUN Creatinine Est GFR ( Amer) Est GFR (Non-Af Amer) BUN/Creatinine Ratio Glucose POC Glucose 81 114 H Est Mean Plasma Glucose Hemoglobin A1c Calculated Osmolality Lactic Acid Calcium Total Bilirubin AST ALT Alkaline Phosphatase Troponin I < 0.03 Serum Total Protein Albumin Globulin Albumin/Globulin Ratio Peritoneal Appearance Peritoneal Volume Peritoneal RBC Periton Tot Nuc Cells Periton Neutrophils Periton Lymphocytes % Periton Monocytes % Periton Other Cells % Peritoneal Tot Protein Peritoneal Albumin Peritoneal LDH Peritoneal Glucose Peritoneal Amylase Stl C. diff Tox B Gene 3 04/17/18 04/17/18 04/17/18 12:20 11:38 11:38 WBC RBC Hgb Hct MCV MCH MCHC RDW Plt Count MPV Immature Gran % Seg Neutrophils % Lymphocytes % Monocytes % Eosinophils % Basophils % Neutrophils # Lymphocytes # Monocytes # Eosinophils # Basophils # Smudge Cells Toxic Granulation Platelet Estimate Large Platelets Macrocytosis Sodium Potassium Chloride Carbon Dioxide BUN Creatinine Est GFR ( Amer) Est GFR (Non-Af Amer) BUN/Creatinine Ratio Glucose POC Glucose 125 H Est Mean Plasma Glucose 88 Hemoglobin A1c 4.7 Calculated Osmolality Lactic Acid 1.5 Calcium Total Bilirubin AST ALT Alkaline Phosphatase Troponin I Serum Total Protein Albumin Globulin Albumin/Globulin Ratio Peritoneal Appearance Peritoneal Volume Peritoneal RBC Periton Tot Nuc Cells Periton Neutrophils Periton Lymphocytes % Periton Monocytes % Periton Other Cells % Peritoneal Tot Protein Peritoneal Albumin Peritoneal LDH Peritoneal Glucose Peritoneal Amylase Stl C. diff Tox B Gene 3 04/17/18 04/17/18 04/17/18 11:38 10:30 10:30 WBC RBC Hgb Hct MCV MCH MCHC RDW Plt Count MPV Immature Gran % Seg Neutrophils % Lymphocytes % Monocytes % Eosinophils % Basophils % Neutrophils # Lymphocytes # Monocytes # Eosinophils # Basophils # Smudge Cells Toxic Granulation Platelet Estimate Large Platelets Macrocytosis Sodium Potassium Chloride Carbon Dioxide BUN Creatinine Est GFR ( Amer) Est GFR (Non-Af Amer) BUN/Creatinine Ratio Glucose POC Glucose Est Mean Plasma Glucose Hemoglobin A1c Calculated Osmolality Lactic Acid Calcium Total Bilirubin AST ALT Alkaline Phosphatase Troponin I 0.06 H* Serum Total Protein Albumin 2.4 L Globulin Albumin/Globulin Ratio Peritoneal Appearance CLEAR Peritoneal Volume 60.0 Peritoneal RBC < 0.002 Periton Tot Nuc Cells 182 Periton Neutrophils 68.0 Periton Lymphocytes % 4.0 Periton Monocytes % 13.0 Periton Other Cells % 15.0 Peritoneal Tot Protein < 3.0 Peritoneal Albumin < 1.5 Peritoneal LDH 169 Peritoneal Glucose 134 Peritoneal Amylase < 10 Stl C. diff Tox B Gene - Attending Attestation I have seen and examined Ms. Singletary and agree with Dr. Galarza's assessment. I know Ms. Singletary well, and she has progressive cancer. I have discussed hospice previously. She presents with symptoms and radiographic findings c/w carcinomatosis. In addition, C diff is also a concern. Between her debility and infection, she is not a treatment candidate. We discussed hospice today, and she is ready for this (this has been discussed previously, and she has been resistant). I think her qol will be best served on hospice and palliative care consult requested to aid in process. Did not discuss code status as this discussion was difficult today. Added valium 2.5 mg tid for abdominal symptoms/ anxiety. Will look at pain medications as well, although patient does not want changes today. Continue antibiotics per primary team.
--- NOTE | 2018-04-20 16:18 | Internal Med Progress Note ---
Date of Encounter: 04/20/18 Time of Encounter: 12:15 - Assessment and plan (1) C. difficile diarrhea Current Visit: Yes Status: Acute Assessment and plan: Continue vancomycin. Discussed with infectious disease. Issues WBC count continues to worsen. Concerning for another underlying infection. CT of the chest and abdomen ordered. No signs of pneumonia. Patient does have small left -sided effusion. However she has worsening abdominal ascites with omental and mesenteric fat stranding and omental lymph nodes concerning for carcinomatosis. Oncology has been consulted for evaluation. Place patient on lactobacillus. (2) TERRENCE (acute kidney injury) Current Visit: Yes Status: Acute Assessment and plan: Renal function worsened today. Creatinine is 1.48. Continue IV hydration. Encouraged oral hydration. (3) Cholangiocarcinoma Current Visit: Yes Status: Acute Assessment and plan: Oncology consulted for evaluation. Patient does appear to have peritoneal carcinomatosis. (4) Diabetes mellitus Current Visit: Yes Status: Chronic Assessment and plan: Continue to monitor blood sugars. Will change sliding scale coverage to 3 times a day before meals and add bedtime coverage. Qualifiers: Diabetes mellitus type: type 2 Diabetes mellitus usp insulin use: without usp use Diabetes mellitus complication status: with unspecified complications Qualified Code(s): E11.8 - Type 2 diabetes mellitus with unspecified complications (5) Coronary artery disease Current Visit: Yes Status: Chronic Assessment and plan: continue aspirin, Plavix an Qualifiers: Coronary Disease-Associated Artery/Lesion type: [place] artery [place] vs. transplanted heart: [place] heart Associated angina: without angina Qualified Code(s): I25.10 - Atherosclerotic heart disease of [place] coronary artery without angina pectoris (6) Ascites Current Visit: Yes Status: Chronic Assessment and plan: With peritoneal carcinomatosis. Patient underwent paracentesis previously. No signs of SBP. Qualifiers: Ascites type: malignant Qualified Code(s): R18.0 - Malignant ascites (7) Sepsis Current Visit: Yes Status: Suspected Assessment and plan: CBC white count has worsened today. Infectious disease has broadening antibiotic coverage and added cefepime and vancomycin. Repeat blood cultures ordered. Qualifiers: Sepsis type: sepsis due to unspecified organism Qualified Code(s): A41.9 - Sepsis, unspecified organism (8) History of stroke Current Visit: Yes Status: Chronic (9) DVT prophylaxis Current Visit: Yes Status: Acute Assessment and plan: Subcutaneous heparin (10) Anemia Current Visit: Yes Status: Chronic Assessment and plan: Hemoglobin 9.5 today. Stable Qualifiers: Anemia type: other cause Other causes of anemia: chronic disease, neoplastic Qualified Code(s): D63.0 - Anemia in neoplastic disease - Time Spent With Patient Total time spent is greater than 50% in coordination of care (as documented) at patient's floor/unit and/or counseling patient: - Subjective Interval history: Patient is continuing to have abdominal pain and diarrhea. She also reports increased anxiety. No nausea or vomiting. Tolerating oral diet so far. No fever reported overnight. - Constitutional Vitals: Temp Pulse Resp BP Pulse Ox 98.9 F 98 20 109/58 98 04/20/18 16:05 04/20/18 16:05 04/20/18 16:05 04/20/18 16:05 04/20/18 16:05 General appearance: Present: cooperative, A&O X 3, answers questions appropriately - Neck Neck exam general surgery: Present: supple, trachea midline. Absent: lymphadenopathy - Respiratory Respiratory exam: Present: CTAB. Absent: accessory muscle use, rales, rhonchi, wheezes - Cardiovascular Cardiovascular exam: Present: RRR, +S1, +S2. Absent: diastolic murmur, gallop, rubs, systolic murmur - GI/Abdominal GI/Abdominal exam: Present: distended, normal bowel sounds, soft, no peritoneal signs. Absent: tenderness Additional comments: Significant abdominal ascites - Extremities Exam Extremities exam: Present: warm, radial pulses palpable and symmetrical. Absent : calf tenderness, cyanotic, pedal edema - Neurological Exam Neurological exam: Present: alert, CN II-XII intact, oriented X3, no focal deficits. Absent: facial droop, speech deficit Internal Medicine: Result - Labs CBC & Chem 7: 04/20/18 04:10 04/20/18 04:10 Labs: Short CBC 04/20/18 Range/Units 04:10 WBC 31.8 H* (4.3-11.1) K/mcL Hgb 9.5 L (11.5-15.4) g/dL Hct 28.2 L (35.3-44.9) % Plt Count 175 (140-400) K/mcL Neutrophils # 28.6 H (1.6-8.9) K/mcL BMP 04/20/18 04:10 Sodium 132 L Potassium 4.0 Chloride 102 Carbon Dioxide 18 L BUN 33 H Creatinine 1.48 H Glucose 172 H Calcium 8.4 L - ABG Interpretation ABG results: PT/INR, D-dimer PT 15.6 Seconds (9.4-12.1) H 04/17/18 06:19 - Impressions Impressions Abdomen/Pelvis CT 04/20/18 11:37 IMPRESSION: 3rd spacing of fluid is again noted with moderate to large amount of ascites, and anasarca and left pleural effusion. Anasarca is increased in the interval. Left pleural effusion is noted. Stable mass in the left lobe of the liver. Omental and mesenteric fat stranding and omental lymph nodes. The pattern is suspicious for carcinomatosis. As differential, as previously noted, colitis of transverse colon is considered. Nonetheless, the current presentation appears more disseminated and progressive in the interval. 2.7 cm left renal mass is not well characterized on this study. 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 D/ / Marc Crocker MD / Marc Crocker MD Interpreting Provider: Marc Crocker MD Chest CT 04/20/18 11:37 IMPRESSION: 1. Small left effusion, otherwise, no acute cardiopulmonary disease. 2. Heterogeneous attenuation of the liver, compatible with the patient's known malignancy. Partial visualization of a left renal mass. Please refer to dedicated CT abdomen and pelvis report for further details. 3. Moderate coronary artery atherosclerosis. D/ / 04/20/2018 13:58:25 Priscilla Kidd MD / [email or web address] Interpreting Provider: Priscilla Kidd MD Consult Discharge Plan - Plan Referrals: Bronson Harris DO [Primary Care Provider] -
[2018-04-20] MEDS: Cholecalciferol (D-3) 1,000 UNIT TABLET PO SCH (17:21)
[2018-04-20] MEDS ORDERED: diazePAM 2 MG TABLET PO PRN (18:04)
[2018-04-20] MEDS: Ondansetron ODT 4 MG TAB.RAPDIS PO PRN (18:43)
[2018-04-20] MEDS: Lactobacillus 1 EACH CAP.SPRINK PO SCH (19:45)
[2018-04-20] MEDS: diazePAM 2 MG TABLET PO SCH (19:45)
[2018-04-21] MEDS: Ringers Solution, Lactated 1,000 ML IVC SCH ×2 (00:41→14:44)
[2018-04-21] MEDS: *HR* Heparin 5,000 UNIT/ML VIAL SQ SCH ×3 (00:43→14:44)
[2018-04-21] MEDS: *HR* OxyCODONE Immed Rel 5 MG TABLET PO PRN ×3 (06:27→22:05)
[2018-04-21] MEDS: Insulin LISPRO 300 UNITS/3 ML VIAL SQ SCH ×4 (08:47→22:12)
[2018-04-21 08:56] LABS: Basophils % 0.1 %; Eosinophils # 0.2 K/mcL (0.0-0.6); Eosinophils % 0.8 %; Hemoglobin 9.5 g/dL (11.5-15.4); Immature Granulocytes % 1.2 % (0-4); Lymphocytes # 1.1 K/mcL (0.6-4.6); Lymphocytes % 4.9 %; Mean Corpuscular HGB Conc 33.9 g/dL (31.6-35.5); Mean Corpuscular Volume 108.9 fL (83.0-100.0); Monocytes # 1.9 K/mcL (0.0-1.3); Monocytes % 8.3 %; Platelet Count 139 K/mcL (140-400); Red Blood Count 2.57 M/mcL (3.82-4.97); Red Cell Distribution Width 14.6 % (11.5-14.5); Segmented Neutrophils % 84.7 %
[2018-04-21 09:07] LABS: BUN/Creatinine Ratio 23 (6-26); Blood Urea Nitrogen 37 mg/dL (8-23); Calcium 8.5 mg/dL (8.6-10.3); Carbon Dioxide 19 mEq/L (23-29); Chloride 101 mEq/L (98-107); Glucose 171 mg/dL (70-105); Osmolality,Calculated 281 (280-300); Potassium 3.7 mEq/L (3.5-5.1); Sodium 129 mEq/L (136-145); eGFR For Non-African Americans 32 (> 60)
[2018-04-21] MEDS: Aspirin Enteric Coated 81 MG Tablet PO SCH (09:19)
[2018-04-21] MEDS: Lactobacillus 1 EACH CAP.SPRINK PO SCH ×2 (09:19→22:05)
[2018-04-21] MEDS: Vancomycin Oral Soln 125 MG/2.5 ML UDC PO SCH ×4 (09:22→22:09)
[2018-04-21] MEDS: Cefepime HCl 1,000 MG in 0.9 % Sodium Chloride Mini Bag 100 ML IVPB SCH (09:23)
[2018-04-21] MEDS: diazePAM 2 MG TABLET PO SCH ×2 (09:24→22:07)
--- NOTE | 2018-04-21 09:26 | Infectious Disease Progress No ---
Date of Encounter: 04/21/18 Time of Encounter: 09:24 - Assessment and Plan (1) Severe sepsis Current Visit: Yes Status: Acute - Patient met SIRS criteria on admission; tachycardia, hypotension, elevated white count, elevated lactic acid - Likely source is C. difficile colitis - Patient has had significant diarrhea, recent history of C. difficile - CT scan of abdomen demonstrates findings suggestive of colitis - Discontinue IV Vancomycin - Currently on PO Vancomycin and Cefepime - Plan is to continue PO vanc for 14 days (2) C. difficile diarrhea Current Visit: Yes Status: Acute - Presented with multiple episodes of diarrhea since Tuesday - Patient has a recent history of infection with C. difficile in early March - PO Vancomycin and cefepime - Plan is to continue PO vanc for 14 days (3) Leukocytosis Current Visit: Yes Status: Acute Likely secondary to C. diff colitis - White count has decresed from 31.8 to 22.4 Qualifiers: Qualified Code(s): D72.829 - Elevated white blood cell count, unspecified (4) Ascites Current Visit: Yes Status: Chronic - Likely secondary to cholangiocarcinoma - Possible malignant ascites - Interventional radiology was consulted; therapeutic/diagnostic paracentesis was performed - SBP not suspected at this time Qualifiers: Qualified Code(s): R18.0 - Malignant ascites (5) Cholangiocarcinoma Current Visit: Yes Status: Acute - Patient sees oncology at [facility] as an outpatient - Was on chemotherapy; was held given her last CVA in February - Plan is to resume it sometime in April (6) Coronary artery disease Current Visit: Yes Status: Chronic - Management per primary team Qualifiers: Qualified Code(s): I25.10 - Atherosclerotic heart disease of [place] coronary artery without angina pectoris (7) Diabetes mellitus Current Visit: Yes Status: Chronic - Management per primary team Qualifiers: Qualified Code(s): E11.8 - Type 2 diabetes mellitus with unspecified complications (8) TERRENCE (acute kidney injury) Current Visit: Yes Status: Acute - Likely due to severe sepsis and third spacing - Subjective Interval history: Patient seen and exmained at bedside; abdominal pain improving. She reports that she still has diarrhea; She denies fever, chills, nausea, vomiting, or chest pain. No longer has rebound tenderness. No complaints at this time. Infect Dis PN-Objective Data - Labs CBC & Chem 7: 04/21/18 08:08 04/21/18 08:08 Labs: Laboratory Results - last 24 hr 04/20/18 04/20/18 04/20/18 05:33 11:37 16:45 WBC RBC Hgb Hct MCV MCH MCHC RDW Plt Count MPV Immature Gran % Seg Neutrophils % Lymphocytes % Monocytes % Eosinophils % Basophils % Neutrophils # Lymphocytes # Monocytes # Eosinophils # Basophils # Blood Smear Review See Below Sodium Potassium Chloride Carbon Dioxide BUN Creatinine Est GFR ( Amer) Est GFR (Non-Af Amer) BUN/Creatinine Ratio Glucose POC Glucose 182 H 185 H Calculated Osmolality Calcium 04/20/18 04/21/18 04/21/18 20:26 08:08 08:08 WBC 22.4 H RBC 2.57 L Hgb 9.5 L Hct 28.0 L MCV 108.9 H MCH 37.0 H MCHC 33.9 RDW 14.6 H Plt Count 139 L MPV 11.0 Immature Gran % 1.2 Seg Neutrophils % 84.7 Lymphocytes % 4.9 Monocytes % 8.3 Eosinophils % 0.8 Basophils % 0.1 Neutrophils # 19.0 H Lymphocytes # 1.1 Monocytes # 1.9 H Eosinophils # 0.2 Basophils # 0.0 Blood Smear Review Sodium 129 L Potassium 3.7 Chloride 101 Carbon Dioxide 19 L BUN 37 H Creatinine 1.58 H Est GFR ( Amer) 39 L Est GFR (Non-Af Amer) 32 L BUN/Creatinine Ratio 23 Glucose 171 H POC Glucose 175 H Calculated Osmolality 281 Calcium 8.5 L Cultures: Cultures 04/17/18 10:30 Body Fluid Culture - Final Peritoneal Fluid 04/20/18 13:12 Blood Culture - Preliminary Peripheral Venipuncture Culture is incubating and being continuously monitored for growth. Final report to follow. 04/20/18 13:12 Blood Culture - Preliminary Peripheral Venipuncture Culture is incubating and being continuously monitored for growth. Final report to follow. Serology 04/17/18 04/17/18 04/17/18 Range/Units 21:15 10:30 10:30 Peritoneal Appearance CLEAR (Clear) Peritoneal Volume 60.0 mL Peritoneal RBC < 0.002 (0.000 - 0.002) M/mcL Periton Tot Nuc Cells 182 (0-300) TNC/mcL Periton Neutrophils 68.0 % Periton Lymphocytes % 4.0 % Periton Monocytes % 13.0 % Periton Other Cells % 15.0 % Peritoneal Tot Protein < 3.0 (No Ref Range) g/dL Peritoneal Albumin < 1.5 (No Ref Range) g/dL Peritoneal LDH 169 (No Ref Range) Units/L Peritoneal Glucose 134 (No Ref Range) mg/dL Peritoneal Amylase < 10 (No Ref Range) Units/L Stl C. diff Tox B Gene Positive A (Negative) - Impressions Impressions Abdomen/Pelvis CT 04/20/18 11:37 IMPRESSION: 3rd spacing of fluid is again noted with moderate to large amount of ascites, and anasarca and left pleural effusion. Anasarca is increased in the interval. Left pleural effusion is noted. Stable mass in the left lobe of the liver. Omental and mesenteric fat stranding and omental lymph nodes. The pattern is suspicious for carcinomatosis. As differential, as previously noted, colitis of transverse colon is considered. Nonetheless, the current presentation appears more disseminated and progressive in the interval. 2.7 cm left renal mass is not well characterized on this study. 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 D/ / Marc Crocker MD / Marc Crocker MD Interpreting Provider: Marc Crocker MD Chest CT 04/20/18 11:37 IMPRESSION: 1. Small left effusion, otherwise, no acute cardiopulmonary disease. 2. Heterogeneous attenuation of the liver, compatible with the patient's known malignancy. Partial visualization of a left renal mass. Please refer to dedicated CT abdomen and pelvis report for further details. 3. Moderate coronary artery atherosclerosis. D/ / 04/20/2018 13:58:25 Priscilla Kidd MD / [email or web address] Interpreting Provider: Priscilla Kidd MD Exam - Constitutional Vitals: Temp Pulse Resp BP Pulse Ox 97.9 F 99 18 96/59 94 04/21/18 07:37 04/21/18 07:37 04/21/18 07:37 04/21/18 07:37 04/21/18 07:37 - Additional findings Additional findings: - Head Head exam: Present: atraumatic, normal inspection - Respiratory Respiratory exam: Present: CTAB. Absent: decreased breath sounds, rhonchi, wheezes - Cardiovascular Cardiovascular exam: Present: RRR, +S1, +S2. Absent: bradycardia, tachycardia - GI/Abdominal GI/Abdominal exam: Present: guarding, soft, tenderness - Psychiatric Psychiatric exam: Present: normal affect, normal mood - Skin Skin exam: Present: dry, intact Consult Discharge Plan - Plan Referrals: Bronson Harris, DO [Primary Care Provider] - (This patient is from [facility] no PCP appontment needed) - Attending Attestation I examined this patient and my medical decision-making was reviewed with the Resident Physician. I agree with the documented findings, disposition and treatment plan as described except to the extent set forth below.
--- NOTE | 2018-04-21 10:48 | Oncology Inp Progress Note ---
<Rena Angulo L - Last Filed: 04/21/18 17:00> Date of Encounter: 04/21/18 Time of Encounter: 10:00 (1) Cholangiocarcinoma Current Visit: Yes Status: Acute Assessment and plan: Ms. Singletary began palliative intent [place]/Ox for locally advanced cholangiocarcinoma in November of this year. She had initial response to treatment , however, most recently treatment has been on hold secondary to concern for oxaliplatin-induced liver injury in the setting of underlying liver disease or possible disease progression along later complicated by hospitalization for CVA and C. diff. She has now been re-admitted with severe sepsis, C. difficile colitis and ascites. Her leukocytosis continues to increase despite current treatment. Dr. Stevens reviewed most recent abdominal imaging and discussed with patient/ family last evening. CT abdomen/pelvis and patients presentation most likely consistent with progression of malignancy with radiographic evidence fitting peritoneal carcinamatosis. Paracentesis pathology is still pending. Given patients debility, progression and overall frailness, the hospice philosophy was introduced as patient is a very poor candidate for further chemotherapy. Palliative care have been consulted today to assist with this transition for patient and family. Verbal support provided. Code status to be addressed today with palliative team, appreciate assistance. Update-following meeting with palliative care this afternoon, patient and patients daughter appeared hesitant with transition to hospice. Following discussion again this evening with Dr. Stevens, patient daughter feels more comfortable with this transition to Hospice knowing that this is the best supportive step for her mother. Patient is resting comfortably at time of afternoon rounds but patient was also in agreement for hospice last evening. This has obviously been a difficult thing for patient and family to accept. Verbal support was offered. Patient may discharge with hospice at any time or as soon as services may be set up and patient/patients family feel comfortable with discharge. If Ms. Singletary is still here on Tuesday, will round again to assist in this transition along with the palliative team. Please refer to Dr. Stevens's attestation below for additional details. (2) Ascites Current Visit: Yes Status: Chronic Assessment and plan: As discussed above, radiographically consistent with progression of malignancy and peritoneal carcinamatosis. Pain control has been difficult, patient was quite uncomfortable at the time of last evenings assessment. Patient has roxicodone ordered for pain, may be adjusted following palliative consult today. Initially patient told us she has been receiving Bentyl however, upon review of medication list today I do not see this medication listed and I will order to assist with her abdominal cramps and pain. She also have valium scheduled and prn to help with her anxiety and abdominal spasms-will decrease this dose per families request after her dose last evening may have caused some confusion Qualifiers: Ascites type: malignant Qualified Code(s): R18.0 - Malignant ascites Oncology: Subj Interval history: Ms. Singletary appears much more comfortable upon assessment this morning. Patients daughter is at bedside. She states that patient slept well but became slightly agitated and paranoid throughout the night. She felt as though this may have been related to the valium she was given but that nay have been multifactorial given patients sepsis and infectious picture. She did not receive her valium this morning and her pain medication has been controlling her pain to a manageable level. Patient is comfortably resting with eyes closed. We again discussed Dr. Stevens's recommendations following their conversation yesterday and transition to hospice which will assist the patient and family with the support needed during this time. Palliative care team is planned to meet with patient/family around lunch today. Verbal support given to patient and family. - Constitutional Vitals: Vital Signs Temp Pulse Resp BP Pulse Ox 04/21/18 07:37 97.9 F 99 18 96/59 94 04/21/18 07:19 97 04/21/18 03:58 98.3 F 84 17 109/74 97 04/20/18 23:14 99.4 F 102 21 126/55 96 04/20/18 19:22 97.6 F 95 20 114/60 98 04/20/18 16:05 98.9 F 98 20 109/58 98 04/20/18 14:30 97.4 F L 81 20 115/59 98 04/20/18 12:25 97.6 F 96 19 122/67 94 Intake and Output 04/20/18 04/21/18 04/21/18 23:59 07:59 15:59 Intake Total 1000 / 1000 250 / 250 120 / 120 Output Total 100 / 100 50 / 50 Balance 900 / 900 200 / 200 120 / 120 Intake: IV Fluids 1000 / 1000 250 / 250 Lactated Ringers 1,000 ML @ 75 1000 / 1000 mls/hr IVC .[id number] [facility] Rx#: [id number] Vancocin 1,000 MG In 0.9 % 250 / 250 Sodium Chloride 250 ML @ 166. 667 mls/hr IVPB Q24H [facility] Rx#: [id number] Oral 120 / 120 Output: Urine 100 / 100 50 / 50 Other: Meal Breakfast Percent of Meal Consumed 0% Stool Size Small Moderate Stool Consistency loose loose soft liquid soft Stool Color Brown Brown # Urine Diapers 1 # Bowel Movements 1 4 # Bowel Movement Diapers 1 Weight 99.2 kg Blood Glucose* 175 152 Patient Weight 04/21/18 23:59 Weight 99.2 kg General appearance: cooperative, no acute distress, no febrile Exam: Ms. Singletary appears comfortable and resting at time of assessment - Head Head exam: Present: atraumatic - ENT ENT exam: Present: mucous membranes moist - Respiratory Respiratory exam: Present: decreased breath sounds, CTAB. Absent: respiratory distress - Cardiovascular Cardiovascular exam: Present: RRR, +S1, +S2 - GI/Abdominal GI/Abdominal exam: Present: normal bowel sounds, soft, tenderness - Extremities Exam Extremities exam: Present: pedal edema. Absent: calf tenderness - Neurological Exam Neurological exam: Present: alert, oriented X3, no focal deficits, strengths equal and symetr throughout - Psychiatric Psychiatric exam: Present: normal affect, normal mood - Skin Skin exam: Present: dry, intact, normal color, warm Oncology: Obj Data - Labs CBC & Chem 7: 04/21/18 08:08 04/21/18 08:08 - Impressions Impressions Abdomen/Pelvis CT 04/20/18 11:37 IMPRESSION: 3rd spacing of fluid is again noted with moderate to large amount of ascites, and anasarca and left pleural effusion. Anasarca is increased in the interval. Left pleural effusion is noted. Stable mass in the left lobe of the liver. Omental and mesenteric fat stranding and omental lymph nodes. The pattern is suspicious for carcinomatosis. As differential, as previously noted, colitis of transverse colon is considered. Nonetheless, the current presentation appears more disseminated and progressive in the interval. 2.7 cm left renal mass is not well characterized on this study. 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 D/ / Marc Crocker MD / Marc Crocker MD Interpreting Provider: Marc Crocker MD Chest CT 04/20/18 11:37 IMPRESSION: 1. Small left effusion, otherwise, no acute cardiopulmonary disease. 2. Heterogeneous attenuation of the liver, compatible with the patient's known malignancy. Partial visualization of a left renal mass. Please refer to dedicated CT abdomen and pelvis report for further details. 3. Moderate coronary artery atherosclerosis. D/ / 04/20/2018 13:58:25 Priscilla Kidd MD / bcarter Interpreting Provider: Priscilla Kidd MD - ABG Interpretation ABG results: PT/INR, D-dimer PT 15.6 Seconds (9.4-12.1) H 04/17/18 06:19 Consult Discharge Plan - Plan Referrals: Bronson Harris, DO [Primary Care Provider] - (This patient is from [facility] no PCP appontment needed) <Marck Stevens - Last Filed: 04/21/18 19:27> Date of Encounter: 04/21/18 - Constitutional Vitals: Vital Signs Temp Pulse Resp BP Pulse Ox 04/21/18 15:26 98.8 F 70 18 99/55 96 04/21/18 11:23 98.0 F 86 18 109/64 95 04/21/18 07:37 97.9 F 99 18 96/59 94 04/21/18 07:19 97 04/21/18 03:58 98.3 F 84 17 109/74 97 04/20/18 23:14 99.4 F 102 21 126/55 96 Intake and Output 04/21/18 04/21/18 04/22/18 08:59 16:59 00:59 Intake Total 250 / 250 1720 / 1720 Output Total 50 / 50 Balance 200 / 200 1720 / 1720 Intake: IV Fluids 250 / 250 1000 / 1000 Lactated Ringers 1,000 ML @ 75 1000 / 1000 mls/hr IVC .[id number] [facility] Rx#: [id number] Vancocin 1,000 MG In 0.9 % 250 / 250 Sodium Chloride 250 ML @ 166. 667 mls/hr IVPB Q24H [facility] Rx#: [id number] Oral 720 / 720 Output: Urine 50 / 50 Other: Meal Lunch Percent of Meal Consumed 5% Stool Size Moderate Small Stool Consistency loose loose liquid soft Stool Color Brown Brown # Urine Diapers 1 # Bowel Movements 4 1 Weight 99.2 kg Blood Glucose* 152 146 Patient Weight 04/22/18 00:59 Weight 99.2 kg Oncology: Obj Data - Labs CBC & Chem 7: 04/21/18 08:08 04/21/18 08:08 Labs: Laboratory Results - last 24 hr 04/20/18 04/20/18 04/20/18 05:33 16:45 20:26 WBC RBC Hgb Hct MCV MCH MCHC RDW Plt Count MPV Immature Gran % Seg Neutrophils % Lymphocytes % Monocytes % Eosinophils % Basophils % Neutrophils # Lymphocytes # Monocytes # Eosinophils # Basophils # Blood Smear Review See Below Sodium Potassium Chloride Carbon Dioxide BUN Creatinine Est GFR ( Amer) Est GFR (Non-Af Amer) BUN/Creatinine Ratio Glucose POC Glucose 185 H 175 H Calculated Osmolality Uric Acid Calcium Creatine Kinase 04/21/18 04/21/18 04/21/18 07:45 08:08 08:08 WBC 22.4 H RBC 2.57 L Hgb 9.5 L Hct 28.0 L MCV 108.9 H MCH 37.0 H MCHC 33.9 RDW 14.6 H Plt Count 139 L MPV 11.0 Immature Gran % 1.2 Seg Neutrophils % 84.7 Lymphocytes % 4.9 Monocytes % 8.3 Eosinophils % 0.8 Basophils % 0.1 Neutrophils # 19.0 H Lymphocytes # 1.1 Monocytes # 1.9 H Eosinophils # 0.2 Basophils # 0.0 Blood Smear Review Sodium 129 L Potassium 3.7 Chloride 101 Carbon Dioxide 19 L BUN 37 H Creatinine 1.58 H Est GFR ( Amer) 39 L Est GFR (Non-Af Amer) 32 L BUN/Creatinine Ratio 23 Glucose 171 H POC Glucose 152 H Calculated Osmolality 281 Uric Acid 11.9 H Calcium 8.5 L Creatine Kinase < 10 L 04/21/18 04/21/18 11:23 16:17 WBC RBC Hgb Hct MCV MCH MCHC RDW Plt Count MPV Immature Gran % Seg Neutrophils % Lymphocytes % Monocytes % Eosinophils % Basophils % Neutrophils # Lymphocytes # Monocytes # Eosinophils # Basophils # Blood Smear Review Sodium Potassium Chloride Carbon Dioxide BUN Creatinine Est GFR ( Amer) Est GFR (Non-Af Amer) BUN/Creatinine Ratio Glucose POC Glucose 191 H 146 H Calculated Osmolality Uric Acid Calcium Creatine Kinase - ABG Interpretation ABG results: PT/INR, D-dimer PT 15.6 Seconds (9.4-12.1) H 04/17/18 06:19 - Attending Attestation I examined this patient and my medical decision-making was reviewed with the Advanced Practice Nurse. I agree with the documented findings, disposition and treatment plan as described except to the extent set forth below. Ms. Singletary is resting comfortably today after a dose of ativan and oxycodone. Met with daughter and discussed current clinical issues. She is no longer a treatment candidate, and she is unlikely to benefit from therapy. Recommended continue titration of anxiolytics/antispasmotics and pain medication. Daughter agrees to proceed with hospice at home on Tuesday; will need to d/w mother further as she was sleeping today.
[2018-04-21] MEDS: Acetaminophen 325 MG TABLET PO PRN (11:39)
--- NOTE | 2018-04-21 13:35 | Internal Med Progress Note ---
Date of Encounter: 04/21/18 Time of Encounter: 10:45 - Assessment and plan (1) C. difficile diarrhea Current Visit: Yes Status: Acute Assessment and plan: Continues to have diarrhea although frequency appears to be improving. WBC count is also improving. 22.[address] scan of the abdomen and pelvis showed signs of increasing peritoneal carcinomatosis. Colitis also present. No signs of perforation or any other acute process. We will continue vancomycin. Follow infectious disease recommendations. Remains at high risk for complications (2) TERRENCE (acute kidney injury) Current Visit: Yes Status: Acute Assessment and plan: Worsened today. Consulted nephrology to lior. Concern for hepatorenal syndrome. (3) Cholangiocarcinoma Current Visit: Yes Status: Acute Assessment and plan: With peritoneal carcinomatosis. Oncology input appreciated. Palliative care has been consulted. Will follow recommendations. (4) Diabetes mellitus Current Visit: Yes Status: Chronic Assessment and plan: Continue current sliding scale coverage. Continue diabetic diet and monitor her blood sugars Qualifiers: Diabetes mellitus type: type 2 Diabetes mellitus longterm insulin use: without longterm use Diabetes mellitus complication status: with unspecified complications Qualified Code(s): E11.8 - Type 2 diabetes mellitus with unspecified complications (5) Coronary artery disease Current Visit: Yes Status: Chronic Assessment and plan: Aspirin, Plavix and metoprolol Qualifiers: Coronary Disease-Associated Artery/Lesion type: [place] artery [place] vs. transplanted heart: [place] heart Associated angina: without angina Qualified Code(s): I25.10 - Atherosclerotic heart disease of [place] coronary artery without angina pectoris (6) Ascites Current Visit: Yes Status: Chronic Assessment and plan: Patient continues to have ascites. Family brought up the subject of having a permanent catheter to do paracentesis as needed At home. Will discuss this option if it is feasible for the family in case they decided to go with hospice. Qualifiers: Ascites type: malignant Qualified Code(s): R18.0 - Malignant ascites (7) Sepsis Current Visit: Yes Status: Suspected Assessment and plan: Due to C. difficile colitis. Infectious disease following. No other source of infection has been identified so far. Patient is on vancomycin intravenously in addition to cefepime. Follow infectious disease recommendations. So far cultures have been negative. Qualifiers: Sepsis type: sepsis due to unspecified organism Qualified Code(s): A41.9 - Sepsis, unspecified organism (8) History of stroke Current Visit: Yes Status: Chronic (9) DVT prophylaxis Current Visit: Yes Status: Acute Assessment and plan: On subcutaneous heparin (10) Anemia Current Visit: Yes Status: Chronic Assessment and plan: Hemoglobin levels are stable Qualifiers: Anemia type: other cause Other causes of anemia: chronic disease, neoplastic Qualified Code(s): D63.0 - Anemia in neoplastic disease - Time Spent With Patient Total time spent is greater than 50% in coordination of care (as documented) at patient's floor/unit and/or counseling patient: - Subjective Interval history: Patient is somnolent when I arrived into her room but woke up during my interview and answers questions appropriately. Denies any new complaints at this time. Pain in her abdomen is improving. She is also less anxious today. She continues to have intermittent diarrhea along with formed stools. - Constitutional Vitals: Temp Pulse Resp BP Pulse Ox 98.0 F 86 18 109/64 95 04/21/18 11:23 04/21/18 11:23 04/21/18 11:23 04/21/18 11:23 04/21/18 11:23 General appearance: Present: cooperative, A&O X 3, answers questions appropriately Exam: Somnolent but easily awakes - Respiratory Respiratory exam: Present: CTAB. Absent: accessory muscle use, rales, rhonchi, wheezes - Cardiovascular Cardiovascular exam: Present: RRR, +S1, +S2. Absent: diastolic murmur, gallop, rubs, systolic murmur - GI/Abdominal GI/Abdominal exam: Present: distended, normal bowel sounds, soft, no peritoneal signs. Absent: tenderness Additional comments: Ascites present - Extremities Exam Extremities exam: Present: warm, radial pulses palpable and symmetrical. Absent : calf tenderness, cyanotic, pedal edema - Neurological Exam Neurological exam: Present: CN II-XII intact, oriented X3, no focal deficits. Absent: facial droop, speech deficit - Skin Skin exam: Present: dry, intact Internal Medicine: Result - Labs CBC & Chem 7: 04/21/18 08:08 04/21/18 08:08 Labs: Short CBC 04/21/18 Range/Units 08:08 WBC 22.4 H (4.3-11.1) K/mcL Hgb 9.5 L (11.5-15.4) g/dL Hct 28.0 L (35.3-44.9) % Plt Count 139 L (140-400) K/mcL Neutrophils # 19.0 H (1.6-8.9) K/mcL BMP 04/21/18 08:08 Sodium 129 L Potassium 3.7 Chloride 101 Carbon Dioxide 19 L BUN 37 H Creatinine 1.58 H Glucose 171 H Calcium 8.5 L - ABG Interpretation ABG results: PT/INR, D-dimer PT 15.6 Seconds (9.4-12.1) H 04/17/18 06:19 - Impressions Impressions Chest CT 04/20/18 11:37 IMPRESSION: 1. Small left effusion, otherwise, no acute cardiopulmonary disease. 2. Heterogeneous attenuation of the liver, compatible with the patient's known malignancy. Partial visualization of a left renal mass. Please refer to dedicated CT abdomen and pelvis report for further details. 3. Moderate coronary artery atherosclerosis. D/ / 04/20/2018 13:58:25 Priscilla Kidd MD / svetlana Interpreting Provider: Priscilla Kidd MD Consult Discharge Plan - Plan Referrals: Bronson Harris, [Primary Care Provider] -
[2018-04-21] MEDS: diazePAM 2 MG TABLET PO PRN (14:49)
--- NOTE | 2018-04-21 14:57 | Palliative - Consult Note ---
Date of Encounter: 04/21/18 Time of Encounter: 14:00 - Assessment and Plan (1) Dyspnea Current Visit: No Status: Acute Assessment and plan: Patient has increased shortness of breath with movement; however, re-stabilizes once at rest. Qualifiers: Dyspnea type: shortness of breath Qualified Code(s): R06.02 - Shortness of breath; R06.00 - Dyspnea, unspecified; R06.01 - Orthopnea (2) Abdominal pain Current Visit: Yes Status: Acute Assessment and plan: Patient reports abdominal pain, unable to describe pain on pain scale or rate on pain scale. Patient takes Oxycodone for pain at home, has been taking same dosing here. Patient's daughter reports pain helps, but does make her somewhat sleepy. Discussed potential of reducing medication and increasing pain felt; family refused at this time. Qualifiers: Abdominal location: generalized Qualified Code(s): R10.84 - Generalized abdominal pain (3) Severe sepsis Current Visit: Yes Status: Acute Assessment and plan: Patient afebrile during assessment. WBC decreased to 22.4 and Neutrophils decreased to 19.0. Infectious disease following and medically managed by primary team. (4) Diarrhea Current Visit: Yes Status: Acute Assessment and plan: Patient and patient's daughter reports has improved drastically. 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 (7) Leukocytosis Current Visit: Yes Status: Acute Qualifiers: Leukocytosis type: unspecified Qualified Code(s): D72.829 - Elevated white blood cell count, unspecified (8) Goals of care, counseling/discussion Current Visit: Yes Status: Acute Assessment and plan: Conducted family meeting with patient and patient's daughter. Discussed goals of care including discharge planning and code status. PT/OT recommend ECF/SNF at discharge; patient has been refusing PT/OT. Concerned over whether patient would be able to participate in PT/OT at ECF. Discussed goals with daughter. Discussed possibility of home with hospice. Patient's family has not been prepared to care for patient 24 hours per day; concern presented if patient's son will have time. Patient became anxious at this time, reported not feeling well and decided to return to bed. Discussed CODE STATUS with patient and patient's daughter. Patient's daughter that "noone will be making any types of decisions regarding her care until we talk things out with my brother." Acknowledged understanding. Educated without change if something would happen, patient will have CPR/Intubation if needed; verbalized understanding. Notified Rena Angulo CNP, of discussion of goals of care and CODE STATUS. Rena Angulo CNP and Dr. Stevens will be rounding later this evening. Palliative care will follow up on Tuesday to evaluate for updated Goals of care and CODE STATUS; daughter in agreement. (9) Anxiety Current Visit: Yes Status: Acute Assessment and plan: Patient had increased anxiety during goals of care discussion. Patient's ordered Valium updated today. Continue Valium at current dosing. Palliative-CN HPI - Data of Consult Patient: new to practice Consult date: 04/21/18 Requesting Physician: Mahamed Fernández MD Primary Care Provider: Bronson Harris DO - Consult Narrative Palliative Care/Comfort Measures: Palliative care Reason for consult: Transition to hospice; code status discussion History of present illness: Ms. Singletary is a 77 year old female Arrived to [facility] on 04/17/18 for C. difficile diarrhea and TERRENCE. Initial EKG showing Sinus rhythm with frequent PACs and poor R wave progression. CT/CT abdomen of pelvis without contrast showing: increasing mesenteric stranding along the transverse colon with some colonic wall thickening suspicious for colitis; Anasarca and ascites persist, slightly increased; Left renal mass is grossly stable; Similar central intrahepatic biliary dilatation and hepatic segment 4-B mass; Cholelithiasis; mesenteric nodule in the lower abdomen superficially could represent focal inflammatory change related to colitis but metastatic deposit is not entirely excluded. Chest x-ray showing: Stable exam without evidence for acute cardiopulmonary process. Paracentesis performed showing successful ultrasound guided paracentesis, with total of 9.5L straw colored fluid removed. Patient admitted and medically managed for: Sepsis, C. difficile diarrhea, Ascites, Cholangiocarcinoma, Coronary Artery disease, Diabetes Mellitus, and History of stroke. Infectious disease consulted and managing: Severe Sepsis, Diarrhea, Colitis, Spontaneous bacterial peritonitis, TERRENCE, and Ascites; recommend Vancomycin, Lab work, blood cultures, and Cefotaxime. 04/20/[address] of abdomen of pelvis without contrast showinrd spacing of fluid noted with moderate to large amount of ascites, and anasarca and left pleural effusion; Stable mass in the left lobe of the liver; Omental and mesenteric fat stranding and omental lymph nodes with a pattern suspicious for carcinomatosis; colitis of transverse colon is considered; 2.7 cm left renal mass; suspected spontaneous left splenorenal shunt; and widening of the portal vein, cavernous transformation. Repeat CT of chest without contrast showing: Small left effusion , otherwise, no acute cardiopulmonary disease; Heterogeneous attenuation of the liver, compatible with the patient's known malignancy; Partial visualization of a left renal mass; and Moderate coronary artery atherosclerosis. Oncology consult for Cholangiocarcinoma; current patient of Dr. Stevens and recommend hospice/palliative care as patient not a treatment candidate. Palliative care consulted for transition to hospice and discussion of code status. Patient sitting up in bedside chair upon arrival for assessment. Patients daughter (Mara Dillon, ) present at bedside. Patient is alert and oriented to person and place, somewhat disoriented to time. Complaints of abdominal pain and chronic headache; however, unable to describe pain. Family reports that patients been in chronic pain for a while. Patient reports some anxiety; however, reports she is quite tired at this time. Patient denies nausea , vomiting, or constipation. Reports had diarrhea when came in. Patient lived alone prior to admission with family spending the overnights with her since September; family reports concern over her returning home alone as family had not planned for staying with her 18/04. Patient currently receiving Roxicodone 10 mg PO TID, has taken 2 doses in the last 24 hours. Patient currently receiving Valium and Vistaril PRN for anxiety; has received 2 doses of Valium in the last 24 and no doses of Vistaril in the last 24 hours. Patient's daughter presented concern over Valium last evening making patient too sedated; noted new order this am. CC: Mahamed Fernández MD Past Med Surg Social Fam HX - Past Medical History Medical history: cancer, coronary artery disease, diabetes, hyperlipidemia, hypertension, myocardial infarction Additional medical history: renal and liver cancer. bile duct cancer Psychiatric history: no psych history - Past Surgical History Surgical History: cataract, knee replacement (B/L TKR) Additional surgical history: CARPEL TUNNEL TRIGGER FINGER RELEASE. 1 cardiac stent. bilateral knees. biopsy of kidneys, liver, lymph nodes - Social History Smoking Status: Former smoker Smokeless Tobacco Status: No Alcohol use: none Drug use: none - Family History Father Hx Family Cancer: Yes (bone cancer) Brother Hx Family Endocrine Disorder: Yes (DM) Medications and Allergies Aspirin [Lo-Dose Aspirin EC] 81 mg PO DAILY 09/23/17 [History] Cholecalciferol (D-3) [Vitamin D] 1,000 unit PO QPM 09/23/17 [History] Multivitamin [Multivitamins] 1 each PO QPM 09/23/17 [History] Clopidogrel [Plavix] 75 mg PO DAILY #30 tablet 09/24/17 [Rx] Furosemide [Lasix] 20 mg PO DAILY 11/15/17 [History] Pantoprazole Sodium [Protonix] 40 mg PO DAILY 11/15/17 [History] Cyanocobalamin (Vitamin B-12) [Vitamin B-12] 100 mcg PO QPM 11/21/17 [History] Lidocaine/Prilocaine [Emla] 1 appl TP AD 11/21/17 [History] Nitroglycerin [Nitrostat] 0.4 mg SL Q5M PRN 11/21/17 [History] glipiZIDE [Glucotrol] 5 mg PO 0800 11/21/17 [History] Metoprolol [Lopressor] 12.5 mg PO BID 12/12/17 [History] Potassium Chloride [Klor-Con 10] 10 meq PO DAILY 12/12/17 [History] Magic Mouthwash [Magic Mouthwash BLM] 10 ml PO QID PRN #240 ml 12/29/17 [Rx] Acetaminophen [Tylenol] 1,000 mg PO Q6HR PRN 01/09/18 [History] Guaifenesin [Mucinex] 600 mg PO Q12HR PRN 02/06/18 [History] Dicyclomine [Bentyl] 20 mg PO BID 03/06/18 [History] Lactobac Cmb #3/Fos/Pantethine [Probiotic & Acidophilus Cap] 1 each PO BID #60 capsule 03/09/18 [Rx] Lactobacillus Rhamnosus R0011 [Probiotic Digestive Care] 1 each PO BID #60 capsule 04/04/18 [Rx] Ondansetron HCl [Zofran] 4 mg PO Q6H PRN #30 tab 04/04/18 [Rx] OxyCODONE Immed Rel [Roxicodone 10 MG] 10 mg PO TID PRN 04/17/18 [History] 3 Allergy/AdvReac Type Severity Reaction Status Date / Time shellfish derived AdvReac Swelling Verified 04/04/18 09:53 of the Eye - Constitutional Constitutional ROS PAL: decreased appetite (Has improved since arrival.) - Cardiovascular Cardiovascular ROS: no chest pain - Respiratory Respiratory: dyspnea on exertion - Gastrointestinal Gastrointestinal: abdominal pain, diarrhea, fecal incontinence - Psychiatric Psychiatric general PM: anxiety Palliative Care-Exam - Constitutional Vitals: Temp Pulse Resp BP Pulse Ox 98.0 F 86 18 109/64 95 04/21/18 11:23 04/21/18 11:23 04/21/18 11:23 04/21/18 11:23 04/21/18 11:23 General appearance: Present: cooperative, no acute distress. Absent: febrile - Head Head Exam: Present: atraumatic, normal inspection - Eye Eye exam: Present: EOMI, normal appearance, conjuntiva pink Pupils: Present: normal accommodation, PERRL - ENT ENT exam: Present: mucous membranes dry, normal external ear exam - Expanded ENT Exam Mouth Exam: Absent: drooling - Neck Neck exam: Present: full ROM, normal inspection - Respiratory Respiratory exam: Present: accessory muscle use, wheezes. Absent: respiratory distress - Cardiovascular Cardiovascular exam: Present: RRR, +S1, +S2 - Expanded Cardiovascular Exam Peripheral pulses: 1+: Radial (L), Radial (R), Posterior Tibialis (L), Posterior Tibialis (R), Dorsalis Pedis (L) PM, Dorsalis Pedis (R) PM - GI/Abdominal Exam GI/Abdominal exam: Present: distended, hyperactive bowel sounds, soft, tenderness - Rectal Rectal exam: Present: deferred (Brief. Incontinent.) - Extremities Exam Extremities exam: Present: normal inspection. Absent: full ROM (limited movement to BLE.) - Neurological Exam Neurological exam: Present: alert, altered. Absent: oriented X3 - Expanded Neurological Exam Neurological exam expanded: Present: inattentive Patient oriented to: Present: person, place. Absent: time Speech: Present: slurred Coma Scale Eye Opening: To Voice Coma Scale Motor Response: Obeys Commands Coma Scale Verbal Response: Confused Coma Scale Total: 13 - Psychiatric Psychiatric exam: Present: anxious, normal affect, normal mood - Skin Skin exam: Present: dry, intact Internal Medicine - CN: Reslt - Labs CBC & Chem 7: 04/21/18 08:08 04/21/18 08:08 Labs: Short CBC 04/21/18 Range/Units 08:08 WBC 22.4 H (4.3-11.1) K/mcL Hgb 9.5 L (11.5-15.4) g/dL Hct 28.0 L (35.3-44.9) % Plt Count 139 L (140-400) K/mcL Neutrophils # 19.0 H (1.6-8.9) K/mcL BMP 04/21/18 08:08 Sodium 129 L Potassium 3.7 Chloride 101 Carbon Dioxide 19 L BUN 37 H Creatinine 1.58 H Glucose 171 H Calcium 8.5 L - ABG Interpretation ABG results: PT/INR, D-dimer PT 15.6 Seconds (9.4-12.1) H 04/17/18 06:19 - Impressions Impressions Chest CT 04/20/18 11:37 IMPRESSION: 1. Small left effusion, otherwise, no acute cardiopulmonary disease. 2. Heterogeneous attenuation of the liver, compatible with the patient's known malignancy. Partial visualization of a left renal mass. Please refer to dedicated CT abdomen and pelvis report for further details. 3. Moderate coronary artery atherosclerosis. D/ / 04/20/2018 13:58:25 Priscilla Kidd MD / svetlana Interpreting Provider: Priscilla Kidd MD Consult Discharge Plan - Plan Referrals: Bronson Harris, DO [Primary Care Provider] - (This patient is from [facility] no PCP appontment needed) Palliative Quality Palliative Quality: Screen for Code Status: Yes, Screen for Goals of Care: Yes, Screen for Pain: Yes, If Pain Regimen Started, Initiate Bowel Regimen: No ( Diarrhea), Screen for Nausea/Vomitting: Yes
[2018-04-21] MEDS: Cholecalciferol (D-3) 1,000 UNIT TABLET PO SCH (17:08)
--- NOTE | 2018-04-21 17:12 | Nephrology Consult Note ---
Date of Encounter: 04/21/18 Time of Encounter: 12:00 Assessment and Plan (1) TERRENCE (acute kidney injury) Current Visit: Yes Status: Acute Elevated SCr in the setting of sepsis with c.diff, poor po intake and choleagiocarcinoma with decreased UOP rule out pre vs post renal state Will check bladder scan now and US of kidney pending Continue IVF with lactate ringer for now Will check urine studies Will check uric acid and CPK levels Will discuss goals of care should renal fxn continue to worsen, palliative care on board but pt and family yet to make definitive goals of care plan (2) Cholangiocarcinoma Current Visit: Yes Status: Acute Per oncology (3) Severe sepsis Current Visit: Yes Status: Acute per primary team History of Present Illness - Reason for Consult Consult date: 04/21/18 Acute Kidney Injury Requesting physician: Mahamed Fernández - History of Present Illness 77 y o female with an extensive history significant for recent CVA, GI bleed, 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 Stay complicated but diagnosis of recurrent c.diff with sepsis with ID involved. Stay also complicated by developing ascites requiring large volume paracentesis. Renal consulted for elevated SCr currently 1.58, GFR 32. Pt initially presented with SCr of 1.96, GFR 25 which responded to IVF and improved to 1.32, GFR 39 before worsening again. Pt still reports some intermittent diarrhea but better overall. Po intake has been poor. Vanco iv given yesterday. some SOB has been noted. CT abd/plevis showed possible carcinomatosis with stable mass in the left lobe of the liver, ascites and 2.7cm left renal mass. Ct chest showed small pleural effusion on the left. Per records, UOP has beend ropping off the last 3 days from 650cc to 350cc to 100cc in preceeding 24hr period. Past Med Surg Social Fam HX - Past Medical History Medical history: cancer, coronary artery disease, diabetes, hyperlipidemia, hypertension, myocardial infarction Additional medical history: renal and liver cancer. bile duct cancer Psychiatric history: no psych history - Past Surgical History Surgical History: cataract, knee replacement (B/L TKR) Additional surgical history: CARPEL TUNNEL TRIGGER FINGER RELEASE. 1 cardiac stent. bilateral knees. biopsy of kidneys, liver, lymph nodes - Social History Smoking Status: Former smoker Smokeless Tobacco Status: No Alcohol use: none Drug use: none - Family History Father Hx Family Cancer: Yes (bone cancer) Brother Hx Family Endocrine Disorder: Yes (DM) Medications and Allergies Aspirin [Lo-Dose Aspirin EC] 81 mg PO DAILY 09/23/17 [History] Cholecalciferol (D-3) [Vitamin D] 1,000 unit PO QPM 09/23/17 [History] Multivitamin [Multivitamins] 1 each PO QPM 09/23/17 [History] Clopidogrel [Plavix] 75 mg PO DAILY #30 tablet 09/24/17 [Rx] Furosemide [Lasix] 20 mg PO DAILY 11/15/17 [History] Pantoprazole Sodium [Protonix] 40 mg PO DAILY 11/15/17 [History] Cyanocobalamin (Vitamin B-12) [Vitamin B-12] 100 mcg PO QPM 11/21/17 [History] Lidocaine/Prilocaine [Emla] 1 appl TP AD 11/21/17 [History] Nitroglycerin [Nitrostat] 0.4 mg SL Q5M PRN 11/21/17 [History] glipiZIDE [Glucotrol] 5 mg PO 0800 11/21/17 [History] Metoprolol [Lopressor] 12.5 mg PO BID 12/12/17 [History] Potassium Chloride [Klor-Con 10] 10 meq PO DAILY 12/12/17 [History] Magic Mouthwash [Magic Mouthwash BLM] 10 ml PO QID PRN #240 ml 12/29/17 [Rx] Acetaminophen [Tylenol] 1,000 mg PO Q6HR PRN 01/09/18 [History] Guaifenesin [Mucinex] 600 mg PO Q12HR PRN 02/06/18 [History] Dicyclomine [Bentyl] 20 mg PO BID 03/06/18 [History] Lactobac Cmb #3/Fos/Pantethine [Probiotic & Acidophilus Cap] 1 each PO BID #60 capsule 03/09/18 [Rx] Lactobacillus Rhamnosus R0011 [Probiotic Digestive Care] 1 each PO BID #60 capsule 04/04/18 [Rx] Ondansetron HCl [Zofran] 4 mg PO Q6H PRN #30 tab 04/04/18 [Rx] OxyCODONE Immed Rel [Roxicodone 10 MG] 10 mg PO TID PRN 04/17/18 [History] 3 Allergy/AdvReac Type Severity Reaction Status Date / Time shellfish derived AdvReac Swelling Verified 04/04/18 09:53 of the Eye Review of Systems All Systems: reviewed and no additional remarkable complaints except as stated ( 10 systems reviewed and noted in HPI) Exam - Vital Signs Vital signs: Initial Vital Signs Temp Pulse Resp BP Pulse Ox 98.3 F 112 28 99/60 96 04/17/18 06:03 04/17/18 06:03 04/17/18 06:03 04/17/18 06:03 04/17/18 06:03 Vital Signs - Last 8 Hours Temp Pulse Resp BP Pulse Ox 04/21/18 15:26 98.8 F 70 18 99/55 96 04/21/18 11:23 98.0 F 86 18 109/64 95 Intake and Output 04/21/18 04/21/18 04/21/18 07:59 15:59 23:59 Intake Total 250 / 250 1720 / 1720 Output Total 50 / 50 Balance 200 / 200 1720 / 1720 Intake: IV Fluids 250 / 250 1000 / 1000 Lactated Ringers 1,000 ML @ 75 1000 / 1000 mls/hr IVC .[id number] [facility] Rx#: [id number] Vancocin 1,000 MG In 0.9 % 250 / 250 Sodium Chloride 250 ML @ 166. 667 mls/hr IVPB Q24H [facility] Rx#: [id number] Oral 720 / 720 Output: Urine 50 / 50 Other: Meal Lunch Percent of Meal Consumed 5% Stool Size Moderate Small Stool Consistency loose loose liquid soft Stool Color Brown Brown # Urine Diapers 1 # Bowel Movements 4 1 Weight 99.2 kg Blood Glucose* 152 191 146 Patient Weight 04/21/18 23:59 Weight 99.2 kg - General Appearance General appearance: chronically ill, fatigue, frail EENT: ATNC, mucous membranes dry Neck: no JVD, supple Respiratory: clear (ant bilat) Cardiology: edema, normal S1, normal S2 Gastrointestinal: tenderness (diffuse), no guarding Integumentary: warm and dry Neurologic: no focal deficit Musculoskeletal: no deformities Psychiatric: mood/affect appropriate Results - Lab Results 04/23/18 03:42 04/23/18 03:42 Most recent lab results Calcium 8.5 mg/dL (8.6-10.3) L 04/21/18 08:08 Phosphorus 3.5 mg/dL (2.7-4.5) 04/17/18 06:19 Magnesium 1.8 mg/dL (1.6-2.6) 04/17/18 06:19 Consult Discharge Plan - Plan Referrals: Bronson Harris, DO [Primary Care Provider] - (This patient is from [facility] no PCP appontment needed)
[2018-04-21 17:38] LABS: Creatine Kinase < 10 Units/L (30-223); Uric Acid 11.9 mg/dL (2.3-7.6)
[2018-04-22] MEDS: *HR* Heparin 5,000 UNIT/ML VIAL SQ SCH ×3 (01:09→15:54)
[2018-04-22] MEDS: *HR* OxyCODONE Immed Rel 5 MG TABLET PO PRN ×3 (05:02→20:46)
[2018-04-22 07:14] LABS: Basophils % 0.1 %; Eosinophils # 0.2 K/mcL (0.0-0.6); Eosinophils % 1.1 %; Hematocrit 25.6 % (35.3-44.9); Hemoglobin 8.3 g/dL (11.5-15.4); Immature Granulocytes % 1.3 % (0-4); Lymphocytes # 1.3 K/mcL (0.6-4.6); Mean Corpuscular HGB Conc 32.4 g/dL (31.6-35.5); Mean Corpuscular Hemoglobin 35.5 pg (28.0-33.3); Mean Corpuscular Volume 109.4 fL (83.0-100.0); Mean Platelet Volume 11.1 fL (9.4-12.4); Monocytes # 1.5 K/mcL (0.0-1.3); Monocytes % 9.3 %; Neutrophils # 12.6 K/mcL (1.6-8.9); Platelet Count 120 K/mcL (140-400); Red Blood Count 2.34 M/mcL (3.82-4.97); Red Cell Distribution Width 14.6 % (11.5-14.5); Segmented Neutrophils % 80.2 %
[2018-04-22 07:32] LABS: Calcium 8.3 mg/dL (8.6-10.3); Potassium 4.4 mEq/L (3.5-5.1)
[2018-04-22] MEDS: diazePAM 2 MG TABLET PO SCH ×2 (08:43→20:45)
[2018-04-22] MEDS: Lactobacillus 1 EACH CAP.SPRINK PO SCH ×2 (08:43→20:45)
[2018-04-22] MEDS: Aspirin Enteric Coated 81 MG Tablet PO SCH (08:44)
[2018-04-22] MEDS: Cefepime HCl 1,000 MG in 0.9 % Sodium Chloride Mini Bag 100 ML IVPB SCH (08:44)
[2018-04-22] MEDS: Insulin LISPRO 300 UNITS/3 ML VIAL SQ SCH ×4 (08:45→21:28)
[2018-04-22] MEDS: Ringers Solution, Lactated 1,000 ML IVC SCH ×2 (09:07→22:31)
[2018-04-22] MEDS: Vancomycin Oral Soln 125 MG/2.5 ML UDC PO SCH ×4 (09:08→20:47)
[2018-04-22] MEDS: Albumin 25% 25gram/100mL 25 GM/100 ML IV.SOLN IVC SCH ×4 (11:53→17:28)
[2018-04-22] MEDS ORDERED: Aminoglycoside Consult 1 EACH MC ONE (12:16)
--- NOTE | 2018-04-22 12:25 | Nephrology Progress Note ---
Date of Encounter: 04/22/18 Time of Encounter: 12:00 - Assessment and Plan (1) TERRENCE (acute kidney injury) Current Visit: Yes Status: Acute SCr worse at 1.73, GFR 29, will try albumin boluses for 3 days as IVF (stopped) appears to be third spacing into abdominal space UOP not well documented since incontinent Uric acid elevated consistent with decerased renal clerance. CPK low Awaiting urine studies as ordered US of kidney results noted Continue to avoid nephrotoxins if possible Family still deciding goals of care (2) Cholangiocarcinoma Current Visit: Yes Status: Acute per oncology (3) Severe sepsis Current Visit: Yes Status: Acute Per primary team Subjective Interval history: Pt seen and examined with daughter at bedside. Pt appears very weak and with very pood appetite per daughter but trying to push fluids. Objective - Vital Signs Vital signs: Vital Signs Temp Pulse Resp BP Pulse Ox 04/22/18 11:39 97.6 F 76 20 107/45 95 04/22/18 08:05 97.7 F 83 18 110/52 96 04/22/18 04:20 98.0 F 75 18 117/49 97 04/22/18 00:18 98.1 F 74 18 115/85 95 04/21/18 19:49 97.6 F 81 19 97/61 94 04/21/18 15:26 98.8 F 70 18 99/55 96 Intake and Output 04/21/18 04/22/18 04/22/18 23:59 07:59 15:59 Intake Total 1000 / 1000 Output Total 150 / 150 40 / 40 Balance -150 / -150 960 / 960 Intake: IV Fluids 1000 / 1000 Lactated Ringers 1,000 ML @ 75 1000 / 1000 mls/hr IVC .[id number] [facility] Rx#: [id number] Output: Urine 150 / 150 40 / 40 Other: Meal Breakfast Percent of Meal Consumed 5% Stool Size Smear Stool Consistency loose Stool Characteristics Mucoid Stool Color Brown # Voids 1 # Bowel Movements 1 Weight 100.8 kg Blood Glucose* 146 142 Patient Weight 04/22/18 23:59 Weight 100.8 kg - General Appearance General appearance: Present: chronically ill, fatigue, frail EENT: Present: ATNC, mucous membranes dry Neck: Present: no JVD, supple Respiratory: Present: clear Cardiology: Present: edema, normal S1, normal S2 Gastrointestinal: Present: tenderness (diffuse), no guarding Neurologic: Present: no focal deficit Musculoskeletal: Present: no deformities Psychiatric: Present: mood/affect appropriate - Lab 04/23/18 03:42 04/23/18 03:42 Most recent lab results Calcium 8.3 mg/dL (8.6-10.3) L 04/22/18 06:43 Phosphorus 3.5 mg/dL (2.7-4.5) 04/17/18 06:19 Magnesium 1.8 mg/dL (1.6-2.6) 04/17/18 06:19 Consult Discharge Plan - Plan Referrals: Bronson Harris, DO [Primary Care Provider] - (This patient is from [facility] no PCP appontment needed)
--- NOTE | 2018-04-22 13:43 | Internal Med Progress Note ---
Date of Encounter: 04/22/18 Time of Encounter: 10:00 - Assessment and plan (1) C. difficile diarrhea Current Visit: Yes Status: Acute Assessment and plan: Improving clinically. WBC count is trending down. Frequency of diarrhea is improving. Will continue vancomycin. Infectious disease recommends 14 day course. (2) TERRENCE (acute kidney injury) Current Visit: Yes Status: Acute Assessment and plan: Nephrology consult appreciated. Discussed with soil conservationist about plan of care that her renal function continues to worsen. Most likely related to hepatorenal syndrome with low albumin. We will give her intravenous albumin to see if she does respond to it. We will stop IV fluids for now since the fluid is just third spacing into her abdomen and lower extremities. (3) Cholangiocarcinoma Current Visit: Yes Status: Acute (4) Diabetes mellitus Current Visit: Yes Status: Chronic Assessment and plan: Controlled. Continue current insulin regimen. 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 transplanted heart: [place] heart Associated angina: without angina Qualified Code(s): I25.10 - Atherosclerotic heart disease of [place] coronary artery without angina pectoris (6) Ascites Current Visit: Yes Status: Chronic Assessment and plan: With peritoneal carcinomatosis. Ascites worsened today. Family considering possible peritoneal catheter for palliative drainage at home if patient decides to go on hospice. Qualifiers: Ascites type: malignant Qualified Code(s): R18.0 - Malignant ascites (7) Sepsis Current Visit: Yes Status: Suspected Assessment and plan: Due to C. difficile colitis. No other source of infection identified so far. Patient is receiving cefepime also. Vancomycin has been stopped by infectious disease. Qualifiers: Sepsis type: sepsis due to unspecified organism Qualified Code(s): A41.9 - Sepsis, unspecified organism (8) History of stroke Current Visit: Yes Status: Chronic Assessment and plan: On aspirin, Plavix (9) DVT prophylaxis Current Visit: Yes Status: Acute (10) Anemia Current Visit: Yes Status: Chronic Assessment and plan: Hemoglobin 8.3 today. Could be from nutritional deficiencies . Will check iron , folic acid and vitamin B12 levels. Qualifiers: Anemia type: other cause Other causes of anemia: chronic disease, neoplastic Qualified Code(s): D63.0 - Anemia in neoplastic disease - Time Spent With Patient Total time spent is greater than 50% in coordination of care (as documented) at patient's floor/unit and/or counseling patient: - Subjective Interval history: Patient is awake and sitting up in bed but appears confused. Daughter is present at bedside. She reports that patient was having increased pain yesterday in the evening after she underwent retroperitoneal ultrasound and repeat bladder scans. There was also 2 attempts for straight catheterization but yielded no urine. She received Valium and oxycodone Roxicodone at the same time and became lethargic after that. She has continued to have poor urine output. Increased abdominal girth. However frequency of diarrhea has improved. She is now having more formed stools. - Constitutional Vitals: Temp Pulse Resp BP Pulse Ox 97.6 F 76 20 107/45 95 04/22/18 11:39 04/22/18 11:39 04/22/18 11:39 04/22/18 11:39 04/22/18 11:39 General appearance: Present: cooperative, A&O X 3, answers questions appropriately - Respiratory Respiratory exam: Present: CTAB. Absent: accessory muscle use, rales, rhonchi, wheezes - Cardiovascular Cardiovascular exam: Present: RRR, +S1, +S2. Absent: diastolic murmur, gallop, rubs, systolic murmur - GI/Abdominal GI/Abdominal exam: Present: distended, normal bowel sounds, soft, no peritoneal signs Additional comments: Ascites present - Extremities Exam Extremities exam: Present: warm, radial pulses palpable and symmetrical. Absent : calf tenderness, cyanotic, pedal edema - Neurological Exam Neurological exam: Present: CN II-XII intact, oriented X3, no focal deficits. Absent: facial droop, speech deficit - Skin Skin exam: Present: dry, intact Internal Medicine: Result - Labs CBC & Chem 7: 04/22/18 06:43 04/22/18 06:43 Labs: Short CBC 04/22/18 Range/Units 06:43 WBC 15.7 H (4.3-11.1) K/mcL Hgb 8.3 L (11.5-15.4) g/dL Hct 25.6 L (35.3-44.9) % Plt Count 120 L (140-400) K/mcL Neutrophils # 12.6 H (1.6-8.9) K/mcL BMP 04/21/18 04/22/18 08:08 06:43 Sodium 129 L 128 L Potassium 3.7 4.4 Chloride 101 101 Carbon Dioxide 19 L 19 L BUN 37 H 38 H Creatinine 1.58 H 1.73 H Glucose 171 H 136 H Calcium 8.5 L 8.3 L - ABG Interpretation ABG results: PT/INR, D-dimer PT 15.6 Seconds (9.4-12.1) H 04/17/18 06:19 - Impressions Impressions Retroperitoneum Ultrasound 04/21/18 12:58 IMPRESSION: Overall normal sonographic appearance of the kidneys. Mild increased renal cortical echogenicity may be present in the left kidney. No hydronephrosis. Single cyst in each kidney. A large amount of ascites present. Bladder empty and unable to be demonstrated. D/ / Rayray Pereira MD / Rayray Pereira MD Interpreting Provider: Rayray Pereira MD Consult Discharge Plan - Plan Referrals: Bronson Harris DO [Primary Care Provider] - ([facility] patient is from [facility] no PCP appontment needed)
[2018-04-22] MEDS: Cholecalciferol (D-3) 1,000 UNIT TABLET PO SCH (17:28)
[2018-04-23] MEDS: *HR* Heparin 5,000 UNIT/ML VIAL SQ SCH (00:23)
[2018-04-23 04:04] LABS: Basophils % 0.1 %; Immature Granulocytes % 0.9 % (0-4); Monocytes % 10.8 %; Red Cell Distribution Width 14.5 % (11.5-14.5)
[2018-04-23 04:06] LABS: Eosinophils # 0.1 K/mcL (0.0-0.6); Eosinophils % 1.2 %; Hemoglobin 7.5 g/dL (11.5-15.4); Immature Platelets 6.8 % (1.1-6.1); Lymphocytes # 1.1 K/mcL (0.6-4.6); Lymphocytes % 11.2 %; Mean Corpuscular HGB Conc 32.6 g/dL (31.6-35.5); Mean Corpuscular Hemoglobin 36.1 pg (28.0-33.3); Mean Corpuscular Volume 110.6 fL (83.0-100.0); Mean Platelet Volume 11.3 fL (9.4-12.4); Monocytes # 1.1 K/mcL (0.0-1.3); Red Blood Count 2.08 M/mcL (3.82-4.97); Segmented Neutrophils % 75.8 %
[2018-04-23 04:07] LABS: Neutrophils # 7.4 K/mcL (1.6-8.9); Platelet Count 95 K/mcL (140-400)
[2018-04-23 04:23] LABS: Calcium 8.8 mg/dL (8.6-10.3); Potassium 4.3 mEq/L (3.5-5.1)
[2018-04-23 04:24] LABS: % Iron Saturation 17 % (15-50); Iron 19 mcg/dL (50-170); Transferrin 80 mg/dL (203-362)
[2018-04-23 04:43] LABS: Ferritin 171 ng/mL (10-120)
[2018-04-23 04:48] LABS: Folate 21.4 ng/mL (3.0-16.0)
[2018-04-23 04:51] LABS: Vitamin B12 > 1500 pg/mL (250-1100)
[2018-04-23 06:18] LABS: Bilirubin,Urine Negative (Negative); Blood,Urine Negative (Negative); Clarity,Urine Clear (Clear); Color,Urine Yellow (Yellow); Glucose,Urine (UA) Normal (Normal); Ketones,Urine Trace mg/dL (Negative); Leukocyte Esterase,Urine Trace (Negative); Nitrite,Urine Negative (Negative); PH,Urine 5.5 pH Units (5.0-8.0); Protein,Urine Trace mg/dL (Neg-Trace); Urobilinogen,Urine Normal (Normal)
[2018-04-23 06:22] LABS: Bacteria,Urine None Seen per hpf (None-Few); Hyaline Casts,Urine Few per lpf (None-Few); Squamous Epithelial Cell,Urine Many per lpf (None-Few)
[2018-04-23 06:29] LABS: Creatinine,Urine 129 mg/dL; Sodium, Urine < 10.0 mEq/L
[2018-04-23] MEDS: Cefepime HCl 1,000 MG in 0.9 % Sodium Chloride Mini Bag 100 ML IVPB SCH (08:58)
[2018-04-23] MEDS: Lactobacillus 1 EACH CAP.SPRINK PO SCH ×2 (08:59→19:42)
[2018-04-23] MEDS: diazePAM 2 MG TABLET PO SCH ×2 (08:59→21:00)
[2018-04-23] MEDS: Aspirin Enteric Coated 81 MG Tablet PO SCH (08:59)
[2018-04-23] MEDS: Vancomycin Oral Soln 125 MG/2.5 ML UDC PO SCH ×4 (09:00→21:30)
[2018-04-23] MEDS: Insulin LISPRO 300 UNITS/3 ML VIAL SQ SCH ×3 (09:12→17:20)
--- NOTE | 2018-04-23 10:53 | Internal Med Progress Note ---
Date of Encounter: 04/23/18 Time of Encounter: 10:10 - Assessment and plan (1) C. difficile diarrhea Current Visit: Yes Status: Acute Assessment and plan: Continue vancomycin orally. Frequency of diarrhea is improving. WBC count is also improving. Overall see this colitis and sepsis appeared to be resolving. (2) TERRENCE (acute kidney injury) Current Visit: Yes Status: Acute Assessment and plan: Creatinine is 1.8 today. Appears to be plateauing. Nephrology following. Patient does report improved urine output. (3) Anemia Current Visit: Yes Status: Chronic Assessment and plan: Hemoglobin is 7.5 today. Iron levels are low. We will place patient on replacement therapy. We will also stop anticoagulation for DVT prophylaxis for now and check stool for occult blood. Qualifiers: Anemia type: other cause Other causes of anemia: chronic disease, neoplastic Qualified Code(s): D63.0 - Anemia in neoplastic disease (4) Cholangiocarcinoma Current Visit: Yes Status: Acute Assessment and plan: Palliative care consulted. They will discuss with patient and family on Tuesday about further options which may include hospice. For now patient remains full code (5) Diabetes mellitus Current Visit: Yes Status: Chronic Assessment and plan: Blood sugars is 160 this morning. We will continue to monitor and continue current sliding scale insulin. Patient has not had much appetite. Encouraged to use ensure. 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 Qualifiers: Coronary Disease-Associated Artery/Lesion type: [place] artery [place] vs. transplanted heart: [place] heart Associated angina: without angina Qualified Code(s): I25.10 - Atherosclerotic heart disease of [place] coronary artery without angina pectoris (7) Ascites Current Visit: Yes Status: Chronic Assessment and plan: With peritoneal carcinomatosis. Poor prognosis. Consider palliative paracentesis/peritoneal catheter placement. Qualifiers: Ascites type: malignant Qualified Code(s): R18.0 - Malignant ascites (8) Sepsis Current Visit: Yes Status: Suspected Assessment and plan: Due to C. difficile colitis. No other source of infection identified so far. Will most likely de-escalate antibiotics tomorrow and leave patient only on vancomycin orally for his her C. difficile colitis. Infectious disease is following. Qualifiers: Sepsis type: sepsis due to unspecified organism Qualified Code(s): A41.9 - Sepsis, unspecified organism (9) History of stroke Current Visit: Yes Status: Chronic Assessment and plan: On Plavix, aspirin (10) DVT prophylaxis Current Visit: Yes Status: Acute Assessment and plan: Will place patient on SCDs. Stop medical anticoagulation for now due to anemia. - Time Spent With Patient Total time spent is greater than 50% in coordination of care (as documented) at patient's floor/unit and/or counseling patient: - Subjective Interval history: Patient is lying in bed. According to her daughter she has been up and about sitting in the chair since this morning. Has been weak since she got Valium and oxycodone last night. The dose has been decreased but it still seems to be making her very tired and weak. Patient just says that she feels very tired. She denies any abdominal pain at this time. Not having any new episodes of diarrhea. No melanotic stools. - Constitutional Vitals: Temp Pulse Resp BP Pulse Ox 97.7 F 78 26 108/54 94 04/23/18 03:45 04/23/18 07:59 04/23/18 07:59 04/23/18 07:59 04/23/18 07:59 General appearance: Present: cooperative, A&O X 3, answers questions appropriately - Neck Neck exam general surgery: Present: supple, trachea midline. Absent: lymphadenopathy - Respiratory Respiratory exam: Present: decreased breath sounds (At both bases). Absent: accessory muscle use, rales, rhonchi, wheezes - Cardiovascular Cardiovascular exam: Present: RRR, +S1, +S2. Absent: diastolic murmur, gallop, rubs, systolic murmur - GI/Abdominal GI/Abdominal exam: Present: distended, normal bowel sounds, soft, no peritoneal signs - Extremities Exam Extremities exam: Present: pedal edema, warm, radial pulses palpable and symmetrical. Absent: calf tenderness, cyanotic - Neurological Exam Neurological exam: Present: CN II-XII intact, no focal deficits. Absent: facial droop, speech deficit Internal Medicine: Result - Labs CBC & Chem 7: 04/23/18 03:42 04/23/18 03:42 Labs: Short CBC 04/23/18 Range/Units 03:42 WBC 9.7 (4.3-11.1) K/mcL Hgb 7.5 L (11.5-15.4) g/dL Hct 23.0 L (35.3-44.9) % Plt Count 95 L (140-400) K/mcL Neutrophils # 7.4 (1.6-8.9) K/mcL BMP 04/23/18 03:42 Sodium 128 L Potassium 4.3 Chloride 101 Carbon Dioxide 21 L BUN 42 H Creatinine 1.80 H Glucose 161 H Calcium 8.8 Urine 04/23/18 Range/Units 06:03 Urine Color Yellow (Yellow) Urine Clarity Clear (Clear) Urine pH 5.5 (5.0-8.0) pH Units Ur Specific [place] 1.020 (1.010-1.025) Urine Protein Trace (Neg-Trace) mg/dL Urine Glucose (UA) Normal (Normal) mg/dL - ABG Interpretation ABG results: PT/INR, D-dimer PT 15.6 Seconds (9.4-12.1) H 04/17/18 06:19 Consult Discharge Plan - Plan Referrals: Bronson Harris, DO [Primary Care Provider] - (This patient is from [facility] no PCP appontment needed)
[2018-04-23] MEDS: Albumin 25% 25gram/100mL 25 GM/100 ML IV.SOLN IVC SCH ×4 (12:13→17:20)
[2018-04-23] MEDS: *HR* OxyCODONE Immed Rel 5 MG TABLET PO PRN ×2 (12:57→20:04)
--- NOTE | 2018-04-23 13:07 | Nephrology Progress Note ---
Date of Encounter: 04/23/18 Time of Encounter: 12:00 - Assessment and Plan (1) TERRENCE (acute kidney injury) Current Visit: Yes Status: Acute Scr worse at 1.8, GFR 27 despite albumin bolus yesterday, will plan another today UOP remains poor but also incontinent (confirmed poor UOP with daughter) Discussed again goals of care given nature of her cancer Continue to avoid nephroxins if possible (2) Cholangiocarcinoma Current Visit: Yes Status: Acute per oncology (3) Severe sepsis Current Visit: Yes Status: Acute per primary team Subjective Interval history: Pt seen and examined appears uncomfortable. Daughter present at bedside helping her mother move around. Objective - Vital Signs Vital signs: Vital Signs Temp Pulse Resp BP Pulse Ox 04/23/18 12:15 98.1 F 90 22 116/54 95 04/23/18 07:59 78 26 108/54 94 04/23/18 03:45 97.7 F 84 16 106/47 95 04/23/18 00:37 97.4 F L 89 16 96/51 95 04/22/18 20:57 98.4 F 92 18 122/61 95 04/22/18 15:37 98.5 F 85 18 118/63 95 Intake and Output 04/22/18 04/23/18 04/23/18 23:59 07:59 15:59 Intake Total 540 / 540 0 / 0 480 / 480 Output Total 0 / 0 100 / 100 Balance 540 / 540 -100 / -100 480 / 480 Intake: IV Fluids 300 / 300 Flexbumin 25 gm In 100 ml @ 60 200 / 200 mls/hr IVC .Q1H40M [facility] Rx#: [id number] Maxipime 1,000 MG In 0.9 % 100 / 100 Sodium Chloride (Mini-Bag +) 100 ML @ 200 mls/hr IVPB DAILY [facility] Rx#:[id number] Oral 240 / 240 0 / 0 480 / 480 Output: Urine 0 / 0 100 / 100 Other: Meal Lunch Breakfast Percent of Meal Consumed 60% 0% Stool Size Moderate Stool Consistency loose soft Stool Characteristics Mucoid Stool Color Brown # Bowel Movements 1 Weight 99.8 kg Blood Glucose* 172 160 153 Patient Weight 04/23/18 23:59 Weight 99.8 kg - General Appearance General appearance: Present: chronically ill, fatigue, frail EENT: Present: ATNC, mucous membranes dry Neck: Present: no JVD, supple Respiratory: Present: clear (ant bilat) Cardiology: Present: edema, normal S1, normal S2 Gastrointestinal: Present: tenderness (diffuse), no guarding Integumentary: Present: warm and dry Neurologic: Present: no focal deficit Musculoskeletal: Present: no deformities Psychiatric: Present: mood/affect appropriate - Lab 04/23/18 03:42 04/23/18 03:42 Most recent lab results Calcium 8.8 mg/dL (8.6-10.3) 04/23/18 03:42 Phosphorus 3.5 mg/dL (2.7-4.5) 04/17/18 06:19 Magnesium 1.8 mg/dL (1.6-2.6) 04/17/18 06:19 Urine Creatinine 129 mg/dL 04/23/18 06:03 Urine Sodium < 10.0 mEq/L 04/23/18 06:03 - VTE Documentation of Mechanical Device: Intermittent pneumatic compression device Consult Discharge Plan - Plan Referrals: Bronson Harris DO [Primary Care Provider] - (This patient is from [facility] no PCP appontment needed)
[2018-04-23] MEDS: Acetaminophen 325 MG TABLET PO PRN (17:18)
[2018-04-23] MEDS: Cholecalciferol (D-3) 1,000 UNIT TABLET PO SCH (17:18)
[2018-04-24] MEDS: Insulin LISPRO 300 UNITS/3 ML VIAL SQ SCH ×5 (00:11→20:10)
[2018-04-24] MEDS: *HR* OxyCODONE Immed Rel 5 MG TABLET PO PRN ×3 (03:49→16:42)
[2018-04-24] MEDS: Acetaminophen 325 MG TABLET PO PRN ×3 (03:56→18:10)
[2018-04-24 05:06] LABS: Basophils % 0.2 %; Eosinophils # 0.1 K/mcL (0.0-0.6); Hemoglobin 8.2 g/dL (11.5-15.4); Immature Granulocytes % 0.9 % (0-4); Lymphocytes % 8.4 %; Mean Corpuscular HGB Conc 32.8 g/dL (31.6-35.5); Mean Corpuscular Hemoglobin 35.7 pg (28.0-33.3); Mean Corpuscular Volume 108.7 fL (83.0-100.0); Mean Platelet Volume 11.7 fL (9.4-12.4); Monocytes # 1.2 K/mcL (0.0-1.3); Monocytes % 9.9 %; Neutrophils # 9.3 K/mcL (1.6-8.9); Platelet Count 106 K/mcL (140-400); Red Cell Distribution Width 14.6 % (11.5-14.5); Segmented Neutrophils % 79.6 %
[2018-04-24 05:27] LABS: Calcium 9.1 mg/dL (8.6-10.3); Potassium 4.2 mEq/L (3.5-5.1)
[2018-04-24] MEDS ORDERED: *HR* Enoxaparin 30 MG/0.3 ML SYRINGE SQ SCH (06:00)
[2018-04-24] MEDS: Albumin 25% 25gram/100mL 25 GM/100 ML IV.SOLN IVC SCH ×4 (09:37→16:42)
[2018-04-24] MEDS: Lactobacillus 1 EACH CAP.SPRINK PO SCH ×2 (09:40→20:16)
[2018-04-24] MEDS: Cefepime HCl 1,000 MG in 0.9 % Sodium Chloride Mini Bag 100 ML IVPB SCH (09:41)
[2018-04-24] MEDS: Vancomycin Oral Soln 125 MG/2.5 ML UDC PO SCH ×4 (09:42→20:17)
[2018-04-24] MEDS: Aspirin Enteric Coated 81 MG Tablet PO SCH (09:42)
--- NOTE | 2018-04-24 10:30 | Nephrology Progress Note ---
Date of Encounter: 04/24/18 Time of Encounter: 10:28 - Assessment and Plan (1) TERRENCE (acute kidney injury) Current Visit: Yes Status: Acute Scr is 1.65 today down from 1.8. Gfr is 30 up from 27 yesterday. Continue to renal dose all medications. Avoid Nephrotoxins. Daughter affirms UOP has increased a little over the weekend. (2) Cholangiocarcinoma Current Visit: Yes Status: Acute Per primary. (3) Sepsis Current Visit: Yes Status: Acute Per primary. Qualifiers: Qualified Code(s): A41.9 - Sepsis, unspecified organism Subjective Principal diagnosis: n/v ANGIE Interval history: Pt seen and examined, pt had just gotten some pain medication, so she was drowsy. Spoke with daughter Mara. Objective - Vital Signs Vital signs: Vital Signs Temp Pulse Resp BP Pulse Ox 04/24/18 06:52 98.6 F 90 18 107/45 96 04/24/18 04:52 98.4 F 80 18 106/46 95 04/23/18 19:49 98.2 F 96 20 133/58 95 04/23/18 15:56 98.4 F 75 20 94/53 95 04/23/18 12:15 98.1 F 90 22 116/54 95 Intake and Output 04/23/18 04/24/18 04/24/18 23:59 07:59 15:59 Intake Total 100 / 100 200 / 200 Output Total 200 / 200 600 / 600 Balance -100 / -100 -400 / -400 Intake: IV Fluids 100 / 100 100 / 100 Flexbumin 25 gm In 100 ml @ 60 100 / 100 100 / 100 mls/hr IVC .Q1H40M [facility] Rx#: [id number] Oral 100 / 100 Output: Urine 600 / 600 Urine/Stool Mix 200 / 200 Other: Stool Size Moderate Moderate Stool Consistency loose loose Stool Characteristics Normal for Patient Stool Color Brown Brown # Voids 1 # Bowel Movements 1 # Bowel Movement Diapers 1 Weight 106.9 kg Blood Glucose* 156 141 Patient Weight 04/24/18 23:59 Weight 106.9 kg - General Appearance General appearance: Present: chronically ill, frail EENT: Present: ATNC, hearing intact, vision intact Neck: Present: supple Respiratory: Present: clear Cardiology: Present: edema (+3 pitting edema bilat lower extremities.), normal S1, normal S2 Gastrointestinal: Present: normoactive bowel sounds, no tenderness, no guarding Integumentary: Present: no rash, warm and dry Neurologic: Present: alert and oriented x3 Psychiatric: Present: mood/affect appropriate, cooperative - Lab 04/24/18 04:56 04/24/18 04:56 Most recent lab results Calcium 9.1 mg/dL (8.6-10.3) 04/24/18 04:56 Phosphorus 3.5 mg/dL (2.7-4.5) 04/17/18 06:19 Magnesium 1.8 mg/dL (1.6-2.6) 04/17/18 06:19 Urine Creatinine 129 mg/dL 04/23/18 06:03 Urine Sodium < 10.0 mEq/L 04/23/18 06:03 - VTE Documentation of Mechanical Device: Intermittent pneumatic compression device Consult Discharge Plan - Plan Referrals: Bronson Harris, DO [Primary Care Provider] - ([facility] no PCP appontment needed)
--- NOTE | 2018-04-24 14:31 | Infectious Disease Progress No ---
Date of Encounter: 04/24/18 Time of Encounter: 14:28 - Assessment and Plan (1) Severe sepsis Status: Acute The patient had to search criteria plus hypotension and lactic acidosis on admission. Likely secondary to C. difficile colitis. Improved. White blood cell count is trending down. Tachycardia has resolved. Blood pressure stabilized. Blood cultures drawn 04/17/18 are negative 2 sets. Repeat blood cultures drawn 04/20/18 are no growth to date 2 sets. (2) Leukocytosis Status: Acute Likely secondary to C. difficile colitis. White blood cell count continues to trend down and is near normal. Continue cefepime 1 g IV daily for now. Continue vancomycin by mouth for C. difficile. Await further goals of care as established for the palliative care team. Qualifiers: Leukocytosis type: unspecified Qualified Code(s): D72.829 - Elevated white blood cell count, unspecified (3) C. difficile diarrhea Status: Acute Recurrent. This is the second episode of C. difficile the patient has had. Severe. Continue vancomycin by mouth, but decrease dose to 125 mg 4 times a day. Clinically, the patient is improved. Her stools are becoming more formed and are less frequent. Duration of treatment depends on the clinical picture, but likely a total of 14 days would be adequate. Continue C. difficile precautions per hospital protocol. (4) TERRENCE (acute kidney injury) Status: Acute Likely secondary to severe sepsis. Creatinine is trending down. Continue to trend. Avoid nephrotoxins and dose adjust antibiotics. Nephrology consult and following. 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 Most likely malignant ascites. Status post therapeutic/diagnostic paracentesis. Peritoneal fluid culture is negative. Qualifiers: Ascites type: malignant Qualified Code(s): R18.0 - Malignant ascites (6) Cholangiocarcinoma Status: Acute Follows with the [facility]. Palliative care consult and following. Planning to discuss CODE STATUS and plan of care goals with the family later today. (7) Coronary artery disease Status: Chronic - Management per primary team Qualifiers: Coronary Disease-Associated Artery/Lesion type: [place] artery [place] vs. transplanted heart: [place] heart Associated angina: without angina Qualified Code(s): I25.10 - Atherosclerotic heart disease of [place] coronary artery without angina pectoris (8) Diabetes mellitus Status: Chronic - Management per primary team Qualifiers: Diabetes mellitus type: type 2 Diabetes mellitus residential insulin use: without residential use Diabetes mellitus complication status: with unspecified complications Qualified Code(s): E11.8 - Type 2 diabetes mellitus with unspecified complications - Subjective Interval history: Patient seen and examined. No acute events noted overnight. Patient appears to be in distress and in a lot of pain, so evaluation is limited. The patient complains of headache and diffuse abdominal pain. She denies shortness of breath or cough. Per her daughter, she did not eat much breakfast this morning. She reports that the diarrhea is improved and her stools are more formed. She denies vomiting, but does report some nausea. She denies oral thrush or nasal skin lesions. Infect Dis PN-Objective Data - Labs CBC & Chem 7: 04/25/18 04:15 04/25/18 04:15 Labs: Laboratory Results - last 24 hr 04/23/18 04/23/18 04/24/18 15:56 21:11 04:56 WBC 11.7 H RBC 2.30 L Hgb 8.2 L Hct 25.0 L MCV 108.7 H MCH 35.7 H MCHC 32.8 RDW 14.6 H Plt Count 106 L MPV 11.7 Immature Gran % 0.9 Seg Neutrophils % 79.6 Lymphocytes % 8.4 Monocytes % 9.9 Eosinophils % 1.0 Basophils % 0.2 Neutrophils # 9.3 H Lymphocytes # 1.0 Monocytes # 1.2 Eosinophils # 0.1 Basophils # 0.0 Sodium Potassium Chloride Carbon Dioxide BUN Creatinine Est GFR ( Amer) Est GFR (Non-Af Amer) BUN/Creatinine Ratio Glucose POC Glucose 171 H 156 H Calculated Osmolality Calcium 04/24/18 04/24/18 04:56 06:56 WBC RBC Hgb Hct MCV MCH MCHC RDW Plt Count MPV Immature Gran % Seg Neutrophils % Lymphocytes % Monocytes % Eosinophils % Basophils % Neutrophils # Lymphocytes # Monocytes # Eosinophils # Basophils # Sodium 129 L Potassium 4.2 Chloride 101 Carbon Dioxide 19 L BUN 41 H Creatinine 1.65 H Est GFR ( Amer) 37 L Est GFR (Non-Af Amer) 30 L BUN/Creatinine Ratio 25 Glucose 152 H POC Glucose 141 H Calculated Osmolality 281 Calcium 9.1 Cultures: Cultures 04/17/18 10:30 Body Fluid Culture - Final Peritoneal Fluid 04/20/18 13:12 Blood Culture - Preliminary Peripheral Venipuncture Culture is incubating and being continuously monitored for growth. Final report to follow. 04/20/18 13:12 Blood Culture - Preliminary Peripheral Venipuncture Culture is incubating and being continuously monitored for growth. Final report to follow. Serology 04/23/18 04/23/18 04/17/18 Range/Units 06:03 06:03 21:15 Urine Color Yellow (Yellow) Urine Clarity Clear (Clear) Urine pH 5.5 (5.0-8.0) pH Units Ur Specific [place] 1.020 (1.010-1.025) Urine Protein Trace (Neg-Trace) mg/dL Urine Glucose (UA) Normal (Normal) mg/dL Urine Ketones Trace H (Negative) mg/dL Urine Blood Negative (Negative) Urine Nitrite Negative (Negative) Urine Bilirubin Negative (Negative) Urine Urobilinogen Normal (Normal) mg/dL Ur Leukocyte Esterase Trace H (Negative) Urine Microscopic RBC 5-15 H (0-3) per hpf Urine Microscopic WBC 5-15 H (0-3) per hpf Ur Squamous Epith Cells Many H (None-Few) per lpf Urine Bacteria None Seen (None-Few) per hpf Hyaline Casts Few (None-Few) per lpf Urine Creatinine 129 mg/dL Urine Sodium < 10.0 mEq/L Peritoneal Appearance (Clear) Peritoneal Volume mL Peritoneal RBC (0.000 - 0.002) M/mcL Periton Tot Nuc Cells (0-300) TNC/mcL Periton Neutrophils % Periton Lymphocytes % % Periton Monocytes % % Periton Other Cells % % Peritoneal Tot Protein (No Ref Range) g/dL Peritoneal Albumin (No Ref Range) g/dL Peritoneal LDH (No Ref Range) Units/L Peritoneal Glucose (No Ref Range) mg/dL Peritoneal Amylase (No Ref Range) Units/L Stl C. diff Tox B Gene Positive A (Negative) 04/17/18 04/17/18 Range/Units 10:30 10:30 Urine Color (Yellow) Urine Clarity (Clear) Urine pH (5.0-8.0) pH Units Ur Specific [place] (1.010-1.025) Urine Protein (Neg-Trace) mg/dL Urine Glucose (UA) (Normal) mg/dL Urine Ketones (Negative) mg/dL Urine Blood (Negative) Urine Nitrite (Negative) Urine Bilirubin (Negative) Urine Urobilinogen (Normal) mg/dL Ur Leukocyte Esterase (Negative) Urine Microscopic RBC (0-3) per hpf Urine Microscopic WBC (0-3) per hpf Ur Squamous Epith Cells (None-Few) per lpf Urine Bacteria (None-Few) per hpf Hyaline Casts (None-Few) per lpf Urine Creatinine mg/dL Urine Sodium mEq/L Peritoneal Appearance CLEAR (Clear) Peritoneal Volume 60.0 mL Peritoneal RBC < 0.002 (0.000 - 0.002) M/mcL Periton Tot Nuc Cells 182 (0-300) TNC/mcL Periton Neutrophils 68.0 % Periton Lymphocytes % 4.0 % Periton Monocytes % 13.0 % Periton Other Cells % 15.0 % Peritoneal Tot Protein < 3.0 (No Ref Range) g/dL Peritoneal Albumin < 1.5 (No Ref Range) g/dL Peritoneal LDH 169 (No Ref Range) Units/L Peritoneal Glucose 134 (No Ref Range) mg/dL Peritoneal Amylase < 10 (No Ref Range) Units/L Stl C. diff Tox B Gene (Negative) Exam - Constitutional Vitals: Temp Pulse Resp BP Pulse Ox 98.5 F 74 16 102/60 97 04/24/18 11:30 04/24/18 11:30 04/24/18 11:30 04/24/18 11:30 04/24/18 11:30 General appearance: cooperative, mild distress, obese - Head Head exam: Present: atraumatic, normal inspection, normocephalic - Eye Eye exam: Present: EOMI, normal appearance, PERRL Pupils: Present: normal accommodation - ENT ENT exam: Present: mucous membranes moist - Neck Neck exam: Present: normal inspection - Respiratory Respiratory exam: Present: CTAB. Absent: rales, respiratory distress, rhonchi, wheezes - Cardiovascular Cardiovascular exam: Present: RRR, +S1, +S2 - GI/Abdominal GI/Abdominal exam: Present: distended, normal bowel sounds, soft, tenderness ( Generalized) - Extremities Exam Extremities exam: Absent: joint swelling, pedal edema, tenderness - Neurological Exam Neurological exam: Present: alert, oriented X3, no focal deficits - Psychiatric Psychiatric exam: Present: normal affect, normal mood - Skin Skin exam: Present: dry, intact, normal color, warm - VTE Documentation of Mechanical Device: Intermittent pneumatic compression device Consult Discharge Plan - Plan Instructions: Diabetes Mellitus Type 2 in Adults (DC), Anemia (GEN) Referrals: Stiltner,Bronson D, DO [Primary Care Provider] - (This patient is from [facility] no PCP appontment needed) Prescriptions: Bisacodyl [Dulcolax] 10 mg RC DAILY PRN 4 Days #4 supp.rect PRN Reason: Constipation Bisacodyl [Dulcolax] 10 mg RC DAILY PRN 4 Days #4 supp.rect PRN Reason: Constipation diazePAM [Valium] 1 mg PO TID PRN 4 Days #12 tablet PRN Reason: muscle spasms/restlessness diazePAM [Valium] 1 mg PO TID PRN 4 Days #12 tablet PRN Reason: muscle spasms, restlessness FentaNYL PATCH [Duragesic] 12 mcg TD Q72H 4 Days #2 patch.td72 FentaNYL PATCH [Duragesic] 12 mcg TD Q72H 4 Days #2 patch.td72 LORazepam Oral Conc [Ativan Oral Conc] 1 mg PO Q4H PRN 4 Days #15 mls PRN Reason: Anxiety LORazepam Oral Conc [Ativan Oral Conc] 1 mg PO Q4H PRN 4 Days #15 mls PRN Reason: Anxiety OXYCODONE Oral CONC [Oxycodone Oral Conc] 10 mg PO Q3H PRN 30 Days #30 oral.syg PRN Reason: breakthough pain OXYCODONE Oral CONC [Oxycodone Oral Conc] 10 mg PO Q3H PRN 7 Days #30 oral.syg PRN Reason: Breakthrough Pain Vancomycin HCl 125 mg PO QID 5 Days #18 syringe - Attending Attestation I examined this patient and my medical decision-making was reviewed with the Resident Physician. I agree with the documented findings, disposition and treatment plan as described except to the extent set forth below.
[2018-04-24] MEDS: diazePAM 2 MG TABLET PO SCH ×2 (15:28→20:18)
--- NOTE | 2018-04-24 15:28 | Palliative Progress Note ---
Date of Encounter: 04/24/18 Time of Encounter: 15:20 - Assessment and plan (1) Nausea and vomiting Current Visit: Yes Status: Acute Qualifiers: Vomiting type: unspecified Vomiting Intractability: non-intractable Qualified Code(s): R11.2 - Nausea with vomiting, unspecified (2) Abdominal pain Current Visit: Yes Status: Acute Assessment and plan: Patient has utilized Oxycodone as well as Acetaminophen for pain control. It is beginning to be a little more difficult swallowing pills. She is uncomfortable with any repositioning or movement. Discussed options for sustained release pain control. Will begin Fentanyl patch. Her current conversion of 24 hour use of Oxycodone is 16.7 mcg Fentanyl/hour. Will begin 12mcg patch and titrate as needed. Continue Oxycodone for breakthrough pain. Qualifiers: Abdominal location: generalized Qualified Code(s): R10.84 - Generalized abdominal pain (3) Ascites Current Visit: Yes Status: Chronic Assessment and plan: She has recurrent ascites - last paracentesis 7 days ago. If she goes with hospice care, could place pleurx cath for family to drain at home for comfort. Will consult MOHAN Trimble when family reaches final decision. Qualifiers: Ascites type: malignant Qualified Code(s): R18.0 - Malignant ascites (4) TERRENCE (acute kidney injury) Current Visit: Yes Status: Acute (5) Sepsis Current Visit: Yes Status: Suspected Qualifiers: Sepsis type: sepsis due to unspecified organism Qualified Code(s): A41.9 - Sepsis, unspecified organism (6) Goals of care, counseling/discussion Current Visit: Yes Status: Acute Assessment and plan: Long discussion with daughter Mara with myself, Rena Angulo, oncology [employer], and Bj Langley discussing goals of care and advanced care planning. Patient daughter had many questions regarding palliative's role and discharge options for pt. After discussion, pt daughter more comfortable about hospice decision, but still states she wants to run it by her brothers this evening, and I will meet with her again in am to confirm. Dr. Stevens has agreed to follow patient in hospice care, which was very comforting for the family. If they do agree to hospice, would like to get abd pleurx cath in place prior to discharge - so would be best if could hold off on paracentesis until they make decision tomorrow, so there would be fluid present for catheter placement. Discussed code status and daughter agreeable to comfort care, and does not want any resuscitation or life support. Code status changed to DNRCC. Will revisit in am. (7) Anxiety Current Visit: Yes Status: Acute Assessment and plan: Patient continues with scheduled Valium ordered per oncology. Continue and monitor. (8) Cholangiocarcinoma Current Visit: Yes Status: Acute - Time Spent With Patient Total time spent is greater than 50% in coordination of care (as documented) at patient's floor/unit and/or counseling patient: - Subjective Interval history: Patient sleeping soundly - daughter at bedside. Emotional and tearful - stated she had a "horrible Tuesday and Tuesday", but better yesterday. States that she has been comfortable with Oxycodone and Tylenol. - Constitutional Vitals: Abnormal lab results WBC 11.7 K/mcL (4.3-11.1) H 04/24/18 04:56 RBC 2.30 M/mcL (3.82-4.97) L 04/24/18 04:56 Hgb 8.2 g/dL (11.5-15.4) L 04/24/18 04:56 Hct 25.0 % (35.3-44.9) L 04/24/18 04:56 MCV 108.7 fL (83.0-100.0) H 04/24/18 04:56 MCH 35.7 pg (28.0-33.3) H 04/24/18 04:56 RDW 14.6 % (11.5-14.5) H 04/24/18 04:56 Plt Count 106 K/mcL (140-400) L 04/24/18 04:56 Neutrophils # 9.3 K/mcL (1.6-8.9) H 04/24/18 04:56 Smudge Cells Present (Not Present) A 04/20/18 04:10 Toxic Granulation Present (Not Present) A 04/19/18 05:00 Large Platelets Present (Not Present) A 04/19/18 05:00 Immature Plt Fraction 6.8 % (1.1-6.1) H 04/23/18 03:42 Macrocytosis Present (Not Present) A 04/19/18 05:00 PT 15.6 Seconds (9.4-12.1) H 04/17/18 06:19 Sodium 129 mEq/L (136-145) L 04/24/18 04:56 Carbon Dioxide 19 mEq/L (23-29) L 04/24/18 04:56 BUN 41 mg/dL (8-23) H 04/24/18 04:56 Creatinine 1.65 mg/dL (0.60-1.20) H 04/24/18 04:56 Est GFR ( Amer) 37 (> 60) L 04/24/18 04:56 Est GFR (Non-Af Amer) 30 (> 60) L 04/24/18 04:56 Glucose 152 mg/dL (70-105) H 04/24/18 04:56 POC Glucose 141 mg/dL (70-99) H 04/24/18 06:56 Uric Acid 11.9 mg/dL (2.3-7.6) H 04/21/18 08:08 Iron 19 mcg/dL (50-170) L 04/23/18 03:42 Transferrin 80 mg/dL (203-362) L 04/23/18 03:42 Ferritin 171 ng/mL (10-120) H 04/23/18 03:42 ALT 6 Units/L (7-52) L 04/18/18 06:05 Creatine Kinase < 10 Units/L (30-223) L 04/21/18 08:08 B-Natriuretic Peptide 386 pg/mL (Less than 100) H 04/17/18 06:20 Serum Total Protein 4.7 g/dL (6.4-8.9) L 04/18/18 06:05 Albumin 2.5 g/dL (3.5-5.7) L 04/18/18 06:05 Globulin 2.2 g/dL (2.4-3.5) L 04/18/18 06:05 Lipase 3 Units/L (11-82) L 04/17/18 06:19 Vitamin B12 > 1500 pg/mL (250-1100) H 04/23/18 03:42 Folate 21.4 ng/mL (3.0-16.0) H 04/23/18 03:42 Urine Ketones Trace mg/dL (Negative) H 04/23/18 06:03 Ur Leukocyte Esterase Trace (Negative) H 04/23/18 06:03 Urine Microscopic RBC 5-15 per hpf (0-3) H 04/23/18 06:03 Urine Microscopic WBC 5-15 per hpf (0-3) H 04/23/18 06:03 Ur Squamous Epith Cells Many per lpf (None-Few) H 04/23/18 06:03 Ur Culture Indicated? NO. (NO) A 04/17/18 06:41 Stl C. diff Tox B Gene Positive (Negative) A 04/17/18 21:15 General appearance: Present: no acute distress - Respiratory Respiratory exam: Present: decreased breath sounds, CTAB - Cardiovascular Cardiovascular exam: Present: irregular rhythm - GI/Abdominal GI/Abdominal exam: Present: diminished bowel sounds, distended, firm - Extremities Exam Additional comments: 2+ bilateral lower extremity edema - Neurological Exam Additional comments: Sleeping soundly, did not awaken during assessment. - Skin Skin exam: Present: dry, pallor, warm Palliative Quality Palliative Quality: Screen for Code Status: Yes, Screen for Goals of Care: Yes, Screen for Pain: Yes, If Pain Regimen Started, Initiate Bowel Regimen: No ( Diarrhea), Screen for Nausea/Vomitting: Yes Code Status: 04/24/18 15:24 DNR [Resuscitation Status: Active] [RES] Routine Comment: Resuscitation Status: DNR-Comfort Care - Labs CBC & Chem 7: 04/24/18 04:56 04/24/18 04:56 Labs: Laboratory Results - last 24 hr 04/23/18 04/23/18 04/24/18 15:56 21:11 04:56 WBC 11.7 H RBC 2.30 L Hgb 8.2 L Hct 25.0 L MCV 108.7 H MCH 35.7 H MCHC 32.8 RDW 14.6 H Plt Count 106 L MPV 11.7 Immature Gran % 0.9 Seg Neutrophils % 79.6 Lymphocytes % 8.4 Monocytes % 9.9 Eosinophils % 1.0 Basophils % 0.2 Neutrophils # 9.3 H Lymphocytes # 1.0 Monocytes # 1.2 Eosinophils # 0.1 Basophils # 0.0 Sodium Potassium Chloride Carbon Dioxide BUN Creatinine Est GFR ( Amer) Est GFR (Non-Af Amer) BUN/Creatinine Ratio Glucose POC Glucose 171 H 156 H Calculated Osmolality Calcium 04/24/18 04/24/18 04:56 06:56 WBC RBC Hgb Hct MCV MCH MCHC RDW Plt Count MPV Immature Gran % Seg Neutrophils % Lymphocytes % Monocytes % Eosinophils % Basophils % Neutrophils # Lymphocytes # Monocytes # Eosinophils # Basophils # Sodium 129 L Potassium 4.2 Chloride 101 Carbon Dioxide 19 L BUN 41 H Creatinine 1.65 H Est GFR ( Amer) 37 L Est GFR (Non-Af Amer) 30 L BUN/Creatinine Ratio 25 Glucose 152 H POC Glucose 141 H Calculated Osmolality 281 Calcium 9.1 - ABG Interpretation ABG results: PT/INR, D-dimer PT 15.6 Seconds (9.4-12.1) H 04/17/18 06:19 Consult Discharge Plan - Plan Referrals: Bronson Harris, DO [Primary Care Provider] - (This patient is from [facility] no PCP appontment needed)
[2018-04-24] MEDS ORDERED: *HR* FentaNYL PATCH 12 MCG PATCH TD SCH (15:30)
--- NOTE | 2018-04-24 15:43 | Oncology Inp Progress Note ---
Date of Encounter: 04/24/18 Time of Encounter: 15:00 (1) Cholangiocarcinoma Current Visit: Yes Status: Acute Assessment and plan: Ms. Singletary began palliative intent [place]/Ox for locally advanced cholangiocarcinoma in November of this year. She had initial response to treatment , however, most recently treatment has been on hold secondary to concern for oxaliplatin-induced liver injury in the setting of underlying liver disease or possible disease progression along later complicated by hospitalization for CVA and C. diff. She has now been re-admitted with severe sepsis, C. difficile colitis and ascites. Her leukocytosis continues to increase despite current treatment. Given patients debility, progression and overall frailness, the hospice philosophy was introduced as patient is a very poor candidate for further chemotherapy. Dr. Stevens has agreed to assist in overseeing hospice care as a primary physician for this patient, patients daughter is very relieved to have a continued connection with oncology during this transition to hospice care. Met with patient alongside palliative care team today to discuss the above. Appreciate the assistance of the palliative care team Tentatively planning for transition to hospice later this week, patients daughter wishing to discuss things further with her two brothers. (2) Ascites Current Visit: Yes Status: Chronic Assessment and plan: CT abdomen/pelvis and patients presentation most likely consistent with progression of malignancy with radiographic evidence fitting peritoneal carcinamatosis, although cytology reveals only atypical cells. Quick re- accumulation of fluid again this week also concerning for malignancy ascites. Patients daughter reports a recent increase in abdominal distention and discomfort-planning for paracentesis with abdominal pleurx catheter placement prior to discharge for palliation of pain Palliative care with recommendations to initiate Fentanyl patch to assist with long acting pain control Continue Bentyl and Valium Qualifiers: Ascites type: malignant Qualified Code(s): R18.0 - Malignant ascites Oncology: Subj Interval history: Ms. Singletary is resting soundly following her pain medication administration earlier this afternoon. She is in no s/s of distress or discomfort at this time. Patients daughter Mara is at bedside. Discussed options for palliative care and transition to hospice potentially later this week. Mara is tearful, words of encouragement provided. Ms. Singletary has had little intake off and on over the weekend, daughter has been encouraging her to drink ensure. Daughter reports patient is feeling an increase in abdominal distention and discomfort. - Constitutional Vitals: Vital Signs Temp Pulse Resp BP Pulse Ox 04/24/18 11:30 98.5 F 74 16 102/60 97 04/24/18 06:52 98.6 F 90 18 107/45 96 04/24/18 04:52 98.4 F 80 18 106/46 95 04/23/18 19:49 98.2 F 96 20 133/58 95 04/23/18 15:56 98.4 F 75 20 94/53 95 Intake and Output 04/23/18 04/24/18 04/24/18 23:59 07:59 15:59 Intake Total 100 / 100 200 / 200 200 / 200 Output Total 200 / 200 600 / 600 150 / 150 Balance -100 / -100 -400 / -400 50 / 50 Intake: IV Fluids 100 / 100 100 / 100 200 / 200 Flexbumin 25 gm In 100 ml @ 60 100 / 100 100 / 100 200 / 200 mls/hr IVC .[id number] JOSHUA Rx#: [id number] Oral 100 / 100 0 / 0 Output: Urine 600 / 600 150 / 150 Urine/Stool Mix 200 / 200 Other: Meal Lunch Percent of Meal Consumed 5% Stool Size Moderate Moderate Stool Consistency loose loose Stool Characteristics Normal for Patient Stool Color Brown Brown # Voids 1 # Bowel Movements 1 # Bowel Movement Diapers 1 Weight 106.9 kg Blood Glucose* 156 141 137 Patient Weight 04/24/18 23:59 Weight 106.9 kg General appearance: cooperative, no acute distress, no febrile Exam: resting comfortably, did not awaken during assessment - Head Head exam: Present: atraumatic - Respiratory Respiratory exam: Present: decreased breath sounds. Absent: respiratory distress - Cardiovascular Cardiovascular exam: Present: RRR, +S1, +S2 - GI/Abdominal GI/Abdominal exam: Present: distended, firm - Extremities Exam Additional comments: 1-2+ pitting edema BLE - Skin Skin exam: Present: dry, pallor, warm Oncology: Obj Data - Labs CBC & Chem 7: 04/24/18 04:56 04/24/18 04:56 - ABG Interpretation ABG results: PT/INR, D-dimer PT 15.6 Seconds (9.4-12.1) H 04/17/18 06:19 Consult Discharge Plan - Plan Referrals: Bronson Harris, DO [Primary Care Provider] - (This patient is from [facility] no PCP appontment needed)
--- NOTE | 2018-04-24 16:18 | Internal Med Progress Note ---
Hospitalist Progress Note - Encounter Date of Encounter: 04/24/18 Time of Encounter: 09:00 - Subjective Interval History: Ms. 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 difficile colitis on 03/06/18 and was treated with oral vancomycin through 03/16/18 pt now presented to ER with worsening diarrhea and abdominal pain. Pt was admitted in the hospital and started her on vancomycin PO, also added Cefepime by ID for any intra abdominal infections. Pt's condition seems to be still deteriorating, not tolerating pO intake well. Her Diarrhea little better since last couple of days. She denied any CP today. Looks very lethargic / confused. - Exam Vitals: Temp Pulse Resp BP Pulse Ox 98.1 F 79 16 117/65 95 04/24/18 15:58 04/24/18 15:58 04/24/18 15:58 04/24/18 15:58 04/24/18 15:58 Exam: Gen: A, A, O to self only Chest: Diminished BS b/l, no crackles, rales. No wheezing Heart: S1S2+ RRR No murmurs Abd: Soft, distended, tenderness + , no guarding / rigidity Ext: 1-2+ Pitting edema., No calf tenderness, Pulses+ diminished Psych: Depressed - Assessment and Plan (1) Sepsis Current Visit: Yes Status: Suspected Assessment and Plan: Due to C. difficile colitis. No other source of infection identified so far On PO vancomycin Pt's WBC trending down with Cefepime along with PO vanc so will continue current regimen for now ID on board (2) C. difficile diarrhea Current Visit: Yes Status: Acute Assessment and Plan: Continue vancomycin orally. Frequency of diarrhea is improving. WBC count is also improving (3) Anemia Current Visit: Yes Status: Chronic Assessment and Plan: Hb stable @ 8.2 cont Iron supplements (4) Coronary artery disease Current Visit: Yes Status: Chronic Assessment and Plan: Continue home medications On aspirin, Plavix and metoprolol (5) Cholangiocarcinoma Current Visit: Yes Status: Acute Assessment and Plan: Seems to be over all very poor prognosis with all the above comorbidities Talked to pt's daughter about hospice care. She is going to meet with our palliative care team and Heme Onc today about further care plan. (6) Ascites Current Visit: Yes Status: Chronic Assessment and Plan: With peritoneal carcinomatosis. Poor prognosis (7) Diabetes mellitus Current Visit: Yes Status: Chronic Assessment and Plan: ISS (8) TERRENCE (acute kidney injury) Current Visit: Yes Status: Acute Assessment and Plan: Creatinine is 1.65 today. Appears to be plateauing. Nephrology following (9) History of stroke Current Visit: Yes Status: Chronic Assessment and Plan: On Plavix, aspirin (10) DVT prophylaxis Current Visit: Yes Status: Acute Assessment and Plan: On SCD's - Time Spent with Patient Total time spent is greater than 50% in coordination of care (as documented) at patient's floor/unit and/or counseling patient: Internal Medicine: Result - Labs CBC & Chem 7: 04/24/18 04:56 04/24/18 04:56 Labs: Short CBC 04/24/18 Range/Units 04:56 WBC 11.7 H (4.3-11.1) K/mcL Hgb 8.2 L (11.5-15.4) g/dL Hct 25.0 L (35.3-44.9) % Plt Count 106 L (140-400) K/mcL Neutrophils # 9.3 H (1.6-8.9) K/mcL BMP 04/24/18 04:56 Sodium 129 L Potassium 4.2 Chloride 101 Carbon Dioxide 19 L BUN 41 H Creatinine 1.65 H Glucose 152 H Calcium 9.1 - ABG Interpretation ABG results: PT/INR, D-dimer PT 15.6 Seconds (9.4-12.1) H 04/17/18 06:19 - VTE Documentation of Mechanical Device: Intermittent pneumatic compression device Consult Discharge Plan - Plan Referrals: Bronson Harris, DO [Primary Care Provider] - (This patient is from [facility] no PCP appontment needed) (1) Sepsis Qualifiers: Sepsis type: sepsis due to unspecified organism Qualified Code(s): A41.9 - Sepsis, unspecified organism (3) Anemia Qualifiers: Anemia type: other cause Other causes of anemia: chronic disease, neoplastic Qualified Code(s): D63.0 - Anemia in neoplastic disease (4) Coronary artery disease Qualifiers: Coronary Disease-Associated Artery/Lesion type: [place] artery [place] vs. transplanted heart: [place] heart Associated angina: without angina Qualified Code(s): I25.10 - Atherosclerotic heart disease of [place] coronary artery without angina pectoris (6) Ascites Qualifiers: Ascites type: malignant Qualified Code(s): R18.0 - Malignant ascites (7) Diabetes mellitus Qualifiers: Diabetes mellitus type: type 2 Diabetes mellitus halfway insulin use: without halfway use Diabetes mellitus complication status: with unspecified complications Qualified Code(s): E11.8 - Type 2 diabetes mellitus with unspecified complications
[2018-04-24] MEDS: Cholecalciferol (D-3) 1,000 UNIT TABLET PO SCH (16:41)
[2018-04-24] MEDS: Ondansetron ODT 4 MG TAB.RAPDIS PO PRN (18:10)
[2018-04-25] MEDS: *HR* OxyCODONE Immed Rel 5 MG TABLET PO PRN ×2 (04:26→12:46)
[2018-04-25 04:43] LABS: Basophils % 0.1 %; Immature Granulocytes % 0.7 % (0-4); Monocytes % 9.1 %
[2018-04-25 04:45] LABS: Eosinophils # 0.1 K/mcL (0.0-0.6); Hematocrit 24.8 % (35.3-44.9); Hemoglobin 8.2 g/dL (11.5-15.4); Immature Platelets 7.9 % (1.1-6.1); Lymphocytes % 8.6 %; Mean Corpuscular HGB Conc 33.1 g/dL (31.6-35.5); Mean Corpuscular Hemoglobin 36.6 pg (28.0-33.3); Mean Corpuscular Volume 110.7 fL (83.0-100.0); Mean Platelet Volume 11.3 fL (9.4-12.4); Neutrophils # 9.2 K/mcL (1.6-8.9); Red Blood Count 2.24 M/mcL (3.82-4.97); Red Cell Distribution Width 14.6 % (11.5-14.5); Segmented Neutrophils % 80.5 %
[2018-04-25 05:05] LABS: Albumin 3.8 g/dL (3.5-5.7); Albumin/Globulin Ratio 2.2 (1.1-2.2); Bilirubin,Total 0.9 mg/dL (0.3-1.0); Calcium 9.3 mg/dL (8.6-10.3); Globulin 1.7 g/dL (2.4-3.5); Magnesium 2.1 mg/dL (1.6-2.6); Potassium 4.3 mEq/L (3.5-5.1); Total Protein 5.5 g/dL (6.4-8.9)
[2018-04-25 05:13] LABS: Platelet Count 96 K/mcL (140-400)
[2018-04-25 05:14] LABS: Macrocytosis Present (Not Present); Platelet Estimate Decreased (Normal)
[2018-04-25] MEDS: Aspirin Enteric Coated 81 MG Tablet PO SCH (08:21)
[2018-04-25] MEDS: Lactobacillus 1 EACH CAP.SPRINK PO SCH ×2 (08:22→21:31)
[2018-04-25] MEDS: Vancomycin Oral Soln 125 MG/2.5 ML UDC PO SCH ×4 (08:23→21:31)
[2018-04-25] MEDS: Cefepime HCl 1,000 MG in 0.9 % Sodium Chloride Mini Bag 100 ML IVPB SCH (08:24)
[2018-04-25] MEDS: Insulin LISPRO 300 UNITS/3 ML VIAL SQ SCH ×4 (08:24→20:26)
[2018-04-25] MEDS: diazePAM 2 MG TABLET PO SCH ×2 (08:26→08:52)
--- NOTE | 2018-04-25 10:15 | Nephrology Progress Note ---
Date of Encounter: 04/25/18 Time of Encounter: 10:10 - Assessment and Plan (1) TERRENCE (acute kidney injury) Current Visit: Yes Status: Acute Scr is 1.83 up from 1.65. Gfr is 27 down from 30. Continues to be incontinent. Patient is now DNR-cc, we will sign off at this time, please reconsult if needed. (2) Cholangiocarcinoma Current Visit: Yes Status: Acute Per Oncology. (3) C. difficile diarrhea Current Visit: Yes Status: Acute Seems to be improving, Per primary. Subjective Principal diagnosis: n/v ANGIE Interval history: Pt seen and examined, pt resting with eyes closed. Spoke with daughter Mara at bedside. Objective - Vital Signs Vital signs: Vital Signs Temp Pulse Resp BP Pulse Ox 04/25/18 09:00 98.2 F 88 19 121/101 92 04/25/18 08:05 98.2 F 95 18 108/47 94 04/25/18 03:31 97.5 F L 80 18 108/47 96 04/24/18 23:34 99.0 F 92 18 138/62 92 04/24/18 19:29 98.8 F 91 18 123/53 95 04/24/18 15:58 98.1 F 79 16 117/65 95 04/24/18 11:30 98.5 F 74 16 102/60 97 Intake and Output 04/24/18 04/25/18 04/25/18 23:59 07:59 15:59 Intake Total 100 / 100 Output Total 200 / 200 Balance 100 / 100 -200 / -200 Intake: IV Fluids 100 / 100 Maxipime 1,000 MG In 0.9 % 100 / 100 Sodium Chloride (Mini-Bag +) 100 ML @ 200 mls/hr IVPB DAILY [facility] Rx#:[id number] Output: Urine 200 / 200 Other: # Urine Diapers 1 1 Weight 105 kg Blood Glucose* 128 112 Patient Weight 04/25/18 23:59 Weight 105 kg - General Appearance General appearance: Present: chronically ill, frail EENT: Present: ATNC, hearing intact, vision intact Neck: Present: supple Cardiology: Present: edema (+2 pitting edema noted to bilat lower extremities.) , normal S1, normal S2 Gastrointestinal: Present: normoactive bowel sounds Integumentary: Present: no rash, warm and dry Neurologic: Present: alert and oriented x3 Psychiatric: Present: mood/affect appropriate, cooperative - Lab 04/25/18 04:15 04/25/18 04:15 Most recent lab results Calcium 9.3 mg/dL (8.6-10.3) 04/25/18 04:15 Phosphorus 3.5 mg/dL (2.7-4.5) 04/17/18 06:19 Magnesium 2.1 mg/dL (1.6-2.6) 04/25/18 04:15 Urine Creatinine 129 mg/dL 04/23/18 06:03 Urine Sodium < 10.0 mEq/L 04/23/18 06:03 - VTE Documentation of Mechanical Device: Intermittent pneumatic compression device Consult Discharge Plan - Plan Referrals: Bronson Harris, DO [Primary Care Provider] - (This patient is from [facility] no PCP appontment needed)
[2018-04-25] MEDS ORDERED: *HR* OxyCODONE Immed Rel 5 MG TABLET PO PRN (11:31)
--- NOTE | 2018-04-25 12:32 | Palliative Progress Note ---
Date of Encounter: 04/25/18 Time of Encounter: 10:30 - Assessment and plan (1) Nausea and vomiting Current Visit: Yes Status: Acute Qualifiers: Vomiting type: unspecified Vomiting Intractability: non-intractable Qualified Code(s): R11.2 - Nausea with vomiting, unspecified (2) Abdominal pain Current Visit: Yes Status: Acute Assessment and plan: Fentanyl patch 12mcg started yest. Has utilized Oxycoodonex2 for breakthrough. Continue and monitor. Qualifiers: Abdominal location: generalized Qualified Code(s): R10.84 - Generalized abdominal pain (3) Ascites Current Visit: Yes Status: Chronic Assessment and plan: Was hoping for tunneled pleurx - however, pt on Plavix which will need held for 5 days. Spoke with [facility], Opal Cordon and explained situation. Will order one time paracentesis for today, hold Plavix starting in am (already had todays dose) and [facility] will schedule Pleurx cath to be done as an outpatient first of the week. Qualifiers: Ascites type: malignant Qualified Code(s): R18.0 - Malignant ascites (4) TERRENCE (acute kidney injury) Current Visit: Yes Status: Acute (5) Sepsis Current Visit: Yes Status: Suspected Qualifiers: Sepsis type: sepsis due to unspecified organism Qualified Code(s): A41.9 - Sepsis, unspecified organism (6) Goals of care, counseling/discussion Current Visit: Yes Status: Acute Assessment and plan: Daughter has decided to take patient home with [facility]. Referral made to [facility] with medical equipment that needed ordered (bed/air mattress, overbed table, large BSC). Hopefully, pt will have paracentesis today and be ready for discharge tomorrow afternoon once bed in and ready. (7) Anxiety Current Visit: Yes Status: Acute Assessment and plan: Patient's daughter concerned over how drowsy she is after Valium. Will decrease to scheduled dose at HS only, and leave PRN order if needed. (8) Cholangiocarcinoma Current Visit: Yes Status: Acute - Time Spent With Patient Total time spent is greater than 50% in coordination of care (as documented) at patient's floor/unit and/or counseling patient: 25 - 35 minutes - Subjective Interval history: Patient sleeping on my arrival but did awaken easily for assessment and assisted her to bedside commode. Daughter states that Valium is too sedating and she is having difficulty staying awake after she has this. Patient having increased abdominal discomfort and moaning when moving. - Constitutional Vitals: Abnormal lab results WBC 11.4 K/mcL (4.3-11.1) H 04/25/18 04:15 RBC 2.24 M/mcL (3.82-4.97) L 04/25/18 04:15 Hgb 8.2 g/dL (11.5-15.4) L 04/25/18 04:15 Hct 24.8 % (35.3-44.9) L 04/25/18 04:15 MCV 110.7 fL (83.0-100.0) H 04/25/18 04:15 MCH 36.6 pg (28.0-33.3) H 04/25/18 04:15 RDW 14.6 % (11.5-14.5) H 04/25/18 04:15 Plt Count 96 K/mcL (140-400) L 04/25/18 04:15 Neutrophils # 9.2 K/mcL (1.6-8.9) H 04/25/18 04:15 Smudge Cells Present (Not Present) A 04/20/18 04:10 Toxic Granulation Present (Not Present) A 04/19/18 05:00 Platelet Estimate Decreased (Normal) L 04/25/18 04:15 Large Platelets Present (Not Present) A 04/19/18 05:00 Immature Plt Fraction 7.9 % (1.1-6.1) H 04/25/18 04:15 Macrocytosis Present (Not Present) A 04/25/18 04:15 PT 15.6 Seconds (9.4-12.1) H 04/17/18 06:19 Sodium 130 mEq/L (136-145) L 04/25/18 04:15 Carbon Dioxide 18 mEq/L (23-29) L 04/25/18 04:15 BUN 43 mg/dL (8-23) H 04/25/18 04:15 Creatinine 1.83 mg/dL (0.60-1.20) H 04/25/18 04:15 Est GFR ( Amer) 33 (> 60) L 04/25/18 04:15 Est GFR (Non-Af Amer) 27 (> 60) L 04/25/18 04:15 Glucose 130 mg/dL (70-105) H 04/25/18 04:15 POC Glucose 128 mg/dL (70-99) H 04/24/18 19:33 Uric Acid 11.9 mg/dL (2.3-7.6) H 04/21/18 08:08 Iron 19 mcg/dL (50-170) L 04/23/18 03:42 Transferrin 80 mg/dL (203-362) L 04/23/18 03:42 Ferritin 171 ng/mL (10-120) H 04/23/18 03:42 ALT 4 Units/L (7-52) L 04/25/18 04:15 Creatine Kinase < 10 Units/L (30-223) L 04/21/18 08:08 B-Natriuretic Peptide 386 pg/mL (Less than 100) H 04/17/18 06:20 Serum Total Protein 5.5 g/dL (6.4-8.9) L 04/25/18 04:15 Globulin 1.7 g/dL (2.4-3.5) L 04/25/18 04:15 Lipase 3 Units/L (11-82) L 04/17/18 06:19 Vitamin B12 > 1500 pg/mL (250-1100) H 04/23/18 03:42 Folate 21.4 ng/mL (3.0-16.0) H 04/23/18 03:42 Urine Ketones Trace mg/dL (Negative) H 04/23/18 06:03 Ur Leukocyte Esterase Trace (Negative) H 04/23/18 06:03 Urine Microscopic RBC 5-15 per hpf (0-3) H 04/23/18 06:03 Urine Microscopic WBC 5-15 per hpf (0-3) H 04/23/18 06:03 Ur Squamous Epith Cells Many per lpf (None-Few) H 04/23/18 06:03 Ur Culture Indicated? NO. (NO) A 04/17/18 06:41 Stl C. diff Tox B Gene Positive (Negative) A 04/17/18 21:15 - Respiratory Respiratory exam: Present: decreased breath sounds, CTAB - Cardiovascular Cardiovascular exam: Present: +S1, +S2 - GI/Abdominal GI/Abdominal exam: Present: diminished bowel sounds, distended, firm - Extremities Exam Extremities exam: Present: normal capillary refill Additional comments: 2+ edema bilateral lower extremities - Neurological Exam Additional comments: Drowsy - falls asleep during conversation. Follows simple commands. - Skin Skin exam: Present: dry, pallor, warm Palliative Quality Palliative Quality: Screen for Code Status: Yes, Screen for Goals of Care: Yes, Screen for Pain: Yes, If Pain Regimen Started, Initiate Bowel Regimen: No ( Diarrhea), Screen for Nausea/Vomitting: Yes Code Status: 04/24/18 15:24 DNR [Resuscitation Status: Active] [RES] Routine Comment: Resuscitation Status: DNR-Comfort Care - Labs CBC & Chem 7: 04/25/18 04:15 04/25/18 04:15 Labs: Laboratory Results - last 24 hr 04/23/18 04/23/18 04/24/18 07:56 12:10 11:27 WBC RBC Hgb Hct MCV MCH MCHC RDW Plt Count MPV Immature Gran % Seg Neutrophils % Lymphocytes % Monocytes % Eosinophils % Basophils % Neutrophils # Lymphocytes # Monocytes # Eosinophils # Basophils # Platelet Estimate Immature Plt Fraction Macrocytosis Sodium Potassium Chloride Carbon Dioxide BUN Creatinine Est GFR ( Amer) Est GFR (Non-Af Amer) BUN/Creatinine Ratio Glucose POC Glucose 160 H 153 H 137 H Calculated Osmolality Calcium Magnesium Total Bilirubin AST ALT Alkaline Phosphatase Serum Total Protein Albumin Globulin Albumin/Globulin Ratio 04/24/18 04/24/18 04/25/18 16:03 19:33 04:15 WBC 11.4 H RBC 2.24 L Hgb 8.2 L Hct 24.8 L MCV 110.7 H MCH 36.6 H MCHC 33.1 RDW 14.6 H Plt Count 96 L MPV 11.3 Immature Gran % 0.7 Seg Neutrophils % 80.5 Lymphocytes % 8.6 Monocytes % 9.1 Eosinophils % 1.0 Basophils % 0.1 Neutrophils # 9.2 H Lymphocytes # 1.0 Monocytes # 1.0 Eosinophils # 0.1 Basophils # 0.0 Platelet Estimate Decreased L Immature Plt Fraction 7.9 H Macrocytosis Present A Sodium Potassium Chloride Carbon Dioxide BUN Creatinine Est GFR ( Amer) Est GFR (Non-Af Amer) BUN/Creatinine Ratio Glucose POC Glucose 128 H 128 H Calculated Osmolality Calcium Magnesium Total Bilirubin AST ALT Alkaline Phosphatase Serum Total Protein Albumin Globulin Albumin/Globulin Ratio 04/25/18 04:15 WBC RBC Hgb Hct MCV MCH MCHC RDW Plt Count MPV Immature Gran % Seg Neutrophils % Lymphocytes % Monocytes % Eosinophils % Basophils % Neutrophils # Lymphocytes # Monocytes # Eosinophils # Basophils # Platelet Estimate Immature Plt Fraction Macrocytosis Sodium 130 L Potassium 4.3 Chloride 102 Carbon Dioxide 18 L BUN 43 H Creatinine 1.83 H Est GFR ( Amer) 33 L Est GFR (Non-Af Amer) 27 L BUN/Creatinine Ratio 23 Glucose 130 H POC Glucose Calculated Osmolality 283 Calcium 9.3 Magnesium 2.1 Total Bilirubin 0.9 AST 22 ALT 4 L Alkaline Phosphatase 41 Serum Total Protein 5.5 L Albumin 3.8 Globulin 1.7 L Albumin/Globulin Ratio 2.2 - ABG Interpretation ABG results: PT/INR, D-dimer PT 15.6 Seconds (9.4-12.1) H 04/17/18 06:19 Consult Discharge Plan - Plan Referrals: Bronson Harris DO [Primary Care Provider] - (This patient is from [facility] no PCP appontment needed)
--- NOTE | 2018-04-25 13:13 | Infectious Disease Progress No ---
Date of Encounter: 04/25/18 Time of Encounter: 10:50 - Assessment and Plan (1) Severe sepsis Current Visit: Yes Status: Acute The patient had to search criteria plus hypotension and lactic acidosis on admission. Likely secondary to C. difficile colitis. Improved. White blood cell count is trending down. Tachycardia has resolved. Blood pressure stabilized. Blood cultures drawn 04/17/18 are negative 2 sets. Repeat blood cultures drawn 04/20/18 are no growth to date 2 sets. (2) Leukocytosis Current Visit: Yes Status: Acute Likely secondary to C. difficile colitis. White blood cell count continues to trend down and is near normal. Continue cefepime 1 g IV daily for now (day 6). Continue vancomycin by mouth for C. difficile. Await further goals of care as established for the palliative care team. If transitioned to hospice, will discontinue Cefepime. Qualifiers: Leukocytosis type: unspecified Qualified Code(s): D72.829 - Elevated white blood cell count, unspecified (3) C. difficile diarrhea Current Visit: Yes Status: Acute Recurrent. This is the second episode of C. difficile the patient has had. Severe. Continue vancomycin PO 125 mg 4 times a day (day 9). Clinically, the patient is improved. Her stools are becoming more formed and are less frequent. Duration of treatment depends on the clinical picture, but likely a total of 14 days would be adequate. Continue C. difficile precautions per hospital protocol. (4) TERRENCE (acute kidney injury) Current Visit: Yes Status: Acute Likely secondary to severe sepsis. Creatinine is creeping back up today. Continue to trend. Avoid nephrotoxins and dose adjust antibiotics. Nephrology consult and following. 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 Most likely malignant ascites. Status post therapeutic/diagnostic paracentesis. Peritoneal fluid culture is negative. Palliative care planning for palliative pleurx catheter placement for later today. Qualifiers: Ascites type: malignant Qualified Code(s): R18.0 - Malignant ascites (6) Cholangiocarcinoma Current Visit: Yes Status: Acute Follows with the [place] [facility]. Palliative care consult and following. Likely transition to hospice later today. (7) Coronary artery disease Current Visit: Yes Status: Chronic - Management per primary team Qualifiers: Coronary Disease-Associated Artery/Lesion type: [place] artery [place] vs. transplanted heart: [place] heart Associated angina: without angina Qualified Code(s): I25.10 - Atherosclerotic heart disease of [place] coronary artery without angina pectoris (8) Diabetes mellitus Current Visit: Yes Status: Chronic - Management per primary team Qualifiers: Diabetes mellitus type: type 2 Diabetes mellitus long-term insulin use: without long-term use Diabetes mellitus complication status: with unspecified complications Qualified Code(s): E11.8 - Type 2 diabetes mellitus with unspecified complications - Subjective Interval history: Patient seen and examined. No acute events noted overnight. Patient appears drowsy, but more comfortable today. Transition to hospice care pending decision of the family, but likely to happen later today. The patient denies pain at this time. She denies shortness of breath or cough. Per her daughter, she did not eat breakfast this morning because she was sleeping. She reports that the diarrhea is improved and her stools are more formed. She denies vomiting, but does report some nausea. She denies oral thrush or nasal skin lesions. Infect Dis PN-Objective Data - Labs CBC & Chem 7: 04/25/18 04:15 04/25/18 04:15 Labs: Laboratory Results - last 24 hr 04/23/18 04/23/18 04/24/18 07:56 12:10 11:27 WBC RBC Hgb Hct MCV MCH MCHC RDW Plt Count MPV Immature Gran % Seg Neutrophils % Lymphocytes % Monocytes % Eosinophils % Basophils % Neutrophils # Lymphocytes # Monocytes # Eosinophils # Basophils # Platelet Estimate Immature Plt Fraction Macrocytosis Sodium Potassium Chloride Carbon Dioxide BUN Creatinine Est GFR ( Amer) Est GFR (Non-Af Amer) BUN/Creatinine Ratio Glucose POC Glucose 160 H 153 H 137 H Calculated Osmolality Calcium Magnesium Total Bilirubin AST ALT Alkaline Phosphatase Serum Total Protein Albumin Globulin Albumin/Globulin Ratio 04/24/18 04/24/18 04/25/18 16:03 19:33 04:15 WBC 11.4 H RBC 2.24 L Hgb 8.2 L Hct 24.8 L MCV 110.7 H MCH 36.6 H MCHC 33.1 RDW 14.6 H Plt Count 96 L MPV 11.3 Immature Gran % 0.7 Seg Neutrophils % 80.5 Lymphocytes % 8.6 Monocytes % 9.1 Eosinophils % 1.0 Basophils % 0.1 Neutrophils # 9.2 H Lymphocytes # 1.0 Monocytes # 1.0 Eosinophils # 0.1 Basophils # 0.0 Platelet Estimate Decreased L Immature Plt Fraction 7.9 H Macrocytosis Present A Sodium Potassium Chloride Carbon Dioxide BUN Creatinine Est GFR ( Amer) Est GFR (Non-Af Amer) BUN/Creatinine Ratio Glucose POC Glucose 128 H 128 H Calculated Osmolality Calcium Magnesium Total Bilirubin AST ALT Alkaline Phosphatase Serum Total Protein Albumin Globulin Albumin/Globulin Ratio 04/25/18 04:15 WBC RBC Hgb Hct MCV MCH MCHC RDW Plt Count MPV Immature Gran % Seg Neutrophils % Lymphocytes % Monocytes % Eosinophils % Basophils % Neutrophils # Lymphocytes # Monocytes # Eosinophils # Basophils # Platelet Estimate Immature Plt Fraction Macrocytosis Sodium 130 L Potassium 4.3 Chloride 102 Carbon Dioxide 18 L BUN 43 H Creatinine 1.83 H Est GFR ( Amer) 33 L Est GFR (Non-Af Amer) 27 L BUN/Creatinine Ratio 23 Glucose 130 H POC Glucose Calculated Osmolality 283 Calcium 9.3 Magnesium 2.1 Total Bilirubin 0.9 AST 22 ALT 4 L Alkaline Phosphatase 41 Serum Total Protein 5.5 L Albumin 3.8 Globulin 1.7 L Albumin/Globulin Ratio 2.2 Cultures: Cultures 04/17/18 10:30 Body Fluid Culture - Final Peritoneal Fluid 04/20/18 13:12 Blood Culture - Preliminary Peripheral Venipuncture Culture is incubating and being continuously monitored for growth. Final report to follow. 04/20/18 13:12 Blood Culture - Preliminary Peripheral Venipuncture Culture is incubating and being continuously monitored for growth. Final report to follow. Serology 04/23/18 04/23/18 04/17/18 Range/Units 06:03 06:03 21:15 Urine Color Yellow (Yellow) Urine Clarity Clear (Clear) Urine pH 5.5 (5.0-8.0) pH Units Ur Specific [place] 1.020 (1.010-1.025) Urine Protein Trace (Neg-Trace) mg/dL Urine Glucose (UA) Normal (Normal) mg/dL Urine Ketones Trace H (Negative) mg/dL Urine Blood Negative (Negative) Urine Nitrite Negative (Negative) Urine Bilirubin Negative (Negative) Urine Urobilinogen Normal (Normal) mg/dL Ur Leukocyte Esterase Trace H (Negative) Urine Microscopic RBC 5-15 H (0-3) per hpf Urine Microscopic WBC 5-15 H (0-3) per hpf Ur Squamous Epith Cells Many H (None-Few) per lpf Urine Bacteria None Seen (None-Few) per hpf Hyaline Casts Few (None-Few) per lpf Urine Creatinine 129 mg/dL Urine Sodium < 10.0 mEq/L Peritoneal Appearance (Clear) Peritoneal Volume mL Peritoneal RBC (0.000 - 0.002) M/mcL Periton Tot Nuc Cells (0-300) TNC/mcL Periton Neutrophils % Periton Lymphocytes % % Periton Monocytes % % Periton Other Cells % % Peritoneal Tot Protein (No Ref Range) g/dL Peritoneal Albumin (No Ref Range) g/dL Peritoneal LDH (No Ref Range) Units/L Peritoneal Glucose (No Ref Range) mg/dL Peritoneal Amylase (No Ref Range) Units/L Stl C. diff Tox B Gene Positive A (Negative) 04/17/18 04/17/18 Range/Units 10:30 10:30 Urine Color (Yellow) Urine Clarity (Clear) Urine pH (5.0-8.0) pH Units Ur Specific [place] (1.010-1.025) Urine Protein (Neg-Trace) mg/dL Urine Glucose (UA) (Normal) mg/dL Urine Ketones (Negative) mg/dL Urine Blood (Negative) Urine Nitrite (Negative) Urine Bilirubin (Negative) Urine Urobilinogen (Normal) mg/dL Ur Leukocyte Esterase (Negative) Urine Microscopic RBC (0-3) per hpf Urine Microscopic WBC (0-3) per hpf Ur Squamous Epith Cells (None-Few) per lpf Urine Bacteria (None-Few) per hpf Hyaline Casts (None-Few) per lpf Urine Creatinine mg/dL Urine Sodium mEq/L Peritoneal Appearance CLEAR (Clear) Peritoneal Volume 60.0 mL Peritoneal RBC < 0.002 (0.000 - 0.002) M/mcL Periton Tot Nuc Cells 182 (0-300) TNC/mcL Periton Neutrophils 68.0 % Periton Lymphocytes % 4.0 % Periton Monocytes % 13.0 % Periton Other Cells % 15.0 % Peritoneal Tot Protein < 3.0 (No Ref Range) g/dL Peritoneal Albumin < 1.5 (No Ref Range) g/dL Peritoneal LDH 169 (No Ref Range) Units/L Peritoneal Glucose 134 (No Ref Range) mg/dL Peritoneal Amylase < 10 (No Ref Range) Units/L Stl C. diff Tox B Gene (Negative) Exam - Constitutional Vitals: Temp Pulse Resp BP Pulse Ox 97.8 F 87 20 148/74 93 04/25/18 11:29 04/25/18 11:29 04/25/18 11:29 04/25/18 11:29 04/25/18 11:29 General appearance: average body habitus, cooperative, no acute distress - Head Head exam: Present: atraumatic, normal inspection, normocephalic - Eye Eye exam: Present: EOMI, normal appearance, PERRL Pupils: Present: normal accommodation - ENT ENT exam: Present: mucous membranes dry - Neck Neck exam: Present: normal inspection - Respiratory Respiratory exam: Present: CTAB. Absent: rales, respiratory distress, rhonchi, wheezes - Cardiovascular Cardiovascular exam: Present: RRR, +S1, +S2 - GI/Abdominal GI/Abdominal exam: Present: distended, firm, normal bowel sounds, tenderness ( generalized) - Extremities Exam Extremities exam: Present: normal inspection, pedal edema (1+ BLE). Absent: tenderness - Neurological Exam Neurological exam: Present: altered (Drowsy), oriented X3, no focal deficits ( LUI x 4) - Skin Skin exam: Present: dry, intact, pallor, warm - VTE Documentation of Mechanical Device: Intermittent pneumatic compression device Consult Discharge Plan - Plan Referrals: Bronson Harris, DO [Primary Care Provider] - (This patient is from [facility] no PCP appontment needed)
--- NOTE | 2018-04-25 13:46 | Oncology Inp Progress Note ---
Date of Encounter: 04/25/18 Time of Encounter: 11:50 (1) Cholangiocarcinoma Current Visit: Yes Status: Acute Assessment and plan: Ms. Singletary began palliative intent [facility]/Ox for locally advanced cholangiocarcinoma in November of this year. She had initial response to treatment , however, most recently treatment has been on hold secondary to concern for oxaliplatin-induced liver injury in the setting of underlying liver disease or possible disease progression along later complicated by hospitalization for CVA and C. diff. She has now been re-admitted with severe sepsis, C. difficile colitis and ascites. Given patients debility, progression and overall frailness, the hospice philosophy was introduced late last week in discussion with her treating oncologist Dr. Stevens, as patient is a very poor candidate for further chemotherapy. Dr. Stevens has agreed to assist in overseeing hospice care as a primary physician for this patient, patients daughter is very relieved to have a continued connection with oncology during this transition to hospice care. Following a team discussion with Lu Costa, Palliative Care RN [facility], myself, patient and patients daughter yesterday regarding goals of care, palliative options and transition to hospice, patient and patients daughter are amendable to transition to home with hospice. The palliative care team are working out the logistics and planning for potential discharge tomorrow. (2) Ascites Current Visit: Yes Status: Chronic Assessment and plan: CT abdomen/pelvis and patients presentation most likely consistent with progression of malignancy with radiographic evidence fitting peritoneal carcinamatosis, although cytology reveals only atypical cells. Quick re- accumulation of fluid again this week also concerning for malignancy ascites. Patients daughter reports a recent increase in abdominal distention and discomfort which is also visible on exam. Planning on a paracentesis with IR, cannot perform abdominal pleurx catheter placement until plavix has been held x5 days. The palliative care team has assisted to arrange for outpatient placement of abdominal pleurx around next Tuesday. 12 mcg Fentanyl patch placed last evening, valium has been changed to QHS with PRN for breakthrough, continue bentyl scheduled. She has utilized 4 doses of oxycodone within past 24 hours, palliative has adjusted her schedule to allow for Q4H dosing PRN. Qualifiers: Ascites type: malignant Qualified Code(s): R18.0 - Malignant ascites Oncology: Subj Interval history: Ms. Singletary is resting in her chair, daughter Mara is at bedside. Ms. Singletary reports abdominal discomfort, her pain is worse with moving. She has been quite drowsy since receiving her pain medication this morning but will awake to use the bathroom and get up to the chair. She has not eaten much today. She denies nausea or vomiting. - Constitutional Vitals: Vital Signs Temp Pulse Resp BP Pulse Ox 04/25/18 11:29 97.8 F 87 20 148/74 93 04/25/18 09:00 98.2 F 88 19 121/101 92 04/25/18 08:05 98.2 F 95 18 108/47 94 04/25/18 03:31 97.5 F L 80 18 108/47 96 04/24/18 23:34 99.0 F 92 18 138/62 92 04/24/18 19:29 98.8 F 91 18 123/53 95 04/24/18 15:58 98.1 F 79 16 117/65 95 Intake and Output 04/24/18 04/25/18 04/25/18 23:59 07:59 15:59 Intake Total 100 / 100 0 / 0 Output Total 200 / 200 Balance 100 / 100 -200 / -200 Intake: IV Fluids 100 / 100 Maxipime 1,000 MG In 0.9 % 100 / 100 Sodium Chloride (Mini-Bag +) 100 ML @ 200 mls/hr IVPB DAILY [facility] Rx#:[id number] Oral 0 / 0 Output: Urine 200 / 200 Other: Meal Lunch Percent of Meal Consumed 5% # Urine Diapers 1 1 Weight 105 kg Blood Glucose* 128 130 Patient Weight 04/25/18 23:59 Weight 105 kg General appearance: cooperative, no acute distress, no febrile - Head Head exam: Present: atraumatic - ENT ENT exam: Present: mucous membranes moist - Respiratory Respiratory exam: Present: decreased breath sounds. Absent: respiratory distress - Cardiovascular Cardiovascular exam: Present: RRR, +S1, +S2 - GI/Abdominal GI/Abdominal exam: Present: distended, firm, hypoactive bowel sounds, tenderness - Extremities Exam Additional comments: BLE pitting edema 2+ - Neurological Exam Neurological exam: Present: alert, oriented X3, no focal deficits, strengths equal and symetr throughout - Psychiatric Psychiatric exam: Present: normal affect, normal mood - Skin Skin exam: Present: dry, intact, pallor, warm Oncology: Obj Data - Labs CBC & Chem 7: 04/25/18 04:15 04/25/18 04:15 - ABG Interpretation ABG results: PT/INR, D-dimer PT 15.6 Seconds (9.4-12.1) H 04/17/18 06:19 Consult Discharge Plan - Plan Referrals: Bronson Harris DO [Primary Care Provider] - (This patient is from [facility] no PCP appontment needed)
[2018-04-25] MEDS ORDERED: *HR* OxyCODONE Immed Rel 5 MG TABLET PO ONE (14:40)
--- NOTE | 2018-04-25 15:56 | IR Procedure Note ---
Date of procedure: 04/25/18 Consent Obtained: Verbal consent, Written consent Timeout: Correct patient and procedure verified, Correct site verified, Time out performed, Skin prep completed Local anesthetic: Lidocaine 1% Indications: ascites Procedure Performed: paracentesis Was there an ambulance assistant present: No Site/Technique: right lower abdomen Results/Findings: large ascites Estimated blood loss (cc): 0 Complications: None; Tolerated procedure well Post Procedure Treatment Plan: NA Specimen: 11,300 cc of fluid removed.
[2018-04-25] MEDS: Cholecalciferol (D-3) 1,000 UNIT TABLET PO SCH (16:09)
--- NOTE | 2018-04-25 18:20 | Internal Med Progress Note ---
Hospitalist Progress Note - Encounter Date of Encounter: 04/25/18 Time of Encounter: 18:15 - Subjective Interval History: Patient alert awake oriented complain of for fatigue, generalized weakness some nausea but denies vomiting chest pain shortness of breath. Family at bedside. Review the lab - Exam Vitals: Temp Pulse Resp BP Pulse Ox 97.8 F 73 20 148/74 93 04/25/18 11:29 04/25/18 16:00 04/25/18 11:29 04/25/18 11:29 04/25/18 11:29 Exam: General appearance: No acute distress, A&O X 3, appeared depress Neck nontender, supple Respiratory exam: Diminished breath sound to auscultation bilaterally Cardiovascular exam: Regular rate and rhythm, no systolic murmur Abdominal exam: Soft, diffuse tenderness, ascites, positive bowel sounds Extremities exam: No calf tenderness, +1/+2 pedal edema Present: Neurological exam: CN II-XII intact, no focal deficits. - Assessment and Plan (1) Cholangiocarcinoma Current Visit: Yes Status: Acute Assessment and Plan: Locally advanced. Overall poor prognosis. Oncologist on board and no further plan for chemotherapy as patient is poor candidate. Agreed with palliative option and transition to hospice. Intermittent paracentesis for comfort care. Pleurx catheter was not placed today as it was planned by interventional radiologist being on Plavix. I are recommended to hold Plavix for 5 days before Pleurx catheter placement. Plavix on hold. Plan to discharge patient on home hospice tomorrow. social group worker on case. (2) Diabetes mellitus Current Visit: Yes Status: Chronic Assessment and Plan: ISS (3) Coronary artery disease Current Visit: Yes Status: Chronic Assessment and Plan: Continue home medications. Plavix on hold as that is Pleurx catheter placement is planned for intermittent paracentesis as comfort care. Continue aspirin and metoprolol (4) Anemia Current Visit: Yes Status: Chronic Assessment and Plan: Hb stable @ 8.2 cont Iron supplements (5) Ascites Current Visit: Yes Status: Chronic Assessment and Plan: With peritoneal carcinomatosis. Poor prognosis (6) C. difficile diarrhea Current Visit: Yes Status: Acute Assessment and Plan: Continue vancomycin orally. Frequency of diarrhea is improving. WBC count is also improving. (7) TERRENCE (acute kidney injury) Current Visit: Yes Status: Acute Assessment and Plan: Again trending up creatinine level slightly. Dermatology Nurse Practitioner on board and signed off. (8) Sepsis Current Visit: Yes Status: Suspected Assessment and Plan: Due to C. difficile colitis most likely as No other source of infection identified so far Continue PO vancomycin and cefepime while in the hospital. Will discontinue cefepime went plan to discharge on hospice care ID on board (9) History of stroke Current Visit: Yes Status: Chronic Assessment and Plan: Stable. Continue home medicine (10) DVT prophylaxis Current Visit: Yes Status: Acute Assessment and Plan: On SCD's - Time Spent with Patient Total time spent is greater than 50% in coordination of care (as documented) at patient's floor/unit and/or counseling patient: 25 - 35 minutes Internal Medicine: Result - Labs CBC & Chem 7: 04/25/18 04:15 04/25/18 04:15 Labs: Short CBC 04/25/18 Range/Units 04:15 WBC 11.4 H (4.3-11.1) K/mcL Hgb 8.2 L (11.5-15.4) g/dL Hct 24.8 L (35.3-44.9) % Plt Count 96 L (140-400) K/mcL Neutrophils # 9.2 H (1.6-8.9) K/mcL BMP 04/25/18 04:15 Sodium 130 L Potassium 4.3 Chloride 102 Carbon Dioxide 18 L BUN 43 H Creatinine 1.83 H Glucose 130 H Calcium 9.3 Liver Function 04/25/18 Range/Units 04:15 Total Bilirubin 0.9 (0.3-1.0) mg/dL AST 22 (13-39) Units/L ALT 4 L (7-52) Units/L Alkaline Phosphatase 41 (34-104) Units/L Albumin 3.8 (3.5-5.7) g/dL - ABG Interpretation ABG results: PT/INR, D-dimer PT 15.6 Seconds (9.4-12.1) H 04/17/18 06:19 - Impressions Impressions Paracentesis Ultrasound 04/25/18 13:18 IMPRESSION: Successful ultrasound guided paracentesis. 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 transplanted heart: [place] heart Associated angina: without angina Qualified Code(s): I25.10 - Atherosclerotic heart disease of [place] coronary artery without angina pectoris (4) Anemia Qualifiers: Anemia type: other cause Other causes of anemia: chronic disease, neoplastic Qualified Code(s): D63.0 - Anemia in neoplastic disease (5) Ascites Qualifiers: Ascites type: malignant Qualified Code(s): R18.0 - Malignant ascites (8) Sepsis Qualifiers: Sepsis type: sepsis due to unspecified organism Qualified Code(s): A41.9 - Sepsis, unspecified organism
[2018-04-25] MEDS ORDERED: diazePAM 2 MG TABLET PO SCH (21:00)
[2018-04-26] MEDS: *HR* OxyCODONE Immed Rel 5 MG TABLET PO PRN ×2 (05:32→11:15)
[2018-04-26 07:35] VITALS: BP 98/57
[2018-04-26] MEDS: Lactobacillus 1 EACH CAP.SPRINK PO SCH (08:37)
[2018-04-26] MEDS: diazePAM 2 MG TABLET PO PRN (08:37)
[2018-04-26] MEDS: Aspirin Enteric Coated 81 MG Tablet PO SCH (08:37)
[2018-04-26] MEDS: Cefepime HCl 1,000 MG in 0.9 % Sodium Chloride Mini Bag 100 ML IVPB SCH (08:39)
[2018-04-26] MEDS: Vancomycin Oral Soln 125 MG/2.5 ML UDC PO SCH (08:39)
--- NOTE | 2018-04-26 08:48 | Event Note ---
Date of Encounter: 04/26/18 Time of Encounter: 08:47 Chart reviewed. Patient to discharge home with hospice later today. Recommend discontinuing IV antibiotics. Continue PO Vancomycin to treat C. diff as long as patient is able to take oral medication. Complete 14 day course. ID will sign off. Please re-consult if needed.
--- NOTE | 2018-04-26 11:05 | Discharge Summary ---
- NOTES TO OUTPATIENT PROVIDER Notes to Outpatient Provider: Follow-up with [facility] and PCP. scheduled with IR for Pleurx catheter placement after holding Plavix 5 days Orders not resulted at time of discharge: Pending orders 04/23/18 14:36 Occult Blood,Stool [BF] Routine Date of Encounter: 04/26/18 Time of Encounter: 11:01 - Discharge Diagnosis (1) Cholangiocarcinoma Priority: Primary Status: Acute Assessment and Plan: Locally advanced. Overall poor prognosis. Oncologist on board and no further plan for chemotherapy as patient is poor candidate. Agreed with palliative option and transition to hospice. Intermittent paracentesis for comfort care. Pleurx catheter was not placed as patient was on Plavix therefore interventional radiologist recommended to get done after holding Plavix for 5 days. As patient is being discharged home under hospice care today that will be followed on OPD basis with a scheduled appointment. (2) Sepsis Priority: Primary Status: Suspected Assessment and Plan: Due to C. difficile colitis most likely as No other source of infection identified so far Continue PO vancomycin and cefepime while in the hospital. Will discontinue cefepime now as patient is being discharged home today Qualifiers: Sepsis type: sepsis due to unspecified organism Qualified Code(s): A41.9 - Sepsis, unspecified organism (3) TERRENCE (acute kidney injury) Priority: Primary Status: Acute Assessment and Plan: Stable. Renovation Plant Supervisor on board and signed off. (4) C. difficile diarrhea Priority: Primary Status: Acute Assessment and Plan: Continue vancomycin orally as recommended by ID. Complete the course and next 4 days. (5) Ascites Priority: Primary Status: Chronic Assessment and Plan: With peritoneal carcinomatosis. Poor prognosis Qualifiers: Ascites type: malignant Qualified Code(s): R18.0 - Malignant ascites (6) Diabetes mellitus Priority: Secondary Status: Chronic Assessment and Plan: ISS Qualifiers: Diabetes mellitus type: type 2 Diabetes mellitus snf insulin use: without snf use Diabetes mellitus complication status: with unspecified complications Qualified Code(s): E11.8 - Type 2 diabetes mellitus with unspecified complications (7) Coronary artery disease Priority: Secondary Status: Chronic Assessment and Plan: Continue home medications. Plavix on hold now that resume after Pleurx catheter placement . Continue aspirin and metoprolol Qualifiers: Coronary Disease-Associated Artery/Lesion type: [place] artery [place] vs. transplanted heart: [place] heart Associated angina: without angina Qualified Code(s): I25.10 - Atherosclerotic heart disease of [place] coronary artery without angina pectoris (8) Anemia Priority: Secondary Status: Chronic Assessment and Plan: Hb stable @ 8.2 cont Iron supplements Qualifiers: Anemia type: other cause Other causes of anemia: chronic disease, neoplastic Qualified Code(s): D63.0 - Anemia in neoplastic disease (9) History of stroke Priority: Secondary Status: Chronic Assessment and Plan: Stable. Continue home medicine Hospital course: Ms. Singletary is a 77 year old female patient with known history of locally advanced cholangiocarcinoma, CAD on aspirin and Plavix got admitted for C. difficile diarrhea, sepsis, [place] I. ID specialist was consulted who did not find any source of sepsis other than underlying C. difficile therefore cefepime and vancomycin was started. Oncologist was consulted and did not plan for any further chemotherapy due to poor prognosis. Overall her medical condition continued to decline therefore palliative care was consulted. After lengthy discuss and family decided just for comfort care with hospice. Please see details in diagnosis part of discharge summary and palliative care note. Patient is being discharged home with home with hospice care under a stable condition. - Time Spent with Patient Total time spent providing and/or coordinating discharge services: - Discharge Medications Prescriptions: Bisacodyl [Dulcolax] 10 mg RC DAILY PRN 4 Days #4 supp.rect PRN Reason: Constipation Bisacodyl [Dulcolax] 10 mg RC DAILY PRN 4 Days #4 supp.rect PRN Reason: Constipation diazePAM [Valium] 1 mg PO TID PRN 4 Days #12 tablet PRN Reason: muscle spasms/restlessness diazePAM [Valium] 1 mg PO TID PRN 4 Days #12 tablet PRN Reason: muscle spasms, restlessness FentaNYL PATCH [Duragesic] 12 mcg TD Q72H 4 Days #2 patch.td72 FentaNYL PATCH [Duragesic] 12 mcg TD Q72H 4 Days #2 patch.td72 LORazepam Oral Conc [Ativan Oral Conc] 1 mg PO Q4H PRN 4 Days #15 mls PRN Reason: Anxiety LORazepam Oral Conc [Ativan Oral Conc] 1 mg PO Q4H PRN 4 Days #15 mls PRN Reason: Anxiety OXYCODONE Oral CONC [Oxycodone Oral Conc] 10 mg PO Q3H PRN 30 Days #30 oral.syg PRN Reason: breakthough pain OXYCODONE Oral CONC [Oxycodone Oral Conc] 10 mg PO Q3H PRN 7 Days #30 oral.syg PRN Reason: Breakthrough Pain Vancomycin HCl 125 mg PO QID 5 Days #18 syringe Home Medications: Aspirin [Lo-Dose Aspirin EC] 81 mg PO DAILY 09/23/17 [History] Cholecalciferol (D-3) [Vitamin D] 1,000 unit PO QPM 09/23/17 [History] Multivitamin [Multivitamins] 1 each PO QPM 09/23/17 [History] Furosemide [Lasix] 20 mg PO DAILY 11/15/17 [History] Pantoprazole Sodium [Protonix] 40 mg PO DAILY 11/15/17 [History] Cyanocobalamin (Vitamin B-12) [Vitamin B-12] 100 mcg PO QPM 11/21/17 [History] Lidocaine/Prilocaine [Emla] 1 appl TP AD 11/21/17 [History] Nitroglycerin [Nitrostat] 0.4 mg SL Q5M PRN 11/21/17 [History] glipiZIDE [Glucotrol] 5 mg PO 0800 11/21/17 [History] Metoprolol [Lopressor] 12.5 mg PO BID 12/12/17 [History] Potassium Chloride [Klor-Con 10] 10 meq PO DAILY 12/12/17 [History] Magic Mouthwash [Magic Mouthwash BLM] 10 ml PO QID PRN #240 ml 12/29/17 [Rx] Acetaminophen [Tylenol] 1,000 mg PO Q6HR PRN 01/09/18 [History] Guaifenesin [Mucinex] 600 mg PO Q12HR PRN 02/06/18 [History] Dicyclomine [Bentyl] 20 mg PO BID 03/06/18 [History] Lactobac Cmb #3/Fos/Pantethine [Probiotic & Acidophilus Cap] 1 each PO BID #60 capsule 03/09/18 [Rx] Lactobacillus Rhamnosus R0011 [Probiotic Digestive Care] 1 each PO BID #60 capsule 04/04/18 [Rx] Ondansetron HCl [Zofran] 4 mg PO Q6H PRN #30 tab 04/04/18 [Rx] OxyCODONE Immed Rel [Roxicodone 10 MG] 10 mg PO TID PRN 04/17/18 [History] Bisacodyl [Dulcolax] 10 mg RC DAILY PRN 4 Days #4 supp.rect 04/26/18 [Rx] Bisacodyl [Dulcolax] 10 mg RC DAILY PRN 4 Days #4 supp.rect 04/26/18 [Rx] FentaNYL PATCH [Duragesic] 12 mcg TD Q72H 4 Days #2 patch.td72 04/26/18 [Rx] FentaNYL PATCH [Duragesic] 12 mcg TD Q72H 4 Days #2 patch.td72 04/26/18 [Rx] LORazepam Oral Conc [Ativan Oral Conc] 1 mg PO Q4H PRN 4 Days #15 mls 04/26/18 [ Rx] LORazepam Oral Conc [Ativan Oral Conc] 1 mg PO Q4H PRN 4 Days #15 mls 04/26/18 [ Rx] OXYCODONE Oral CONC [Oxycodone Oral Conc] 10 mg PO Q3H PRN 30 Days #30 oral.syg 04/26/18 [Rx] OXYCODONE Oral CONC [Oxycodone Oral Conc] 10 mg PO Q3H PRN 7 Days #30 oral.syg 04/26/18 [Rx] Vancomycin HCl 125 mg PO QID 5 Days #18 syringe 04/26/18 [Rx] diazePAM [Valium] 1 mg PO TID PRN 4 Days #12 tablet 04/26/18 [Rx] diazePAM [Valium] 1 mg PO TID PRN 4 Days #12 tablet 04/26/18 [Rx] Allergies/Adverse Reactions: 3 Allergy/AdvReac Type Severity Reaction Status Date / Time shellfish derived AdvReac Swelling Verified 04/04/18 09:53 of the Eye Date of admission: 04/17/18 09:59 Primary care physician: Bronson Harris DO Consults: 04/17/18 10:38 Consult to Infectious Diseases [CONS] Routine Consulting Provider: Infectious [facility] Reason for Consult: Possible recurrent C. difficile infection Time Notified: 10:38 Call Completed: Yes 04/17/18 15:22 Consult to Truckload Owner Operator [CONS] Routine Reason for SW Consult: home health 04/17/18 16:13 Consult to Occupational Therapy [CONS] Routine Comment: Evaluate, develop and implement POC Reason for Consult: deconditioning Does patient have active BEDREST order?: No Is patient medically & hemodynamically stable?: Yes Patient assessed for mobility or mobilized this visit?: No Consult to Physical Therapy [CONS] Routine Comment: Evaluate, develop and implement POC Reason for Consult: deconditioning Does patient have active BEDREST order?: No Is patient medically & hemodynamically stable?: Yes Patient assessed for mobility or mobilized this visit?: No 04/18/18 13:19 Consult to Nutrition [CONS] Routine Comment: Consulting Provider: NUTRITION Reason for Dietary Consult: PO Supplementation 04/20/18 12:16 Consult to Oncology Hematology [CONS] Routine Consulting Provider: Marck Stevens Reason for Consult: Cholangoiocarcinoma pt with persistent leukocytosis Time Notified: 12:17 Call Completed: Yes 04/21/18 08:42 Consult to Palliative Care [CONS] Routine Comment: Consulting Provider: Palliative Care [place] Reason for Consult: transition to hospic, discuss code status Call Completed: Yes 04/21/18 12:57 Consult to Nephrology [CONS] Routine Consulting Provider: [facility]/RAFAELA/JO/ZAK Reason for Consult: TERRENCE Time Notified: 12:58 Call Completed: Yes 04/25/18 13:11 Consult to Interventional Radiology [CONS] Routine Consulting Provider: Radiology Interventional [place] Reason for Consult: paracentesis Call Completed: Yes - Constitutional Vitals: Temp Pulse Resp BP Pulse Ox 99.0 F 102 18 98/57 95 04/26/18 07:28 04/26/18 08:00 04/26/18 07:28 04/26/18 07:28 04/26/18 07:28 General appearance: Present: cooperative, A&O X 3, answers questions appropriately Exam: General appearance: No acute distress, appears very tired. Family bedside Eye exam: EOMI, PERRLA Respiratory exam: Diminished breath sounds at base bilaterally Cardiovascular exam: Regular rate and rhythm, no systolic murmur Abdominal exam: Soft, ascites, distended, positive bowel sounds Extremities exam: No calf tenderness Neurological exam: Grossly intact - Patient Status Disposition: Hospice - Home Condition: Serious Overall status at discharge: patient is not back to baseline - Discharge Instructions Follow Up With: Bronson Harris DO [Primary Care Provider] - (This patient is from [facility]CF no PCP appontment needed) - Diet and Activity Activity: other (Further care as per hospice) Diet: low fat, low cholesterol (Spent more than 35 minute in discharge planning and communication), low salt diet - VTE Documentation of Mechanical Device: Intermittent pneumatic compression device
--- NOTE | 2018-04-26 11:06 | Physician Discharge Referral ---
Home Health/Hosp Referral Info Transfer to: Hospice Provider in Charge Post Discharge: Other - Diagnosis (1) Cholangiocarcinoma Status: Acute (2) Ascites Status: Chronic (3) TERRENCE (acute kidney injury) Status: Acute (4) Sepsis Status: Suspected - Respiratory Orders None Smoking Cessation: Smoking cessation has been advised. For more information, call the [place] Tobacco Quit Line at 5-431-UFPS-NOW. - Diet/Nutrition Diet/Nutrition Orders: Mechanical Soft - Activity Activity Orders: Up ad flavia - Services Needed Following services are medically necessary services: Nursing, Home Health Aide Other Treatments: Please set up pt for pleurx catheter to be placed first of next week. Plavix on hold beginning 04/26 - Transfer Medications Prescriptions: Bisacodyl [Dulcolax] 10 mg RC DAILY PRN 4 Days #4 supp.rect PRN Reason: Constipation Bisacodyl [Dulcolax] 10 mg RC DAILY PRN 4 Days #4 supp.rect PRN Reason: Constipation diazePAM [Valium] 1 mg PO TID PRN 4 Days #12 tablet PRN Reason: muscle spasms/restlessness diazePAM [Valium] 1 mg PO TID PRN 4 Days #12 tablet PRN Reason: muscle spasms, restlessness FentaNYL PATCH [Duragesic] 12 mcg TD Q72H 4 Days #2 patch.td72 FentaNYL PATCH [Duragesic] 12 mcg TD Q72H 4 Days #2 patch.td72 LORazepam Oral Conc [Ativan Oral Conc] 1 mg PO Q4H PRN 4 Days #15 mls PRN Reason: Anxiety LORazepam Oral Conc [Ativan Oral Conc] 1 mg PO Q4H PRN 4 Days #15 mls PRN Reason: Anxiety OXYCODONE Oral CONC [Oxycodone Oral Conc] 10 mg PO Q3H PRN 30 Days #30 oral.syg PRN Reason: breakthough pain OXYCODONE Oral CONC [Oxycodone Oral Conc] 10 mg PO Q3H PRN 7 Days #30 oral.syg PRN Reason: Breakthrough Pain Vancomycin HCl 125 mg PO QID 5 Days #18 syringe Home Medications: Aspirin [Lo-Dose Aspirin EC] 81 mg PO DAILY 09/23/17 [History] Cholecalciferol (D-3) [Vitamin D] 1,000 unit PO QPM 09/23/17 [History] Multivitamin [Multivitamins] 1 each PO QPM 12/29/17 [History] Clopidogrel [Plavix] 75 mg PO DAILY #30 tablet 09/24/17 [Rx] Furosemide [Lasix] 20 mg PO DAILY 11/15/17 [History] Pantoprazole Sodium [Protonix] 40 mg PO DAILY 11/15/17 [History] Cyanocobalamin (Vitamin B-12) [Vitamin B-12] 100 mcg PO QPM 11/21/17 [History] Lidocaine/Prilocaine [Emla] 1 appl TP AD 11/21/17 [History] Nitroglycerin [Nitrostat] 0.4 mg SL Q5M PRN 11/21/17 [History] glipiZIDE [Glucotrol] 5 mg PO 0800 11/21/17 [History] Metoprolol [Lopressor] 12.5 mg PO BID 12/12/17 [History] Potassium Chloride [Klor-Con 10] 10 meq PO DAILY 12/12/17 [History] Magic Mouthwash [Magic Mouthwash BLM] 10 ml PO QID PRN #240 ml 12/29/17 [Rx] Acetaminophen [Tylenol] 1,000 mg PO Q6HR PRN 01/09/18 [History] Guaifenesin [Mucinex] 600 mg PO Q12HR PRN 02/06/18 [History] Dicyclomine [Bentyl] 20 mg PO BID 03/06/18 [History] Lactobac Cmb #3/Fos/Pantethine [Probiotic & Acidophilus Cap] 1 each PO BID #60 capsule 03/09/18 [Rx] Lactobacillus Rhamnosus R0011 [Probiotic Digestive Care] 1 each PO BID #60 capsule 04/04/18 [Rx] Ondansetron HCl [Zofran] 4 mg PO Q6H PRN #30 tab 04/04/18 [Rx] OxyCODONE Immed Rel [Roxicodone 10 MG] 10 mg PO TID PRN 04/17/18 [History] Bisacodyl [Dulcolax] 10 mg RC DAILY PRN 4 Days #4 supp.rect 04/26/18 [Rx] Bisacodyl [Dulcolax] 10 mg RC DAILY PRN 4 Days #4 supp.rect 04/26/18 [Rx] FentaNYL PATCH [Duragesic] 12 mcg TD Q72H 4 Days #2 patch.td72 04/26/18 [Rx] FentaNYL PATCH [Duragesic] 12 mcg TD Q72H 4 Days #2 patch.td72 04/26/18 [Rx] LORazepam Oral Conc [Ativan Oral Conc] 1 mg PO Q4H PRN 4 Days #15 mls 04/26/18 [ Rx] LORazepam Oral Conc [Ativan Oral Conc] 1 mg PO Q4H PRN 4 Days #15 mls 04/26/18 [ Rx] OXYCODONE Oral CONC [Oxycodone Oral Conc] 10 mg PO Q3H PRN 30 Days #30 oral.syg 04/26/18 [Rx] OXYCODONE Oral CONC [Oxycodone Oral Conc] 10 mg PO Q3H PRN 7 Days #30 oral.syg 04/26/18 [Rx] Vancomycin HCl 125 mg PO QID 5 Days #18 syringe 04/26/18 [Rx] diazePAM [Valium] 1 mg PO TID PRN 4 Days #12 tablet 04/26/18 [Rx] diazePAM [Valium] 1 mg PO TID PRN 4 Days #12 tablet 04/26/18 [Rx] Allergies/Adverse Reactions: 3 Allergy/AdvReac Type Severity Reaction Status Date / Time shellfish derived AdvReac Swelling Verified 04/04/18 09:53 of the Eye Certification: Further, I certify that my clinical findings support that this patient is homebound (i.e. absences from home require considerable and taxing effort and are for medical reasons or yazidi services or infrequently or short duration when for other reasons) because: Homebound Reason: Leaving home requires considerable and taxing effort due to condition Attestation: My signature below is to certify that this patient is under my care and that I, or nurse practitioner, or a physician's account management assistant working with me, has a face-to -face encounter with this patient.
[2018-04-26] MEDS: Insulin LISPRO 300 UNITS/3 ML VIAL SQ SCH ×2 (11:12→11:14)
== END 2018-04-26 12:18 | disposition hospice, home (50) | DRG 871 ==
LOC: 2SOUTHHOLD 05:52 → EMEROO 05:52 → SUATTDRO 09:59 → 2SOUTHHOLD 10:48 → 2NNU 04-20 14:18
PROVIDERS: ADMIT Student in an Organized Health Care Education/Training Program; ATTEND Internal Medicine